=== PATIENT | female | born 1935 | race Caucasian/White ===

== ENCOUNTER 2020-04-08 13:34 | Inpatient (IN) | payer MEDICARE ==
[2020-04-08] MEDS ORDERED: Sodium Chloride 0.9% 1,000 ML IV SCH (15:30)
--- NOTE | 2020-04-08 16:54 | EDM.PDOC ---
ED HPI GENERAL MEDICAL PROBLEM - General Chief Complaint: General Stated Complaint: MEDICAL VIA TRI Time Seen by Provider: 04/08/20 16:48 Source of Information: Reports: Patient History Limitations: Reports: No Limitations - History of Present Illness INITIAL COMMENTS - FREE TEXT/NARRATIVE: pt arrived after having a syncopal episode at home. She was very diaphoretic at the time. 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 Sh did not have chest pain. Onset: Today, Sudden Duration: Hour(s): Location: Reports: Generalized Severity: Mild Improves with: Reports: None Associated Symptoms: Reports: Diaphoresis, Weakness denies Pain Score (Numeric/FACES): 0 - Related Data Allergies Allergy/AdvReac Type Severity Reaction Status Date / Time lisinopril AdvReac Cough Verified 04/08/20 13:45 Home Meds: Home Meds Acetaminophen [Tylenol Extra Strength] 2 tab PO TID PRN 12/02/14 [History] Calcium Carbonate/Vitamin D3 [Calcium 1,000 + D3 Caplet] 1 tab PO BID 12/02/14 [History] Glucosamine [Glucosamine Sulfate] 2 tab PO BID 12/02/14 [History] Losartan Potassium [Cozaar] 100 mg PO DAILY 12/02/14 [History] [place]-3 Fatty Acids [Fish Oil] 1 cap PO DAILY 12/02/14 [History] Rosuvastatin [Crestor] 20 mg PO DAILY 12/02/14 [History] amLODIPine [Norvasc] 2.5 mg PO DAILY 12/02/14 [History] Melatonin 1 tab PO BEDTIME PRN 11/11/18 [History] Metoprolol Tartrate 2 tab PO BID 11/11/18 [History] Warfarin [Coumadin] 2.5 mg PO ASDIRECTED 11/11/18 [History] Albuterol Sulfate [Proair Hfa] 1 - 2 puff IH Q4H 04/08/20 [History] Budesonide/Formoterol [Symbicort 80-4.5 MCG] 1 puff INH BID 04/08/20 [History] Past Medical History HEENT History: Reports: Impaired Vision Cardiovascular History: Reports: Afib, Bypass, CAD, High Cholesterol, Hypertension Respiratory History: Reports: Asthma 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: Neurological History: Reports: CVA Endocrine/Metabolic History: Reports: Diabetes, Type II Hematologic History: Reports: Anemia Oncologic (Cancer) History: Reports: Breast Dermatologic History: Reports: Other (See Below) Other Dermatologic History: skin CA basil cell - Infectious Disease History Infectious Disease History: Reports: Chicken Pox, Measles, Mumps - Past Surgical History HEENT Surgical History: Reports: Cataract Surgery Female Surgical History: Reports: Mastectomy Other Musculoskeletal Surgeries/Procedures:: right hip/ leg fracture Social & Family History - Tobacco Use Tobacco Use Status *Q: Never Tobacco User Second Hand Smoke Exposure: No - Caffeine Use Caffeine Use: Reports: Coffee - Alcohol Use Days Per Week of Alcohol Use: 0 - Recreational Drug Use Recreational Drug Use: No ED ROS GENERAL - Review of Systems Review Of Systems: See Below Constitutional: Reports: Weakness, Fatigue HEENT: Reports: No Symptoms Respiratory: Reports: Shortness of Breath, Other ( this has not been severe) Cardiovascular: Reports: No Symptoms Endocrine: Reports: No Symptoms GI/Abdominal: Reports: No Symptoms : Reports: No Symptoms Musculoskeletal: Reports: No Symptoms Skin: Reports: No Symptoms ED EXAM, GENERAL - Physical Exam Exam: See Below Free Text/Narrative:: pt was pale and diaphoretic on arrival. She had a syncopal episode this am in the br. She did not have chest pain Exam Limited By: No Limitations General Appearance: Alert, Mild Distress Ears: Normal TMs Nose: Normal Inspection Throat/Mouth: Normal Inspection Head: Atraumatic Neck: Normal Inspection Respiratory/Chest: No Respiratory Distress Cardiovascular: Regular Rate, Rhythm GI/Abdominal: Soft, Non-Tender (Female) Exam: Deferred Rectal (Female) Exam: Deferred Back Exam: Normal Inspection Extremities: Normal Inspection Neurological: Alert, Oriented, Normal Cognition Course - Vital Signs Last Recorded V/S: Last Vital Signs Temp 37.9 C 04/08/20 13:43 Pulse 61 04/08/20 13:43 Resp 25 H 04/08/20 13:43 BP 125/48 L 04/08/20 13:43 Pulse Ox 94 L 04/08/20 13:43 Orthostatic Blood Pressure [ 95/43 Sitting] Orthostatic Blood Pressure [ 129/54 Supine] - Orders/Labs/Meds Orders: Active Orders 24 hr Category Date Time Status EKG Documentation Completion [RC] ASDIRECTED Care 04/08/20 14:35 Active Orthostatic Vital Signs [RC] ASDIRECTED Care 04/08/20 14:49 Active Chest 1V Frontal [CR] Stat Exams 04/08/20 15:16 Taken Sodium Chloride 0.9% [Normal Saline] 1,000 ml Med 04/08/20 15:30 Active IV ASDIRECTED EKG 12 Lead [EK] Routine Ther 04/08/20 14:34 Ordered Medication Orders Sodium Chloride (Normal Saline) 1,000 mls @ 999 mls/hr IV ASDIRECTED JOHN Last Admin: 04/08/20 15:46 Dose: 999 mls/hr Documented by: ARLETTE Labs: Laboratory Tests 04/08/20 04/08/20 04/08/20 Range/Units 11:34 13:45 13:45 WBC 3.5 L (4.5-11.0) K/uL RBC 4.15 (3.30-5.50) M/uL Hgb 13.0 (12.0-15.0) g/dL Hct 39.0 (36.0-48.0) % MCV 94 (80-98) fL MCH 31 (27-31) pg MCHC 33 (32-36) % Plt Count 159 (150-400) K/uL Neut % (Auto) 69 H (36-66) % Lymph % (Auto) 24 (24-44) % [place] % (Auto) 6 (2-6) % Eos % (Auto) 0 L (2-4) % Baso % (Auto) 1 (0-1) % PT (9.5-12.0) sec INR (0.80-1.20) D-Dimer, Quantitative (0.0-500.0) ng/mL Sodium (140-148) mmol/L Potassium (3.6-5.2) mmol/L Chloride (100-108) mmol/L Carbon Dioxide (21-32) mmol/L Anion Gap (5.0-14.0) mmol/L BUN (7-18) mg/dL Creatinine (0.6-1.0) mg/dL Est Cr Clr Drug Dosing mL/min Estimated GFR (MDRD) (>60) Glucose (74-106) mg/dL Calcium (8.5-10.1) mg/dL Total Bilirubin (0.2-1.0) mg/dL AST (15-37) U/L ALT (12-78) U/L Alkaline Phosphatase (46-116) U/L Troponin I < 0.017 (0.000-0.056) ng/mL C-Reactive Protein 2.17 H (0.0-0.3) mg/dL Total Protein (6.4-8.2) g/dL Albumin (3.4-5.0) g/dL Globulin (2.3-3.5) g/dL Albumin/Globulin Ratio (1.2-2.2) Urine Color (YELLOW) Urine Appearance (CLEAR) Urine pH (5.0-8.0) Ur Specific [place] (1.008-1.030) Urine Protein (NEGATIVE) mg/dL Urine Glucose (UA) (NEGATIVE) mg/dL Urine Ketones (NEGATIVE) mg/dL Urine Occult Blood (NEGATIVE) Urine Nitrite (NEGATIVE) Urine Bilirubin (NEGATIVE) Urine Urobilinogen (0.2-1.0) EU/dL Ur Leukocyte Esterase (NEGATIVE) Urine RBC (0-5) Urine WBC (0-5) Ur Epithelial Cells Urine Bacteria 04/08/20 04/08/20 04/08/20 Range/Units 13:45 13:45 13:45 WBC (4.5-11.0) K/uL RBC (3.30-5.50) M/uL Hgb (12.0-15.0) g/dL Hct (36.0-48.0) % MCV (80-98) fL MCH (27-31) pg MCHC (32-36) % Plt Count (150-400) K/uL Neut % (Auto) (36-66) % Lymph % (Auto) (24-44) % [place] % (Auto) (2-6) % Eos % (Auto) (2-4) % Baso % (Auto) (0-1) % PT 24.6 H (9.5-12.0) sec INR 2.29 H (0.80-1.20) D-Dimer, Quantitative 1138.02 H (0.0-500.0) ng/mL Sodium 132 L (140-148) mmol/L Potassium 4.1 (3.6-5.2) mmol/L Chloride 96 L (100-108) mmol/L Carbon Dioxide 24 (21-32) mmol/L Anion Gap 16.1 H (5.0-14.0) mmol/L BUN 26 H (7-18) mg/dL Creatinine 1.3 H (0.6-1.0) mg/dL Est Cr Clr Drug Dosing 29.62 mL/min Estimated GFR (MDRD) 39 L (>60) Glucose 126 H (74-106) mg/dL Calcium 8.5 (8.5-10.1) mg/dL Total Bilirubin 0.5 (0.2-1.0) mg/dL AST 45 H (15-37) U/L ALT 26 (12-78) U/L Alkaline Phosphatase 107 (46-116) U/L Troponin I (0.000-0.056) ng/mL C-Reactive Protein (0.0-0.3) mg/dL Total Protein 8.0 (6.4-8.2) g/dL Albumin 3.6 (3.4-5.0) g/dL Globulin 4.4 H (2.3-3.5) g/dL Albumin/Globulin Ratio 0.8 L (1.2-2.2) Urine Color (YELLOW) Urine Appearance (CLEAR) Urine pH (5.0-8.0) Ur Specific [place] (1.008-1.030) Urine Protein (NEGATIVE) mg/dL Urine Glucose (UA) (NEGATIVE) mg/dL Urine Ketones (NEGATIVE) mg/dL Urine Occult Blood (NEGATIVE) Urine Nitrite (NEGATIVE) Urine Bilirubin (NEGATIVE) Urine Urobilinogen (0.2-1.0) EU/dL Ur Leukocyte Esterase (NEGATIVE) Urine RBC (0-5) Urine WBC (0-5) Ur Epithelial Cells Urine Bacteria 04/08/20 Range/Units 15:29 WBC (4.5-11.0) K/uL RBC (3.30-5.50) M/uL Hgb (12.0-15.0) g/dL Hct (36.0-48.0) % MCV (80-98) fL MCH (27-31) pg MCHC (32-36) % Plt Count (150-400) K/uL Neut % (Auto) (36-66) % Lymph % (Auto) (24-44) % [place] % (Auto) (2-6) % Eos % (Auto) (2-4) % Baso % (Auto) (0-1) % PT (9.5-12.0) sec INR (0.80-1.20) D-Dimer, Quantitative (0.0-500.0) ng/mL Sodium (140-148) mmol/L Potassium (3.6-5.2) mmol/L Chloride (100-108) mmol/L Carbon Dioxide (21-32) mmol/L Anion Gap (5.0-14.0) mmol/L BUN (7-18) mg/dL Creatinine (0.6-1.0) mg/dL Est Cr Clr Drug Dosing mL/min Estimated GFR (MDRD) (>60) Glucose (74-106) mg/dL Calcium (8.5-10.1) mg/dL Total Bilirubin (0.2-1.0) mg/dL AST (15-37) U/L ALT (12-78) U/L Alkaline Phosphatase (46-116) U/L Troponin I (0.000-0.056) ng/mL C-Reactive Protein (0.0-0.3) mg/dL Total Protein (6.4-8.2) g/dL Albumin (3.4-5.0) g/dL Globulin (2.3-3.5) g/dL Albumin/Globulin Ratio (1.2-2.2) Urine Color Yellow (YELLOW) Urine Appearance Clear (CLEAR) Urine pH 5.5 (5.0-8.0) Ur Specific [place] 1.015 (1.008-1.030) Urine Protein Negative (NEGATIVE) mg/dL Urine Glucose (UA) Negative (NEGATIVE) mg/dL Urine Ketones Negative (NEGATIVE) mg/dL Urine Occult Blood Trace-intact H (NEGATIVE) Urine Nitrite Negative (NEGATIVE) Urine Bilirubin Negative (NEGATIVE) Urine Urobilinogen 0.2 (0.2-1.0) EU/dL Ur Leukocyte Esterase Small H (NEGATIVE) Urine RBC 0-5 (0-5) Urine WBC 0-5 (0-5) Ur Epithelial Cells Rare Urine Bacteria Not seen Meds: Medications Generic Name Dose Route Start Last Admin Trade Name Freq PRN Reason Stop Dose Admin Sodium Chloride 1,000 mls @ 999 mls/hr 04/08/20 15:30 04/08/20 15:46 Normal Saline IV 999 mls/hr ASDIRECTED JOHN Administration - Re-Assessments/Exams Free Text/Narrative Re-Assessment/Exam: 04/08/20 16:55 chest xray showed infiltrate rt lung field. Pt had sats in 93-94 %. She has a neg urine.. Her bp is very low with standing and she was not able to stand. She was given 500cc of fluid and then fluid at 100cc per hour. Departure - Departure Time of Disposition: 16:59 Disposition: Admitted As Inpatient 65 Condition: Fair Clinical Impression: Hypotension, COVID-19 - Discharge Information Referrals: PCP,None [Primary Care Provider] - Care Plan Goals: admit to Dr Powell. Sepsis Event Note (ED) - Evaluation Sepsis Screening Result: No Definite Risk - Focused Exam Vital Signs: Vital Signs Temp Pulse Resp BP Pulse Ox 04/08/20 13:43 37.9 C 61 25 H 125/48 L 94 L - My Orders Last 24 Hours: My Active Orders 04/08/20 14:34 EKG 12 Lead [EK] Routine 04/08/20 14:35 EKG Documentation Completion [RC] ASDIRECTED 04/08/20 14:49 Orthostatic Vital Signs [RC] ASDIRECTED 04/08/20 15:16 Chest 1V Frontal [CR] Stat 04/08/20 15:30 Sodium Chloride 0.9% [Normal Saline] 1,000 ml IV ASDIRECTED - Assessment/Plan Last 24 Hours: My Active Orders 04/08/20 14:34 EKG 12 Lead [EK] Routine 04/08/20 14:35 EKG Documentation Completion [RC] ASDIRECTED 04/08/20 14:49 Orthostatic Vital Signs [RC] ASDIRECTED 04/08/20 15:16 Chest 1V Frontal [CR] Stat 04/08/20 15:30 Sodium Chloride 0.9% [Normal Saline] 1,000 ml IV ASDIRECTED
--- NOTE | 2020-04-08 17:33 | PCM.HP.2 ---
H&P History of Present Illness - General Date of Service: 04/08/20 Admit Problem/Dx: Admission Diagnosis/Problem Admission Diagnosis/Problem Syncope Source of Information: Patient, Provider History Limitations: Reports: No Limitations - History of Present Illness Initial Comments - Free Text/Narative: CC: I woke up on the floor HPI: Dang presents to the emergency room today after an episode of syncope. She reports that after getting out of the shower this afternoon she suddenly started to feel very weak and slumped to the floor. Her thinks that she was out for about 30 seconds before coming to. She was not confused afterwards but does not recall the event. She feels pretty much back to her previous self at this point. She was diagnosed with COVID-19 on , 2 days ago. Her symptoms first started on April 01. She has had sinus congestion and a cough. She does not produce any sputum. No complaints of shortness of breath or pleuritic chest pain. Appetite has been okay and her fluid intake has been okay. She feels weak and has not had much energy. No change in bowel or bladder habits. No nausea. She has had fevers to a higher than 102 at home. Work-up in the emergency room revealed mild leukopenia and a mildly elevated D-dimer and CRP. Chest x-ray showed some subtle infiltrates on the right. Vital signs have been stable though orthostatic vital signs were positive. She is not hypoxic. She was febrile. She was given 1 L of fluid in the emergency room. She is going to be admitted for observation with weakness and syncope in the setting of COVID-19 infection. denies Pain Score (Numeric/FACES): 0 - Related Data Allergies/Adverse Reactions: Allergies Allergy/AdvReac Type Severity Reaction Status Date / Time lisinopril AdvReac Cough Verified 04/08/20 13:45 Home Medications: Home Meds Acetaminophen [Tylenol Extra Strength] 2 tab PO TID PRN 12/02/14 [History] Calcium Carbonate/Vitamin D3 [Calcium 1,000 + D3 Caplet] 1 tab PO BID 12/02/14 [History] Glucosamine [Glucosamine Sulfate] 2 tab PO BID 12/02/14 [History] Losartan Potassium [Cozaar] 100 mg PO DAILY 12/02/14 [History] [place]-3 Fatty Acids [Fish Oil] 1 cap PO DAILY 12/02/14 [History] Rosuvastatin [Crestor] 20 mg PO DAILY 12/02/14 [History] amLODIPine [Norvasc] 2.5 mg PO DAILY 12/02/14 [History] Melatonin 1 tab PO BEDTIME PRN 11/11/18 [History] Metoprolol Tartrate 2 tab PO BID 11/11/18 [History] Warfarin [Coumadin] 2.5 mg PO ASDIRECTED 11/11/18 [History] Albuterol Sulfate [Proair Hfa] 1 - 2 puff IH Q4H 04/08/20 [History] Budesonide/Formoterol [Symbicort 80-4.5 MCG] 1 puff INH BID 04/08/20 [History] Past Medical History HEENT History: Reports: Impaired Vision Cardiovascular History: Reports: Afib, Bypass, CAD, High Cholesterol, Hypertension Respiratory History: Reports: Asthma 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: Neurological History: Reports: CVA Endocrine/Metabolic History: Reports: Diabetes, Type II Hematologic History: Reports: Anemia Oncologic (Cancer) History: Reports: Breast Dermatologic History: Reports: Other (See Below) Other Dermatologic History: skin CA basil cell - Infectious Disease History Infectious Disease History: Reports: Chicken Pox, Measles, Mumps - Past Surgical History HEENT Surgical History: Reports: Cataract Surgery Female Surgical History: Reports: Mastectomy Other Musculoskeletal Surgeries/Procedures:: right hip/ leg fracture Social & Family History - Tobacco Use Tobacco Use Status *Q: Never Tobacco User Second Hand Smoke Exposure: No - Caffeine Use Caffeine Use: Reports: Coffee - Alcohol Use Days Per Week of Alcohol Use: 0 - Recreational Drug Use Recreational Drug Use: No H&P Review of Systems - Review of Systems: Review Of Systems: See Below Free Text/Narrative: A complete 12 point review of systems was obtained. Pertinent positives and negatives are noted in the history of present illness. All other systems were reviewed and were negative except as noted. Exam - Exam Exam: See Below - Vital Signs Vital Signs: Last Vital Signs Temp 37.9 C 04/08/20 13:43 Pulse 61 04/08/20 13:43 Resp 25 H 04/08/20 13:43 BP 125/48 L 04/08/20 13:43 Pulse Ox 94 L 04/08/20 13:43 Orthostatic Blood Pressure [ 95/43 Sitting] Orthostatic Blood Pressure [ 129/54 Supine] Weight: 77.111 kg - Exam Quality Assessment: No: Supplemental Oxygen General: Alert, Oriented, Cooperative. No: Mild Distress HEENT: Conjunctiva Clear, Mucosa Moist & [place]. No: Scleral Icterus Neck: Supple, Trachea Midline Lungs: Normal Respiratory Effort, Crackles (Mild dry crackles both bases) Cardiovascular: Regular Rate, Irregular Rhythm. No: Systolic Murmur GI/Abdominal Exam: Normal Bowel Sounds, Soft, Non-Tender, No Distention Extremities: No Pedal Edema. No: Increased Warmth Peripheral Pulses: 2+: Dorsalis Pedis (L), Dorsalis Pedis (R) Skin: Warm, Dry Neuro Extensive - Mental Status: Alert, Oriented x3, Nl Response to Commands Neuro Extensive - Motor, Sensory, Reflexes: No: Dysarthria, Abnormal Motor, Tremor Psychiatric: Alert, Normal Affect - Patient Data Lab Results Last 24 hrs: Laboratory Results - last 24 hr 04/08/20 04/08/20 04/08/20 Range/Units 11:34 13:45 13:45 WBC 3.5 L (4.5-11.0) K/uL RBC 4.15 (3.30-5.50) M/uL Hgb 13.0 (12.0-15.0) g/dL Hct 39.0 (36.0-48.0) % MCV 94 (80-98) fL MCH 31 (27-31) pg MCHC 33 (32-36) % Plt Count 159 (150-400) K/uL Neut % (Auto) 69 H (36-66) % Lymph % (Auto) 24 (24-44) % [place] % (Auto) 6 (2-6) % Eos % (Auto) 0 L (2-4) % Baso % (Auto) 1 (0-1) % PT (9.5-12.0) sec INR (0.80-1.20) D-Dimer, Quantitative (0.0-500.0) ng/mL Sodium (140-148) mmol/L Potassium (3.6-5.2) mmol/L Chloride (100-108) mmol/L Carbon Dioxide (21-32) mmol/L Anion Gap (5.0-14.0) mmol/L BUN (7-18) mg/dL Creatinine (0.6-1.0) mg/dL Est Cr Clr Drug Dosing mL/min Estimated GFR (MDRD) (>60) Glucose (74-106) mg/dL Calcium (8.5-10.1) mg/dL Total Bilirubin (0.2-1.0) mg/dL AST (15-37) U/L ALT (12-78) U/L Alkaline Phosphatase (46-116) U/L Troponin I < 0.017 (0.000-0.056) ng/mL C-Reactive Protein 2.17 H (0.0-0.3) mg/dL Total Protein (6.4-8.2) g/dL Albumin (3.4-5.0) g/dL Globulin (2.3-3.5) g/dL Albumin/Globulin Ratio (1.2-2.2) Urine Color (YELLOW) Urine Appearance (CLEAR) Urine pH (5.0-8.0) Ur Specific [place] (1.008-1.030) Urine Protein (NEGATIVE) mg/dL Urine Glucose (UA) (NEGATIVE) mg/dL Urine Ketones (NEGATIVE) mg/dL Urine Occult Blood (NEGATIVE) Urine Nitrite (NEGATIVE) Urine Bilirubin (NEGATIVE) Urine Urobilinogen (0.2-1.0) EU/dL Ur Leukocyte Esterase (NEGATIVE) Urine RBC (0-5) Urine WBC (0-5) Ur Epithelial Cells Urine Bacteria 04/08/20 04/08/20 04/08/20 Range/Units 13:45 13:45 13:45 WBC (4.5-11.0) K/uL RBC (3.30-5.50) M/uL Hgb (12.0-15.0) g/dL Hct (36.0-48.0) % MCV (80-98) fL MCH (27-31) pg MCHC (32-36) % Plt Count (150-400) K/uL Neut % (Auto) (36-66) % Lymph % (Auto) (24-44) % [place] % (Auto) (2-6) % Eos % (Auto) (2-4) % Baso % (Auto) (0-1) % PT 24.6 H (9.5-12.0) sec INR 2.29 H (0.80-1.20) D-Dimer, Quantitative 1138.02 H (0.0-500.0) ng/mL Sodium 132 L (140-148) mmol/L Potassium 4.1 (3.6-5.2) mmol/L Chloride 96 L (100-108) mmol/L Carbon Dioxide 24 (21-32) mmol/L Anion Gap 16.1 H (5.0-14.0) mmol/L BUN 26 H (7-18) mg/dL Creatinine 1.3 H (0.6-1.0) mg/dL Est Cr Clr Drug Dosing 29.62 mL/min Estimated GFR (MDRD) 39 L (>60) Glucose 126 H (74-106) mg/dL Calcium 8.5 (8.5-10.1) mg/dL Total Bilirubin 0.5 (0.2-1.0) mg/dL AST 45 H (15-37) U/L ALT 26 (12-78) U/L Alkaline Phosphatase 107 (46-116) U/L Troponin I (0.000-0.056) ng/mL C-Reactive Protein (0.0-0.3) mg/dL Total Protein 8.0 (6.4-8.2) g/dL Albumin 3.6 (3.4-5.0) g/dL Globulin 4.4 H (2.3-3.5) g/dL Albumin/Globulin Ratio 0.8 L (1.2-2.2) Urine Color (YELLOW) Urine Appearance (CLEAR) Urine pH (5.0-8.0) Ur Specific [place] (1.008-1.030) Urine Protein (NEGATIVE) mg/dL Urine Glucose (UA) (NEGATIVE) mg/dL Urine Ketones (NEGATIVE) mg/dL Urine Occult Blood (NEGATIVE) Urine Nitrite (NEGATIVE) Urine Bilirubin (NEGATIVE) Urine Urobilinogen (0.2-1.0) EU/dL Ur Leukocyte Esterase (NEGATIVE) Urine RBC (0-5) Urine WBC (0-5) Ur Epithelial Cells Urine Bacteria 04/08/20 Range/Units 15:29 WBC (4.5-11.0) K/uL RBC (3.30-5.50) M/uL Hgb (12.0-15.0) g/dL Hct (36.0-48.0) % MCV (80-98) fL MCH (27-31) pg MCHC (32-36) % Plt Count (150-400) K/uL Neut % (Auto) (36-66) % Lymph % (Auto) (24-44) % [place] % (Auto) (2-6) % Eos % (Auto) (2-4) % Baso % (Auto) (0-1) % PT (9.5-12.0) sec INR (0.80-1.20) D-Dimer, Quantitative (0.0-500.0) ng/mL Sodium (140-148) mmol/L Potassium (3.6-5.2) mmol/L Chloride (100-108) mmol/L Carbon Dioxide (21-32) mmol/L Anion Gap (5.0-14.0) mmol/L BUN (7-18) mg/dL Creatinine (0.6-1.0) mg/dL Est Cr Clr Drug Dosing mL/min Estimated GFR (MDRD) (>60) Glucose (74-106) mg/dL Calcium (8.5-10.1) mg/dL Total Bilirubin (0.2-1.0) mg/dL AST (15-37) U/L ALT (12-78) U/L Alkaline Phosphatase (46-116) U/L Troponin I (0.000-0.056) ng/mL C-Reactive Protein (0.0-0.3) mg/dL Total Protein (6.4-8.2) g/dL Albumin (3.4-5.0) g/dL Globulin (2.3-3.5) g/dL Albumin/Globulin Ratio (1.2-2.2) Urine Color Yellow (YELLOW) Urine Appearance Clear (CLEAR) Urine pH 5.5 (5.0-8.0) Ur Specific [place] 1.015 (1.008-1.030) Urine Protein Negative (NEGATIVE) mg/dL Urine Glucose (UA) Negative (NEGATIVE) mg/dL Urine Ketones Negative (NEGATIVE) mg/dL Urine Occult Blood Trace-intact H (NEGATIVE) Urine Nitrite Negative (NEGATIVE) Urine Bilirubin Negative (NEGATIVE) Urine Urobilinogen 0.2 (0.2-1.0) EU/dL Ur Leukocyte Esterase Small H (NEGATIVE) Urine RBC 0-5 (0-5) Urine WBC 0-5 (0-5) Ur Epithelial Cells Rare Urine Bacteria Not seen Result Diagrams: 04/08/20 13:45 04/08/20 13:45 Imaging Impressions Last 24 hrs: Chest x-ray-image personally reviewed-left lung appears clear but there are some subtle patchy infiltrates on the right. Heart size is normal. No effusions. No mass. #1 Interpretation EKG Date: 04/08/20 Rhythm: A-Fib Rate (Beats/Min): 59 [place]: Normal P-Wave: Present QRS: Normal ST-T: Normal QT: Normal (The EKG image was personally reviewed) Sepsis Event Note - Evaluation Sepsis Screening Result: No Definite Risk - Focused Exam Vital Signs: Vital Signs Temp Pulse Resp BP Pulse Ox 04/08/20 13:43 37.9 C 61 25 H 125/48 L 94 L *Q Meaningful Use (ADM) - VTE Risk Assess *Q Each Risk Factor Represents 1 Point: Obesity ( BMI > 25 kg/m2), Serious lung disease including pneumonia Total Score 1 Point Risk Factors: 2 Each Risk Factor Represents 2 Points: None Total Score 2 Point Risk Factors: 0 Each Risk Factor Represents 3 Points: Age 75 Years or Greater Total Score 3 Point Risk Factors: 3 Each Risk Factor Represents 5 Points: None Total Score 5 Point Risk Factors: 0 Venous Thromboembolism Risk Factor Score *Q: 5 - Problem List (1) Syncope SNOMED Code(s): 248422487 ICD Code: R55 - SYNCOPE AND COLLAPSE Status: Acute Current Visit: Yes Qualifiers: Syncope type: unspecified Qualified Code(s): R55 - Syncope and collapse (2) COVID-19 SNOMED Code(s): 677295168 ICD Code: U07.1 - COVID-19 Status: Acute Current Visit: Yes (3) Chronic atrial fibrillation SNOMED Code(s): 655453890 ICD Code: I48.20 - CHRONIC ATRIAL FIBRILLATION, UNSPECIFIED Status: Chronic Current Visit: Yes (4) Essential hypertension SNOMED Code(s): 87933310 ICD Code: I10 - ESSENTIAL (PRIMARY) HYPERTENSION Status: Chronic Current Visit: Yes Problem List Initiated/Reviewed/Updated: Yes Orders Last 24hrs: Active Orders 24 hr Category Date Time Status Patient Status Manage Transfer [TRANSFER] Routine ADT 04/08/20 17:27 Ordered EKG Documentation Completion [RC] ASDIRECTED Care 04/08/20 14:35 Active Orthostatic Vital Signs [RC] ASDIRECTED Care 04/08/20 14:49 Active Chest 1V Frontal [CR] Stat Exams 04/08/20 15:16 Taken Sodium Chloride 0.9% [Normal Saline] 1,000 ml Med 04/08/20 15:30 Active IV ASDIRECTED Resuscitation Status Routine Resus Stat 04/08/20 17:29 Ordered EKG 12 Lead [EK] Routine Ther 04/08/20 14:34 Ordered Medication Orders Sodium Chloride (Normal Saline) 1,000 mls @ 999 mls/hr IV ASDIRECTED JOHN Last Admin: 04/08/20 15:46 Dose: 999 mls/hr Documented by: ARLETTE Assessment/Plan Comment:: ASSESSMENT AND PLAN - Syncope-occurred after getting out of the shower and is likely a combination of vasodilation and decreased intravascular volume with Covid and recent fevers. Orthostatics are positive. She did get 1 L of fluid in the emergency room. Additional fluids are contraindicated because of her Covid infection. -Hold antihypertensives other than beta-denilson -Encourage oral fluid intake -Cardiac monitoring COVID-19 infection-manifestations of congestion and cough as well as fatigue. She is not hypoxic. Does not meet criteria to initiate treatment at this point. -Symptomatic management -Steroids +/-remdesivir if she becomes hypoxic Chronic atrial fibrillation-rate controlled. INR therapeutic. -Continue beta-denilson and warfarin Essential hypertension-blood pressure on the low side and orthostatics are positive. -Hold calcium channel denilson and ARB Maintenance issues - - DVT prophylaxis -warfarin - GI prophylaxis -not indicated - Nutrition -regular - Calle catheter -not indicated CODE STATUS -DNR/DNI Admission justification -patient will be referred to observation status for cardiac monitoring and assistance until her strength improves Disposition -anticipate discharge home after the hospital stay Primary care physician -Dr Igor Powell M.D. - Mortality Measure Prognosis:: Good
[2020-04-08] MEDS ORDERED: Ondansetron 4 MG/2 ML SDV IV PRN (18:04)
[2020-04-08] MEDS ORDERED: guaiFENesin/Dextromethorphan 100-10 MG/5 ML Soln 10 ML Cup PO PRN (18:04)
[2020-04-08] MEDS ORDERED: Ondansetron 4 MG Tab.DIS PO PRN (18:04)
[2020-04-08] MEDS ORDERED: Benzonatate 100 MG Cap PO PRN (18:04)
[2020-04-08] MEDS: Albuterol 8 GM Inhaler INH SCH ×2 (20:19→21:52)
[2020-04-08] MEDS: METOPROLOL 25 MG PO SCH (20:20)
[2020-04-08] MEDS: Melatonin 3 MG Tab PO SCH (20:27)
[2020-04-08] MEDS: Acetaminophen 325 MG Tab PO PRN (20:27)
[2020-04-08] MEDS ORDERED: Dexamethasone 2 MG Tab PO ONE (20:44)
[2020-04-08] MEDS ORDERED: Metoprolol Tartrate 50 MG Tab PO SCH (21:00)
[2020-04-08] MEDS ORDERED: Formoterol/Mometasone 100-5 MCG 8.8 GM Inhaler IH SCH (21:00)
[2020-04-09] MEDS: Albuterol 8 GM Inhaler INH SCH ×8 (02:14→20:44)
[2020-04-09] MEDS: Rosuvastatin 10 MG Tab PO SCH (08:31)
[2020-04-09] MEDS: Formoterol/Mometasone 100-5 MCG 8.8 GM Inhaler IH SCH ×2 (08:32→20:09)
--- NOTE | 2020-04-09 12:11 | PCM.PN ---
- General Info Date of Service: 04/09/20 Subjective Update: Overnight the patient had difficulty with hypoxia. She was started on supplemental oxygen. She has maintained adequate saturations with 2 L of supplemental oxygen. She says that she feels about the same as yesterday. She feels tired and weak and congested. Cough is intermittent. No fevers overnight. She was started on steroids last night and tolerated these well. We did discuss adding remdesivir and she was interested in starting this after a discussion about risks and benefits of this medication provided under the emergency use authorization. Functional Status: Reports: Pain Controlled, Tolerating Diet - Review of Systems General: Reports: Weakness Pulmonary: Reports: Shortness of Breath - Patient Data Vitals - Most Recent: Last Vital Signs Temp 35.4 C L 04/09/20 10:27 Pulse 55 L 04/09/20 10:27 Resp 18 04/09/20 10:27 BP 97/44 L 04/09/20 10:27 Pulse Ox 95 04/09/20 11:59 Orthostatic Blood Pressure [ 95/43 Sitting] Orthostatic Blood Pressure [ 129/54 Supine] Weight - Most Recent: 72.575 kg I&O - Last 24 Hours: Intake & Output 04/08/20 04/09/20 04/09/20 22:59 06:59 14:59 Intake Total 500 240 800 Output Total 100 150 Balance 400 240 650 Lab Results Last 24 Hours: Laboratory Results - last 24 hr 04/08/20 04/08/20 04/08/20 Range/Units 11:34 13:45 13:45 WBC 3.5 L (4.5-11.0) K/uL RBC 4.15 (3.30-5.50) M/uL Hgb 13.0 (12.0-15.0) g/dL Hct 39.0 (36.0-48.0) % MCV 94 (80-98) fL MCH 31 (27-31) pg MCHC 33 (32-36) % Plt Count 159 (150-400) K/uL Neut % (Auto) 69 H (36-66) % Lymph % (Auto) 24 (24-44) % [place] % (Auto) 6 (2-6) % Eos % (Auto) 0 L (2-4) % Baso % (Auto) 1 (0-1) % PT (9.5-12.0) sec INR (0.80-1.20) D-Dimer, Quantitative (0.0-500.0) ng/mL Sodium (140-148) mmol/L Potassium (3.6-5.2) mmol/L Chloride (100-108) mmol/L Carbon Dioxide (21-32) mmol/L Anion Gap (5.0-14.0) mmol/L BUN (7-18) mg/dL Creatinine (0.6-1.0) mg/dL Est Cr Clr Drug Dosing mL/min Estimated GFR (MDRD) (>60) Glucose (74-106) mg/dL Calcium (8.5-10.1) mg/dL Total Bilirubin (0.2-1.0) mg/dL AST (15-37) U/L ALT (12-78) U/L Alkaline Phosphatase (46-116) U/L Troponin I < 0.017 (0.000-0.056) ng/mL C-Reactive Protein 2.17 H (0.0-0.3) mg/dL Total Protein (6.4-8.2) g/dL Albumin (3.4-5.0) g/dL Globulin (2.3-3.5) g/dL Albumin/Globulin Ratio (1.2-2.2) Urine Color (YELLOW) Urine Appearance (CLEAR) Urine pH (5.0-8.0) Ur Specific [place] (1.008-1.030) Urine Protein (NEGATIVE) mg/dL Urine Glucose (UA) (NEGATIVE) mg/dL Urine Ketones (NEGATIVE) mg/dL Urine Occult Blood (NEGATIVE) Urine Nitrite (NEGATIVE) Urine Bilirubin (NEGATIVE) Urine Urobilinogen (0.2-1.0) EU/dL Ur Leukocyte Esterase (NEGATIVE) Urine RBC (0-5) Urine WBC (0-5) Ur Epithelial Cells Urine Bacteria 04/08/20 04/08/20 04/08/20 Range/Units 13:45 13:45 13:45 WBC (4.5-11.0) K/uL RBC (3.30-5.50) M/uL Hgb (12.0-15.0) g/dL Hct (36.0-48.0) % MCV (80-98) fL MCH (27-31) pg MCHC (32-36) % Plt Count (150-400) K/uL Neut % (Auto) (36-66) % Lymph % (Auto) (24-44) % [place] % (Auto) (2-6) % Eos % (Auto) (2-4) % Baso % (Auto) (0-1) % PT 24.6 H (9.5-12.0) sec INR 2.29 H (0.80-1.20) D-Dimer, Quantitative 1138.02 H (0.0-500.0) ng/mL Sodium 132 L (140-148) mmol/L Potassium 4.1 (3.6-5.2) mmol/L Chloride 96 L (100-108) mmol/L Carbon Dioxide 24 (21-32) mmol/L Anion Gap 16.1 H (5.0-14.0) mmol/L BUN 26 H (7-18) mg/dL Creatinine 1.3 H (0.6-1.0) mg/dL Est Cr Clr Drug Dosing 29.62 mL/min Estimated GFR (MDRD) 39 L (>60) Glucose 126 H (74-106) mg/dL Calcium 8.5 (8.5-10.1) mg/dL Total Bilirubin 0.5 (0.2-1.0) mg/dL AST 45 H (15-37) U/L ALT 26 (12-78) U/L Alkaline Phosphatase 107 (46-116) U/L Troponin I (0.000-0.056) ng/mL C-Reactive Protein (0.0-0.3) mg/dL Total Protein 8.0 (6.4-8.2) g/dL Albumin 3.6 (3.4-5.0) g/dL Globulin 4.4 H (2.3-3.5) g/dL Albumin/Globulin Ratio 0.8 L (1.2-2.2) Urine Color (YELLOW) Urine Appearance (CLEAR) Urine pH (5.0-8.0) Ur Specific [place] (1.008-1.030) Urine Protein (NEGATIVE) mg/dL Urine Glucose (UA) (NEGATIVE) mg/dL Urine Ketones (NEGATIVE) mg/dL Urine Occult Blood (NEGATIVE) Urine Nitrite (NEGATIVE) Urine Bilirubin (NEGATIVE) Urine Urobilinogen (0.2-1.0) EU/dL Ur Leukocyte Esterase (NEGATIVE) Urine RBC (0-5) Urine WBC (0-5) Ur Epithelial Cells Urine Bacteria 04/08/20 04/09/20 04/09/20 Range/Units 15:29 05:10 05:10 WBC 3.8 L (4.5-11.0) K/uL RBC 3.61 (3.30-5.50) M/uL Hgb 11.1 L (12.0-15.0) g/dL Hct 34.3 L (36.0-48.0) % MCV 95 (80-98) fL MCH 31 (27-31) pg MCHC 32 (32-36) % Plt Count 145 L (150-400) K/uL Neut % (Auto) (36-66) % Lymph % (Auto) (24-44) % [place] % (Auto) (2-6) % Eos % (Auto) (2-4) % Baso % (Auto) (0-1) % PT 20.0 H (9.5-12.0) sec INR 1.86 H (0.80-1.20) D-Dimer, Quantitative (0.0-500.0) ng/mL Sodium (140-148) mmol/L Potassium (3.6-5.2) mmol/L Chloride (100-108) mmol/L Carbon Dioxide (21-32) mmol/L Anion Gap (5.0-14.0) mmol/L BUN (7-18) mg/dL Creatinine (0.6-1.0) mg/dL Est Cr Clr Drug Dosing mL/min Estimated GFR (MDRD) (>60) Glucose (74-106) mg/dL Calcium (8.5-10.1) mg/dL Total Bilirubin (0.2-1.0) mg/dL AST (15-37) U/L ALT (12-78) U/L Alkaline Phosphatase (46-116) U/L Troponin I (0.000-0.056) ng/mL C-Reactive Protein (0.0-0.3) mg/dL Total Protein (6.4-8.2) g/dL Albumin (3.4-5.0) g/dL Globulin (2.3-3.5) g/dL Albumin/Globulin Ratio (1.2-2.2) Urine Color Yellow (YELLOW) Urine Appearance Clear (CLEAR) Urine pH 5.5 (5.0-8.0) Ur Specific [place] 1.015 (1.008-1.030) Urine Protein Negative (NEGATIVE) mg/dL Urine Glucose (UA) Negative (NEGATIVE) mg/dL Urine Ketones Negative (NEGATIVE) mg/dL Urine Occult Blood Trace-intact H (NEGATIVE) Urine Nitrite Negative (NEGATIVE) Urine Bilirubin Negative (NEGATIVE) Urine Urobilinogen 0.2 (0.2-1.0) EU/dL Ur Leukocyte Esterase Small H (NEGATIVE) Urine RBC 0-5 (0-5) Urine WBC 0-5 (0-5) Ur Epithelial Cells Rare Urine Bacteria Not seen 04/09/20 Range/Units 05:10 WBC (4.5-11.0) K/uL RBC (3.30-5.50) M/uL Hgb (12.0-15.0) g/dL Hct (36.0-48.0) % MCV (80-98) fL MCH (27-31) pg MCHC (32-36) % Plt Count (150-400) K/uL Neut % (Auto) (36-66) % Lymph % (Auto) (24-44) % [place] % (Auto) (2-6) % Eos % (Auto) (2-4) % Baso % (Auto) (0-1) % PT (9.5-12.0) sec INR (0.80-1.20) D-Dimer, Quantitative (0.0-500.0) ng/mL Sodium 133 L (140-148) mmol/L Potassium 4.0 (3.6-5.2) mmol/L Chloride 99 L (100-108) mmol/L Carbon Dioxide 23 (21-32) mmol/L Anion Gap 15.0 H (5.0-14.0) mmol/L BUN 31 H (7-18) mg/dL Creatinine 1.3 H (0.6-1.0) mg/dL Est Cr Clr Drug Dosing 29.62 mL/min Estimated GFR (MDRD) 39 L (>60) Glucose 225 H (74-106) mg/dL Calcium 8.2 L (8.5-10.1) mg/dL Total Bilirubin (0.2-1.0) mg/dL AST (15-37) U/L ALT (12-78) U/L Alkaline Phosphatase (46-116) U/L Troponin I (0.000-0.056) ng/mL C-Reactive Protein (0.0-0.3) mg/dL Total Protein (6.4-8.2) g/dL Albumin (3.4-5.0) g/dL Globulin (2.3-3.5) g/dL Albumin/Globulin Ratio (1.2-2.2) Urine Color (YELLOW) Urine Appearance (CLEAR) Urine pH (5.0-8.0) Ur Specific [place] (1.008-1.030) Urine Protein (NEGATIVE) mg/dL Urine Glucose (UA) (NEGATIVE) mg/dL Urine Ketones (NEGATIVE) mg/dL Urine Occult Blood (NEGATIVE) Urine Nitrite (NEGATIVE) Urine Bilirubin (NEGATIVE) Urine Urobilinogen (0.2-1.0) EU/dL Ur Leukocyte Esterase (NEGATIVE) Urine RBC (0-5) Urine WBC (0-5) Ur Epithelial Cells Urine Bacteria Med Orders - Current: Current Medications Acetaminophen (Tylenol) 650 mg PO Q4H PRN PRN Reason: Pain (Mild 1-3)/fever Last Admin: 04/08/20 20:27 Dose: 650 mg Documented by: Albuterol (Ventolin Hfa) 1 - 2 gm INH Q4H [facility] Last Admin: 04/09/20 11:12 Dose: 2 puff Documented by: Benzonatate (Tessalon Perles) 100 mg PO TID PRN PRN Reason: Cough Dexamethasone (Dexamethasone) 6 mg PO Q24H [facility] Stop: 04/17/20 21:01 Guaifenesin/Dextromethorphan (Robitussin Dm) 10 ml PO Q4H PRN PRN Reason: Cough Remdesivir 100 mg/ Sodium (Chloride) 100 mls @ 100 mls/hr IV Q24H [facility] Stop: 04/13/20 13:59 Remdesivir 200 mg/ Sodium (Chloride) 250 mls @ 250 mls/hr IV ONETIME ONE Stop: 04/09/20 12:09 Magnesium Hydroxide (Milk Of Magnesia) 30 ml PO Q12H PRN PRN Reason: Constipation Melatonin (Melatonin) 6 mg PO BEDTIME [facility] Last Admin: 04/08/20 20:27 Dose: 6 mg Documented by: Mometasone Furoate/Formoterol Fumar (Dulera 100-5 Mcg) 0 puff IH BIDRT [facility] Last Admin: 04/09/20 08:32 Dose: 1 puff Documented by: Metoprolol 25mg Tab (Pt Own) 2 each PO BID [facility] Last Admin: 04/08/20 20:20 Dose: 2 each Documented by: Ondansetron HCl (Zofran) 4 mg IV Q6H PRN PRN Reason: Nausea/Vomiting Ondansetron HCl (Zofran Odt) 4 mg PO Q6H PRN PRN Reason: Nausea able to take PO Rosuvastatin Calcium (Crestor) 20 mg PO DAILY [facility] Last Admin: 04/09/20 08:31 Dose: 20 mg Documented by: Senna/Docusate Sodium (Senna Plus) 1 tab PO BID PRN PRN Reason: Constipation Warfarin Sodium (Coumadin) 1.25 mg PO DAILY@1300 [facility] Discontinued Medications Albuterol (Ventolin Hfa) 1 - 2 gm INH Q4H [facility] Last Admin: 04/09/20 05:39 Dose: 1 puff Documented by: Dexamethasone (Dexamethasone) 6 mg PO ONETIME ONE Stop: 04/08/20 20:45 Last Admin: 04/08/20 21:52 Dose: 6 mg Documented by: Sodium Chloride (Normal Saline) 1,000 mls @ 999 mls/hr IV ASDIRECTED [facility] Last Admin: 04/08/20 15:46 Dose: 999 mls/hr Documented by: Metoprolol Tartrate (Lopressor) 50 mg PO BID [facility] Mometasone Furoate/Formoterol Fumar (Dulera 100-5 Mcg) 1 puff IH BID [facility] Last Admin: 04/08/20 20:18 Dose: 1 puff Documented by: - Exam Quality Assessment: Supplemental Oxygen General: Alert, Oriented, Cooperative, No Acute Distress Lungs: Normal Respiratory Effort. No: Wheezing Cardiovascular: Regular Rate, Irregular Rhythm GI/Abdominal Exam: Soft, No Distention Extremities: No Pedal Edema. No: Increased Warmth Skin: Warm, Dry Psy/Mental Status: Alert, Normal Affect Sepsis Event Note - Evaluation Sepsis Screening Result: Severe Sepsis Risk - Focused Exam Vital Signs: Vital Signs Temp Pulse Resp BP Pulse Ox 04/09/20 11:59 95 04/09/20 10:27 35.4 C L 55 L 18 97/44 L 93 L 04/09/20 07:11 93 L 04/09/20 07:00 35.4 C L 50 L 18 102/53 L 93 L 04/09/20 02:15 44 L 16 101/51 L 92 L 04/09/20 01:00 97 - Problem List & Annotations (1) Syncope SNOMED Code(s): 969487542 Code(s): R55 - SYNCOPE AND COLLAPSE Status: Acute Current Visit: Yes Qualifiers: Syncope type: unspecified Qualified Code(s): R55 - Syncope and collapse (2) COVID-19 SNOMED Code(s): 486424546 Code(s): U07.1 - COVID-19 Status: Acute Current Visit: Yes (3) Chronic atrial fibrillation SNOMED Code(s): 601479183 Code(s): I48.20 - CHRONIC ATRIAL FIBRILLATION, UNSPECIFIED Status: Chronic Current Visit: Yes (4) Essential hypertension SNOMED Code(s): 75080655 Code(s): I10 - ESSENTIAL (PRIMARY) HYPERTENSION Status: Chronic Current Visit: Yes - Problem List Review Problem List Initiated/Reviewed/Updated: Yes - My Orders Last 24 Hours: My Active Orders 04/08/20 Dinner Regular Diet [DIET] 04/08/20 17:29 Resuscitation Status Routine 04/08/20 18:04 Acetaminophen [TylenoL] 650 mg PO Q4H PRN Benzonatate [Tessalon Perles] 100 mg PO TID PRN Dextromethorphan/guaiFENesin [Robitussin DM] 10 ml PO Q4H PRN Docusate Sodium/Sennosides [Senna Plus] 1 tab PO BID PRN Magnesium Hydroxide [Milk of Magnesia] 30 ml PO Q12H PRN Ondansetron [Zofran ODT] 4 mg PO Q6H PRN Ondansetron [Zofran] 4 mg IV Q6H PRN 04/08/20 18:04 Patient Status [ADT] Routine Cardiac Monitoring [RC] CONTINUOUS Intake and Output [RC] Q12H Notify Provider Vital Signs [RC] ASDIRECTED Oxygen Therapy [RC] PRN Pulse Oximetry [RC] CONTINUOUS Up With Assistance [RC] ASDIRECTED VTE/DVT Education [RC] Per Unit Routine Vital Signs [RC] Q4H 04/08/20 21:00 Melatonin 6 mg PO BEDTIME Non-Formulary Medication [NF Drug] 2 each PO BID 04/09/20 09:00 Mometasone/Formoterol [Dulera 100-5 MCG] 0 puff IH BIDRT Rosuvastatin [Crestor] 20 mg PO DAILY 04/09/20 09:26 Albuterol [Ventolin HFA] 1 - 2 gm INH Q4H 04/09/20 12:08 Remdesivir 200 mg Sodium Chloride 0.9% [Normal Saline] 250 ml IV ONETIME 04/09/20 12:09 Admission Status [Patient Status] [ADT] Routine 04/09/20 13:00 Warfarin [Coumadin] 1.25 mg PO DAILY@1300 04/09/20 21:00 Metoprolol Tartrate [Lopressor] 25 mg PO BID dexAMETHasone 6 mg PO Q24H 04/10/20 05:00 C-REACTIVE PROTEIN [CHEM] Timed CBC W/O DIFF,HEMOGRAM [HEME] Timed (1) COMPREHENSIVE METABOLIC PN,CMP [CHEM] Timed D-DIMER QUANTITATIVE [COAG] Timed INR,PT,PROTHROMBIN TIME [COAG] Timed 04/10/20 13:00 Remdesivir 100 mg Sodium Chloride 0.9% [Normal Saline] 100 ml IV Q24H - Plan Plan:: ASSESSMENT AND PLAN - COVID-19 pneumonia-now complicated by acute respiratory failure with hypoxia. She is currently requiring 2 L of oxygen. Steroids started last night. She is interested in remdesivir. -Continue steroids every 24 hours (day 2) -Start remdesivir (day 1) -Symptomatic management -Isolation precautions (sx onset 04/01) Syncope-occurred after getting out of the shower and is likely a combination of vasodilation and decreased intravascular volume with Covid and recent fevers. No recurrence during the hospital stay. -Hold antihypertensives other than beta-denilson -Encourage oral fluid intake -Cardiac monitoring Chronic atrial fibrillation-rate controlled. INR slightly subtherapeutic. -Continue beta-denilson but decrease dose by one half -Continue warfarin Essential hypertension-blood pressure on the low side and orthostatics are positive. -Hold calcium channel denilson and ARB Maintenance issues - - DVT prophylaxis -warfarin - GI prophylaxis -not indicated - Nutrition -regular - Calle catheter -not indicated CODE STATUS -DNR/DNI Admission justification -initially the patient was admitted to observation but she will now be admitted for inpatient services and is medically appropriate meeting medical necessity for inpatient admission as outlined in my documentation. I reasonably expect the patient will require inpatient services that span a period time over 2 midnights. I reasonably expect this patient to be discharged or transferred within 96 hours after admission to the [facility]. She has COVID-19 pneumonia complicated by acute respiratory failure with hypoxia. Disposition -anticipate discharge home versus subacute rehab after the hospital stay Primary care physician -Dr Igor Powell M.D.
[2020-04-09] MEDS: METOPROLOL 25 MG PO SCH (12:20)
[2020-04-09] MEDS: Warfarin 2.5 MG Tab PO SCH (13:31)
[2020-04-09] MEDS ORDERED: REMDESIVIR 200 MG in Sodium Chloride 0.9% 250 ML IV ONE (14:00)
[2020-04-09] MEDS: Metoprolol Tartrate 25 MG Tab PO SCH (20:09)
[2020-04-09] MEDS: Dexamethasone 2 MG Tab PO SCH (20:09)
[2020-04-09] MEDS: Melatonin 3 MG Tab PO SCH (20:10)
[2020-04-10] MEDS: Albuterol 8 GM Inhaler INH SCH ×6 (01:53→21:54)
[2020-04-10] MEDS: Metoprolol Tartrate 25 MG Tab PO SCH ×2 (08:20→21:51)
[2020-04-10] MEDS: Rosuvastatin 10 MG Tab PO SCH (08:20)
--- NOTE | 2020-04-10 10:03 | CR ---
CHEST: Portable 04/08/2020 at 4:37 PM CLINICAL HISTORY:Covid positive, SOB COMPARISON:None FINDINGS: Heart size is mildly enlarged. Patient has had previous sternotomy. Pulmonary vascularity is normal. There are atherosclerotic changes in the aorta. There are patchy bilateral pneumonic infiltrates right greater than left. No effusion is seen. Impression: Bilateral pneumonic infiltrates in a covid positive patient. Follow-up recommended until clear
--- NOTE | 2020-04-10 10:55 | PCM.PN ---
- General Info Date of Service: 04/10/20 Subjective Update: Ms. Carlson is required increased level of supplemental oxygen over the last 24 hours as now up to 6 L/min via nasal cannula. She otherwise feels relatively comfortable and reports that her appetite has been good. She remains weak and does become short of breath with fairly minimal exertion. Functional Status: Reports: Tolerating Diet, Urinating - Review of Systems General: Reports: Weakness, Fatigue. Denies: Fever, Chills Pulmonary: Reports: Shortness of Breath, Cough. Denies: Pleuritic Chest Pain, Sputum, Hemoptysis, Wheezing Cardiovascular: Reports: Dyspnea on Exertion. Denies: Chest Pain, Palpitations, Orthopnea, PND, Edema, Lightheadedness Gastrointestinal: Reports: No Symptoms - Patient Data Vitals - Most Recent: Last Vital Signs Temp 96.1 F L 04/10/20 10:27 Pulse 58 L 04/10/20 10:27 Resp 18 04/10/20 10:27 BP 117/56 L 04/10/20 10:27 Pulse Ox 96 04/10/20 10:27 Orthostatic Blood Pressure [ 95/43 Sitting] Orthostatic Blood Pressure [ 129/54 Supine] Weight - Most Recent: 160 lb 0.008 oz I&O - Last 24 Hours: Intake & Output 04/09/20 04/10/20 04/10/20 22:59 06:59 14:59 Intake Total 1200 Output Total 100 Balance -100 1200 Lab Results Last 24 Hours: Laboratory Results - last 24 hr 04/10/20 04/10/20 04/10/20 Range/Units 04:05 04:05 04:05 WBC 7.8 (4.5-11.0) K/uL RBC 3.37 (3.30-5.50) M/uL Hgb 10.6 L (12.0-15.0) g/dL Hct 31.8 L (36.0-48.0) % MCV 94 (80-98) fL MCH 32 H (27-31) pg MCHC 33 (32-36) % Plt Count 155 (150-400) K/uL PT 24.0 H (9.5-12.0) sec INR 2.24 H (0.80-1.20) D-Dimer, Quantitative 945.94 H (0.0-500.0) ng/mL Sodium (140-148) mmol/L Potassium (3.6-5.2) mmol/L Chloride (100-108) mmol/L Carbon Dioxide (21-32) mmol/L Anion Gap (5.0-14.0) mmol/L BUN (7-18) mg/dL Creatinine (0.6-1.0) mg/dL Est Cr Clr Drug Dosing mL/min Estimated GFR (MDRD) (>60) Glucose (74-106) mg/dL Calcium (8.5-10.1) mg/dL Total Bilirubin (0.2-1.0) mg/dL AST (15-37) U/L ALT (12-78) U/L Alkaline Phosphatase (46-116) U/L C-Reactive Protein (0.0-0.3) mg/dL Total Protein (6.4-8.2) g/dL Albumin (3.4-5.0) g/dL Globulin (2.3-3.5) g/dL Albumin/Globulin Ratio (1.2-2.2) 04/10/20 Range/Units 04:05 WBC (4.5-11.0) K/uL RBC (3.30-5.50) M/uL Hgb (12.0-15.0) g/dL Hct (36.0-48.0) % MCV (80-98) fL MCH (27-31) pg MCHC (32-36) % Plt Count (150-400) K/uL PT (9.5-12.0) sec INR (0.80-1.20) D-Dimer, Quantitative (0.0-500.0) ng/mL Sodium 134 L (140-148) mmol/L Potassium 4.2 (3.6-5.2) mmol/L Chloride 101 (100-108) mmol/L Carbon Dioxide 21 (21-32) mmol/L Anion Gap 16.2 H (5.0-14.0) mmol/L BUN 35 H (7-18) mg/dL Creatinine 1.2 H (0.6-1.0) mg/dL Est Cr Clr Drug Dosing 32.09 mL/min Estimated GFR (MDRD) 43 L (>60) Glucose 335 H (74-106) mg/dL Calcium 7.9 L (8.5-10.1) mg/dL Total Bilirubin 0.3 (0.2-1.0) mg/dL AST 40 H (15-37) U/L ALT 24 (12-78) U/L Alkaline Phosphatase 83 (46-116) U/L C-Reactive Protein 2.08 H (0.0-0.3) mg/dL Total Protein 6.2 L (6.4-8.2) g/dL Albumin 2.5 L (3.4-5.0) g/dL Globulin 3.7 H (2.3-3.5) g/dL Albumin/Globulin Ratio 0.7 L (1.2-2.2) Med Orders - Current: Current Medications Acetaminophen (Tylenol) 650 mg PO Q4H PRN PRN Reason: Pain (Mild 1-3)/fever Last Admin: 04/08/20 20:27 Dose: 650 mg Documented by: Albuterol (Ventolin Hfa) 1 - 2 gm INH Q4H [facility] Last Admin: 04/10/20 05:31 Dose: Not Given Documented by: Benzonatate (Tessalon Perles) 100 mg PO TID PRN PRN Reason: Cough Dexamethasone (Dexamethasone) 6 mg PO Q24H [facility] Stop: 04/17/20 21:01 Last Admin: 04/09/20 20:09 Dose: 6 mg Documented by: Guaifenesin/Dextromethorphan (Robitussin Dm) 10 ml PO Q4H PRN PRN Reason: Cough Remdesivir 100 mg/ Sodium (Chloride) 100 mls @ 100 mls/hr IV Q24H [facility] Stop: 04/13/20 14:59 Magnesium Hydroxide (Milk Of Magnesia) 30 ml PO Q12H PRN PRN Reason: Constipation Melatonin (Melatonin) 6 mg PO BEDTIME [facility] Last Admin: 04/09/20 20:10 Dose: 6 mg Documented by: Metoprolol Tartrate (Lopressor) 25 mg PO BID [facility] Last Admin: 04/10/20 08:20 Dose: 25 mg Documented by: Mometasone Furoate/Formoterol Fumar (Dulera 100-5 Mcg) 0 puff IH BIDRT [facility] Last Admin: 04/09/20 20:09 Dose: 1 puff Documented by: Ondansetron HCl (Zofran) 4 mg IV Q6H PRN PRN Reason: Nausea/Vomiting Ondansetron HCl (Zofran Odt) 4 mg PO Q6H PRN PRN Reason: Nausea able to take PO Rosuvastatin Calcium (Crestor) 20 mg PO DAILY [facility] Last Admin: 04/10/20 08:20 Dose: 20 mg Documented by: Senna/Docusate Sodium (Senna Plus) 1 tab PO BID PRN PRN Reason: Constipation Warfarin Sodium (Coumadin) 1.25 mg PO DAILY@1300 [facility] Last Admin: 04/09/20 13:31 Dose: 1.25 mg Documented by: Discontinued Medications Albuterol (Ventolin Hfa) 1 - 2 gm INH Q4H [facility] Last Admin: 04/09/20 05:39 Dose: 1 puff Documented by: Dexamethasone (Dexamethasone) 6 mg PO ONETIME ONE Stop: 04/08/20 20:45 Last Admin: 04/08/20 21:52 Dose: 6 mg Documented by: Sodium Chloride (Normal Saline) 1,000 mls @ 999 mls/hr IV ASDIRECTED [facility] Last Admin: 04/08/20 15:46 Dose: 999 mls/hr Documented by: Remdesivir 200 mg/ Sodium (Chloride) 250 mls @ 250 mls/hr IV ONETIME ONE Stop: 04/09/20 14:59 Last Admin: 04/09/20 13:45 Dose: 250 mls/hr Documented by: Metoprolol Tartrate (Lopressor) 50 mg PO BID [facility] Mometasone Furoate/Formoterol Fumar (Dulera 100-5 Mcg) 1 puff IH BID [facility] Last Admin: 04/08/20 20:18 Dose: 1 puff Documented by: Metoprolol 25mg Tab (Pt Own) 2 each PO BID [facility] Last Admin: 04/09/20 12:20 Dose: Not Given Documented by: - Exam Quality Assessment: Supplemental Oxygen, DVT Prophylaxis General: Alert, Oriented, Cooperative, Moderate Distress Lungs: Normal Respiratory Effort, Rales. No: Crackles, Rhonchi, Wheezing Cardiovascular: Regular Rate, Regular Rhythm, No Murmurs GI/Abdominal Exam: Soft, Non-Tender, No Organomegaly, No Distention Extremities: Non-Tender, No Pedal Edema Skin: Warm, Dry Sepsis Event Note - Evaluation Sepsis Screening Result: No Definite Risk - Focused Exam Vital Signs: Vital Signs Temp Pulse Pulse Resp BP BP Pulse Ox 04/10/20 10:27 96.1 F L 58 L 18 117/56 L 96 04/10/20 08:20 57 L 132/57 L 04/10/20 08:04 97.5 F 57 L 20 132/57 L 94 L 04/10/20 07:00 95 04/10/20 02:01 98.1 F 85 18 124/43 L 91 L 04/10/20 00:53 93 L - Problem List Review Problem List Initiated/Reviewed/Updated: Yes - My Orders Last 24 Hours: My Active Orders 04/11/20 05:00 CBC WITH AUTO DIFF [HEME] Timed COMPREHENSIVE METABOLIC PN,CMP [CHEM] Timed 04/11/20 05:11 CRP [C-REACTIVE PROTEIN] [CHEM] AM D Dimer [D-DIMER QUANTITATIVE] [COAG] AM - Plan Plan:: ASSESSMENT AND PLAN - COVID-19 pneumonia-now complicated by acute respiratory failure with hypoxia. She is currently requiring 6 L of oxygen. -Continue steroids every 24 hours (day 3) -remdesivir (day 2) -Symptomatic management -Isolation precautions (sx onset 04/01) Syncope-occurred after getting out of the shower and is likely a combination of vasodilation and decreased intravascular volume with Covid and recent fevers. No recurrence during the hospital stay. -Hold antihypertensives other than beta-denlison -Encourage oral fluid intake -Cardiac monitoring Chronic atrial fibrillation-rate controlled. -Continue beta-denilson -Continue warfarin Essential hypertension-blood pressure on the low side and orthostatics are positive. -Hold calcium channel denilson and ARB Maintenance issues - - DVT prophylaxis -warfarin - GI prophylaxis -not indicated - Nutrition -regular - Calle catheter -not indicated CODE STATUS -DNR/DNI Admission justification -initially the patient was admitted to observation but she will now be admitted for inpatient services and is medically appropriate meeting medical necessity for inpatient admission as outlined in my documentation. I reasonably expect the patient will require inpatient services that span a period time over 2 midnights. I reasonably expect this patient to be discharged or transferred within 96 hours [facility]. She has COVID-19 pneumonia complicated by acute respiratory failure with hypoxia. Disposition -anticipate discharge home versus subacute rehab after the hospital stay Primary care physician -Dr Igor Barcenas
[2020-04-10] MEDS: Formoterol/Mometasone 100-5 MCG 8.8 GM Inhaler IH SCH ×2 (12:23→21:53)
[2020-04-10] MEDS: REMDESIVIR 100 MG in Sodium Chloride 0.9% 100 ML IV SCH (14:07)
[2020-04-10] MEDS: Warfarin 2.5 MG Tab PO SCH (14:07)
[2020-04-10] MEDS: Melatonin 3 MG Tab PO SCH (21:50)
[2020-04-10] MEDS: Dexamethasone 2 MG Tab PO SCH (21:51)
[2020-04-10] MEDS: Acetaminophen 325 MG Tab PO PRN (21:52)
[2020-04-10] MEDS ORDERED: Glucagon,Human Recombinant 1 MG Vial IM PRN (22:15)
[2020-04-10] MEDS ORDERED: 50% Dextrose in Water 50 ML Syringe IVPUSH PRN (22:15)
[2020-04-10] MEDS ORDERED: Insulin Lispro 100 Unit/ML 3 ML KwikPen SUBCUT ONE (22:40)
[2020-04-10] MEDS: Insulin Lispro 100 Unit/ML 3 ML KwikPen SUBCUT SCH (22:51)
[2020-04-11] MEDS: Albuterol 8 GM Inhaler INH SCH ×6 (03:09→21:34)
[2020-04-11] MEDS ORDERED: Insulin Lispro 100 Unit/ML 3 ML KwikPen SUBCUT SCH (07:00)
[2020-04-11] MEDS: Insulin Lispro 100 Unit/ML 3 ML KwikPen SUBCUT SCH ×4 (08:39→21:45)
[2020-04-11] MEDS: Formoterol/Mometasone 100-5 MCG 8.8 GM Inhaler IH SCH ×2 (08:41→21:34)
[2020-04-11] MEDS: Metoprolol Tartrate 25 MG Tab PO SCH ×2 (08:41→21:32)
[2020-04-11] MEDS: Rosuvastatin 10 MG Tab PO SCH (08:41)
[2020-04-11] MEDS: Warfarin 2.5 MG Tab PO SCH (12:03)
[2020-04-11] MEDS ORDERED: Furosemide 20 MG/2 ML VIAL IVPUSH ONE (14:00)
--- NOTE | 2020-04-11 14:43 | CR ---
CHEST: 2 view CLINICAL HISTORY:Hypoxia,: Cov Positive COMPARISON:04/08/2020 FINDINGS: Patient has diffuse increasing pulmonary infiltrates right greater than left. Heart is mildly enlarged. Pulmonary vascular is normal. Patient has had previous sternotomy. IMPRESSION: Increasing bilateral pneumonic infiltrates.
[2020-04-11] MEDS: REMDESIVIR 100 MG in Sodium Chloride 0.9% 100 ML IV SCH (14:54)
--- NOTE | 2020-04-11 19:23 | PCM.PN ---
- General Info Date of Service: 04/11/20 Subjective Update: Ms. Carlson is experienced further decline in respiratory status over the last 24 hours. Requiring much higher levels of supplemental oxygen to maintain adequate oxygenation. Started on noninvasive positive pressure ventilation earlier today because of respiratory decline. She is otherwise been hemodynamically stable and is fairly comfortable at rest. Functional Status: Reports: Tolerating Diet, Urinating - Review of Systems General: Reports: Weakness, Fatigue. Denies: Fever, Chills Pulmonary: Reports: Shortness of Breath, Cough. Denies: Sputum, Hemoptysis, W heezing Cardiovascular: Reports: Dyspnea on Exertion. Denies: Chest Pain, Palpitations, Orthopnea, PND, Edema, Lightheadedness Gastrointestinal: Reports: No Symptoms - Patient Data Vitals - Most Recent: Last Vital Signs Temp 96.6 F L 04/11/20 18:00 Pulse 59 L 04/11/20 18:00 Resp 20 04/11/20 18:00 BP 152/86 H 04/11/20 18:00 Pulse Ox 94 L 04/11/20 18:00 Orthostatic Blood Pressure [ 95/43 Sitting] Orthostatic Blood Pressure [ 129/54 Supine] Weight - Most Recent: 160 lb 0.008 oz I&O - Last 24 Hours: Intake & Output 04/11/20 04/11/20 04/11/20 06:59 14:59 22:59 Intake Total 1430 Output Total 200 Balance -200 1430 Lab Results Last 24 Hours: Laboratory Results - last 24 hr 04/10/20 04/11/20 04/11/20 Range/Units 22:15 04:25 04:25 WBC 8.9 (4.5-11.0) K/uL RBC 3.22 L (3.30-5.50) M/uL Hgb 10.0 L (12.0-15.0) g/dL Hct 30.5 L (36.0-48.0) % MCV 95 (80-98) fL MCH 31 (27-31) pg MCHC 33 (32-36) % Plt Count 173 (150-400) K/uL Neut % (Auto) 86 H (36-66) % Lymph % (Auto) 9 L (24-44) % Mcclain % (Auto) 5 (2-6) % Eos % (Auto) 0 L (2-4) % Baso % (Auto) 0 (0-1) % D-Dimer, Quantitative (0.0-500.0) ng/mL Sodium 136 L (140-148) mmol/L Potassium 4.5 (3.6-5.2) mmol/L Chloride 103 (100-108) mmol/L Carbon Dioxide 24 (21-32) mmol/L Anion Gap 13.5 (5.0-14.0) mmol/L BUN 32 H (7-18) mg/dL Creatinine 1.0 (0.6-1.0) mg/dL Est Cr Clr Drug Dosing 38.71 mL/min Estimated GFR (MDRD) 53 L (>60) Glucose 205 H (74-106) mg/dL POC Glucose 304 H (74-106) MG/DL Calcium 8.0 L (8.5-10.1) mg/dL Total Bilirubin 0.3 (0.2-1.0) mg/dL AST 40 H (15-37) U/L ALT 21 (12-78) U/L Alkaline Phosphatase 85 (46-116) U/L C-Reactive Protein (0.0-0.3) mg/dL Total Protein 6.0 L (6.4-8.2) g/dL Albumin 2.5 L (3.4-5.0) g/dL Globulin 3.5 (2.3-3.5) g/dL Albumin/Globulin Ratio 0.7 L (1.2-2.2) Blood Type 04/11/20 04/11/20 04/11/20 Range/Units 04:25 04:25 07:30 WBC (4.5-11.0) K/uL RBC (3.30-5.50) M/uL Hgb (12.0-15.0) g/dL Hct (36.0-48.0) % MCV (80-98) fL MCH (27-31) pg MCHC (32-36) % Plt Count (150-400) K/uL Neut % (Auto) (36-66) % Lymph % (Auto) (24-44) % Mcclain % (Auto) (2-6) % Eos % (Auto) (2-4) % Baso % (Auto) (0-1) % D-Dimer, Quantitative 961.73 H (0.0-500.0) ng/mL Sodium (140-148) mmol/L Potassium (3.6-5.2) mmol/L Chloride (100-108) mmol/L Carbon Dioxide (21-32) mmol/L Anion Gap (5.0-14.0) mmol/L BUN (7-18) mg/dL Creatinine (0.6-1.0) mg/dL Est Cr Clr Drug Dosing mL/min Estimated GFR (MDRD) (>60) Glucose (74-106) mg/dL POC Glucose 219 H (74-106) MG/DL Calcium (8.5-10.1) mg/dL Total Bilirubin (0.2-1.0) mg/dL AST (15-37) U/L ALT (12-78) U/L Alkaline Phosphatase (46-116) U/L C-Reactive Protein 1.52 H (0.0-0.3) mg/dL Total Protein (6.4-8.2) g/dL Albumin (3.4-5.0) g/dL Globulin (2.3-3.5) g/dL Albumin/Globulin Ratio (1.2-2.2) Blood Type 04/11/20 04/11/20 04/11/20 Range/Units 11:38 13:31 16:30 WBC (4.5-11.0) K/uL RBC (3.30-5.50) M/uL Hgb (12.0-15.0) g/dL Hct (36.0-48.0) % MCV (80-98) fL MCH (27-31) pg MCHC (32-36) % Plt Count (150-400) K/uL Neut % (Auto) (36-66) % Lymph % (Auto) (24-44) % Mcclain % (Auto) (2-6) % Eos % (Auto) (2-4) % Baso % (Auto) (0-1) % D-Dimer, Quantitative (0.0-500.0) ng/mL Sodium (140-148) mmol/L Potassium (3.6-5.2) mmol/L Chloride (100-108) mmol/L Carbon Dioxide (21-32) mmol/L Anion Gap (5.0-14.0) mmol/L BUN (7-18) mg/dL Creatinine (0.6-1.0) mg/dL Est Cr Clr Drug Dosing mL/min Estimated GFR (MDRD) (>60) Glucose (74-106) mg/dL POC Glucose 349 H 268 H (74-106) MG/DL Calcium (8.5-10.1) mg/dL Total Bilirubin (0.2-1.0) mg/dL AST (15-37) U/L ALT (12-78) U/L Alkaline Phosphatase (46-116) U/L C-Reactive Protein (0.0-0.3) mg/dL Total Protein (6.4-8.2) g/dL Albumin (3.4-5.0) g/dL Globulin (2.3-3.5) g/dL Albumin/Globulin Ratio (1.2-2.2) Blood Type B POSITIVE Med Orders - Current: Current Medications Acetaminophen (Tylenol) 650 mg PO Q4H PRN PRN Reason: Pain (Mild 1-3)/fever Last Admin: 04/10/20 21:52 Dose: 650 mg Documented by: Albuterol (Ventolin Hfa) 1 - 2 gm INH Q4H [facility] Last Admin: 04/11/20 16:52 Dose: 1 puff Documented by: Benzonatate (Tessalon Perles) 100 mg PO TID PRN PRN Reason: Cough Dexamethasone (Dexamethasone) 6 mg PO Q24H [facility] Stop: 04/17/20 21:01 Last Admin: 04/10/20 21:51 Dose: 6 mg Documented by: Dextrose/Water (Dextrose 50% In Water) 50 ml IVPUSH ASDIRECTED PRN PRN Reason: Hypoglycemia Glucagon (Glucagen) 1 mg IM ASDIRECTED PRN PRN Reason: Hypoglycemia Guaifenesin/Dextromethorphan (Robitussin Dm) 10 ml PO Q4H PRN PRN Reason: Cough Remdesivir 100 mg/ Sodium (Chloride) 100 mls @ 100 mls/hr IV Q24H [facility] Stop: 04/13/20 14:59 Last Admin: 04/11/20 14:54 Dose: 100 mls/hr Documented by: Insulin Human Lispro (Humalog) 0 unit SUBCUT QIDACANDBED [facility]; Protocol Last Admin: 04/11/20 16:53 Dose: 3 units Documented by: Magnesium Hydroxide (Milk Of Magnesia) 30 ml PO Q12H PRN PRN Reason: Constipation Melatonin (Melatonin) 6 mg PO BEDTIME [facility] Last Admin: 04/10/20 21:50 Dose: 6 mg Documented by: Metoprolol Tartrate (Lopressor) 25 mg PO BID [facility] Last Admin: 04/11/20 08:41 Dose: 25 mg Documented by: Mometasone Furoate/Formoterol Fumar (Dulera 100-5 Mcg) 0 puff IH BIDRT [facility] Last Admin: 04/11/20 08:41 Dose: 1 puff Documented by: Ondansetron HCl (Zofran) 4 mg IV Q6H PRN PRN Reason: Nausea/Vomiting Ondansetron HCl (Zofran Odt) 4 mg PO Q6H PRN PRN Reason: Nausea able to take PO Rosuvastatin Calcium (Crestor) 20 mg PO DAILY [facility] Last Admin: 04/11/20 08:41 Dose: 20 mg Documented by: Senna/Docusate Sodium (Senna Plus) 1 tab PO BID PRN PRN Reason: Constipation Warfarin Sodium (Coumadin) 1.25 mg PO DAILY@1300 [facility] Last Admin: 04/11/20 12:03 Dose: 1.25 mg Documented by: Discontinued Medications Albuterol (Ventolin Hfa) 1 - 2 gm INH Q4H [facility] Last Admin: 04/09/20 05:39 Dose: 1 puff Documented by: Dexamethasone (Dexamethasone) 6 mg PO ONETIME ONE Stop: 04/08/20 20:45 Last Admin: 04/08/20 21:52 Dose: 6 mg Documented by: Furosemide (Lasix) 20 mg IVPUSH NOW ONE Stop: 04/11/20 14:01 Last Admin: 04/11/20 14:54 Dose: 20 mg Documented by: Sodium Chloride (Normal Saline) 1,000 mls @ 999 mls/hr IV ASDIRECTED [facility] Last Admin: 04/08/20 15:46 Dose: 999 mls/hr Documented by: Remdesivir 200 mg/ Sodium (Chloride) 250 mls @ 250 mls/hr IV ONETIME ONE Stop: 04/09/20 14:59 Last Admin: 04/09/20 13:45 Dose: 250 mls/hr Documented by: Insulin Human Lispro (Humalog) 0 unit SUBCUT QIDACANDBED [facility]; Protocol Insulin Human Lispro (Humalog) Confirm Administered Dose 300 unit SUBCUT .STK- MED ONE Stop: 04/10/20 22:41 Last Admin: 04/10/20 22:54 Dose: Not Given Documented by: Metoprolol Tartrate (Lopressor) 50 mg PO BID [facility] Mometasone Furoate/Formoterol Fumar (Dulera 100-5 Mcg) 1 puff IH BID [facility] Last Admin: 04/08/20 20:18 Dose: 1 puff Documented by: Metoprolol 25mg Tab (Pt Own) 2 each PO BID [facility] Last Admin: 04/09/20 12:20 Dose: Not Given Documented by: - Exam Quality Assessment: Supplemental Oxygen, DVT Prophylaxis General: Alert, Oriented, Cooperative, Moderate Distress Lungs: Clear to Auscultation, Normal Respiratory Effort, Decreased Breath Sounds. No: Rales, Rhonchi, Rub, Wheezing Cardiovascular: Regular Rate, Regular Rhythm, No Murmurs GI/Abdominal Exam: Soft, Non-Tender, No Organomegaly, No Distention Extremities: Non-Tender, No Pedal Edema Sepsis Event Note - Evaluation Sepsis Screening Result: No Definite Risk - Focused Exam Vital Signs: Vital Signs Temp Temp Pulse Pulse Resp BP BP 04/11/20 18:00 96.6 F L 59 L 20 152/86 H 04/11/20 17:45 97.2 F 52 L 21 H 137/51 L 04/11/20 17:30 97 F 50 L 22 H 129/51 L 04/11/20 17:15 96.6 F L 54 L 20 130/58 L 04/11/20 17:00 97.7 F 57 L 21 H 120/50 L 04/11/20 16:57 96.2 F L 59 L 20 130/47 L 04/11/20 12:40 04/11/20 12:04 97.6 F 50 L 18 143/61 H 04/11/20 08:41 61 110/67 04/11/20 08:06 04/11/20 07:25 Pulse Ox 04/11/20 18:00 94 L 04/11/20 17:45 93 L 04/11/20 17:30 92 L 04/11/20 17:15 95 04/11/20 17:00 04/11/20 16:57 04/11/20 12:40 92 L 04/11/20 12:04 94 L 04/11/20 08:41 04/11/20 08:06 76 L 04/11/20 07:25 95 - Problem List Review Problem List Initiated/Reviewed/Updated: Yes - My Orders Last 24 Hours: My Active Orders 04/10/20 22:15 Blood Glucose Check, Bedside [RC] QIDACANDBED Dextrose 50% in Water 50 ml IVPUSH ASDIRECTED PRN Glucagon,Human Recombinant [GlucaGen] 1 mg IM ASDIRECTED PRN 04/10/20 22:45 Insulin Lispro [HumaLOG] 0 unit SUBCUT QIDACANDBED 04/11/20 13:01 BIPAP Adult [RT BiPAP/CPAP] [RC] ASDIRECTED 04/11/20 13:04 Verify Patient Consent Obtain [RC] ASDIRECTED Transfuse Fresh Frozen Plasma [COMM] Q24H 04/11/20 13:31 ABO/RH TYPE [BBK] Routine FRESH FROZEN PLASMA [BBK] DAILY PATIENT RETYPE [BBK] Routine 04/11/20 Dinner Consistent Carbohydrate Diet [DIET] 04/11/20 21:00 GLUCOSE POC LAB TO COLLECT JPM [POC] QIDACANDBED 04/12/20 05:00 CBC WITH AUTO DIFF [HEME] Timed COMPREHENSIVE METABOLIC PN,CMP [CHEM] Timed INR,PT,PROTHROMBIN TIME [COAG] Timed 04/12/20 05:11 CRP [C-REACTIVE PROTEIN] [CHEM] AM D Dimer [D-DIMER QUANTITATIVE] [COAG] AM 04/12/20 07:30 GLUCOSE POC LAB TO COLLECT JPM [POC] QIDACANDBED 04/12/20 11:30 GLUCOSE POC LAB TO COLLECT JPM [POC] QIDACANDBED 04/12/20 13:04 FRESH FROZEN PLASMA [BBK] DAILY Transfuse Fresh Frozen Plasma [COMM] Q24H 04/12/20 16:30 GLUCOSE POC LAB TO COLLECT JPM [POC] QIDACANDBED 04/12/20 21:00 GLUCOSE POC LAB TO COLLECT JPM [POC] QIDACANDBED 04/13/20 07:30 GLUCOSE POC LAB TO COLLECT JPM [POC] QIDACANDBED 04/13/20 13:04 FRESH FROZEN PLASMA [BBK] DAILY Transfuse Fresh Frozen Plasma [COMM] Q24H - Plan Plan:: ASSESSMENT AND PLAN - COVID-19 pneumonia-now complicated by acute respiratory failure with hypoxia. Sitting shortness of breath and hypoxia over the past 24 hours. Currently requiring use of noninvasive positive pressure ventilation. -Continue steroids every 24 hours (day 4) -remdesivir (day 3) -Convalescent plasma, day 1 of 3 -Noninvasive positive pressure ventilation -Symptomatic management -Isolation precautions (sx onset 04/01) Syncope-occurred after getting out of the shower and is likely a combination of vasodilation and decreased intravascular volume with Covid and recent fevers. No recurrence during the hospital stay. -Hold antihypertensives other than beta-denilson -Encourage oral fluid intake -Cardiac monitoring Chronic atrial fibrillation-rate controlled. -Continue beta-denilson -Continue warfarin Essential hypertension-blood pressure on the low side and orthostatics are positive. -Hold calcium channel denilson and ARB Maintenance issues - - DVT prophylaxis -warfarin - GI prophylaxis -not indicated - Nutrition -regular - Calle catheter -not indicated CODE STATUS -DNR/DNI Admission justification -initially the patient was admitted to observation but she will now be admitted for inpatient services and is medically appropriate meeting medical necessity for inpatient admission as outlined in my documentation. I reasonably expect the patient will require inpatient services that span a period time over 2 midnights. I reasonably expect this patient to be discharged or transferred within 96 hours [facility]. She has COVID-19 pneumonia complicated by acute respiratory failure with hypoxia. Disposition -anticipate discharge home versus subacute rehab after the hospital stay Primary care physician -Dr Igor Barcenas
[2020-04-11] MEDS: Dexamethasone 2 MG Tab PO SCH (21:32)
[2020-04-11] MEDS: Melatonin 3 MG Tab PO SCH (21:33)
[2020-04-12] MEDS: Albuterol 8 GM Inhaler INH SCH ×6 (03:08→21:35)
[2020-04-12] MEDS: Formoterol/Mometasone 100-5 MCG 8.8 GM Inhaler IH SCH ×2 (07:34→21:34)
[2020-04-12] MEDS: Insulin Lispro 100 Unit/ML 3 ML KwikPen SUBCUT SCH ×4 (07:35→21:30)
[2020-04-12] MEDS: Metoprolol Tartrate 25 MG Tab PO SCH ×3 (08:56→21:36)
[2020-04-12] MEDS: Rosuvastatin 10 MG Tab PO SCH (08:56)
[2020-04-12] MEDS: Acetaminophen 325 MG Tab PO PRN (11:12)
[2020-04-12] MEDS: REMDESIVIR 100 MG in Sodium Chloride 0.9% 100 ML IV SCH (14:58)
--- NOTE | 2020-04-12 16:40 | PCM.PN ---
- General Info Date of Service: 04/12/20 Subjective Update: Ms. Carlson continues to require high level flow of oxygen to maintain adequate saturations. She has used the noninvasive positive pressure ventilation intermittently over the last 24 hours and this also seems to have helped. Overall from a respiratory standpoint she has been stable since yesterday with no further worsening. Functional Status: Reports: Tolerating Diet, Urinating - Review of Systems General: Reports: Weakness, Fatigue. Denies: Fever, Chills Pulmonary: Reports: Shortness of Breath, Cough. Denies: Pleuritic Chest Pain, Sputum, Hemoptysis, Wheezing Cardiovascular: Reports: Dyspnea on Exertion. Denies: Chest Pain, Palpitations, Orthopnea, PND, Edema, Lightheadedness Gastrointestinal: Reports: No Symptoms - Patient Data Vitals - Most Recent: Last Vital Signs Temp 96.6 F L 04/12/20 15:07 Pulse 50 L 04/12/20 15:07 Resp 16 04/12/20 15:07 BP 121/57 L 04/12/20 15:07 Pulse Ox 97 04/12/20 15:07 Orthostatic Blood Pressure [ 95/43 Sitting] Orthostatic Blood Pressure [ 129/54 Supine] Weight - Most Recent: 160 lb 0.008 oz I&O - Last 24 Hours: Intake & Output 04/12/20 04/12/20 04/12/20 06:59 14:59 22:59 Intake Total 300 5 Output Total 200 Balance 100 5 Lab Results Last 24 Hours: Laboratory Results - last 24 hr 04/11/20 04/11/20 04/11/20 Range/Units 13:31 16:30 21:00 WBC (4.5-11.0) K/uL RBC (3.30-5.50) M/uL Hgb (12.0-15.0) g/dL Hct (36.0-48.0) % MCV (80-98) fL MCH (27-31) pg MCHC (32-36) % Plt Count (150-400) K/uL Neut % (Auto) (36-66) % Lymph % (Auto) (24-44) % Dickson % (Auto) (2-6) % Eos % (Auto) (2-4) % Baso % (Auto) (0-1) % PT (9.5-12.0) sec INR (0.80-1.20) D-Dimer, Quantitative (0.0-500.0) ng/mL Sodium (140-148) mmol/L Potassium (3.6-5.2) mmol/L Chloride (100-108) mmol/L Carbon Dioxide (21-32) mmol/L Anion Gap (5.0-14.0) mmol/L BUN (7-18) mg/dL Creatinine (0.6-1.0) mg/dL Est Cr Clr Drug Dosing mL/min Estimated GFR (MDRD) (>60) Glucose (74-106) mg/dL POC Glucose 268 H 313 H (74-106) MG/DL Calcium (8.5-10.1) mg/dL Total Bilirubin (0.2-1.0) mg/dL AST (15-37) U/L ALT (12-78) U/L Alkaline Phosphatase (46-116) U/L C-Reactive Protein (0.0-0.3) mg/dL Total Protein (6.4-8.2) g/dL Albumin (3.4-5.0) g/dL Globulin (2.3-3.5) g/dL Albumin/Globulin Ratio (1.2-2.2) Blood Type B POSITIVE 04/12/20 04/12/20 04/12/20 Range/Units 04:05 04:05 04:05 WBC 10.0 (4.5-11.0) K/uL RBC 3.17 L (3.30-5.50) M/uL Hgb 9.9 L (12.0-15.0) g/dL Hct 30.1 L (36.0-48.0) % MCV 95 (80-98) fL MCH 31 (27-31) pg MCHC 33 (32-36) % Plt Count 188 (150-400) K/uL Neut % (Auto) 86 H (36-66) % Lymph % (Auto) 9 L (24-44) % Dickson % (Auto) 5 (2-6) % Eos % (Auto) 0 L (2-4) % Baso % (Auto) 1 (0-1) % PT 38.1 H (9.5-12.0) sec INR 3.58 H (0.80-1.20) D-Dimer, Quantitative (0.0-500.0) ng/mL Sodium 135 L (140-148) mmol/L Potassium 4.2 (3.6-5.2) mmol/L Chloride 101 (100-108) mmol/L Carbon Dioxide 26 (21-32) mmol/L Anion Gap 12.2 (5.0-14.0) mmol/L BUN 29 H (7-18) mg/dL Creatinine 0.9 (0.6-1.0) mg/dL Est Cr Clr Drug Dosing 43.02 mL/min Estimated GFR (MDRD) 60 (>60) Glucose 226 H (74-106) mg/dL POC Glucose (74-106) MG/DL Calcium 8.3 L (8.5-10.1) mg/dL Total Bilirubin 0.4 (0.2-1.0) mg/dL AST 38 H (15-37) U/L ALT 23 (12-78) U/L Alkaline Phosphatase 86 (46-116) U/L C-Reactive Protein (0.0-0.3) mg/dL Total Protein 6.1 L (6.4-8.2) g/dL Albumin 2.6 L (3.4-5.0) g/dL Globulin 3.5 (2.3-3.5) g/dL Albumin/Globulin Ratio 0.7 L (1.2-2.2) Blood Type 04/12/20 04/12/20 04/12/20 Range/Units 04:05 04:05 07:30 WBC (4.5-11.0) K/uL RBC (3.30-5.50) M/uL Hgb (12.0-15.0) g/dL Hct (36.0-48.0) % MCV (80-98) fL MCH (27-31) pg MCHC (32-36) % Plt Count (150-400) K/uL Neut % (Auto) (36-66) % Lymph % (Auto) (24-44) % Dickson % (Auto) (2-6) % Eos % (Auto) (2-4) % Baso % (Auto) (0-1) % PT (9.5-12.0) sec INR (0.80-1.20) D-Dimer, Quantitative 1406.69 H (0.0-500.0) ng/mL Sodium (140-148) mmol/L Potassium (3.6-5.2) mmol/L Chloride (100-108) mmol/L Carbon Dioxide (21-32) mmol/L Anion Gap (5.0-14.0) mmol/L BUN (7-18) mg/dL Creatinine (0.6-1.0) mg/dL Est Cr Clr Drug Dosing mL/min Estimated GFR (MDRD) (>60) Glucose (74-106) mg/dL POC Glucose 225 H (74-106) MG/DL Calcium (8.5-10.1) mg/dL Total Bilirubin (0.2-1.0) mg/dL AST (15-37) U/L ALT (12-78) U/L Alkaline Phosphatase (46-116) U/L C-Reactive Protein 1.31 H (0.0-0.3) mg/dL Total Protein (6.4-8.2) g/dL Albumin (3.4-5.0) g/dL Globulin (2.3-3.5) g/dL Albumin/Globulin Ratio (1.2-2.2) Blood Type 04/12/20 Range/Units 11:30 WBC (4.5-11.0) K/uL RBC (3.30-5.50) M/uL Hgb (12.0-15.0) g/dL Hct (36.0-48.0) % MCV (80-98) fL MCH (27-31) pg MCHC (32-36) % Plt Count (150-400) K/uL Neut % (Auto) (36-66) % Lymph % (Auto) (24-44) % Dickson % (Auto) (2-6) % Eos % (Auto) (2-4) % Baso % (Auto) (0-1) % PT (9.5-12.0) sec INR (0.80-1.20) D-Dimer, Quantitative (0.0-500.0) ng/mL Sodium (140-148) mmol/L Potassium (3.6-5.2) mmol/L Chloride (100-108) mmol/L Carbon Dioxide (21-32) mmol/L Anion Gap (5.0-14.0) mmol/L BUN (7-18) mg/dL Creatinine (0.6-1.0) mg/dL Est Cr Clr Drug Dosing mL/min Estimated GFR (MDRD) (>60) Glucose (74-106) mg/dL POC Glucose 288 H (74-106) MG/DL Calcium (8.5-10.1) mg/dL Total Bilirubin (0.2-1.0) mg/dL AST (15-37) U/L ALT (12-78) U/L Alkaline Phosphatase (46-116) U/L C-Reactive Protein (0.0-0.3) mg/dL Total Protein (6.4-8.2) g/dL Albumin (3.4-5.0) g/dL Globulin (2.3-3.5) g/dL Albumin/Globulin Ratio (1.2-2.2) Blood Type Med Orders - Current: Current Medications Acetaminophen (Tylenol) 650 mg PO Q4H PRN PRN Reason: Pain (Mild 1-3)/fever Last Admin: 04/12/20 11:12 Dose: 650 mg Documented by: Albuterol (Ventolin Hfa) 1 - 2 gm INH Q4H [facility] Last Admin: 04/12/20 14:46 Dose: 1 puff Documented by: Benzonatate (Tessalon Perles) 100 mg PO TID PRN PRN Reason: Cough Dexamethasone (Dexamethasone) 6 mg PO Q24H [facility] Stop: 04/17/20 21:01 Last Admin: 04/11/20 21:32 Dose: 6 mg Documented by: Dextrose/Water (Dextrose 50% In Water) 50 ml IVPUSH ASDIRECTED PRN PRN Reason: Hypoglycemia Furosemide (Lasix) 20 mg IVPUSH NOW ONE Stop: 04/12/20 16:36 Glucagon (Glucagen) 1 mg IM ASDIRECTED PRN PRN Reason: Hypoglycemia Guaifenesin/Dextromethorphan (Robitussin Dm) 10 ml PO Q4H PRN PRN Reason: Cough Remdesivir 100 mg/ Sodium (Chloride) 100 mls @ 100 mls/hr IV Q24H JOHN Stop: 04/13/20 14:59 Last Admin: 04/12/20 14:58 Dose: 100 mls/hr Documented by: Insulin Human Lispro (Humalog) 0 unit SUBCUT QIDACANDBED [facility]; Protocol Last Admin: 04/12/20 12:21 Dose: 3 units Documented by: Magnesium Hydroxide (Milk Of Magnesia) 30 ml PO Q12H PRN PRN Reason: Constipation Melatonin (Melatonin) 6 mg PO BEDTIME [facility] Last Admin: 04/11/20 21:33 Dose: 6 mg Documented by: Metoprolol Tartrate (Lopressor) 25 mg PO BID [facility] Last Admin: 04/12/20 08:58 Dose: 25 mg Documented by: Mometasone Furoate/Formoterol Fumar (Dulera 100-5 Mcg) 0 puff IH BIDRT [facility] Last Admin: 04/12/20 07:34 Dose: 1 puff Documented by: Ondansetron HCl (Zofran) 4 mg IV Q6H PRN PRN Reason: Nausea/Vomiting Ondansetron HCl (Zofran Odt) 4 mg PO Q6H PRN PRN Reason: Nausea able to take PO Rosuvastatin Calcium (Crestor) 20 mg PO DAILY [facility] Last Admin: 04/12/20 08:56 Dose: 20 mg Documented by: Senna/Docusate Sodium (Senna Plus) 1 tab PO BID PRN PRN Reason: Constipation Discontinued Medications Albuterol (Ventolin Hfa) 1 - 2 gm INH Q4H [facility] Last Admin: 04/09/20 05:39 Dose: 1 puff Documented by: Dexamethasone (Dexamethasone) 6 mg PO ONETIME ONE Stop: 04/08/20 20:45 Last Admin: 04/08/20 21:52 Dose: 6 mg Documented by: Furosemide (Lasix) 20 mg IVPUSH NOW ONE Stop: 04/11/20 14:01 Last Admin: 04/11/20 14:54 Dose: 20 mg Documented by: Sodium Chloride (Normal Saline) 1,000 mls @ 999 mls/hr IV ASDIRECTED [facility] Last Admin: 04/08/20 15:46 Dose: 999 mls/hr Documented by: Remdesivir 200 mg/ Sodium (Chloride) 250 mls @ 250 mls/hr IV ONETIME ONE Stop: 04/09/20 14:59 Last Admin: 04/09/20 13:45 Dose: 250 mls/hr Documented by: Insulin Human Lispro (Humalog) 0 unit SUBCUT QIDACANDBED [facility]; Protocol Insulin Human Lispro (Humalog) Confirm Administered Dose 300 unit SUBCUT .STK- MED ONE Stop: 04/10/20 22:41 Last Admin: 04/10/20 22:54 Dose: Not Given Documented by: Metoprolol Tartrate (Lopressor) 50 mg PO BID [facility] Mometasone Furoate/Formoterol Fumar (Dulera 100-5 Mcg) 1 puff IH BID [facility] Last Admin: 04/08/20 20:18 Dose: 1 puff Documented by: Metoprolol 25mg Tab (Pt Own) 2 each PO BID [facility] Last Admin: 04/09/20 12:20 Dose: Not Given Documented by: Warfarin Sodium (Coumadin) 1.25 mg PO DAILY@1300 [facility] Last Admin: 04/11/20 12:03 Dose: 1.25 mg Documented by: - Exam Quality Assessment: Supplemental Oxygen, DVT Prophylaxis General: Alert, Oriented, Cooperative, Moderate Distress Lungs: Clear to Auscultation, Normal Respiratory Effort, Rales. No: Crackles, Rhonchi, Rub, Wheezing Cardiovascular: Regular Rate, Regular Rhythm, No Murmurs GI/Abdominal Exam: Soft, Non-Tender, No Organomegaly, No Distention Extremities: Non-Tender, No Pedal Edema Sepsis Event Note - Evaluation Sepsis Screening Result: No Definite Risk - Focused Exam Vital Signs: Vital Signs Temp Temp Pulse Pulse Resp BP BP 04/12/20 15:07 96.6 F L 50 L 16 121/57 L 04/12/20 14:50 97.2 F 46 L 16 121/52 L 04/12/20 14:35 97 F 46 L 16 123/41 L 04/12/20 14:18 97.3 F 44 L 16 109/45 L 04/12/20 14:03 97.3 F 46 L 16 110/48 L 04/12/20 13:48 97.1 F 47 L 16 99/85 04/12/20 13:00 04/12/20 10:29 97.1 F 52 L 18 112/44 L 04/12/20 08:58 61 138/64 04/12/20 07:29 04/12/20 07:00 96 F L 54 L 18 138/67 Pulse Ox 04/12/20 15:07 97 04/12/20 14:50 98 04/12/20 14:35 97 04/12/20 14:18 98 04/12/20 14:03 95 04/12/20 13:48 95 04/12/20 13:00 93 L 04/12/20 10:29 93 L 04/12/20 08:58 04/12/20 07:29 94 L 04/12/20 07:00 95 - Problem List Review Problem List Initiated/Reviewed/Updated: Yes - My Orders Last 24 Hours: My Active Orders 04/11/20 Dinner Consistent Carbohydrate Diet [DIET] 04/12/20 13:04 Transfuse Fresh Frozen Plasma [COMM] Q24H 04/12/20 16:30 GLUCOSE POC LAB TO COLLECT JPM [POC] QIDACANDBED 04/12/20 16:35 Furosemide [Lasix] 20 mg IVPUSH NOW ONE 04/12/20 21:00 GLUCOSE POC LAB TO COLLECT JPM [POC] QIDACANDBED 04/13/20 05:00 CBC WITH AUTO DIFF [HEME] Timed COMPREHENSIVE METABOLIC PN,CMP [CHEM] Timed INR,PT,PROTHROMBIN TIME [COAG] Timed 04/13/20 05:11 CRP [C-REACTIVE PROTEIN] [CHEM] AM D Dimer [D-DIMER QUANTITATIVE] [COAG] AM 04/13/20 07:30 GLUCOSE POC LAB TO COLLECT JPM [POC] QIDACANDBED 04/13/20 13:04 FRESH FROZEN PLASMA [BBK] DAILY Transfuse Fresh Frozen Plasma [COMM] Q24H - Plan Plan:: ASSESSMENT AND PLAN - COVID-19 pneumonia-now complicated by acute respiratory failure with hypoxia. Sitting shortness of breath and hypoxia over the past 24 hours. Currently requiring use of noninvasive positive pressure ventilation. -Continue steroids every 24 hours (day 5) -remdesivir (day 4) -Convalescent plasma, day 1 of 3 -Furosemide 20 mg IV today, reassess in a.m. -Noninvasive positive pressure ventilation -Symptomatic management -Isolation precautions (sx onset 04/01) Syncope-occurred after getting out of the shower and is likely a combination of vasodilation and decreased intravascular volume with Covid and recent fevers. No recurrence during the hospital stay. -Hold antihypertensives other than beta-denilson -Encourage oral fluid intake -Cardiac monitoring Chronic atrial fibrillation-rate controlled. INR is supratherapeutic today -Continue beta-denilson -Hold warfarin -Reassess INR in a.m. Essential hypertension-blood pressure on the low side and orthostatics are positive. -Hold calcium channel denilson and ARB Maintenance issues - - DVT prophylaxis -warfarin - GI prophylaxis -not indicated - Nutrition -regular - Calle catheter -not indicated CODE STATUS -DNR/DNI Admission justification -initially the patient was admitted to observation but she will now be admitted for inpatient services and is medically appropriate meeting medical necessity for inpatient admission as outlined in my documentation. I reasonably expect the patient will require inpatient services that span a period time over 2 midnights. I reasonably expect this patient to be discharged or transferred within 96 hours after admission to the [facility]. She has COVID-19 pneumonia complicated by acute respiratory failure with hypoxia. Disposition -anticipate discharge home versus subacute rehab after the hospital stay Primary care physician -Dr Igor Barcenas
[2020-04-12] MEDS ORDERED: Furosemide 20 MG/2 ML VIAL IVPUSH ONE (16:45)
[2020-04-12] MEDS: Melatonin 3 MG Tab PO SCH (21:36)
[2020-04-12] MEDS: Dexamethasone 2 MG Tab PO SCH (21:36)
[2020-04-13] MEDS: Albuterol 8 GM Inhaler INH SCH ×6 (02:49→20:48)
[2020-04-13] MEDS: Insulin Lispro 100 Unit/ML 3 ML KwikPen SUBCUT SCH ×4 (07:42→21:36)
[2020-04-13] MEDS: Formoterol/Mometasone 100-5 MCG 8.8 GM Inhaler IH SCH ×2 (07:44→20:44)
[2020-04-13] MEDS: Metoprolol Tartrate 25 MG Tab PO SCH ×2 (09:17→20:44)
[2020-04-13] MEDS: Rosuvastatin 10 MG Tab PO SCH (09:18)
--- NOTE | 2020-04-13 11:36 | PCM.PN ---
- General Info Date of Service: 04/13/20 Subjective Update: No acute events overnight. She does continue to use noninvasive ventilation and alternates between high flow nasal cannula and NIPPV. No fevers overnight. Still desaturates with any activity but seems to bounce back a little faster. No fevers overnight. Symptomatically she feels less short of breath and a little bit more energetic. Appetite has been okay. Still quite weak. Tolerating treatment for Covid so far. CRP is slightly better. D-dimer is h igher today. Functional Status: Reports: Pain Controlled, Tolerating Diet - Review of Systems General: Reports: Weakness. Denies: Fever Pulmonary: Reports: Shortness of Breath - Patient Data Vitals - Most Recent: Last Vital Signs Temp 35.7 C L 04/13/20 11:00 Pulse 54 L 04/13/20 11:00 Resp 20 04/13/20 11:00 BP 116/42 L 04/13/20 11:00 Pulse Ox 89 L 04/13/20 11:00 Orthostatic Blood Pressure [ 95/43 Sitting] Orthostatic Blood Pressure [ 129/54 Supine] Weight - Most Recent: 72.575 kg I&O - Last 24 Hours: Intake & Output 04/12/20 04/13/20 04/13/20 22:59 06:59 14:59 Intake Total 125 600 Output Total 500 Balance 125 -500 600 Lab Results Last 24 Hours: Laboratory Results - last 24 hr 04/11/20 04/12/20 04/12/20 Range/Units 13:31 11:30 16:50 WBC (4.5-11.0) K/uL RBC (3.30-5.50) M/uL Hgb (12.0-15.0) g/dL Hct (36.0-48.0) % MCV (80-98) fL MCH (27-31) pg MCHC (32-36) % Plt Count (150-400) K/uL Neut % (Auto) (36-66) % Lymph % (Auto) (24-44) % Hyde % (Auto) (2-6) % Eos % (Auto) (2-4) % Baso % (Auto) (0-1) % PT (9.5-12.0) sec INR (0.80-1.20) D-Dimer, Quantitative (0.0-500.0) ng/mL Sodium (140-148) mmol/L Potassium (3.6-5.2) mmol/L Chloride (100-108) mmol/L Carbon Dioxide (21-32) mmol/L Anion Gap (5.0-14.0) mmol/L BUN (7-18) mg/dL Creatinine (0.6-1.0) mg/dL Est Cr Clr Drug Dosing mL/min Estimated GFR (MDRD) (>60) Glucose (74-106) mg/dL POC Glucose 288 H 186 H (74-106) MG/DL Calcium (8.5-10.1) mg/dL Total Bilirubin (0.2-1.0) mg/dL AST (15-37) U/L ALT (12-78) U/L Alkaline Phosphatase (46-116) U/L C-Reactive Protein (0.0-0.3) mg/dL Total Protein (6.4-8.2) g/dL Albumin (3.4-5.0) g/dL Globulin (2.3-3.5) g/dL Albumin/Globulin Ratio (1.2-2.2) Blood Type B POSITIVE 04/12/20 04/13/20 04/13/20 Range/Units 21:00 05:57 05:57 WBC 9.3 (4.5-11.0) K/uL RBC 3.32 (3.30-5.50) M/uL Hgb 10.3 L (12.0-15.0) g/dL Hct 31.8 L (36.0-48.0) % MCV 96 (80-98) fL MCH 31 (27-31) pg MCHC 32 (32-36) % Plt Count 197 (150-400) K/uL Neut % (Auto) 89 H (36-66) % Lymph % (Auto) 7 L (24-44) % Hyde % (Auto) 4 (2-6) % Eos % (Auto) 0 L (2-4) % Baso % (Auto) 1 (0-1) % PT 40.8 H (9.5-12.0) sec INR 3.84 H (0.80-1.20) D-Dimer, Quantitative (0.0-500.0) ng/mL Sodium (140-148) mmol/L Potassium (3.6-5.2) mmol/L Chloride (100-108) mmol/L Carbon Dioxide (21-32) mmol/L Anion Gap (5.0-14.0) mmol/L BUN (7-18) mg/dL Creatinine (0.6-1.0) mg/dL Est Cr Clr Drug Dosing mL/min Estimated GFR (MDRD) (>60) Glucose (74-106) mg/dL POC Glucose 221 H (74-106) MG/DL Calcium (8.5-10.1) mg/dL Total Bilirubin (0.2-1.0) mg/dL AST (15-37) U/L ALT (12-78) U/L Alkaline Phosphatase (46-116) U/L C-Reactive Protein (0.0-0.3) mg/dL Total Protein (6.4-8.2) g/dL Albumin (3.4-5.0) g/dL Globulin (2.3-3.5) g/dL Albumin/Globulin Ratio (1.2-2.2) Blood Type 04/13/20 04/13/20 04/13/20 Range/Units 05:57 05:57 05:57 WBC (4.5-11.0) K/uL RBC (3.30-5.50) M/uL Hgb (12.0-15.0) g/dL Hct (36.0-48.0) % MCV (80-98) fL MCH (27-31) pg MCHC (32-36) % Plt Count (150-400) K/uL Neut % (Auto) (36-66) % Lymph % (Auto) (24-44) % Hyde % (Auto) (2-6) % Eos % (Auto) (2-4) % Baso % (Auto) (0-1) % PT (9.5-12.0) sec INR (0.80-1.20) D-Dimer, Quantitative 9448.75 H (0.0-500.0) ng/mL Sodium 136 L (140-148) mmol/L Potassium 4.2 (3.6-5.2) mmol/L Chloride 101 (100-108) mmol/L Carbon Dioxide 26 (21-32) mmol/L Anion Gap 13.2 (5.0-14.0) mmol/L BUN 31 H (7-18) mg/dL Creatinine 1.0 (0.6-1.0) mg/dL Est Cr Clr Drug Dosing 38.71 mL/min Estimated GFR (MDRD) 53 L (>60) Glucose 267 H (74-106) mg/dL POC Glucose (74-106) MG/DL Calcium 8.1 L (8.5-10.1) mg/dL Total Bilirubin 0.5 (0.2-1.0) mg/dL AST 38 H (15-37) U/L ALT 23 (12-78) U/L Alkaline Phosphatase 93 (46-116) U/L C-Reactive Protein 1.04 H (0.0-0.3) mg/dL Total Protein 6.1 L (6.4-8.2) g/dL Albumin 2.6 L (3.4-5.0) g/dL Globulin 3.5 (2.3-3.5) g/dL Albumin/Globulin Ratio 0.7 L (1.2-2.2) Blood Type 04/13/20 Range/Units 07:30 WBC (4.5-11.0) K/uL RBC (3.30-5.50) M/uL Hgb (12.0-15.0) g/dL Hct (36.0-48.0) % MCV (80-98) fL MCH (27-31) pg MCHC (32-36) % Plt Count (150-400) K/uL Neut % (Auto) (36-66) % Lymph % (Auto) (24-44) % Hyde % (Auto) (2-6) % Eos % (Auto) (2-4) % Baso % (Auto) (0-1) % PT (9.5-12.0) sec INR (0.80-1.20) D-Dimer, Quantitative (0.0-500.0) ng/mL Sodium (140-148) mmol/L Potassium (3.6-5.2) mmol/L Chloride (100-108) mmol/L Carbon Dioxide (21-32) mmol/L Anion Gap (5.0-14.0) mmol/L BUN (7-18) mg/dL Creatinine (0.6-1.0) mg/dL Est Cr Clr Drug Dosing mL/min Estimated GFR (MDRD) (>60) Glucose (74-106) mg/dL POC Glucose 252 H (74-106) MG/DL Calcium (8.5-10.1) mg/dL Total Bilirubin (0.2-1.0) mg/dL AST (15-37) U/L ALT (12-78) U/L Alkaline Phosphatase (46-116) U/L C-Reactive Protein (0.0-0.3) mg/dL Total Protein (6.4-8.2) g/dL Albumin (3.4-5.0) g/dL Globulin (2.3-3.5) g/dL Albumin/Globulin Ratio (1.2-2.2) Blood Type Med Orders - Current: Current Medications Acetaminophen (Tylenol) 650 mg PO Q4H PRN PRN Reason: Pain (Mild 1-3)/fever Last Admin: 04/12/20 11:12 Dose: 650 mg Documented by: Albuterol (Ventolin Hfa) 1 - 2 gm INH Q4H [facility] Last Admin: 04/13/20 09:18 Dose: 2 puff Documented by: Benzonatate (Tessalon Perles) 100 mg PO TID PRN PRN Reason: Cough Dexamethasone (Dexamethasone) 6 mg PO Q24H [facility] Stop: 04/17/20 21:01 Last Admin: 04/12/20 21:36 Dose: 6 mg Documented by: Dextrose/Water (Dextrose 50% In Water) 50 ml IVPUSH ASDIRECTED PRN PRN Reason: Hypoglycemia Glucagon (Glucagen) 1 mg IM ASDIRECTED PRN PRN Reason: Hypoglycemia Guaifenesin/Dextromethorphan (Robitussin Dm) 10 ml PO Q4H PRN PRN Reason: Cough Remdesivir 100 mg/ Sodium (Chloride) 100 mls @ 100 mls/hr IV Q24H [facility] Stop: 04/13/20 14:59 Last Admin: 04/12/20 14:58 Dose: 100 mls/hr Documented by: Insulin Human Lispro (Humalog) 0 unit SUBCUT QIDACANDBED [facility]; Protocol Last Admin: 04/13/20 07:42 Dose: 3 units Documented by: Magnesium Hydroxide (Milk Of Magnesia) 30 ml PO Q12H PRN PRN Reason: Constipation Melatonin (Melatonin) 6 mg PO BEDTIME [facility] Last Admin: 04/12/20 21:36 Dose: 6 mg Documented by: Metoprolol Tartrate (Lopressor) 25 mg PO BID [facility] Last Admin: 04/13/20 09:17 Dose: 25 mg Documented by: Mometasone Furoate/Formoterol Fumar (Dulera 100-5 Mcg) 0 puff IH BIDRT [facility] Last Admin: 04/13/20 07:44 Dose: 1 puff Documented by: Ondansetron HCl (Zofran) 4 mg IV Q6H PRN PRN Reason: Nausea/Vomiting Ondansetron HCl (Zofran Odt) 4 mg PO Q6H PRN PRN Reason: Nausea able to take PO Rosuvastatin Calcium (Crestor) 20 mg PO DAILY [facility] Last Admin: 04/13/20 09:18 Dose: 20 mg Documented by: Senna/Docusate Sodium (Senna Plus) 1 tab PO BID PRN PRN Reason: Constipation Discontinued Medications Albuterol (Ventolin Hfa) 1 - 2 gm INH Q4H [facility] Last Admin: 04/09/20 05:39 Dose: 1 puff Documented by: Dexamethasone (Dexamethasone) 6 mg PO ONETIME ONE Stop: 04/08/20 20:45 Last Admin: 04/08/20 21:52 Dose: 6 mg Documented by: Furosemide (Lasix) 20 mg IVPUSH NOW ONE Stop: 04/11/20 14:01 Last Admin: 04/11/20 14:54 Dose: 20 mg Documented by: Furosemide (Lasix) 20 mg IVPUSH NOW ONE Stop: 04/12/20 16:46 Last Admin: 04/12/20 17:46 Dose: 20 mg Documented by: Sodium Chloride (Normal Saline) 1,000 mls @ 999 mls/hr IV ASDIRECTED [facility] Last Admin: 04/08/20 15:46 Dose: 999 mls/hr Documented by: Remdesivir 200 mg/ Sodium (Chloride) 250 mls @ 250 mls/hr IV ONETIME ONE Stop: 04/09/20 14:59 Last Admin: 04/09/20 13:45 Dose: 250 mls/hr Documented by: Insulin Human Lispro (Humalog) 0 unit SUBCUT QIDACANDBED [facility]; Protocol Insulin Human Lispro (Humalog) Confirm Administered Dose 300 unit SUBCUT .STK- MED ONE Stop: 04/10/20 22:41 Last Admin: 04/10/20 22:54 Dose: Not Given Documented by: Metoprolol Tartrate (Lopressor) 50 mg PO BID [facility] Mometasone Furoate/Formoterol Fumar (Dulera 100-5 Mcg) 1 puff IH BID [facility] Last Admin: 04/08/20 20:18 Dose: 1 puff Documented by: Metoprolol 25mg Tab (Pt Own) 2 each PO BID [facility] Last Admin: 04/09/20 12:20 Dose: Not Given Documented by: Warfarin Sodium (Coumadin) 1.25 mg PO DAILY@1300 [facility] Last Admin: 04/11/20 12:03 Dose: 1.25 mg Documented by: - Exam Quality Assessment: Supplemental Oxygen General: Alert, Oriented, Cooperative, No Acute Distress Lungs: Clear to Auscultation, Normal Respiratory Effort. No: Crackles Cardiovascular: Regular Rate, Regular Rhythm GI/Abdominal Exam: Soft, No Distention Extremities: No Pedal Edema. No: Increased Warmth Skin: Warm, Dry Psy/Mental Status: Alert, Normal Affect Sepsis Event Note - Evaluation Sepsis Screening Result: No Definite Risk - Focused Exam Vital Signs: Vital Signs Temp Pulse Pulse Resp BP BP Pulse Ox 04/13/20 11:00 35.7 C L 54 L 20 116/42 L 89 L 04/13/20 09:17 60 132/83 04/13/20 07:38 36.0 C L 52 L 18 132/83 96 04/13/20 07:23 95 04/13/20 02:45 36.1 C 20 138/56 L 04/13/20 01:38 94 L - Problem List & Annotations (1) Syncope SNOMED Code(s): 039255872 Code(s): R55 - SYNCOPE AND COLLAPSE Status: Acute Current Visit: Yes Qualifiers: Syncope type: unspecified Qualified Code(s): R55 - Syncope and collapse (2) COVID-19 SNOMED Code(s): 860454134 Code(s): U07.1 - COVID-19 Status: Acute Current Visit: Yes (3) Chronic atrial fibrillation SNOMED Code(s): 197091902 Code(s): I48.20 - CHRONIC ATRIAL FIBRILLATION, UNSPECIFIED Status: Chronic Current Visit: Yes (4) Essential hypertension SNOMED Code(s): 10122709 Code(s): I10 - ESSENTIAL (PRIMARY) HYPERTENSION Status: Chronic Current Visit: Yes - Problem List Review Problem List Initiated/Reviewed/Updated: Yes - My Orders Last 24 Hours: My Active Orders 04/13/20 11:30 GLUCOSE POC LAB TO COLLECT JPM [POC] QIDACANDBED 04/13/20 16:30 GLUCOSE POC LAB TO COLLECT JPM [POC] QIDACANDBED 04/13/20 21:00 GLUCOSE POC LAB TO COLLECT JPM [POC] QIDACANDBED 04/14/20 05:00 COMPREHENSIVE METABOLIC PN,CMP [CHEM] Timed INR,PT,PROTHROMBIN TIME [COAG] Timed 04/14/20 07:30 GLUCOSE POC LAB TO COLLECT JPM [POC] QIDACANDBED 04/14/20 11:30 GLUCOSE POC LAB TO COLLECT JPM [POC] QIDACANDBED 04/14/20 16:30 GLUCOSE POC LAB TO COLLECT JPM [POC] QIDACANDBED 04/14/20 21:00 GLUCOSE POC LAB TO COLLECT JPM [POC] QIDACANDBED 04/15/20 07:30 GLUCOSE POC LAB TO COLLECT JPM [POC] QIDACANDBED 04/15/20 11:30 GLUCOSE POC LAB TO COLLECT JPM [POC] QIDACANDBED 04/15/20 16:30 GLUCOSE POC LAB TO COLLECT JPM [POC] QIDACANDBED 04/15/20 21:00 GLUCOSE POC LAB TO COLLECT JPM [POC] QIDACANDBED 04/16/20 07:30 GLUCOSE POC LAB TO COLLECT JPM [POC] QIDACANDBED 04/16/20 11:30 GLUCOSE POC LAB TO COLLECT JPM [POC] QIDACANDBED 04/16/20 16:30 GLUCOSE POC LAB TO COLLECT JPM [POC] QIDACANDBED 04/16/20 21:00 GLUCOSE POC LAB TO COLLECT JPM [POC] QIDACANDBED 04/17/20 07:30 GLUCOSE POC LAB TO COLLECT JPM [POC] QIDACANDBED 04/17/20 11:30 GLUCOSE POC LAB TO COLLECT JPM [POC] QIDACANDBED 04/17/20 16:30 GLUCOSE POC LAB TO COLLECT JPM [POC] QIDACANDBED 04/17/20 21:00 GLUCOSE POC LAB TO COLLECT JPM [POC] QIDACANDBED 04/18/20 07:30 GLUCOSE POC LAB TO COLLECT JPM [POC] QIDACANDBED - Plan Plan:: ASSESSMENT AND PLAN - COVID-19 pneumonia-now complicated by acute respiratory failure with hypoxia. Respiratory status stable but quite compromised. Requiring 15 L via high flow nasal cannula or noninvasive ventilation. Symptomatically little bit better today. -Continue steroids every 24 hours (day 6) -remdesivir (day 5) -Convalescent plasma, day 2 -Hold off on diuresis today -Noninvasive positive pressure ventilation -Symptomatic management -Isolation precautions (sx onset 04/01) Syncope-occurred after getting out of the shower and is likely a combination of vasodilation and decreased intravascular volume with Covid and recent fevers. No recurrence during the hospital stay. -Hold antihypertensives other than beta-denilson -Encourage oral fluid intake -Cardiac monitoring Chronic atrial fibrillation-rate controlled. INR remains supratherapeutic. -Continue beta-denilson -Hold warfarin -Reassess INR in a.m. Essential hypertension-blood pressure on the low side. -Hold calcium channel denilson and ARB Maintenance issues - - DVT prophylaxis -warfarin - GI prophylaxis -not indicated - Nutrition -regular Disposition -anticipate discharge home versus subacute rehab after the hospital stay Primary care physician -Dr Igor Barcenas
[2020-04-13] MEDS ORDERED: Benzocaine/Cetylpyridinium/Menthol Lozenge MUCMEM PRN (12:18)
[2020-04-13] MEDS: REMDESIVIR 100 MG in Sodium Chloride 0.9% 100 ML IV SCH (13:41)
[2020-04-13] MEDS: Acetaminophen 325 MG Tab PO PRN (15:22)
[2020-04-13] MEDS: Dexamethasone 2 MG Tab PO SCH (20:43)
[2020-04-13] MEDS: Melatonin 3 MG Tab PO SCH (20:46)
[2020-04-14] MEDS: Albuterol 8 GM Inhaler INH SCH ×6 (03:03→20:37)
[2020-04-14] MEDS: Formoterol/Mometasone 100-5 MCG 8.8 GM Inhaler IH SCH ×2 (07:45→20:36)
[2020-04-14] MEDS: Insulin Lispro 100 Unit/ML 3 ML KwikPen SUBCUT SCH ×4 (07:52→21:43)
[2020-04-14] MEDS: Metoprolol Tartrate 25 MG Tab PO SCH ×2 (08:53→20:37)
[2020-04-14] MEDS: Rosuvastatin 10 MG Tab PO SCH (08:53)
--- NOTE | 2020-04-14 11:12 | PCM.PN ---
- General Info Date of Service: 04/14/20 Subjective Update: Ms. Carlson has been stable over the last 24 hours. Continues to use noninvasive positive pressure ventilation intermittently. When not on BiPAP she is on high flow oxygen at 15 L/min. Subjectively she feels modestly improved with less shortness of breath, appetite and energy level remain fairly good. Functional Status: Reports: Tolerating Diet, Urinating - Review of Systems General: Reports: Weakness, Fatigue. Denies: Fever, Chills Pulmonary: Reports: Shortness of Breath. Denies: Pleuritic Chest Pain, Cough, Sputum, Hemoptysis, Wheezing Cardiovascular: Reports: Dyspnea on Exertion. Denies: Chest Pain, Palpitations, Orthopnea, PND, Edema, Lightheadedness Gastrointestinal: Reports: No Symptoms Genitourinary: Reports: No Symptoms - Patient Data Vitals - Most Recent: Last Vital Signs Temp 96.4 F L 04/14/20 07:41 Pulse 55 L 04/14/20 08:53 Resp 20 04/14/20 07:41 BP 138/56 L 04/14/20 08:53 Pulse Ox 90 L 04/14/20 07:41 Orthostatic Blood Pressure [ 95/43 Sitting] Orthostatic Blood Pressure [ 129/54 Supine] Weight - Most Recent: 160 lb 0.008 oz I&O - Last 24 Hours: Intake & Output 04/13/20 04/14/20 04/14/20 22:59 06:59 14:59 Intake Total 1003 900 Output Total 100 Balance 903 900 Lab Results Last 24 Hours: Laboratory Results - last 24 hr 04/13/20 04/13/20 04/13/20 Range/Units 11:30 16:43 21:22 PT (9.5-12.0) sec INR (0.80-1.20) Sodium (140-148) mmol/L Potassium (3.6-5.2) mmol/L Chloride (100-108) mmol/L Carbon Dioxide (21-32) mmol/L Anion Gap (5.0-14.0) mmol/L BUN (7-18) mg/dL Creatinine (0.6-1.0) mg/dL Est Cr Clr Drug Dosing mL/min Estimated GFR (MDRD) (>60) Glucose (74-106) mg/dL POC Glucose 321 H 216 H 229 H (74-106) MG/DL Calcium (8.5-10.1) mg/dL Total Bilirubin (0.2-1.0) mg/dL AST (15-37) U/L ALT (12-78) U/L Alkaline Phosphatase (46-116) U/L Total Protein (6.4-8.2) g/dL Albumin (3.4-5.0) g/dL Globulin (2.3-3.5) g/dL Albumin/Globulin Ratio (1.2-2.2) 04/14/20 04/14/20 04/14/20 Range/Units 06:25 06:25 07:30 PT 51.2 H (9.5-12.0) sec INR 4.84 H* (0.80-1.20) Sodium 134 L (140-148) mmol/L Potassium 4.4 (3.6-5.2) mmol/L Chloride 101 (100-108) mmol/L Carbon Dioxide 24 (21-32) mmol/L Anion Gap 13.4 (5.0-14.0) mmol/L BUN 28 H (7-18) mg/dL Creatinine 1.0 (0.6-1.0) mg/dL Est Cr Clr Drug Dosing 38.71 mL/min Estimated GFR (MDRD) 53 L (>60) Glucose 266 H (74-106) mg/dL POC Glucose 250 H (74-106) MG/DL Calcium 8.4 L (8.5-10.1) mg/dL Total Bilirubin 0.7 (0.2-1.0) mg/dL AST 30 (15-37) U/L ALT 25 (12-78) U/L Alkaline Phosphatase 99 (46-116) U/L Total Protein 6.2 L (6.4-8.2) g/dL Albumin 2.6 L (3.4-5.0) g/dL Globulin 3.6 H (2.3-3.5) g/dL Albumin/Globulin Ratio 0.7 L (1.2-2.2) Med Orders - Current: Current Medications Acetaminophen (Tylenol) 650 mg PO Q4H PRN PRN Reason: Pain (Mild 1-3)/fever Last Admin: 04/13/20 15:22 Dose: 650 mg Documented by: Albuterol (Ventolin Hfa) 1 - 2 gm INH Q4H [facility] Last Admin: 04/14/20 08:54 Dose: 2 puff Documented by: Benzocaine/Menthol (Cepacol Sore Throat) 1 lozenge MUCMEM Q2H PRN PRN Reason: Sore Throat Benzonatate (Tessalon Perles) 100 mg PO TID PRN PRN Reason: Cough Dexamethasone (Dexamethasone) 6 mg PO Q24H [facility] Stop: 04/17/20 21:01 Last Admin: 04/13/20 20:43 Dose: 6 mg Documented by: Dextrose/Water (Dextrose 50% In Water) 50 ml IVPUSH ASDIRECTED PRN PRN Reason: Hypoglycemia Glucagon (Glucagen) 1 mg IM ASDIRECTED PRN PRN Reason: Hypoglycemia Guaifenesin/Dextromethorphan (Robitussin Dm) 10 ml PO Q4H PRN PRN Reason: Cough Insulin Human Lispro (Humalog) 0 unit SUBCUT QIDACANDBED [facility]; Protocol Last Admin: 04/14/20 07:52 Dose: 3 units Documented by: Magnesium Hydroxide (Milk Of Magnesia) 30 ml PO Q12H PRN PRN Reason: Constipation Melatonin (Melatonin) 6 mg PO BEDTIME [facility] Last Admin: 04/13/20 20:46 Dose: 6 mg Documented by: Metoprolol Tartrate (Lopressor) 25 mg PO BID [facility] Last Admin: 04/14/20 08:53 Dose: 25 mg Documented by: Mometasone Furoate/Formoterol Fumar (Dulera 100-5 Mcg) 0 puff IH BIDRT [facility] Last Admin: 04/14/20 07:45 Dose: 1 puff Documented by: Ondansetron HCl (Zofran) 4 mg IV Q6H PRN PRN Reason: Nausea/Vomiting Ondansetron HCl (Zofran Odt) 4 mg PO Q6H PRN PRN Reason: Nausea able to take PO Rosuvastatin Calcium (Crestor) 20 mg PO DAILY [facility] Last Admin: 04/14/20 08:53 Dose: 20 mg Documented by: Senna/Docusate Sodium (Senna Plus) 1 tab PO BID PRN PRN Reason: Constipation Discontinued Medications Albuterol (Ventolin Hfa) 1 - 2 gm INH Q4H [facility] Last Admin: 04/09/20 05:39 Dose: 1 puff Documented by: Dexamethasone (Dexamethasone) 6 mg PO ONETIME ONE Stop: 04/08/20 20:45 Last Admin: 04/08/20 21:52 Dose: 6 mg Documented by: Furosemide (Lasix) 20 mg IVPUSH NOW ONE Stop: 04/11/20 14:01 Last Admin: 04/11/20 14:54 Dose: 20 mg Documented by: Furosemide (Lasix) 20 mg IVPUSH NOW ONE Stop: 04/12/20 16:46 Last Admin: 04/12/20 17:46 Dose: 20 mg Documented by: Sodium Chloride (Normal Saline) 1,000 mls @ 999 mls/hr IV ASDIRECTED [facility] Last Admin: 04/08/20 15:46 Dose: 999 mls/hr Documented by: Remdesivir 100 mg/ Sodium (Chloride) 100 mls @ 100 mls/hr IV Q24H [facility] Stop: 04/13/20 14:59 Last Admin: 04/13/20 13:41 Dose: 100 mls/hr Documented by: Remdesivir 200 mg/ Sodium (Chloride) 250 mls @ 250 mls/hr IV ONETIME ONE Stop: 04/09/20 14:59 Last Admin: 04/09/20 13:45 Dose: 250 mls/hr Documented by: Insulin Human Lispro (Humalog) 0 unit SUBCUT QIDACANDBED [facility]; Protocol Insulin Human Lispro (Humalog) Confirm Administered Dose 300 unit SUBCUT .STK- MED ONE Stop: 04/10/20 22:41 Last Admin: 04/10/20 22:54 Dose: Not Given Documented by: Metoprolol Tartrate (Lopressor) 50 mg PO BID [facility] Mometasone Furoate/Formoterol Fumar (Dulera 100-5 Mcg) 1 puff IH BID [facility] Last Admin: 04/08/20 20:18 Dose: 1 puff Documented by: Metoprolol 25mg Tab (Pt Own) 2 each PO BID [facility] Last Admin: 04/09/20 12:20 Dose: Not Given Documented by: Warfarin Sodium (Coumadin) 1.25 mg PO DAILY@1300 [facility] Last Admin: 04/11/20 12:03 Dose: 1.25 mg Documented by: - Exam Quality Assessment: Supplemental Oxygen, DVT Prophylaxis General: Alert, Oriented, Cooperative, Mild Distress Lungs: Rales. No: Rhonchi, Wheezing Cardiovascular: Regular Rate, Regular Rhythm, No Murmurs GI/Abdominal Exam: Soft, Non-Tender, No Organomegaly, No Distention Extremities: Non-Tender, No Pedal Edema Sepsis Event Note - Evaluation Sepsis Screening Result: No Definite Risk - Focused Exam Vital Signs: Vital Signs Temp Pulse Pulse Resp BP BP Pulse Ox 04/14/20 08:53 55 L 138/56 L 04/14/20 07:41 96.4 F L 55 L 20 138/56 L 90 L 04/14/20 07:03 94 L 04/14/20 07:00 97.8 F 88 20 138/94 H 93 L 04/14/20 03:00 96.2 F L 60 22 H 125/45 L 95 04/14/20 01:10 94 L - Problem List Review Problem List Initiated/Reviewed/Updated: Yes - My Orders Last 24 Hours: My Active Orders 04/13/20 13:04 Transfuse Fresh Frozen Plasma [COMM] Q24H 04/15/20 05:00 CBC WITH AUTO DIFF [HEME] Timed COMPREHENSIVE METABOLIC PN,CMP [CHEM] Timed INR,PT,PROTHROMBIN TIME [[facility]] Timed 04/15/20 05:11 CRP [C-REACTIVE PROTEIN] [CHEM] AM D Dimer [D-DIMER QUANTITATIVE] [COAG] AM - Plan Plan:: ASSESSMENT AND PLAN - COVID-19 pneumonia-now complicated by acute respiratory failure with hypoxia. Respiratory status stable but quite compromised. Requiring 15 L via high flow nasal cannula or noninvasive ventilation. Symptomatically little bit better today. -Continue steroids every 24 hours (day 7) -remdesivir, she has completed a 5-day course as of yesterday -Convalescent plasma, day 3 -Hold off on diuresis today -Noninvasive positive pressure ventilation -Symptomatic management -Isolation precautions (sx onset 04/01) Syncope-occurred after getting out of the shower and is likely a combination of vasodilation and decreased intravascular volume with Covid and recent fevers. No recurrence during the hospital stay. -Hold antihypertensives other than beta-denilson -Encourage oral fluid intake -Cardiac monitoring Chronic atrial fibrillation-rate controlled. INR remains supratherapeutic. -Continue beta-denilson -Hold warfarin -Reassess INR in a.m. Essential hypertension-blood pressure on the low side. -Hold calcium channel denilson and ARB Maintenance issues - - DVT prophylaxis -warfarin - GI prophylaxis -not indicated - Nutrition -regular Disposition -anticipate discharge home versus subacute rehab after the hospital stay Primary care physician -Dr Igor Barcenas
[2020-04-14] MEDS ORDERED: Sodium Chloride 0.65% Nasal Spray 45 ML Bottle NAS PRN (16:04)
[2020-04-14] MEDS: LORazepam 2 MG/ML SDV IVPUSH PRN (20:24)
[2020-04-14] MEDS: Dexamethasone 2 MG Tab PO SCH (20:36)
[2020-04-14] MEDS: Melatonin 3 MG Tab PO SCH (20:36)
[2020-04-15] MEDS: LORazepam 2 MG/ML SDV IVPUSH PRN (02:19)
[2020-04-15] MEDS: Albuterol 8 GM Inhaler INH SCH ×6 (02:19→21:58)
[2020-04-15] MEDS ORDERED: Phytonadione 1 MG in Sodium Chloride 0.9% 50 ML IV ONE (06:30)
[2020-04-15] MEDS: Formoterol/Mometasone 100-5 MCG 8.8 GM Inhaler IH SCH ×2 (07:38→21:56)
[2020-04-15] MEDS ORDERED: Furosemide 20 MG/2 ML VIAL IVPUSH ONE (08:30)
[2020-04-15] MEDS: Insulin Lispro 100 Unit/ML 3 ML KwikPen SUBCUT SCH ×4 (08:32→21:55)
[2020-04-15] MEDS: Rosuvastatin 10 MG Tab PO SCH (08:46)
[2020-04-15] MEDS: Metoprolol Tartrate 25 MG Tab PO SCH ×2 (10:47→21:52)
--- NOTE | 2020-04-15 14:20 | PCM.PN ---
- General Info Date of Service: 04/15/20 Subjective Update: Ms. Carlson difficulty with increased anxiety and decreased oxygen saturations last night. Because of anxiety was intolerant of BiPAP and was hypoxic on high flow oxygen. She has been treated intermittently with lorazepam which does seem to have helped. This morning she has very good oxygenation with use of BiPAP. She denies significant shortness of breath and reports that her anxiety is under better control. - Review of Systems General: Reports: Weakness, Fatigue. Denies: Fever, Chills Pulmonary: Reports: Shortness of Breath. Denies: Pleuritic Chest Pain, Cough, Sputum, Hemoptysis, Wheezing Cardiovascular: Reports: Dyspnea on Exertion. Denies: Chest Pain, Palpitations, Orthopnea, PND, Edema, Lightheadedness Gastrointestinal: Reports: No Symptoms Genitourinary: Reports: No Symptoms - Patient Data Vitals - Most Recent: Last Vital Signs Temp 97.5 F 04/15/20 12:19 Pulse 49 L 04/15/20 12:19 Resp 24 H 04/15/20 12:19 BP 121/54 L 04/15/20 12:19 Pulse Ox 90 L 04/15/20 12:53 Orthostatic Blood Pressure [ 95/43 Sitting] Orthostatic Blood Pressure [ 129/54 Supine] Weight - Most Recent: 160 lb 0.008 oz I&O - Last 24 Hours: Intake & Output 04/14/20 04/15/20 04/15/20 22:59 06:59 14:59 Intake Total 710 Output Total 600 Balance 110 Lab Results Last 24 Hours: Laboratory Results - last 24 hr 04/14/20 04/14/20 04/15/20 Range/Units 16:30 21:00 05:03 WBC 10.1 (4.5-11.0) K/uL RBC 3.31 (3.30-5.50) M/uL Hgb 10.2 L (12.0-15.0) g/dL Hct 31.7 L (36.0-48.0) % MCV 96 (80-98) fL MCH 31 (27-31) pg MCHC 32 (32-36) % Plt Count 136 L (150-400) K/uL Neut % (Auto) 91 H (36-66) % Lymph % (Auto) 5 L (24-44) % [place] % (Auto) 4 (2-6) % Eos % (Auto) 0 L (2-4) % Baso % (Auto) 0 (0-1) % PT (9.5-12.0) sec INR (0.80-1.20) D-Dimer, Quantitative (0.0-500.0) ng/mL Sodium (140-148) mmol/L Potassium (3.6-5.2) mmol/L Chloride (100-108) mmol/L Carbon Dioxide (21-32) mmol/L Anion Gap (5.0-14.0) mmol/L BUN (7-18) mg/dL Creatinine (0.6-1.0) mg/dL Est Cr Clr Drug Dosing mL/min Estimated GFR (MDRD) (>60) Glucose (74-106) mg/dL POC Glucose 293 H 121 H (74-106) MG/DL Calcium (8.5-10.1) mg/dL Total Bilirubin (0.2-1.0) mg/dL AST (15-37) U/L ALT (12-78) U/L Alkaline Phosphatase (46-116) U/L C-Reactive Protein (0.0-0.3) mg/dL Total Protein (6.4-8.2) g/dL Albumin (3.4-5.0) g/dL Globulin (2.3-3.5) g/dL Albumin/Globulin Ratio (1.2-2.2) 04/15/20 04/15/20 04/15/20 Range/Units 05:03 05:03 05:03 WBC (4.5-11.0) K/uL RBC (3.30-5.50) M/uL Hgb (12.0-15.0) g/dL Hct (36.0-48.0) % MCV (80-98) fL MCH (27-31) pg MCHC (32-36) % Plt Count (150-400) K/uL Neut % (Auto) (36-66) % Lymph % (Auto) (24-44) % [place] % (Auto) (2-6) % Eos % (Auto) (2-4) % Baso % (Auto) (0-1) % PT 64.9 H (9.5-12.0) sec INR 6.17 H* (0.80-1.20) D-Dimer, Quantitative 1419.83 H (0.0-500.0) ng/mL Sodium 136 L (140-148) mmol/L Potassium 4.3 (3.6-5.2) mmol/L Chloride 101 (100-108) mmol/L Carbon Dioxide 25 (21-32) mmol/L Anion Gap 14.3 H (5.0-14.0) mmol/L BUN 30 H (7-18) mg/dL Creatinine 1.0 (0.6-1.0) mg/dL Est Cr Clr Drug Dosing 38.71 mL/min Estimated GFR (MDRD) 53 L (>60) Glucose 282 H (74-106) mg/dL POC Glucose (74-106) MG/DL Calcium 8.3 L (8.5-10.1) mg/dL Total Bilirubin 0.8 (0.2-1.0) mg/dL AST 29 (15-37) U/L ALT 20 (12-78) U/L Alkaline Phosphatase 99 (46-116) U/L C-Reactive Protein (0.0-0.3) mg/dL Total Protein 6.0 L (6.4-8.2) g/dL Albumin 2.5 L (3.4-5.0) g/dL Globulin 3.5 (2.3-3.5) g/dL Albumin/Globulin Ratio 0.7 L (1.2-2.2) 04/15/20 04/15/20 04/15/20 Range/Units 05:03 07:30 12:06 WBC (4.5-11.0) K/uL RBC (3.30-5.50) M/uL Hgb (12.0-15.0) g/dL Hct (36.0-48.0) % MCV (80-98) fL MCH (27-31) pg MCHC (32-36) % Plt Count (150-400) K/uL Neut % (Auto) (36-66) % Lymph % (Auto) (24-44) % [place] % (Auto) (2-6) % Eos % (Auto) (2-4) % Baso % (Auto) (0-1) % PT (9.5-12.0) sec INR (0.80-1.20) D-Dimer, Quantitative (0.0-500.0) ng/mL Sodium (140-148) mmol/L Potassium (3.6-5.2) mmol/L Chloride (100-108) mmol/L Carbon Dioxide (21-32) mmol/L Anion Gap (5.0-14.0) mmol/L BUN (7-18) mg/dL Creatinine (0.6-1.0) mg/dL Est Cr Clr Drug Dosing mL/min Estimated GFR (MDRD) (>60) Glucose (74-106) mg/dL POC Glucose 268 H 301 H (74-106) MG/DL Calcium (8.5-10.1) mg/dL Total Bilirubin (0.2-1.0) mg/dL AST (15-37) U/L ALT (12-78) U/L Alkaline Phosphatase (46-116) U/L C-Reactive Protein 2.75 H (0.0-0.3) mg/dL Total Protein (6.4-8.2) g/dL Albumin (3.4-5.0) g/dL Globulin (2.3-3.5) g/dL Albumin/Globulin Ratio (1.2-2.2) Med Orders - Current: Current Medications Acetaminophen (Tylenol) 650 mg PO Q4H PRN PRN Reason: Pain (Mild 1-3)/fever Last Admin: 04/13/20 15:22 Dose: 650 mg Documented by: Albuterol (Ventolin Hfa) 1 - 2 gm INH Q4H [facility] Last Admin: 04/15/20 13:05 Dose: 2 puff Documented by: Benzocaine/Menthol (Cepacol Sore Throat) 1 lozenge MUCMEM Q2H PRN PRN Reason: Sore Throat Benzonatate (Tessalon Perles) 100 mg PO TID PRN PRN Reason: Cough Dexamethasone (Dexamethasone) 6 mg PO Q24H [facility] Stop: 04/17/20 21:01 Last Admin: 04/14/20 20:36 Dose: 6 mg Documented by: Dextrose/Water (Dextrose 50% In Water) 50 ml IVPUSH ASDIRECTED PRN PRN Reason: Hypoglycemia Glucagon (Glucagen) 1 mg IM ASDIRECTED PRN PRN Reason: Hypoglycemia Guaifenesin/Dextromethorphan (Robitussin Dm) 10 ml PO Q4H PRN PRN Reason: Cough Insulin Human Lispro (Humalog) 0 unit SUBCUT QIDACANDBED [facility]; Protocol Last Admin: 04/15/20 12:09 Dose: 4 units Documented by: Lorazepam (Ativan) 0.5 mg IVPUSH Q2H PRN PRN Reason: Anxiety Last Admin: 04/15/20 02:19 Dose: 0.5 mg Documented by: Magnesium Hydroxide (Milk Of Magnesia) 30 ml PO Q12H PRN PRN Reason: Constipation Melatonin (Melatonin) 6 mg PO BEDTIME [facility] Last Admin: 04/14/20 20:36 Dose: 6 mg Documented by: Metoprolol Tartrate (Lopressor) 12.5 mg PO BID [facility] Mometasone Furoate/Formoterol Fumar (Dulera 100-5 Mcg) 0 puff IH BIDRT [facility] Last Admin: 04/15/20 07:38 Dose: 1 puff Documented by: Ondansetron HCl (Zofran) 4 mg IV Q6H PRN PRN Reason: Nausea/Vomiting Ondansetron HCl (Zofran Odt) 4 mg PO Q6H PRN PRN Reason: Nausea able to take PO Rosuvastatin Calcium (Crestor) 20 mg PO DAILY [facility] Last Admin: 04/15/20 08:46 Dose: 20 mg Documented by: Senna/Docusate Sodium (Senna Plus) 1 tab PO BID PRN PRN Reason: Constipation Sodium Chloride ([place] Nasal [place]) 0 ml KEYANA Q2H PRN PRN Reason: Congestion Last Admin: 04/14/20 16:34 Dose: 1 spray Documented by: Discontinued Medications Albuterol (Ventolin Hfa) 1 - 2 gm INH Q4H [facility] Last Admin: 04/09/20 05:39 Dose: 1 puff Documented by: Dexamethasone (Dexamethasone) 6 mg PO ONETIME ONE Stop: 04/08/20 20:45 Last Admin: 04/08/20 21:52 Dose: 6 mg Documented by: Furosemide (Lasix) 20 mg IVPUSH NOW ONE Stop: 04/11/20 14:01 Last Admin: 04/11/20 14:54 Dose: 20 mg Documented by: Furosemide (Lasix) 20 mg IVPUSH NOW ONE Stop: 04/12/20 16:46 Last Admin: 04/12/20 17:46 Dose: 20 mg Documented by: Furosemide (Lasix) 20 mg IVPUSH NOW ONE Stop: 04/15/20 08:31 Last Admin: 04/15/20 08:34 Dose: 20 mg Documented by: Sodium Chloride (Normal Saline) 1,000 mls @ 999 mls/hr IV ASDIRECTED [facility] Last Admin: 04/08/20 15:46 Dose: 999 mls/hr Documented by: Remdesivir 100 mg/ Sodium (Chloride) 100 mls @ 100 mls/hr IV Q24H [facility] Stop: 04/13/20 14:59 Last Admin: 04/13/20 13:41 Dose: 100 mls/hr Documented by: Remdesivir 200 mg/ Sodium (Chloride) 250 mls @ 250 mls/hr IV ONETIME ONE Stop: 04/09/20 14:59 Last Admin: 04/09/20 13:45 Dose: 250 mls/hr Documented by: Phytonadione 1 mg/ Sodium (Chloride) 50.5 mls @ 100 mls/hr IV ONETIME ONE Stop: 04/15/20 07:00 Last Admin: 04/15/20 06:31 Dose: 100 mls/hr Documented by: Insulin Human Lispro (Humalog) 0 unit SUBCUT QIDACANDBED [facility]; Protocol Insulin Human Lispro (Humalog) Confirm Administered Dose 300 unit SUBCUT .STK- MED ONE Stop: 04/10/20 22:41 Last Admin: 04/10/20 22:54 Dose: Not Given Documented by: Metoprolol Tartrate (Lopressor) 50 mg PO BID [facility] Metoprolol Tartrate (Lopressor) 25 mg PO BID [facility] Last Admin: 04/15/20 10:47 Dose: Not Given Documented by: Mometasone Furoate/Formoterol Fumar (Dulera 100-5 Mcg) 1 puff IH BID [facility] Last Admin: 04/08/20 20:18 Dose: 1 puff Documented by: Metoprolol 25mg Tab (Pt Own) 2 each PO BID [facility] Last Admin: 04/09/20 12:20 Dose: Not Given Documented by: Warfarin Sodium (Coumadin) 1.25 mg PO DAILY@1300 [facility] Last Admin: 04/11/20 12:03 Dose: 1.25 mg Documented by: - Exam Quality Assessment: Supplemental Oxygen, DVT Prophylaxis General: Alert, Oriented, Cooperative, Moderate Distress Lungs: Decreased Breath Sounds, Rhonchi. No: Crackles, Rales, Wheezing Cardiovascular: Regular Rate, Regular Rhythm, No Murmurs GI/Abdominal Exam: Soft, Non-Tender, No Organomegaly, No Distention Extremities: Non-Tender, No Pedal Edema Sepsis Event Note - Evaluation Sepsis Screening Result: No Definite Risk - Focused Exam Vital Signs: Vital Signs Temp Pulse Resp BP Pulse Ox 04/15/20 12:53 90 L 04/15/20 12:19 97.5 F 49 L 24 H 121/54 L 88 L 04/15/20 11:00 97.8 F 52 L 18 125/56 L 92 L 04/15/20 07:34 96.8 F L 52 L 28 H 109/88 88 L 04/15/20 07:17 89 L 04/15/20 04:18 97.2 F 52 L 20 130/77 90 L - Problem List Review Problem List Initiated/Reviewed/Updated: Yes - My Orders Last 24 Hours: My Active Orders 04/14/20 16:04 Sodium Chloride 0.65% [[place] Nasal [place]] 0 ml KEYANA Q2H PRN 04/14/20 20:26 LORazepam [Ativan] 0.5 mg IVPUSH Q2H PRN 04/15/20 21:00 Metoprolol Tartrate [Lopressor] 12.5 mg PO BID 04/16/20 05:00 COMPREHENSIVE METABOLIC PN,CMP [CHEM] Timed INR,PT,PROTHROMBIN TIME [COAG] Timed - Plan Plan:: ASSESSMENT AND PLAN - COVID-19 pneumonia-now complicated by acute respiratory failure with hypoxia. Respiratory status stable but quite compromised. Requiring 15 L via high flow nasal cannula or noninvasive ventilation. Difficulty with anxiety last night, improved with intermittent use of lorazepam. -Continue steroids every 24 hours (day 8) -remdesivir, she has completed a 5-day course as of yesterday -Convalescent plasma, completed a 3-day course yesterday -Furosemide 20 mg IV today -Noninvasive positive pressure ventilation -Symptomatic management -Isolation precautions (sx onset 04/01) Syncope-No recurrence during the hospital stay. -Hold antihypertensives other than beta-denilson -Encourage oral fluid intake -Cardiac monitoring Chronic atrial fibrillation-rate controlled. INR remains supratherapeutic. -Vitamin K 1 mg IV given earlier today -Continue beta-denilson -Hold warfarin -Reassess INR in a.m. Essential hypertension-blood pressure on the low side. -Hold calcium channel denilson and ARB Maintenance issues - - DVT prophylaxis -warfarin - GI prophylaxis -not indicated - Nutrition -regular Disposition -anticipate discharge home versus subacute rehab after the hospital stay Primary care physician -Dr Igor Barcenas
[2020-04-15] MEDS: Melatonin 3 MG Tab PO SCH (21:51)
[2020-04-15] MEDS: Dexamethasone 2 MG Tab PO SCH (21:51)
[2020-04-16] MEDS: Albuterol 8 GM Inhaler INH SCH ×6 (02:23→21:58)
[2020-04-16] MEDS: Formoterol/Mometasone 100-5 MCG 8.8 GM Inhaler IH SCH ×2 (07:43→21:52)
[2020-04-16] MEDS: Insulin Lispro 100 Unit/ML 3 ML KwikPen SUBCUT SCH ×4 (08:59→21:50)
[2020-04-16] MEDS: Metoprolol Tartrate 25 MG Tab PO SCH ×2 (09:03→21:54)
[2020-04-16] MEDS: Rosuvastatin 10 MG Tab PO SCH (09:03)
[2020-04-16] MEDS ORDERED: Warfarin 2.5 MG Tab PO ONE (11:00)
--- NOTE | 2020-04-16 12:03 | PCM.PN ---
- General Info Date of Service: 04/16/20 Subjective Update: Ms. Carlson remained stable since yesterday. There has been no appreciable improvement in respiratory status but also no worsening. Continues to use noninvasive positive pressure ventilation intermittently. Subjectively she reports that she feels improved today with less shortness of breath and more energy. Functional Status: Reports: Tolerating Diet, Ambulating, Urinating - Review of Systems General: Reports: Weakness, Fatigue. Denies: Fever, Chills Pulmonary: Reports: Shortness of Breath, Cough. Denies: Pleuritic Chest Pain, Sputum, Hemoptysis, Wheezing Cardiovascular: Reports: Dyspnea on Exertion. Denies: Chest Pain, Palpitations, Orthopnea, PND, Edema, Lightheadedness Gastrointestinal: Reports: No Symptoms - Patient Data Vitals - Most Recent: Last Vital Signs Temp 96.3 F L 04/16/20 10:55 Pulse 57 L 04/16/20 10:55 Resp 26 H 04/16/20 10:55 BP 126/47 L 04/16/20 10:55 Pulse Ox 88 L 04/16/20 10:55 Orthostatic Blood Pressure [ 95/43 Sitting] Orthostatic Blood Pressure [ 129/54 Supine] Weight - Most Recent: 160 lb 0.008 oz I&O - Last 24 Hours: Intake & Output 04/15/20 04/16/20 04/16/20 22:59 06:59 14:59 Intake Total 300 720 Output Total 300 100 Balance 0 -100 720 Lab Results Last 24 Hours: Laboratory Results - last 24 hr 04/15/20 04/15/20 04/15/20 Range/Units 12:06 16:58 21:00 PT (9.5-12.0) sec INR (0.80-1.20) Sodium (140-148) mmol/L Potassium (3.6-5.2) mmol/L Chloride (100-108) mmol/L Carbon Dioxide (21-32) mmol/L Anion Gap (5.0-14.0) mmol/L BUN (7-18) mg/dL Creatinine (0.6-1.0) mg/dL Est Cr Clr Drug Dosing mL/min Estimated GFR (MDRD) (>60) Glucose (74-106) mg/dL POC Glucose 301 H 228 H 202 H (74-106) MG/DL Calcium (8.5-10.1) mg/dL Total Bilirubin (0.2-1.0) mg/dL AST (15-37) U/L ALT (12-78) U/L Alkaline Phosphatase (46-116) U/L Total Protein (6.4-8.2) g/dL Albumin (3.4-5.0) g/dL Globulin (2.3-3.5) g/dL Albumin/Globulin Ratio (1.2-2.2) 04/16/20 04/16/20 04/16/20 Range/Units 04:00 04:00 07:39 PT 21.7 H (9.5-12.0) sec INR 2.02 H D (0.80-1.20) Sodium 133 L (140-148) mmol/L Potassium 4.3 (3.6-5.2) mmol/L Chloride 100 (100-108) mmol/L Carbon Dioxide 22 (21-32) mmol/L Anion Gap 15.3 H (5.0-14.0) mmol/L BUN 31 H (7-18) mg/dL Creatinine 0.9 (0.6-1.0) mg/dL Est Cr Clr Drug Dosing 43.02 mL/min Estimated GFR (MDRD) 60 (>60) Glucose 290 H (74-106) mg/dL POC Glucose 289 H (74-106) MG/DL Calcium 8.1 L (8.5-10.1) mg/dL Total Bilirubin 1.0 (0.2-1.0) mg/dL AST 28 (15-37) U/L ALT 17 (12-78) U/L Alkaline Phosphatase 95 (46-116) U/L Total Protein 5.9 L (6.4-8.2) g/dL Albumin 2.3 L (3.4-5.0) g/dL Globulin 3.6 H (2.3-3.5) g/dL Albumin/Globulin Ratio 0.6 L (1.2-2.2) 04/16/20 Range/Units 11:30 PT (9.5-12.0) sec INR (0.80-1.20) Sodium (140-148) mmol/L Potassium (3.6-5.2) mmol/L Chloride (100-108) mmol/L Carbon Dioxide (21-32) mmol/L Anion Gap (5.0-14.0) mmol/L BUN (7-18) mg/dL Creatinine (0.6-1.0) mg/dL Est Cr Clr Drug Dosing mL/min Estimated GFR (MDRD) (>60) Glucose (74-106) mg/dL POC Glucose 288 H (74-106) MG/DL Calcium (8.5-10.1) mg/dL Total Bilirubin (0.2-1.0) mg/dL AST (15-37) U/L ALT (12-78) U/L Alkaline Phosphatase (46-116) U/L Total Protein (6.4-8.2) g/dL Albumin (3.4-5.0) g/dL Globulin (2.3-3.5) g/dL Albumin/Globulin Ratio (1.2-2.2) Med Orders - Current: Current Medications Acetaminophen (Tylenol) 650 mg PO Q4H PRN PRN Reason: Pain (Mild 1-3)/fever Last Admin: 04/13/20 15:22 Dose: 650 mg Documented by: Albuterol (Ventolin Hfa) 1 - 2 gm INH Q4H [facility] Last Admin: 04/16/20 09:03 Dose: 2 puff Documented by: Benzocaine/Menthol (Cepacol Sore Throat) 1 lozenge MUCMEM Q2H PRN PRN Reason: Sore Throat Benzonatate (Tessalon Perles) 100 mg PO TID PRN PRN Reason: Cough Dexamethasone (Dexamethasone) 6 mg PO Q24H [facility] Stop: 04/17/20 21:01 Last Admin: 04/15/20 21:51 Dose: 6 mg Documented by: Dextrose/Water (Dextrose 50% In Water) 50 ml IVPUSH ASDIRECTED PRN PRN Reason: Hypoglycemia Glucagon (Glucagen) 1 mg IM ASDIRECTED PRN PRN Reason: Hypoglycemia Guaifenesin/Dextromethorphan (Robitussin Dm) 10 ml PO Q4H PRN PRN Reason: Cough Insulin Human Lispro (Humalog) 0 unit SUBCUT QIDACANDBED [facility]; Protocol Last Admin: 04/16/20 11:59 Dose: 3 units Documented by: Lorazepam (Ativan) 0.5 mg IVPUSH Q2H PRN PRN Reason: Anxiety Last Admin: 04/15/20 02:19 Dose: 0.5 mg Documented by: Magnesium Hydroxide (Milk Of Magnesia) 30 ml PO Q12H PRN PRN Reason: Constipation Melatonin (Melatonin) 6 mg PO BEDTIME [facility] Last Admin: 04/15/20 21:51 Dose: 6 mg Documented by: Metoprolol Tartrate (Lopressor) 12.5 mg PO BID [facility] Last Admin: 04/16/20 09:03 Dose: 12.5 mg Documented by: Mometasone Furoate/Formoterol Fumar (Dulera 100-5 Mcg) 0 puff IH BIDRT [facility] Last Admin: 04/16/20 07:43 Dose: 1 puff Documented by: Ondansetron HCl (Zofran) 4 mg IV Q6H PRN PRN Reason: Nausea/Vomiting Ondansetron HCl (Zofran Odt) 4 mg PO Q6H PRN PRN Reason: Nausea able to take PO Rosuvastatin Calcium (Crestor) 20 mg PO DAILY [facility] Last Admin: 04/16/20 09:03 Dose: 20 mg Documented by: Senna/Docusate Sodium (Senna Plus) 1 tab PO BID PRN PRN Reason: Constipation Sodium Chloride ([place] Nasal [place]) 0 ml KEYANA Q2H PRN PRN Reason: Congestion Last Admin: 04/14/20 16:34 Dose: 1 spray Documented by: Discontinued Medications Albuterol (Ventolin Hfa) 1 - 2 gm INH Q4H [facility] Last Admin: 04/09/20 05:39 Dose: 1 puff Documented by: Dexamethasone (Dexamethasone) 6 mg PO ONETIME ONE Stop: 04/08/20 20:45 Last Admin: 04/08/20 21:52 Dose: 6 mg Documented by: Furosemide (Lasix) 20 mg IVPUSH NOW ONE Stop: 04/11/20 14:01 Last Admin: 04/11/20 14:54 Dose: 20 mg Documented by: Furosemide (Lasix) 20 mg IVPUSH NOW ONE Stop: 04/12/20 16:46 Last Admin: 04/12/20 17:46 Dose: 20 mg Documented by: Furosemide (Lasix) 20 mg IVPUSH NOW ONE Stop: 04/15/20 08:31 Last Admin: 04/15/20 08:34 Dose: 20 mg Documented by: Sodium Chloride (Normal Saline) 1,000 mls @ 999 mls/hr IV ASDIRECTED [facility] Last Admin: 04/08/20 15:46 Dose: 999 mls/hr Documented by: Remdesivir 100 mg/ Sodium (Chloride) 100 mls @ 100 mls/hr IV Q24H [facility] Stop: 04/13/20 14:59 Last Admin: 04/13/20 13:41 Dose: 100 mls/hr Documented by: Remdesivir 200 mg/ Sodium (Chloride) 250 mls @ 250 mls/hr IV ONETIME ONE Stop: 04/09/20 14:59 Last Admin: 04/09/20 13:45 Dose: 250 mls/hr Documented by: Phytonadione 1 mg/ Sodium (Chloride) 50.5 mls @ 100 mls/hr IV ONETIME ONE Stop: 04/15/20 07:00 Last Admin: 04/15/20 06:31 Dose: 100 mls/hr Documented by: Insulin Human Lispro (Humalog) 0 unit SUBCUT QIDACANDBED [facility]; Protocol Insulin Human Lispro (Humalog) Confirm Administered Dose 300 unit SUBCUT .STK- MED ONE Stop: 04/10/20 22:41 Last Admin: 04/10/20 22:54 Dose: Not Given Documented by: Metoprolol Tartrate (Lopressor) 50 mg PO BID [facility] Metoprolol Tartrate (Lopressor) 25 mg PO BID [facility] Last Admin: 04/15/20 10:47 Dose: Not Given Documented by: Mometasone Furoate/Formoterol Fumar (Dulera 100-5 Mcg) 1 puff IH BID [facility] Last Admin: 04/08/20 20:18 Dose: 1 puff Documented by: Metoprolol 25mg Tab (Pt Own) 2 each PO BID [facility] Last Admin: 04/09/20 12:20 Dose: Not Given Documented by: Warfarin Sodium (Coumadin) 1.25 mg PO DAILY@1300 [facility] Last Admin: 04/11/20 12:03 Dose: 1.25 mg Documented by: Warfarin Sodium (Coumadin) 2.5 mg PO ONETIME ONE Stop: 04/16/20 11:01 Last Admin: 04/16/20 11:59 Dose: 2.5 mg Documented by: - Exam Quality Assessment: Supplemental Oxygen, DVT Prophylaxis General: Alert, Oriented, Cooperative, Moderate Distress Lungs: Normal Respiratory Effort, Decreased Breath Sounds, Rales. No: Crackles, Rhonchi, Wheezing Cardiovascular: Regular Rate, Regular Rhythm, No Murmurs GI/Abdominal Exam: Soft, Non-Tender, No Organomegaly, No Distention Extremities: Non-Tender, No Pedal Edema Sepsis Event Note - Evaluation Sepsis Screening Result: No Definite Risk - Focused Exam Vital Signs: Vital Signs Temp Pulse Pulse Resp BP BP Pulse Ox 04/16/20 10:55 96.3 F L 57 L 26 H 126/47 L 88 L 04/16/20 09:03 55 L 143/53 H 04/16/20 07:40 96.9 F 55 L 20 143/53 H 94 L 04/16/20 07:20 97 04/16/20 02:24 96.4 F L 50 L 18 146/54 H 95 04/16/20 01:33 90 L - Problem List Review Problem List Initiated/Reviewed/Updated: Yes - My Orders Last 24 Hours: My Active Orders 04/15/20 21:00 Metoprolol Tartrate [Lopressor] 12.5 mg PO BID 04/17/20 05:00 CBC WITH AUTO DIFF [HEME] Timed COMPREHENSIVE METABOLIC PN,CMP [CHEM] Timed 04/17/20 05:11 CRP [C-REACTIVE PROTEIN] [CHEM] AM D Dimer [D-DIMER QUANTITATIVE] [COAG] AM INR,PT,PROTHROMBIN TIME [COAG] AM - Plan Plan:: ASSESSMENT AND PLAN - COVID-19 pneumonia-now complicated by acute respiratory failure with hypoxia. Respiratory status stable but quite compromised. Requiring 15 L via high flow nasal cannula or noninvasive ventilation. -Continue steroids every 24 hours (day 9) -remdesivir, she has completed a 5-day course -Convalescent plasma, completed a 3-day course -Noninvasive positive pressure ventilation -Symptomatic management -Isolation precautions (sx onset 04/01) Syncope-No recurrence during the hospital stay. -Hold antihypertensives other than beta-denilson -Encourage oral fluid intake -Cardiac monitoring Chronic atrial fibrillation-rate controlled. INR remains supratherapeutic. -Vitamin K 1 mg IV given earlier today -Continue beta-denilson -Hold warfarin -Reassess INR in a.m. Essential hypertension-blood pressure on the low side. -Hold calcium channel denilson and ARB Maintenance issues - - DVT prophylaxis -warfarin - GI prophylaxis -not indicated - Nutrition -regular Disposition -anticipate discharge home versus subacute rehab after the hospital stay Primary care physician -Dr Igor Barcenas
[2020-04-16] MEDS: Dexamethasone 2 MG Tab PO SCH (21:50)
[2020-04-16] MEDS: Melatonin 3 MG Tab PO SCH (21:54)
[2020-04-17] MEDS: Albuterol 8 GM Inhaler INH SCH ×7 (02:05→20:47)
[2020-04-17] MEDS: Formoterol/Mometasone 100-5 MCG 8.8 GM Inhaler IH SCH ×2 (07:46→20:45)
[2020-04-17] MEDS: Insulin Lispro 100 Unit/ML 3 ML KwikPen SUBCUT SCH ×4 (07:46→21:49)
[2020-04-17] MEDS: Rosuvastatin 10 MG Tab PO SCH (07:59)
[2020-04-17] MEDS: Metoprolol Tartrate 25 MG Tab PO SCH ×2 (07:59→20:46)
--- NOTE | 2020-04-17 15:11 | PCM.PN ---
- General Info Date of Service: 04/17/20 Subjective Update: Ms. Carlson has remained stable since yesterday. She continues to require high level of supplemental oxygen and intermittent use of noninvasive positive pressure ventilation. No substantial improvement in respiratory status over the last 24 hours. Subjectively she does feel somewhat stronger and less short of breath. Functional Status: Reports: Tolerating Diet, Ambulating, Urinating - Review of Systems General: Reports: Weakness, Fatigue. Denies: Fever, Chills Pulmonary: Reports: Shortness of Breath, Cough. Denies: Pleuritic Chest Pain, Sputum, Hemoptysis, Wheezing Cardiovascular: Reports: Dyspnea on Exertion. Denies: Chest Pain, Palpitations, Orthopnea, PND, Edema, Lightheadedness Gastrointestinal: Reports: No Symptoms - Patient Data Vitals - Most Recent: Last Vital Signs Temp 96.1 F L 04/17/20 10:04 Pulse 59 L 04/17/20 10:04 Resp 20 04/17/20 10:04 BP 133/48 L 04/17/20 10:04 Pulse Ox 90 L 04/17/20 10:04 Orthostatic Blood Pressure [ 95/43 Sitting] Orthostatic Blood Pressure [ 129/54 Supine] Weight - Most Recent: 160 lb 0.008 oz I&O - Last 24 Hours: Intake & Output 04/17/20 04/17/20 04/17/20 06:59 14:59 22:59 Intake Total 800 Output Total 200 Balance 600 Lab Results Last 24 Hours: Laboratory Results - last 24 hr 04/16/20 04/16/20 04/17/20 Range/Units 16:50 21:16 05:58 WBC (4.5-11.0) K/uL RBC (3.30-5.50) M/uL Hgb (12.0-15.0) g/dL Hct (36.0-48.0) % MCV (80-98) fL MCH (27-31) pg MCHC (32-36) % Plt Count (150-400) K/uL Neut % (Auto) (36-66) % Lymph % (Auto) (24-44) % Cass % (Auto) (2-6) % Eos % (Auto) (2-4) % Baso % (Auto) (0-1) % PT 33.1 H (9.5-12.0) sec INR 3.10 H (0.80-1.20) D-Dimer, Quantitative (0.0-500.0) ng/mL Sodium (140-148) mmol/L Potassium (3.6-5.2) mmol/L Chloride (100-108) mmol/L Carbon Dioxide (21-32) mmol/L Anion Gap (5.0-14.0) mmol/L BUN (7-18) mg/dL Creatinine (0.6-1.0) mg/dL Est Cr Clr Drug Dosing mL/min Estimated GFR (MDRD) (>60) Glucose (74-106) mg/dL POC Glucose 243 H 277 H (74-106) MG/DL Calcium (8.5-10.1) mg/dL Total Bilirubin (0.2-1.0) mg/dL AST (15-37) U/L ALT (12-78) U/L Alkaline Phosphatase (46-116) U/L C-Reactive Protein (0.0-0.3) mg/dL Total Protein (6.4-8.2) g/dL Albumin (3.4-5.0) g/dL Globulin (2.3-3.5) g/dL Albumin/Globulin Ratio (1.2-2.2) 04/17/20 04/17/20 04/17/20 Range/Units 05:58 05:58 05:58 WBC 9.2 (4.5-11.0) K/uL RBC 3.50 (3.30-5.50) M/uL Hgb 11.0 L (12.0-15.0) g/dL Hct 33.4 L (36.0-48.0) % MCV 95 (80-98) fL MCH 31 (27-31) pg MCHC 33 (32-36) % Plt Count 123 L (150-400) K/uL Neut % (Auto) 93 H (36-66) % Lymph % (Auto) 4 L (24-44) % Cass % (Auto) 3 (2-6) % Eos % (Auto) 0 L (2-4) % Baso % (Auto) 0 (0-1) % PT (9.5-12.0) sec INR (0.80-1.20) D-Dimer, Quantitative > 89863 H (0.0-500.0) ng/mL Sodium 132 L (140-148) mmol/L Potassium 4.7 (3.6-5.2) mmol/L Chloride 101 (100-108) mmol/L Carbon Dioxide 24 (21-32) mmol/L Anion Gap 11.7 (5.0-14.0) mmol/L BUN 29 H (7-18) mg/dL Creatinine 0.9 (0.6-1.0) mg/dL Est Cr Clr Drug Dosing 43.02 mL/min Estimated GFR (MDRD) 60 (>60) Glucose 274 H (74-106) mg/dL POC Glucose (74-106) MG/DL Calcium 8.4 L (8.5-10.1) mg/dL Total Bilirubin 0.8 (0.2-1.0) mg/dL AST 28 (15-37) U/L ALT 18 (12-78) U/L Alkaline Phosphatase 103 (46-116) U/L C-Reactive Protein (0.0-0.3) mg/dL Total Protein 6.2 L (6.4-8.2) g/dL Albumin 2.4 L (3.4-5.0) g/dL Globulin 3.8 H (2.3-3.5) g/dL Albumin/Globulin Ratio 0.6 L (1.2-2.2) 04/17/20 04/17/20 04/17/20 Range/Units 05:58 07:30 12:27 WBC (4.5-11.0) K/uL RBC (3.30-5.50) M/uL Hgb (12.0-15.0) g/dL Hct (36.0-48.0) % MCV (80-98) fL MCH (27-31) pg MCHC (32-36) % Plt Count (150-400) K/uL Neut % (Auto) (36-66) % Lymph % (Auto) (24-44) % Cass % (Auto) (2-6) % Eos % (Auto) (2-4) % Baso % (Auto) (0-1) % PT (9.5-12.0) sec INR (0.80-1.20) D-Dimer, Quantitative (0.0-500.0) ng/mL Sodium (140-148) mmol/L Potassium (3.6-5.2) mmol/L Chloride (100-108) mmol/L Carbon Dioxide (21-32) mmol/L Anion Gap (5.0-14.0) mmol/L BUN (7-18) mg/dL Creatinine (0.6-1.0) mg/dL Est Cr Clr Drug Dosing mL/min Estimated GFR (MDRD) (>60) Glucose (74-106) mg/dL POC Glucose 254 H 304 H (74-106) MG/DL Calcium (8.5-10.1) mg/dL Total Bilirubin (0.2-1.0) mg/dL AST (15-37) U/L ALT (12-78) U/L Alkaline Phosphatase (46-116) U/L C-Reactive Protein 2.64 H (0.0-0.3) mg/dL Total Protein (6.4-8.2) g/dL Albumin (3.4-5.0) g/dL Globulin (2.3-3.5) g/dL Albumin/Globulin Ratio (1.2-2.2) Med Orders - Current: Current Medications Acetaminophen (Tylenol) 650 mg PO Q4H PRN PRN Reason: Pain (Mild 1-3)/fever Last Admin: 04/13/20 15:22 Dose: 650 mg Documented by: Albuterol (Ventolin Hfa) 1 - 2 gm INH Q4H REPLACED BY [facility] Last Admin: 04/17/20 13:10 Dose: 2 puff Documented by: Benzocaine/Menthol (Cepacol Sore Throat) 1 lozenge MUCMEM Q2H PRN PRN Reason: Sore Throat Benzonatate (Tessalon Perles) 100 mg PO TID PRN PRN Reason: Cough Dexamethasone (Dexamethasone) 6 mg PO Q24H REPLACED BY [facility] Stop: 04/17/20 21:01 Last Admin: 04/16/20 21:50 Dose: 6 mg Documented by: Dextrose/Water (Dextrose 50% In Water) 50 ml IVPUSH ASDIRECTED PRN PRN Reason: Hypoglycemia Glucagon (Glucagen) 1 mg IM ASDIRECTED PRN PRN Reason: Hypoglycemia Guaifenesin/Dextromethorphan (Robitussin Dm) 10 ml PO Q4H PRN PRN Reason: Cough Insulin Human Lispro (Humalog) 0 unit SUBCUT QIDACANDBED REPLACED BY [facility]; Protocol Last Admin: 04/17/20 13:04 Dose: 4 units Documented by: Lorazepam (Ativan) 0.5 mg IVPUSH Q2H PRN PRN Reason: Anxiety Last Admin: 04/15/20 02:19 Dose: 0.5 mg Documented by: Magnesium Hydroxide (Milk Of Magnesia) 30 ml PO Q12H PRN PRN Reason: Constipation Melatonin (Melatonin) 6 mg PO BEDTIME REPLACED BY [facility] Last Admin: 04/16/20 21:54 Dose: 6 mg Documented by: Metoprolol Tartrate (Lopressor) 12.5 mg PO BID REPLACED BY [facility] Last Admin: 04/17/20 07:59 Dose: 12.5 mg Documented by: Mometasone Furoate/Formoterol Fumar (Dulera 100-5 Mcg) 0 puff IH BIDRT REPLACED BY [facility] Last Admin: 04/17/20 07:46 Dose: 1 puff Documented by: Ondansetron HCl (Zofran) 4 mg IV Q6H PRN PRN Reason: Nausea/Vomiting Ondansetron HCl (Zofran Odt) 4 mg PO Q6H PRN PRN Reason: Nausea able to take PO Rosuvastatin Calcium (Crestor) 20 mg PO DAILY REPLACED BY [facility] Last Admin: 04/17/20 07:59 Dose: 20 mg Documented by: Senna/Docusate Sodium (Senna Plus) 1 tab PO BID PRN PRN Reason: Constipation Sodium Chloride ([place] Nasal [place]) 0 ml KEYANA Q2H PRN PRN Reason: Congestion Last Admin: 04/14/20 16:34 Dose: 1 spray Documented by: Discontinued Medications Albuterol (Ventolin Hfa) 1 - 2 gm INH Q4H REPLACED BY [facility] Last Admin: 04/09/20 05:39 Dose: 1 puff Documented by: Dexamethasone (Dexamethasone) 6 mg PO ONETIME ONE Stop: 04/08/20 20:45 Last Admin: 04/08/20 21:52 Dose: 6 mg Documented by: Furosemide (Lasix) 20 mg IVPUSH NOW ONE Stop: 04/11/20 14:01 Last Admin: 04/11/20 14:54 Dose: 20 mg Documented by: Furosemide (Lasix) 20 mg IVPUSH NOW ONE Stop: 04/12/20 16:46 Last Admin: 04/12/20 17:46 Dose: 20 mg Documented by: Furosemide (Lasix) 20 mg IVPUSH NOW ONE Stop: 04/15/20 08:31 Last Admin: 04/15/20 08:34 Dose: 20 mg Documented by: Sodium Chloride (Normal Saline) 1,000 mls @ 999 mls/hr IV ASDIRECTED REPLACED BY [facility] Last Admin: 04/08/20 15:46 Dose: 999 mls/hr Documented by: Remdesivir 100 mg/ Sodium (Chloride) 100 mls @ 100 mls/hr IV Q24H JOHN Stop: 04/13/20 14:59 Last Admin: 04/13/20 13:41 Dose: 100 mls/hr Documented by: Remdesivir 200 mg/ Sodium (Chloride) 250 mls @ 250 mls/hr IV ONETIME ONE Stop: 04/09/20 14:59 Last Admin: 04/09/20 13:45 Dose: 250 mls/hr Documented by: Phytonadione 1 mg/ Sodium (Chloride) 50.5 mls @ 100 mls/hr IV ONETIME ONE Stop: 04/15/20 07:00 Last Admin: 04/15/20 06:31 Dose: 100 mls/hr Documented by: Insulin Human Lispro (Humalog) 0 unit SUBCUT QIDACANDBED REPLACED BY [facility]; Protocol Insulin Human Lispro (Humalog) Confirm Administered Dose 300 unit SUBCUT .STK- MED ONE Stop: 04/10/20 22:41 Last Admin: 04/10/20 22:54 Dose: Not Given Documented by: Metoprolol Tartrate (Lopressor) 50 mg PO BID REPLACED BY [facility] Metoprolol Tartrate (Lopressor) 25 mg PO BID REPLACED BY [facility] Last Admin: 04/15/20 10:47 Dose: Not Given Documented by: Mometasone Furoate/Formoterol Fumar (Dulera 100-5 Mcg) 1 puff IH BID REPLACED BY [facility] Last Admin: 04/08/20 20:18 Dose: 1 puff Documented by: Metoprolol 25mg Tab (Pt Own) 2 each PO BID REPLACED BY [facility] Last Admin: 04/09/20 12:20 Dose: Not Given Documented by: Warfarin Sodium (Coumadin) 1.25 mg PO DAILY@1300 REPLACED BY [facility] Last Admin: 04/11/20 12:03 Dose: 1.25 mg Documented by: Warfarin Sodium (Coumadin) 2.5 mg PO ONETIME ONE Stop: 04/16/20 11:01 Last Admin: 04/16/20 11:59 Dose: 2.5 mg Documented by: - Exam Quality Assessment: Supplemental Oxygen, DVT Prophylaxis General: Alert, Oriented, Cooperative, Moderate Distress Lungs: Decreased Breath Sounds, Rales. No: Crackles, Rhonchi, Wheezing Cardiovascular: Regular Rate, No Murmurs, Irregular Rhythm GI/Abdominal Exam: Soft, Non-Tender, No Organomegaly, No Distention Extremities: Non-Tender, No Pedal Edema Sepsis Event Note - Evaluation Sepsis Screening Result: No Definite Risk - Focused Exam Vital Signs: Vital Signs Temp Pulse Pulse Resp BP BP Pulse Ox 04/17/20 10:04 96.1 F L 59 L 20 133/48 L 90 L 04/17/20 07:59 54 L 146/64 H 04/17/20 07:50 97.8 F 54 L 18 146/64 H 92 L 04/17/20 07:11 99 - Problem List Review Problem List Initiated/Reviewed/Updated: Yes - My Orders Last 24 Hours: My Active Orders 04/18/20 05:00 COMPREHENSIVE METABOLIC PN,CMP [CHEM] Timed - Plan Plan:: ASSESSMENT AND PLAN - COVID-19 pneumonia-now complicated by acute respiratory failure with hypoxia. Requiring 15 L via high flow nasal cannula or noninvasive ventilation. -Continue steroids every 24 hours (day 10) -remdesivir, she has completed a 5-day course -Convalescent plasma, completed a 3-day course -Noninvasive positive pressure ventilation -Symptomatic management -Isolation precautions (sx onset 04/01) Syncope-No recurrence during the hospital stay. -Hold antihypertensives other than beta-denilson -Encourage oral fluid intake -Cardiac monitoring Chronic atrial fibrillation-rate controlled. INR mildly supratherapeutic. -Continue beta-denilson -Warfarin 1 mg p.o. today -Reassess INR in a.m. Essential hypertension-blood pressure on the low side. -Hold calcium channel denilson and ARB Maintenance issues - - DVT prophylaxis -warfarin - GI prophylaxis -not indicated - Nutrition -regular Disposition -anticipate discharge home versus subacute rehab after the hospital stay Primary care physician -Dr Igor Barcenas
[2020-04-17] MEDS: Dexamethasone 2 MG Tab PO SCH (20:46)
[2020-04-17] MEDS: Melatonin 3 MG Tab PO SCH (20:46)
[2020-04-17] MEDS: Magnesium Hydroxide 400 MG/5 ML Susp 30 ML Cup PO PRN (20:48)
[2020-04-18] MEDS: Albuterol 8 GM Inhaler INH SCH ×6 (00:33→20:44)
[2020-04-18] MEDS: Formoterol/Mometasone 100-5 MCG 8.8 GM Inhaler IH SCH ×2 (07:50→20:44)
[2020-04-18] MEDS ORDERED: Phytonadione 1 MG in Sodium Chloride 0.9% 50 ML IV ONE (08:00)
[2020-04-18] MEDS: Rosuvastatin 10 MG Tab PO SCH (08:04)
[2020-04-18] MEDS: Insulin Lispro 100 Unit/ML 3 ML KwikPen SUBCUT SCH ×4 (08:07→21:51)
[2020-04-18] MEDS: Metoprolol Tartrate 25 MG Tab PO SCH ×2 (09:00→20:42)
--- NOTE | 2020-04-18 14:31 | PCM.PN ---
- General Info Date of Service: 04/18/20 Subjective Update: No acute events overnight. Still requiring 15 L of supplemental oxygen via high flow nasal cannula. She thinks that she feels a little bit less short of breath today. Not having any fevers. Appetite has been okay. Using the BiPAP intermittently but not for very long. No nausea, vomiting or diarrhea. Functional Status: Reports: Pain Controlled, Tolerating Diet - Review of Systems General: Reports: Weakness Pulmonary: Reports: Shortness of Breath - Patient Data Vitals - Most Recent: Last Vital Signs Temp 35.6 C L 04/18/20 14:24 Pulse 55 L 04/18/20 14:24 Resp 18 04/18/20 14:24 BP 124/47 L 04/18/20 14:24 Pulse Ox 96 04/18/20 14:24 Orthostatic Blood Pressure [ 95/43 Sitting] Orthostatic Blood Pressure [ 129/54 Supine] Weight - Most Recent: 72.575 kg I&O - Last 24 Hours: Intake & Output 04/17/20 04/18/20 04/18/20 22:59 06:59 14:59 Intake Total 360 Balance 360 Lab Results Last 24 Hours: Laboratory Results - last 24 hr 04/17/20 04/17/20 04/18/20 Range/Units 16:29 21:00 05:45 PT (9.5-12.0) sec Sodium 133 L (140-148) mmol/L Potassium 4.8 (3.6-5.2) mmol/L Chloride 102 (100-108) mmol/L Carbon Dioxide 23 (21-32) mmol/L Anion Gap 12.8 (5.0-14.0) mmol/L BUN 30 H (7-18) mg/dL Creatinine 0.9 (0.6-1.0) mg/dL Est Cr Clr Drug Dosing 43.02 mL/min Estimated GFR (MDRD) 60 (>60) Glucose 274 H (74-106) mg/dL POC Glucose 192 H 274 H (74-106) MG/DL Calcium 8.1 L (8.5-10.1) mg/dL Total Bilirubin 0.8 (0.2-1.0) mg/dL AST 25 (15-37) U/L ALT 22 (12-78) U/L Alkaline Phosphatase 105 (46-116) U/L Total Protein 5.7 L (6.4-8.2) g/dL Albumin 2.2 L (3.4-5.0) g/dL Globulin 3.5 (2.3-3.5) g/dL Albumin/Globulin Ratio 0.6 L (1.2-2.2) 04/18/20 04/18/20 04/18/20 Range/Units 05:45 07:30 12:58 PT > 100.0 H (9.5-12.0) sec Sodium (140-148) mmol/L Potassium (3.6-5.2) mmol/L Chloride (100-108) mmol/L Carbon Dioxide (21-32) mmol/L Anion Gap (5.0-14.0) mmol/L BUN (7-18) mg/dL Creatinine (0.6-1.0) mg/dL Est Cr Clr Drug Dosing mL/min Estimated GFR (MDRD) (>60) Glucose (74-106) mg/dL POC Glucose 281 H 255 H (74-106) MG/DL Calcium (8.5-10.1) mg/dL Total Bilirubin (0.2-1.0) mg/dL AST (15-37) U/L ALT (12-78) U/L Alkaline Phosphatase (46-116) U/L Total Protein (6.4-8.2) g/dL Albumin (3.4-5.0) g/dL Globulin (2.3-3.5) g/dL Albumin/Globulin Ratio (1.2-2.2) Med Orders - Current: Current Medications Acetaminophen (Tylenol) 650 mg PO Q4H PRN PRN Reason: Pain (Mild 1-3)/fever Last Admin: 04/13/20 15:22 Dose: 650 mg Documented by: Albuterol (Ventolin Hfa) 1 - 2 gm INH Q4H JOHN Last Admin: 04/18/20 13:04 Dose: 2 puff Documented by: Benzocaine/Menthol (Cepacol Sore Throat) 1 lozenge MUCMEM Q2H PRN PRN Reason: Sore Throat Benzonatate (Tessalon Perles) 100 mg PO TID PRN PRN Reason: Cough Dextrose/Water (Dextrose 50% In Water) 50 ml IVPUSH ASDIRECTED PRN PRN Reason: Hypoglycemia Glucagon (Glucagen) 1 mg IM ASDIRECTED PRN PRN Reason: Hypoglycemia Guaifenesin/Dextromethorphan (Robitussin Dm) 10 ml PO Q4H PRN PRN Reason: Cough Insulin Human Lispro (Humalog) 0 unit SUBCUT QIDACANDBED [facility]; Protocol Last Admin: 04/18/20 13:01 Dose: 3 units Documented by: Lorazepam (Ativan) 0.5 mg IVPUSH Q2H PRN PRN Reason: Anxiety Last Admin: 04/15/20 02:19 Dose: 0.5 mg Documented by: Magnesium Hydroxide (Milk Of Magnesia) 30 ml PO Q12H PRN PRN Reason: Constipation Last Admin: 04/17/20 20:48 Dose: 30 ml Documented by: Melatonin (Melatonin) 6 mg PO BEDTIME [facility] Last Admin: 04/17/20 20:46 Dose: 6 mg Documented by: Metoprolol Tartrate (Lopressor) 12.5 mg PO BID [facility] Last Admin: 04/18/20 09:00 Dose: Not Given Documented by: Mometasone Furoate/Formoterol Fumar (Dulera 100-5 Mcg) 0 puff IH BIDRT [facility] Last Admin: 04/18/20 07:50 Dose: 1 puff Documented by: Ondansetron HCl (Zofran) 4 mg IV Q6H PRN PRN Reason: Nausea/Vomiting Ondansetron HCl (Zofran Odt) 4 mg PO Q6H PRN PRN Reason: Nausea able to take PO Rosuvastatin Calcium (Crestor) 20 mg PO DAILY [facility] Last Admin: 04/18/20 08:04 Dose: 20 mg Documented by: Senna/Docusate Sodium (Senna Plus) 1 tab PO BID PRN PRN Reason: Constipation Sodium Chloride (Trigg Nasal [place]) 0 ml KEYANA Q2H PRN PRN Reason: Congestion Last Admin: 04/14/20 16:34 Dose: 1 spray Documented by: Discontinued Medications Albuterol (Ventolin Hfa) 1 - 2 gm INH Q4H [facility] Last Admin: 04/09/20 05:39 Dose: 1 puff Documented by: Dexamethasone (Dexamethasone) 6 mg PO ONETIME ONE Stop: 04/08/20 20:45 Last Admin: 04/08/20 21:52 Dose: 6 mg Documented by: Dexamethasone (Dexamethasone) 6 mg PO Q24H JOHN Stop: 04/17/20 21:01 Last Admin: 04/17/20 20:46 Dose: 6 mg Documented by: Furosemide (Lasix) 20 mg IVPUSH NOW ONE Stop: 04/11/20 14:01 Last Admin: 04/11/20 14:54 Dose: 20 mg Documented by: Furosemide (Lasix) 20 mg IVPUSH NOW ONE Stop: 04/12/20 16:46 Last Admin: 04/12/20 17:46 Dose: 20 mg Documented by: Furosemide (Lasix) 20 mg IVPUSH NOW ONE Stop: 04/15/20 08:31 Last Admin: 04/15/20 08:34 Dose: 20 mg Documented by: Sodium Chloride (Normal Saline) 1,000 mls @ 999 mls/hr IV ASDIRECTED [facility] Last Admin: 04/08/20 15:46 Dose: 999 mls/hr Documented by: Remdesivir 100 mg/ Sodium (Chloride) 100 mls @ 100 mls/hr IV Q24H [facility] Stop: 04/13/20 14:59 Last Admin: 04/13/20 13:41 Dose: 100 mls/hr Documented by: Remdesivir 200 mg/ Sodium (Chloride) 250 mls @ 250 mls/hr IV ONETIME ONE Stop: 04/09/20 14:59 Last Admin: 04/09/20 13:45 Dose: 250 mls/hr Documented by: Phytonadione 1 mg/ Sodium (Chloride) 50.5 mls @ 100 mls/hr IV ONETIME ONE Stop: 04/15/20 07:00 Last Admin: 04/15/20 06:31 Dose: 100 mls/hr Documented by: Phytonadione 1 mg/ Sodium (Chloride) 50.5 mls @ 100 mls/hr IV ONETIME ONE Stop: 04/18/20 08:30 Last Admin: 04/18/20 08:04 Dose: 100 mls/hr Documented by: Insulin Human Lispro (Humalog) 0 unit SUBCUT QIDACANDBED [facility]; Protocol Insulin Human Lispro (Humalog) Confirm Administered Dose 300 unit SUBCUT .STK- MED ONE Stop: 04/10/20 22:41 Last Admin: 04/10/20 22:54 Dose: Not Given Documented by: Metoprolol Tartrate (Lopressor) 50 mg PO BID [facility] Metoprolol Tartrate (Lopressor) 25 mg PO BID [facility] Last Admin: 04/15/20 10:47 Dose: Not Given Documented by: Mometasone Furoate/Formoterol Fumar (Dulera 100-5 Mcg) 1 puff IH BID [facility] Last Admin: 04/08/20 20:18 Dose: 1 puff Documented by: Metoprolol 25mg Tab (Pt Own) 2 each PO BID [facility] Last Admin: 04/09/20 12:20 Dose: Not Given Documented by: Warfarin Sodium (Coumadin) 1.25 mg PO DAILY@1300 [facility] Last Admin: 04/11/20 12:03 Dose: 1.25 mg Documented by: Warfarin Sodium (Coumadin) 2.5 mg PO ONETIME ONE Stop: 04/16/20 11:01 Last Admin: 04/16/20 11:59 Dose: 2.5 mg Documented by: Warfarin Sodium (Coumadin) 1 mg PO ONETIME ONE Stop: 04/17/20 15:31 Last Admin: 04/17/20 16:42 Dose: 1 mg Documented by: - Exam Quality Assessment: Supplemental Oxygen General: Alert, Oriented, Cooperative, No Acute Distress Lungs: Normal Respiratory Effort. No: Wheezing Cardiovascular: Regular Rate, Regular Rhythm GI/Abdominal Exam: Soft, No Distention Extremities: No Pedal Edema. No: Increased Warmth Skin: Warm, Dry Psy/Mental Status: Alert, Normal Affect Sepsis Event Note - Evaluation Sepsis Screening Result: No Definite Risk - Focused Exam Vital Signs: Vital Signs Temp Pulse Resp BP Pulse Ox 04/18/20 14:24 35.6 C L 55 L 18 124/47 L 96 04/18/20 12:28 88 L 04/18/20 11:08 115/37 L 04/18/20 11:00 35.7 C L 53 L 18 125/40 L 94 L 04/18/20 07:52 36.4 C 47 L 18 134/52 L 91 L 04/18/20 07:40 97 04/18/20 04:24 36.2 C 61 20 124/42 L 94 L - Problem List & Annotations (1) Syncope SNOMED Code(s): 678261288 Code(s): R55 - SYNCOPE AND COLLAPSE Status: Acute Current Visit: Yes Qualifiers: Syncope type: unspecified Qualified Code(s): R55 - Syncope and collapse (2) COVID-19 SNOMED Code(s): 891995953 Code(s): U07.1 - COVID-19 Status: Acute Current Visit: Yes (3) Chronic atrial fibrillation SNOMED Code(s): 707704859 Code(s): I48.20 - CHRONIC ATRIAL FIBRILLATION, UNSPECIFIED Status: Chronic Current Visit: Yes (4) Essential hypertension SNOMED Code(s): 28470251 Code(s): I10 - ESSENTIAL (PRIMARY) HYPERTENSION Status: Chronic Current Visit: Yes - Problem List Review Problem List Initiated/Reviewed/Updated: Yes - My Orders Last 24 Hours: My Active Orders 04/18/20 16:30 GLUCOSE POC LAB TO COLLECT JPM [POC] QIDACANDBED 04/18/20 21:00 GLUCOSE POC LAB TO COLLECT JPM [POC] QIDACANDBED 04/19/20 05:00 BASIC METABOLIC PANEL,BMP [CHEM] Timed INR,PT,PROTHROMBIN TIME [COAG] Timed 04/19/20 07:30 GLUCOSE POC LAB TO COLLECT JPM [POC] QIDACANDBED 04/19/20 11:30 GLUCOSE POC LAB TO COLLECT JPM [POC] QIDACANDBED 04/19/20 16:30 GLUCOSE POC LAB TO COLLECT JPM [POC] QIDACANDBED 04/19/20 21:00 GLUCOSE POC LAB TO COLLECT JPM [POC] QIDACANDBED 04/20/20 07:30 GLUCOSE POC LAB TO COLLECT JPM [POC] QIDACANDBED 04/20/20 11:30 GLUCOSE POC LAB TO COLLECT JPM [POC] QIDACANDBED 04/20/20 16:30 GLUCOSE POC LAB TO COLLECT JPM [POC] QIDACANDBED 04/20/20 21:00 GLUCOSE POC LAB TO COLLECT JPM [POC] QIDACANDBED 04/21/20 07:30 GLUCOSE POC LAB TO COLLECT JPM [POC] QIDACANDBED 04/21/20 11:30 GLUCOSE POC LAB TO COLLECT JPM [POC] QIDACANDBED 04/21/20 16:30 GLUCOSE POC LAB TO COLLECT JPM [POC] QIDACANDBED 04/21/20 21:00 GLUCOSE POC LAB TO COLLECT JPM [POC] QIDACANDBED 04/22/20 07:30 GLUCOSE POC LAB TO COLLECT JPM [POC] QIDACANDBED 04/22/20 11:30 GLUCOSE POC LAB TO COLLECT JPM [POC] QIDACANDBED 04/22/20 16:30 GLUCOSE POC LAB TO COLLECT JPM [POC] QIDACANDBED 04/22/20 21:00 GLUCOSE POC LAB TO COLLECT JPM [POC] QIDACANDBED 04/23/20 07:30 GLUCOSE POC LAB TO COLLECT JPM [POC] QIDACANDBED 04/23/20 11:30 GLUCOSE POC LAB TO COLLECT JPM [POC] QIDACANDBED 04/23/20 16:30 GLUCOSE POC LAB TO COLLECT JPM [POC] QIDACANDBED 04/23/20 21:00 GLUCOSE POC LAB TO COLLECT JPM [POC] QIDACANDBED 04/24/20 07:30 GLUCOSE POC LAB TO COLLECT JPM [POC] QIDACANDBED 04/24/20 11:30 GLUCOSE POC LAB TO COLLECT JPM [POC] QIDACANDBED 04/24/20 16:30 GLUCOSE POC LAB TO COLLECT JPM [POC] QIDACANDBED 04/24/20 21:00 GLUCOSE POC LAB TO COLLECT JPM [POC] QIDACANDBED 04/25/20 07:30 GLUCOSE POC LAB TO COLLECT JPM [POC] QIDACANDBED 04/25/20 11:30 GLUCOSE POC LAB TO COLLECT JPM [POC] QIDACANDBED 04/25/20 16:30 GLUCOSE POC LAB TO COLLECT JPM [POC] QIDACANDBED 04/25/20 21:00 GLUCOSE POC LAB TO COLLECT JPM [POC] QIDACANDBED 04/26/20 07:30 GLUCOSE POC LAB TO COLLECT JPM [POC] QIDACANDBED 04/26/20 11:30 GLUCOSE POC LAB TO COLLECT JPM [POC] QIDACANDBED 04/26/20 16:30 GLUCOSE POC LAB TO COLLECT JPM [POC] QIDACANDBED 04/26/20 21:00 GLUCOSE POC LAB TO COLLECT JPM [POC] QIDACANDBED 04/27/20 07:30 GLUCOSE POC LAB TO COLLECT JPM [POC] QIDACANDBED 04/27/20 11:30 GLUCOSE POC LAB TO COLLECT JPM [POC] QIDACANDBED 04/27/20 16:30 GLUCOSE POC LAB TO COLLECT JPM [POC] QIDACANDBED 04/27/20 21:00 GLUCOSE POC LAB TO COLLECT JPM [POC] QIDACANDBED 04/28/20 07:30 GLUCOSE POC LAB TO COLLECT JPM [POC] QIDACANDBED 04/28/20 11:30 GLUCOSE POC LAB TO COLLECT JPM [POC] QIDACANDBED 04/28/20 16:30 GLUCOSE POC LAB TO COLLECT JPM [POC] QIDACANDBED 04/28/20 21:00 GLUCOSE POC LAB TO COLLECT JPM [POC] QIDACANDBED 04/29/20 07:30 GLUCOSE POC LAB TO COLLECT JPM [POC] QIDACANDBED 04/29/20 11:30 GLUCOSE POC LAB TO COLLECT JPM [POC] QIDACANDBED 04/29/20 16:30 GLUCOSE POC LAB TO COLLECT JPM [POC] QIDACANDBED 04/29/20 21:00 GLUCOSE POC LAB TO COLLECT JPM [POC] QIDACANDBED 04/30/20 07:30 GLUCOSE POC LAB TO COLLECT JPM [POC] QIDACANDBED 04/30/20 11:30 GLUCOSE POC LAB TO COLLECT JPM [POC] QIDACANDBED 04/30/20 16:30 GLUCOSE POC LAB TO COLLECT JPM [POC] QIDACANDBED 04/30/20 21:00 GLUCOSE POC LAB TO COLLECT JPM [POC] QIDACANDBED 05/01/20 07:30 GLUCOSE POC LAB TO COLLECT JPM [POC] QIDACANDBED 05/01/20 11:30 GLUCOSE POC LAB TO COLLECT JPM [POC] QIDACANDBED 05/01/20 16:30 GLUCOSE POC LAB TO COLLECT JPM [POC] QIDACANDBED 05/01/20 21:00 GLUCOSE POC LAB TO COLLECT JPM [POC] QIDACANDBED 05/02/20 07:30 GLUCOSE POC LAB TO COLLECT JPM [POC] QIDACANDBED 05/02/20 11:30 GLUCOSE POC LAB TO COLLECT JPM [POC] QIDACANDBED 05/02/20 16:30 GLUCOSE POC LAB TO COLLECT JPM [POC] QIDACANDBED 05/02/20 21:00 GLUCOSE POC LAB TO COLLECT JPM [POC] QIDACANDBED 05/03/20 07:30 GLUCOSE POC LAB TO COLLECT JPM [POC] QIDACANDBED 05/03/20 11:30 GLUCOSE POC LAB TO COLLECT JPM [POC] QIDACANDBED 05/03/20 16:30 GLUCOSE POC LAB TO COLLECT JPM [POC] QIDACANDBED 05/03/20 21:00 GLUCOSE POC LAB TO COLLECT JPM [POC] QIDACANDBED 05/04/20 07:30 GLUCOSE POC LAB TO COLLECT JPM [POC] QIDACANDBED 05/04/20 11:30 GLUCOSE POC LAB TO COLLECT JPM [POC] QIDACANDBED 05/04/20 16:30 GLUCOSE POC LAB TO COLLECT JPM [POC] QIDACANDBED 05/04/20 21:00 GLUCOSE POC LAB TO COLLECT JPM [POC] QIDACANDBED 05/05/20 07:30 GLUCOSE POC LAB TO COLLECT JPM [POC] QIDACANDBED 05/05/20 11:30 GLUCOSE POC LAB TO COLLECT JPM [POC] QIDACANDBED 05/05/20 16:30 GLUCOSE POC LAB TO COLLECT JPM [POC] QIDACANDBED 05/05/20 21:00 GLUCOSE POC LAB TO COLLECT JPM [POC] QIDACANDBED 05/06/20 07:30 GLUCOSE POC LAB TO COLLECT JPM [POC] QIDACANDBED 05/06/20 11:30 GLUCOSE POC LAB TO COLLECT JPM [POC] QIDACANDBED 05/06/20 16:30 GLUCOSE POC LAB TO COLLECT JPM [POC] QIDACANDBED 05/06/20 21:00 GLUCOSE POC LAB TO COLLECT JPM [POC] QIDACANDBED 05/07/20 07:30 GLUCOSE POC LAB TO COLLECT JPM [POC] QIDACANDBED 05/07/20 11:30 GLUCOSE POC LAB TO COLLECT JPM [POC] QIDACANDBED 05/07/20 16:30 GLUCOSE POC LAB TO COLLECT JPM [POC] QIDACANDBED 05/07/20 21:00 GLUCOSE POC LAB TO COLLECT JPM [POC] QIDACANDBED 05/08/20 07:30 GLUCOSE POC LAB TO COLLECT JPM [POC] QIDACANDBED 05/08/20 11:30 GLUCOSE POC LAB TO COLLECT JPM [POC] QIDACANDBED 05/08/20 16:30 GLUCOSE POC LAB TO COLLECT JPM [POC] QIDACANDBED 05/08/20 21:00 GLUCOSE POC LAB TO COLLECT JPM [POC] QIDACANDBED 05/09/20 07:30 GLUCOSE POC LAB TO COLLECT JPM [POC] QIDACANDBED 05/09/20 11:30 GLUCOSE POC LAB TO COLLECT JPM [POC] QIDACANDBED 05/09/20 16:30 GLUCOSE POC LAB TO COLLECT JPM [POC] QIDACANDBED 05/09/20 21:00 GLUCOSE POC LAB TO COLLECT JPM [POC] QIDACANDBED 05/10/20 07:30 GLUCOSE POC LAB TO COLLECT JPM [POC] QIDACANDBED 05/10/20 11:30 GLUCOSE POC LAB TO COLLECT JPM [POC] QIDACANDBED 05/10/20 16:30 GLUCOSE POC LAB TO COLLECT JPM [POC] QIDACANDBED 05/10/20 21:00 GLUCOSE POC LAB TO COLLECT JPM [POC] QIDACANDBED - Plan Plan:: ASSESSMENT AND PLAN - COVID-19 pneumonia-now complicated by acute respiratory failure with hypoxia. Still requiring 15 L of supplemental oxygen. Symptomatically she is feeling a little bit better. Intermittent use of noninvasive ventilation. -She has completed 10 days of steroids -remdesivir, she has completed a 5-day course -Convalescent plasma, completed a 3-day course -Noninvasive positive pressure ventilation if needed -Symptomatic management -Isolation precautions until 04/22 (sx onset 04/01) Syncope-No recurrence during the hospital stay. -Hold antihypertensives other than beta-denilson -Encourage oral fluid intake -Cardiac monitoring Chronic atrial fibrillation-rate controlled. INR quite supratherapeutic. 1 mg of vitamin K was given this morning. -Continue beta-denilson -Hold warfarin -Reassess INR in a.m. Essential hypertension-blood pressure on the low side. -Hold calcium channel denilson and ARB Maintenance issues - - DVT prophylaxis -warfarin - GI prophylaxis -not indicated - Nutrition -regular Disposition -anticipate discharge home versus subacute rehab after the hospital stay Josh Powell MD
[2020-04-18] MEDS: Melatonin 3 MG Tab PO SCH (20:44)
[2020-04-19] MEDS: Albuterol 8 GM Inhaler INH SCH ×6 (01:44→21:53)
[2020-04-19] MEDS: Insulin Lispro 100 Unit/ML 3 ML KwikPen SUBCUT SCH ×4 (08:01→21:30)
[2020-04-19] MEDS: Formoterol/Mometasone 100-5 MCG 8.8 GM Inhaler IH SCH ×2 (08:54→20:12)
[2020-04-19] MEDS: Rosuvastatin 10 MG Tab PO SCH (08:55)
[2020-04-19] MEDS: Metoprolol Tartrate 25 MG Tab PO SCH ×2 (08:55→20:12)
--- NOTE | 2020-04-19 13:53 | PCM.PN ---
- General Info Date of Service: 04/19/20 Subjective Update: No acute events overnight. She had a pretty good day yesterday but today has been tougher. She seems to be desaturating further and more quickly with activity. She does respond well to the noninvasive ventilation but does not like wearing the mask. She has not had any fevers. Volume status seems to be appropriate. No nausea or abdominal pain. Functional Status: Reports: Pain Controlled, Tolerating Diet - Review of Systems General: Reports: Weakness Pulmonary: Reports: Shortness of Breath - Patient Data Vitals - Most Recent: Last Vital Signs Temp 36.9 C 04/19/20 11:31 Pulse 58 L 04/19/20 11:31 Resp 18 04/19/20 11:31 BP 118/40 L 04/19/20 11:31 Pulse Ox 89 L 04/19/20 12:25 Orthostatic Blood Pressure [ 95/43 Sitting] Orthostatic Blood Pressure [ 129/54 Supine] Weight - Most Recent: 72.575 kg I&O - Last 24 Hours: Intake & Output 04/18/20 04/19/20 04/19/20 22:59 06:59 14:59 Intake Total 890 200 Balance 890 200 Lab Results Last 24 Hours: Laboratory Results - last 24 hr 04/18/20 04/18/20 04/19/20 Range/Units 16:30 21:00 06:31 PT 39.2 H (9.5-12.0) sec INR 3.69 H (0.80-1.20) Sodium (140-148) mmol/L Potassium (3.6-5.2) mmol/L Chloride (100-108) mmol/L Carbon Dioxide (21-32) mmol/L Anion Gap (5.0-14.0) mmol/L BUN (7-18) mg/dL Creatinine (0.6-1.0) mg/dL Est Cr Clr Drug Dosing mL/min Estimated GFR (MDRD) (>60) Glucose (74-106) mg/dL POC Glucose 311 H 154 H (74-106) MG/DL Calcium (8.5-10.1) mg/dL 04/19/20 04/19/20 04/19/20 Range/Units 06:31 07:57 11:42 PT (9.5-12.0) sec INR (0.80-1.20) Sodium 135 L (140-148) mmol/L Potassium 4.2 (3.6-5.2) mmol/L Chloride 102 (100-108) mmol/L Carbon Dioxide 22 (21-32) mmol/L Anion Gap 15.2 H (5.0-14.0) mmol/L BUN 25 H (7-18) mg/dL Creatinine 0.8 (0.6-1.0) mg/dL Est Cr Clr Drug Dosing 48.39 mL/min Estimated GFR (MDRD) > 60 (>60) Glucose 147 H (74-106) mg/dL POC Glucose 149 H 265 H (74-106) MG/DL Calcium 8.1 L (8.5-10.1) mg/dL Med Orders - Current: Current Medications Acetaminophen (Tylenol) 650 mg PO Q4H PRN PRN Reason: Pain (Mild 1-3)/fever Last Admin: 04/13/20 15:22 Dose: 650 mg Documented by: Albuterol (Ventolin Hfa) 1 - 2 gm INH Q4H [facility], [facility] Last Admin: 04/19/20 13:48 Dose: Not Given Documented by: Benzocaine/Menthol (Cepacol Sore Throat) 1 lozenge MUCMEM Q2H PRN PRN Reason: Sore Throat Benzonatate (Tessalon Perles) 100 mg PO TID PRN PRN Reason: Cough Dextrose/Water (Dextrose 50% In Water) 50 ml IVPUSH ASDIRECTED PRN PRN Reason: Hypoglycemia Glucagon (Glucagen) 1 mg IM ASDIRECTED PRN PRN Reason: Hypoglycemia Guaifenesin/Dextromethorphan (Robitussin Dm) 10 ml PO Q4H PRN PRN Reason: Cough Insulin Human Lispro (Humalog) 0 unit SUBCUT QIDACANDBED [facility], 1928–1983; Protocol Last Admin: 04/19/20 12:18 Dose: 3 units Documented by: Lorazepam (Ativan) 0.5 mg IVPUSH Q2H PRN PRN Reason: Anxiety Last Admin: 04/15/20 02:19 Dose: 0.5 mg Documented by: Magnesium Hydroxide (Milk Of Magnesia) 30 ml PO Q12H PRN PRN Reason: Constipation Last Admin: 04/17/20 20:48 Dose: 30 ml Documented by: Melatonin (Melatonin) 6 mg PO BEDTIME [facility], [facility]1983 Last Admin: 04/18/20 20:44 Dose: 6 mg Documented by: Metoprolol Tartrate (Lopressor) 12.5 mg PO BID [facility]1983 Last Admin: 04/19/20 08:55 Dose: 12.5 mg Documented by: Mometasone Furoate/Formoterol Fumar (Dulera 100-5 Mcg) 0 puff IH BIDRT [facility], [facility]1983 Last Admin: 04/19/20 08:54 Dose: 1 puff Documented by: Ondansetron HCl (Zofran) 4 mg IV Q6H PRN PRN Reason: Nausea/Vomiting Ondansetron HCl (Zofran Odt) 4 mg PO Q6H PRN PRN Reason: Nausea able to take PO Rosuvastatin Calcium (Crestor) 20 mg PO DAILY [facility] Last Admin: 04/19/20 08:55 Dose: 20 mg Documented by: Senna/Docusate Sodium (Senna Plus) 1 tab PO BID PRN PRN Reason: Constipation Sodium Chloride ([place] Nasal [place]) 0 ml KEYANA Q2H PRN PRN Reason: Congestion Last Admin: 04/14/20 16:34 Dose: 1 spray Documented by: Discontinued Medications Albuterol (Ventolin Hfa) 1 - 2 gm INH Q4H [facility], [facility] Last Admin: 04/09/20 05:39 Dose: 1 puff Documented by: Dexamethasone (Dexamethasone) 6 mg PO ONETIME ONE Stop: 04/08/20 20:45 Last Admin: 04/08/20 21:52 Dose: 6 mg Documented by: Dexamethasone (Dexamethasone) 6 mg PO Q24H JOHN Stop: 04/17/20 21:01 Last Admin: 04/17/20 20:46 Dose: 6 mg Documented by: Furosemide (Lasix) 20 mg IVPUSH NOW ONE Stop: 04/11/20 14:01 Last Admin: 04/11/20 14:54 Dose: 20 mg Documented by: Furosemide (Lasix) 20 mg IVPUSH NOW ONE Stop: 04/12/20 16:46 Last Admin: 04/12/20 17:46 Dose: 20 mg Documented by: Furosemide (Lasix) 20 mg IVPUSH NOW ONE Stop: 04/15/20 08:31 Last Admin: 04/15/20 08:34 Dose: 20 mg Documented by: Sodium Chloride (Normal Saline) 1,000 mls @ 999 mls/hr IV ASDIRECTED [facility], [facility] Last Admin: 04/08/20 15:46 Dose: 999 mls/hr Documented by: Remdesivir 100 mg/ Sodium (Chloride) 100 mls @ 100 mls/hr IV Q24H JOHN Stop: 04/13/20 14:59 Last Admin: 04/13/20 13:41 Dose: 100 mls/hr Documented by: Remdesivir 200 mg/ Sodium (Chloride) 250 mls @ 250 mls/hr IV ONETIME ONE Stop: 04/09/20 14:59 Last Admin: 04/09/20 13:45 Dose: 250 mls/hr Documented by: Phytonadione 1 mg/ Sodium (Chloride) 50.5 mls @ 100 mls/hr IV ONETIME ONE Stop: 04/15/20 07:00 Last Admin: 04/15/20 06:31 Dose: 100 mls/hr Documented by: Phytonadione 1 mg/ Sodium (Chloride) 50.5 mls @ 100 mls/hr IV ONETIME ONE Stop: 04/18/20 08:30 Last Admin: 04/18/20 08:04 Dose: 100 mls/hr Documented by: Insulin Human Lispro (Humalog) 0 unit SUBCUT QIDACANDBED [facility], [facility]; Protocol Insulin Human Lispro (Humalog) Confirm Administered Dose 300 unit SUBCUT .STK- MED ONE Stop: 04/10/20 22:41 Last Admin: 04/10/20 22:54 Dose: Not Given Documented by: Metoprolol Tartrate (Lopressor) 50 mg PO BID [facility] Metoprolol Tartrate (Lopressor) 25 mg PO BID [facility] Last Admin: 04/15/20 10:47 Dose: Not Given Documented by: Mometasone Furoate/Formoterol Fumar (Dulera 100-5 Mcg) 1 puff IH BID [facility], [facility] Last Admin: 04/08/20 20:18 Dose: 1 puff Documented by: Metoprolol 25mg Tab (Pt Own) 2 each PO BID [facility] Last Admin: 04/09/20 12:20 Dose: Not Given Documented by: Warfarin Sodium (Coumadin) 1.25 mg PO DAILY@1300 [facility] Last Admin: 04/11/20 12:03 Dose: 1.25 mg Documented by: Warfarin Sodium (Coumadin) 2.5 mg PO ONETIME ONE Stop: 04/16/20 11:01 Last Admin: 04/16/20 11:59 Dose: 2.5 mg Documented by: Warfarin Sodium (Coumadin) 1 mg PO ONETIME ONE Stop: 04/17/20 15:31 Last Admin: 04/17/20 16:42 Dose: 1 mg Documented by: - Exam Quality Assessment: Supplemental Oxygen General: Alert, Cooperative, No Acute Distress Lungs: Normal Respiratory Effort, Decreased Breath Sounds (throughout both lung s) Cardiovascular: Regular Rate, Regular Rhythm GI/Abdominal Exam: Soft, No Distention Extremities: No Pedal Edema. No: Increased Warmth Skin: Warm, Dry Psy/Mental Status: Alert, Normal Affect Sepsis Event Note - Evaluation Sepsis Screening Result: No Definite Risk - Focused Exam Vital Signs: Vital Signs Temp Pulse Pulse Resp BP BP Pulse Ox 04/19/20 12:25 89 L 04/19/20 11:31 36.9 C 58 L 18 118/40 L 94 L 04/19/20 08:55 56 L 135/44 L 04/19/20 08:19 95 04/19/20 07:00 35.8 C L 56 L 18 135/44 L 96 04/19/20 02:52 35.7 C L 49 L 18 119/42 L 97 04/19/20 01:55 85 L - Problem List & Annotations (1) Syncope SNOMED Code(s): 929549706 Code(s): R55 - SYNCOPE AND COLLAPSE Status: Acute Current Visit: Yes Qualifiers: Syncope type: unspecified Qualified Code(s): R55 - Syncope and collapse (2) COVID-19 SNOMED Code(s): 545215712 Code(s): U07.1 - COVID-19 Status: Acute Current Visit: Yes (3) Chronic atrial fibrillation SNOMED Code(s): 958529734 Code(s): I48.20 - CHRONIC ATRIAL FIBRILLATION, UNSPECIFIED Status: Chronic Current Visit: Yes (4) Essential hypertension SNOMED Code(s): 91019970 Code(s): I10 - ESSENTIAL (PRIMARY) HYPERTENSION Status: Chronic Current Visit: Yes - Problem List Review Problem List Initiated/Reviewed/Updated: Yes - My Orders Last 24 Hours: My Active Orders 04/19/20 16:30 GLUCOSE POC LAB TO COLLECT JPM [POC] QIDACANDBED 04/19/20 21:00 GLUCOSE POC LAB TO COLLECT JPM [POC] QIDACANDBED 04/20/20 05:00 BASIC METABOLIC PANEL,BMP [CHEM] Timed CBC W/O DIFF,HEMOGRAM [HEME] Timed (1) INR,PT,PROTHROMBIN TIME [COAG] Timed 04/20/20 07:30 GLUCOSE POC LAB TO COLLECT JPM [POC] QIDACANDBED 04/20/20 11:30 GLUCOSE POC LAB TO COLLECT JPM [POC] QIDACANDBED 04/20/20 16:30 GLUCOSE POC LAB TO COLLECT JPM [POC] QIDACANDBED 04/20/20 21:00 GLUCOSE POC LAB TO COLLECT JPM [POC] QIDACANDBED 04/21/20 07:30 GLUCOSE POC LAB TO COLLECT JPM [POC] QIDACANDBED 04/21/20 11:30 GLUCOSE POC LAB TO COLLECT JPM [POC] QIDACANDBED 04/21/20 16:30 GLUCOSE POC LAB TO COLLECT JPM [POC] QIDACANDBED 04/21/20 21:00 GLUCOSE POC LAB TO COLLECT JPM [POC] QIDACANDBED 04/22/20 07:30 GLUCOSE POC LAB TO COLLECT JPM [POC] QIDACANDBED 04/22/20 11:30 GLUCOSE POC LAB TO COLLECT JPM [POC] QIDACANDBED 04/22/20 16:30 GLUCOSE POC LAB TO COLLECT JPM [POC] QIDACANDBED 04/22/20 21:00 GLUCOSE POC LAB TO COLLECT JPM [POC] QIDACANDBED 04/23/20 07:30 GLUCOSE POC LAB TO COLLECT JPM [POC] QIDACANDBED 04/23/20 11:30 GLUCOSE POC LAB TO COLLECT JPM [POC] QIDACANDBED 04/23/20 16:30 GLUCOSE POC LAB TO COLLECT JPM [POC] QIDACANDBED 04/23/20 21:00 GLUCOSE POC LAB TO COLLECT JPM [POC] QIDACANDBED 04/24/20 07:30 GLUCOSE POC LAB TO COLLECT JPM [POC] QIDACANDBED 04/24/20 11:30 GLUCOSE POC LAB TO COLLECT JPM [POC] QIDACANDBED 04/24/20 16:30 GLUCOSE POC LAB TO COLLECT JPM [POC] QIDACANDBED 04/24/20 21:00 GLUCOSE POC LAB TO COLLECT JPM [POC] QIDACANDBED 04/25/20 07:30 GLUCOSE POC LAB TO COLLECT JPM [POC] QIDACANDBED 04/25/20 11:30 GLUCOSE POC LAB TO COLLECT JPM [POC] QIDACANDBED 04/25/20 16:30 GLUCOSE POC LAB TO COLLECT JPM [POC] QIDACANDBED 04/25/20 21:00 GLUCOSE POC LAB TO COLLECT JPM [POC] QIDACANDBED 04/26/20 07:30 GLUCOSE POC LAB TO COLLECT JPM [POC] QIDACANDBED 04/26/20 11:30 GLUCOSE POC LAB TO COLLECT JPM [POC] QIDACANDBED 04/26/20 16:30 GLUCOSE POC LAB TO COLLECT JPM [POC] QIDACANDBED 04/26/20 21:00 GLUCOSE POC LAB TO COLLECT JPM [POC] QIDACANDBED 04/27/20 07:30 GLUCOSE POC LAB TO COLLECT JPM [POC] QIDACANDBED 04/27/20 11:30 GLUCOSE POC LAB TO COLLECT JPM [POC] QIDACANDBED 04/27/20 16:30 GLUCOSE POC LAB TO COLLECT JPM [POC] QIDACANDBED 04/27/20 21:00 GLUCOSE POC LAB TO COLLECT JPM [POC] QIDACANDBED 04/28/20 07:30 GLUCOSE POC LAB TO COLLECT JPM [POC] QIDACANDBED 04/28/20 11:30 GLUCOSE POC LAB TO COLLECT JPM [POC] QIDACANDBED 04/28/20 16:30 GLUCOSE POC LAB TO COLLECT JPM [POC] QIDACANDBED 04/28/20 21:00 GLUCOSE POC LAB TO COLLECT JPM [POC] QIDACANDBED 04/29/20 07:30 GLUCOSE POC LAB TO COLLECT JPM [POC] QIDACANDBED 04/29/20 11:30 GLUCOSE POC LAB TO COLLECT JPM [POC] QIDACANDBED 04/29/20 16:30 GLUCOSE POC LAB TO COLLECT JPM [POC] QIDACANDBED 04/29/20 21:00 GLUCOSE POC LAB TO COLLECT JPM [POC] QIDACANDBED 04/30/20 07:30 GLUCOSE POC LAB TO COLLECT JPM [POC] QIDACANDBED 04/30/20 11:30 GLUCOSE POC LAB TO COLLECT JPM [POC] QIDACANDBED 04/30/20 16:30 GLUCOSE POC LAB TO COLLECT JPM [POC] QIDACANDBED 04/30/20 21:00 GLUCOSE POC LAB TO COLLECT JPM [POC] QIDACANDBED 05/01/20 07:30 GLUCOSE POC LAB TO COLLECT JPM [POC] QIDACANDBED 05/01/20 11:30 GLUCOSE POC LAB TO COLLECT JPM [POC] QIDACANDBED 05/01/20 16:30 GLUCOSE POC LAB TO COLLECT JPM [POC] QIDACANDBED 05/01/20 21:00 GLUCOSE POC LAB TO COLLECT JPM [POC] QIDACANDBED 05/02/20 07:30 GLUCOSE POC LAB TO COLLECT JPM [POC] QIDACANDBED 05/02/20 11:30 GLUCOSE POC LAB TO COLLECT JPM [POC] QIDACANDBED 05/02/20 16:30 GLUCOSE POC LAB TO COLLECT JPM [POC] QIDACANDBED 05/02/20 21:00 GLUCOSE POC LAB TO COLLECT JPM [POC] QIDACANDBED 05/03/20 07:30 GLUCOSE POC LAB TO COLLECT JPM [POC] QIDACANDBED 05/03/20 11:30 GLUCOSE POC LAB TO COLLECT JPM [POC] QIDACANDBED 05/03/20 16:30 GLUCOSE POC LAB TO COLLECT JPM [POC] QIDACANDBED 05/03/20 21:00 GLUCOSE POC LAB TO COLLECT JPM [POC] QIDACANDBED 05/04/20 07:30 GLUCOSE POC LAB TO COLLECT JPM [POC] QIDACANDBED 05/04/20 11:30 GLUCOSE POC LAB TO COLLECT JPM [POC] QIDACANDBED 05/04/20 16:30 GLUCOSE POC LAB TO COLLECT JPM [POC] QIDACANDBED 05/04/20 21:00 GLUCOSE POC LAB TO COLLECT JPM [POC] QIDACANDBED 05/05/20 07:30 GLUCOSE POC LAB TO COLLECT JPM [POC] QIDACANDBED 05/05/20 11:30 GLUCOSE POC LAB TO COLLECT JPM [POC] QIDACANDBED 05/05/20 16:30 GLUCOSE POC LAB TO COLLECT JPM [POC] QIDACANDBED 05/05/20 21:00 GLUCOSE POC LAB TO COLLECT JPM [POC] QIDACANDBED 05/06/20 07:30 GLUCOSE POC LAB TO COLLECT JPM [POC] QIDACANDBED 05/06/20 11:30 GLUCOSE POC LAB TO COLLECT JPM [POC] QIDACANDBED 05/06/20 16:30 GLUCOSE POC LAB TO COLLECT JPM [POC] QIDACANDBED 05/06/20 21:00 GLUCOSE POC LAB TO COLLECT JPM [POC] QIDACANDBED 05/07/20 07:30 GLUCOSE POC LAB TO COLLECT JPM [POC] QIDACANDBED 05/07/20 11:30 GLUCOSE POC LAB TO COLLECT JPM [POC] QIDACANDBED 05/07/20 16:30 GLUCOSE POC LAB TO COLLECT JPM [POC] QIDACANDBED 05/07/20 21:00 GLUCOSE POC LAB TO COLLECT JPM [POC] QIDACANDBED 05/08/20 07:30 GLUCOSE POC LAB TO COLLECT JPM [POC] QIDACANDBED 05/08/20 11:30 GLUCOSE POC LAB TO COLLECT JPM [POC] QIDACANDBED 05/08/20 16:30 GLUCOSE POC LAB TO COLLECT JPM [POC] QIDACANDBED 05/08/20 21:00 GLUCOSE POC LAB TO COLLECT JPM [POC] QIDACANDBED 05/09/20 07:30 GLUCOSE POC LAB TO COLLECT JPM [POC] QIDACANDBED 05/09/20 11:30 GLUCOSE POC LAB TO COLLECT JPM [POC] QIDACANDBED 05/09/20 16:30 GLUCOSE POC LAB TO COLLECT JPM [POC] QIDACANDBED 05/09/20 21:00 GLUCOSE POC LAB TO COLLECT JPM [POC] QIDACANDBED 05/10/20 07:30 GLUCOSE POC LAB TO COLLECT JPM [POC] QIDACANDBED 05/10/20 11:30 GLUCOSE POC LAB TO COLLECT JPM [POC] QIDACANDBED 05/10/20 16:30 GLUCOSE POC LAB TO COLLECT JPM [POC] QIDACANDBED 05/10/20 21:00 GLUCOSE POC LAB TO COLLECT JPM [POC] QIDACANDBED - Plan Plan:: ASSESSMENT AND PLAN - COVID-19 pneumonia-now complicated by acute respiratory failure with hypoxia. Still requiring 15 L of supplemental oxygen. Seems to be having a little bit more difficult time with her respiratory status today but overall has been stable. -She has completed 10 days of steroids -remdesivir, she has completed a 5-day course -Convalescent plasma, completed a 3-day course -Noninvasive positive pressure ventilation if needed -Symptomatic management -Isolation precautions until 04/22 (sx onset 04/01) Syncope-No recurrence during the hospital stay. -Hold antihypertensives other than beta-denilson -Encourage oral fluid intake -Cardiac monitoring Chronic atrial fibrillation-rate controlled. INR still slightly supratherapeutic. 1 mg of vitamin K was given this yesterday. -Continue beta-denilson -Hold warfarin -Reassess INR in a.m. Essential hypertension-blood pressure on the low side. -Hold calcium channel denilson and ARB Maintenance issues - - DVT prophylaxis -warfarin - GI prophylaxis -not indicated - Nutrition -regular Disposition -anticipate discharge home versus subacute rehab after the hospital stay Josh Powell MD
[2020-04-19] MEDS: Melatonin 3 MG Tab PO SCH (20:11)
[2020-04-20] MEDS: Albuterol 8 GM Inhaler INH SCH ×6 (03:56→20:52)
[2020-04-20] MEDS: Metoprolol Tartrate 25 MG Tab PO SCH ×2 (08:51→20:50)
[2020-04-20] MEDS: Rosuvastatin 10 MG Tab PO SCH (08:52)
[2020-04-20] MEDS: Insulin Lispro 100 Unit/ML 3 ML KwikPen SUBCUT SCH ×4 (08:52→21:25)
[2020-04-20] MEDS: Formoterol/Mometasone 100-5 MCG 8.8 GM Inhaler IH SCH ×2 (08:58→20:51)
--- NOTE | 2020-04-20 13:54 | PCM.PN ---
- General Info Date of Service: 04/20/20 Subjective Update: No acute issues overnight. She has not used noninvasive ventilation since yesterday afternoon. She is currently stable on 15 L of supplemental oxygen. She says that she feels better today with less shortness of breath. She has not had any fevers. She has a dry cough. Appetite is acceptable. Laboratory studies are stable. Functional Status: Reports: Pain Controlled, Tolerating Diet - Review of Systems General: Reports: Weakness Pulmonary: Reports: Shortness of Breath - Patient Data Vitals - Most Recent: Last Vital Signs Temp 36.6 C 04/20/20 13:40 Pulse 59 L 04/20/20 13:40 Resp 18 04/20/20 13:40 BP 114/44 L 04/20/20 13:40 Pulse Ox 92 L 04/20/20 13:40 Orthostatic Blood Pressure [ 95/43 Sitting] Orthostatic Blood Pressure [ 129/54 Supine] Weight - Most Recent: 72.575 kg I&O - Last 24 Hours: Intake & Output 04/19/20 04/20/20 04/20/20 22:59 06:59 14:59 Intake Total 150 960 Balance 150 960 Lab Results Last 24 Hours: Laboratory Results - last 24 hr 04/19/20 04/19/20 04/20/20 Range/Units 16:30 21:00 04:54 WBC 8.7 (4.5-11.0) K/uL RBC 3.74 (3.30-5.50) M/uL Hgb 11.4 L (12.0-15.0) g/dL Hct 35.5 L (36.0-48.0) % MCV 95 (80-98) fL MCH 31 (27-31) pg MCHC 32 (32-36) % Plt Count 107 L (150-400) K/uL PT (9.5-12.0) sec INR (0.80-1.20) Sodium (140-148) mmol/L Potassium (3.6-5.2) mmol/L Chloride (100-108) mmol/L Carbon Dioxide (21-32) mmol/L Anion Gap (5.0-14.0) mmol/L BUN (7-18) mg/dL Creatinine (0.6-1.0) mg/dL Est Cr Clr Drug Dosing mL/min Estimated GFR (MDRD) (>60) Glucose (74-106) mg/dL POC Glucose 233 H 132 H (74-106) MG/DL Calcium (8.5-10.1) mg/dL 04/20/20 04/20/20 04/20/20 Range/Units 04:54 04:54 07:30 WBC (4.5-11.0) K/uL RBC (3.30-5.50) M/uL Hgb (12.0-15.0) g/dL Hct (36.0-48.0) % MCV (80-98) fL MCH (27-31) pg MCHC (32-36) % Plt Count (150-400) K/uL PT 28.1 H (9.5-12.0) sec INR 2.63 H (0.80-1.20) Sodium 136 L (140-148) mmol/L Potassium 3.9 (3.6-5.2) mmol/L Chloride 102 (100-108) mmol/L Carbon Dioxide 24 (21-32) mmol/L Anion Gap 13.9 (5.0-14.0) mmol/L BUN 22 H (7-18) mg/dL Creatinine 0.8 (0.6-1.0) mg/dL Est Cr Clr Drug Dosing 48.39 mL/min Estimated GFR (MDRD) > 60 (>60) Glucose 151 H (74-106) mg/dL POC Glucose 146 H (74-106) MG/DL Calcium 8.3 L (8.5-10.1) mg/dL 04/20/20 Range/Units 11:30 WBC (4.5-11.0) K/uL RBC (3.30-5.50) M/uL Hgb (12.0-15.0) g/dL Hct (36.0-48.0) % MCV (80-98) fL MCH (27-31) pg MCHC (32-36) % Plt Count (150-400) K/uL PT (9.5-12.0) sec INR (0.80-1.20) Sodium (140-148) mmol/L Potassium (3.6-5.2) mmol/L Chloride (100-108) mmol/L Carbon Dioxide (21-32) mmol/L Anion Gap (5.0-14.0) mmol/L BUN (7-18) mg/dL Creatinine (0.6-1.0) mg/dL Est Cr Clr Drug Dosing mL/min Estimated GFR (MDRD) (>60) Glucose (74-106) mg/dL POC Glucose 236 H (74-106) MG/DL Calcium (8.5-10.1) mg/dL Med Orders - Current: Current Medications Acetaminophen (Tylenol) 650 mg PO Q4H PRN PRN Reason: Pain (Mild 1-3)/fever Last Admin: 04/13/20 15:22 Dose: 650 mg Documented by: Albuterol (Ventolin Hfa) 1 - 2 gm INH Q4H [facility] Last Admin: 04/20/20 09:07 Dose: 2 puff Documented by: Benzocaine/Menthol (Cepacol Sore Throat) 1 lozenge MUCMEM Q2H PRN PRN Reason: Sore Throat Benzonatate (Tessalon Perles) 100 mg PO TID PRN PRN Reason: Cough Dextrose/Water (Dextrose 50% In Water) 50 ml IVPUSH ASDIRECTED PRN PRN Reason: Hypoglycemia Glucagon (Glucagen) 1 mg IM ASDIRECTED PRN PRN Reason: Hypoglycemia Guaifenesin/Dextromethorphan (Robitussin Dm) 10 ml PO Q4H PRN PRN Reason: Cough Insulin Human Lispro (Humalog) 0 unit SUBCUT QIDACANDBED [facility]; Protocol Last Admin: 04/20/20 12:07 Dose: 2 units Documented by: Lorazepam (Ativan) 0.5 mg IVPUSH Q2H PRN PRN Reason: Anxiety Last Admin: 04/15/20 02:19 Dose: 0.5 mg Documented by: Magnesium Hydroxide (Milk Of Magnesia) 30 ml PO Q12H PRN PRN Reason: Constipation Last Admin: 04/17/20 20:48 Dose: 30 ml Documented by: Melatonin (Melatonin) 6 mg PO BEDTIME [facility] Last Admin: 04/19/20 20:11 Dose: 6 mg Documented by: Metoprolol Tartrate (Lopressor) 12.5 mg PO BID [facility] Last Admin: 04/20/20 08:51 Dose: 12.5 mg Documented by: Mometasone Furoate/Formoterol Fumar (Dulera 100-5 Mcg) 0 puff IH BIDRT [facility] Last Admin: 04/20/20 08:58 Dose: 1 puff Documented by: Ondansetron HCl (Zofran) 4 mg IV Q6H PRN PRN Reason: Nausea/Vomiting Ondansetron HCl (Zofran Odt) 4 mg PO Q6H PRN PRN Reason: Nausea able to take PO Rosuvastatin Calcium (Crestor) 20 mg PO DAILY [facility] Last Admin: 04/20/20 08:52 Dose: 20 mg Documented by: Senna/Docusate Sodium (Senna Plus) 1 tab PO BID PRN PRN Reason: Constipation Sodium Chloride (Summers Nasal [place]) 0 ml KEYANA Q2H PRN PRN Reason: Congestion Last Admin: 04/14/20 16:34 Dose: 1 spray Documented by: Warfarin Sodium (Coumadin) 1 mg PO DAILY@1300 [facility] Last Admin: 04/20/20 12:09 Dose: 1 mg Documented by: Discontinued Medications Albuterol (Ventolin Hfa) 1 - 2 gm INH Q4H [facility] Last Admin: 04/09/20 05:39 Dose: 1 puff Documented by: Dexamethasone (Dexamethasone) 6 mg PO ONETIME ONE Stop: 04/08/20 20:45 Last Admin: 04/08/20 21:52 Dose: 6 mg Documented by: Dexamethasone (Dexamethasone) 6 mg PO Q24H [facility] Stop: 04/17/20 21:01 Last Admin: 04/17/20 20:46 Dose: 6 mg Documented by: Furosemide (Lasix) 20 mg IVPUSH NOW ONE Stop: 04/11/20 14:01 Last Admin: 04/11/20 14:54 Dose: 20 mg Documented by: Furosemide (Lasix) 20 mg IVPUSH NOW ONE Stop: 04/12/20 16:46 Last Admin: 04/12/20 17:46 Dose: 20 mg Documented by: Furosemide (Lasix) 20 mg IVPUSH NOW ONE Stop: 04/15/20 08:31 Last Admin: 04/15/20 08:34 Dose: 20 mg Documented by: Sodium Chloride (Normal Saline) 1,000 mls @ 999 mls/hr IV ASDIRECTED [facility] Last Admin: 04/08/20 15:46 Dose: 999 mls/hr Documented by: Remdesivir 100 mg/ Sodium (Chloride) 100 mls @ 100 mls/hr IV Q24H [facility] Stop: 04/13/20 14:59 Last Admin: 04/13/20 13:41 Dose: 100 mls/hr Documented by: Remdesivir 200 mg/ Sodium (Chloride) 250 mls @ 250 mls/hr IV ONETIME ONE Stop: 04/09/20 14:59 Last Admin: 04/09/20 13:45 Dose: 250 mls/hr Documented by: Phytonadione 1 mg/ Sodium (Chloride) 50.5 mls @ 100 mls/hr IV ONETIME ONE Stop: 04/15/20 07:00 Last Admin: 04/15/20 06:31 Dose: 100 mls/hr Documented by: Phytonadione 1 mg/ Sodium (Chloride) 50.5 mls @ 100 mls/hr IV ONETIME ONE Stop: 04/18/20 08:30 Last Admin: 04/18/20 08:04 Dose: 100 mls/hr Documented by: Insulin Human Lispro (Humalog) 0 unit SUBCUT QIDACANDBED [facility]; Protocol Insulin Human Lispro (Humalog) Confirm Administered Dose 300 unit SUBCUT .STK- MED ONE Stop: 04/10/20 22:41 Last Admin: 04/10/20 22:54 Dose: Not Given Documented by: Metoprolol Tartrate (Lopressor) 50 mg PO BID [facility] Metoprolol Tartrate (Lopressor) 25 mg PO BID [facility] Last Admin: 04/15/20 10:47 Dose: Not Given Documented by: Mometasone Furoate/Formoterol Fumar (Dulera 100-5 Mcg) 1 puff IH BID [facility] Last Admin: 04/08/20 20:18 Dose: 1 puff Documented by: Metoprolol 25mg Tab (Pt Own) 2 each PO BID [facility] Last Admin: 04/09/20 12:20 Dose: Not Given Documented by: Warfarin Sodium (Coumadin) 1.25 mg PO DAILY@1300 [facility] Last Admin: 04/11/20 12:03 Dose: 1.25 mg Documented by: Warfarin Sodium (Coumadin) 2.5 mg PO ONETIME ONE Stop: 04/16/20 11:01 Last Admin: 04/16/20 11:59 Dose: 2.5 mg Documented by: Warfarin Sodium (Coumadin) 1 mg PO ONETIME ONE Stop: 04/17/20 15:31 Last Admin: 04/17/20 16:42 Dose: 1 mg Documented by: - Exam Quality Assessment: Supplemental Oxygen General: Alert, Oriented, Cooperative, No Acute Distress Lungs: Normal Respiratory Effort, Crackles (left lung base). No: Wheezing Cardiovascular: Regular Rate, Regular Rhythm GI/Abdominal Exam: Soft, No Distention Extremities: No Pedal Edema. No: Increased Warmth Skin: Warm, Dry Psy/Mental Status: Alert, Normal Affect Sepsis Event Note - Evaluation Sepsis Screening Result: No Definite Risk - Focused Exam Vital Signs: Vital Signs Temp Pulse Pulse Resp BP BP Pulse Ox 04/20/20 13:40 36.6 C 59 L 18 114/44 L 92 L 04/20/20 12:23 93 L 04/20/20 10:23 35.3 C L 67 20 101/47 L 92 L 04/20/20 08:51 60 106/49 L 04/20/20 07:28 99 04/20/20 07:00 35.4 C L 55 L 18 106/49 L 95 04/20/20 04:00 36.9 C 56 L 18 107/43 L 96 - Problem List & Annotations (1) Syncope SNOMED Code(s): 369569918 Code(s): R55 - SYNCOPE AND COLLAPSE Status: Acute Current Visit: Yes Qualifiers: Syncope type: unspecified Qualified Code(s): R55 - Syncope and collapse (2) COVID-19 SNOMED Code(s): 726246928 Code(s): U07.1 - COVID-19 Status: Acute Current Visit: Yes (3) Chronic atrial fibrillation SNOMED Code(s): 883935945 Code(s): I48.20 - CHRONIC ATRIAL FIBRILLATION, UNSPECIFIED Status: Chronic Current Visit: Yes (4) Essential hypertension SNOMED Code(s): 20568855 Code(s): I10 - ESSENTIAL (PRIMARY) HYPERTENSION Status: Chronic Current Visit: Yes - Problem List Review Problem List Initiated/Reviewed/Updated: Yes - My Orders Last 24 Hours: My Active Orders 04/20/20 13:00 Warfarin [Coumadin] 1 mg PO DAILY@1300 04/20/20 16:30 GLUCOSE POC LAB TO COLLECT JPM [POC] QIDACANDBED 04/20/20 21:00 GLUCOSE POC LAB TO COLLECT JPM [POC] QIDACANDBED 04/21/20 07:30 GLUCOSE POC LAB TO COLLECT JPM [POC] QIDACANDBED 04/21/20 11:30 GLUCOSE POC LAB TO COLLECT JPM [POC] QIDACANDBED 04/21/20 16:30 GLUCOSE POC LAB TO COLLECT JPM [POC] QIDACANDBED 04/21/20 21:00 GLUCOSE POC LAB TO COLLECT JPM [POC] QIDACANDBED 04/22/20 07:30 GLUCOSE POC LAB TO COLLECT JPM [POC] QIDACANDBED 04/22/20 11:30 GLUCOSE POC LAB TO COLLECT JPM [POC] QIDACANDBED 04/22/20 16:30 GLUCOSE POC LAB TO COLLECT JPM [POC] QIDACANDBED 04/22/20 21:00 GLUCOSE POC LAB TO COLLECT JPM [POC] QIDACANDBED 04/23/20 07:30 GLUCOSE POC LAB TO COLLECT JPM [POC] QIDACANDBED 04/23/20 11:30 GLUCOSE POC LAB TO COLLECT JPM [POC] QIDACANDBED 04/23/20 16:30 GLUCOSE POC LAB TO COLLECT JPM [POC] QIDACANDBED 04/23/20 21:00 GLUCOSE POC LAB TO COLLECT JPM [POC] QIDACANDBED 04/24/20 07:30 GLUCOSE POC LAB TO COLLECT JPM [POC] QIDACANDBED 04/24/20 11:30 GLUCOSE POC LAB TO COLLECT JPM [POC] QIDACANDBED 04/24/20 16:30 GLUCOSE POC LAB TO COLLECT JPM [POC] QIDACANDBED 04/24/20 21:00 GLUCOSE POC LAB TO COLLECT JPM [POC] QIDACANDBED 04/25/20 07:30 GLUCOSE POC LAB TO COLLECT JPM [POC] QIDACANDBED 04/25/20 11:30 GLUCOSE POC LAB TO COLLECT JPM [POC] QIDACANDBED 04/25/20 16:30 GLUCOSE POC LAB TO COLLECT JPM [POC] QIDACANDBED 04/25/20 21:00 GLUCOSE POC LAB TO COLLECT JPM [POC] QIDACANDBED 04/26/20 07:30 GLUCOSE POC LAB TO COLLECT JPM [POC] QIDACANDBED 04/26/20 11:30 GLUCOSE POC LAB TO COLLECT JPM [POC] QIDACANDBED 04/26/20 16:30 GLUCOSE POC LAB TO COLLECT JPM [POC] QIDACANDBED 04/26/20 21:00 GLUCOSE POC LAB TO COLLECT JPM [POC] QIDACANDBED 04/27/20 07:30 GLUCOSE POC LAB TO COLLECT JPM [POC] QIDACANDBED 04/27/20 11:30 GLUCOSE POC LAB TO COLLECT JPM [POC] QIDACANDBED 04/27/20 16:30 GLUCOSE POC LAB TO COLLECT JPM [POC] QIDACANDBED 04/27/20 21:00 GLUCOSE POC LAB TO COLLECT JPM [POC] QIDACANDBED 04/28/20 07:30 GLUCOSE POC LAB TO COLLECT JPM [POC] QIDACANDBED 04/28/20 11:30 GLUCOSE POC LAB TO COLLECT JPM [POC] QIDACANDBED 04/28/20 16:30 GLUCOSE POC LAB TO COLLECT JPM [POC] QIDACANDBED 04/28/20 21:00 GLUCOSE POC LAB TO COLLECT JPM [POC] QIDACANDBED 04/29/20 07:30 GLUCOSE POC LAB TO COLLECT JPM [POC] QIDACANDBED 04/29/20 11:30 GLUCOSE POC LAB TO COLLECT JPM [POC] QIDACANDBED 04/29/20 16:30 GLUCOSE POC LAB TO COLLECT JPM [POC] QIDACANDBED 04/29/20 21:00 GLUCOSE POC LAB TO COLLECT JPM [POC] QIDACANDBED 04/30/20 07:30 GLUCOSE POC LAB TO COLLECT JPM [POC] QIDACANDBED 04/30/20 11:30 GLUCOSE POC LAB TO COLLECT JPM [POC] QIDACANDBED 04/30/20 16:30 GLUCOSE POC LAB TO COLLECT JPM [POC] QIDACANDBED 04/30/20 21:00 GLUCOSE POC LAB TO COLLECT JPM [POC] QIDACANDBED 05/01/20 07:30 GLUCOSE POC LAB TO COLLECT JPM [POC] QIDACANDBED 05/01/20 11:30 GLUCOSE POC LAB TO COLLECT JPM [POC] QIDACANDBED 05/01/20 16:30 GLUCOSE POC LAB TO COLLECT JPM [POC] QIDACANDBED 05/01/20 21:00 GLUCOSE POC LAB TO COLLECT JPM [POC] QIDACANDBED 05/02/20 07:30 GLUCOSE POC LAB TO COLLECT JPM [POC] QIDACANDBED 05/02/20 11:30 GLUCOSE POC LAB TO COLLECT JPM [POC] QIDACANDBED 05/02/20 16:30 GLUCOSE POC LAB TO COLLECT JPM [POC] QIDACANDBED 05/02/20 21:00 GLUCOSE POC LAB TO COLLECT JPM [POC] QIDACANDBED 05/03/20 07:30 GLUCOSE POC LAB TO COLLECT JPM [POC] QIDACANDBED 05/03/20 11:30 GLUCOSE POC LAB TO COLLECT JPM [POC] QIDACANDBED 05/03/20 16:30 GLUCOSE POC LAB TO COLLECT JPM [POC] QIDACANDBED 05/03/20 21:00 GLUCOSE POC LAB TO COLLECT JPM [POC] QIDACANDBED 05/04/20 07:30 GLUCOSE POC LAB TO COLLECT JPM [POC] QIDACANDBED 05/04/20 11:30 GLUCOSE POC LAB TO COLLECT JPM [POC] QIDACANDBED 05/04/20 16:30 GLUCOSE POC LAB TO COLLECT JPM [POC] QIDACANDBED 05/04/20 21:00 GLUCOSE POC LAB TO COLLECT JPM [POC] QIDACANDBED 05/05/20 07:30 GLUCOSE POC LAB TO COLLECT JPM [POC] QIDACANDBED 05/05/20 11:30 GLUCOSE POC LAB TO COLLECT JPM [POC] QIDACANDBED 05/05/20 16:30 GLUCOSE POC LAB TO COLLECT JPM [POC] QIDACANDBED 05/05/20 21:00 GLUCOSE POC LAB TO COLLECT JPM [POC] QIDACANDBED 05/06/20 07:30 GLUCOSE POC LAB TO COLLECT JPM [POC] QIDACANDBED 05/06/20 11:30 GLUCOSE POC LAB TO COLLECT JPM [POC] QIDACANDBED 05/06/20 16:30 GLUCOSE POC LAB TO COLLECT JPM [POC] QIDACANDBED 05/06/20 21:00 GLUCOSE POC LAB TO COLLECT JPM [POC] QIDACANDBED 05/07/20 07:30 GLUCOSE POC LAB TO COLLECT JPM [POC] QIDACANDBED 05/07/20 11:30 GLUCOSE POC LAB TO COLLECT JPM [POC] QIDACANDBED 05/07/20 16:30 GLUCOSE POC LAB TO COLLECT JPM [POC] QIDACANDBED 05/07/20 21:00 GLUCOSE POC LAB TO COLLECT JPM [POC] QIDACANDBED 05/08/20 07:30 GLUCOSE POC LAB TO COLLECT JPM [POC] QIDACANDBED 05/08/20 11:30 GLUCOSE POC LAB TO COLLECT JPM [POC] QIDACANDBED 05/08/20 16:30 GLUCOSE POC LAB TO COLLECT JPM [POC] QIDACANDBED 05/08/20 21:00 GLUCOSE POC LAB TO COLLECT JPM [POC] QIDACANDBED 05/09/20 07:30 GLUCOSE POC LAB TO COLLECT JPM [POC] QIDACANDBED 05/09/20 11:30 GLUCOSE POC LAB TO COLLECT JPM [POC] QIDACANDBED 05/09/20 16:30 GLUCOSE POC LAB TO COLLECT JPM [POC] QIDACANDBED 05/09/20 21:00 GLUCOSE POC LAB TO COLLECT JPM [POC] QIDACANDBED 05/10/20 07:30 GLUCOSE POC LAB TO COLLECT JPM [POC] QIDACANDBED 05/10/20 11:30 GLUCOSE POC LAB TO COLLECT JPM [POC] QIDACANDBED 05/10/20 16:30 GLUCOSE POC LAB TO COLLECT JPM [POC] QIDACANDBED 05/10/20 21:00 GLUCOSE POC LAB TO COLLECT JPM [POC] QIDACANDBED - Plan Plan:: ASSESSMENT AND PLAN - COVID-19 pneumonia-now complicated by acute respiratory failure with hypoxia. Still requiring 15 L of supplemental oxygen. Stable but not dramatically improved or any worse. Hopefully she will come around from this severe infection. -She has completed 10 days of steroids -remdesivir, she has completed a 5-day course -Convalescent plasma, completed a 3-day course -Noninvasive positive pressure ventilation if needed -Symptomatic management -Isolation precautions until 04/22 (sx onset 04/01) Syncope-No recurrence during the hospital stay. -Hold antihypertensives other than beta-denilson -Encourage oral fluid intake -Cardiac monitoring Chronic atrial fibrillation-rate controlled. INR therapeutic today. -Continue beta-denilson -Restart low-dose warfarin -Reassess INR in a.m. Essential hypertension-blood pressure on the low side of normal. -Continue metoprolol Maintenance issues - - DVT prophylaxis -warfarin - GI prophylaxis -not indicated - Nutrition -regular Disposition -anticipate discharge home versus subacute rehab after the hospital stay Josh Powell MD
[2020-04-20] MEDS: Melatonin 3 MG Tab PO SCH (20:52)
[2020-04-21] MEDS: Albuterol 8 GM Inhaler INH SCH ×6 (01:19→20:28)
[2020-04-21] MEDS: Formoterol/Mometasone 100-5 MCG 8.8 GM Inhaler IH SCH ×2 (08:16→20:28)
[2020-04-21] MEDS: Insulin Lispro 100 Unit/ML 3 ML KwikPen SUBCUT SCH ×4 (08:17→21:08)
[2020-04-21] MEDS: Metoprolol Tartrate 25 MG Tab PO SCH ×2 (08:17→20:29)
[2020-04-21] MEDS: Rosuvastatin 10 MG Tab PO SCH (08:18)
[2020-04-21] MEDS: Magnesium Hydroxide 400 MG/5 ML Susp 30 ML Cup PO PRN (08:23)
--- NOTE | 2020-04-21 11:00 | PCM.PN ---
- General Info Date of Service: 04/21/20 Subjective Update: No acute events overnight. No fevers. Oxygenation has been stable. She does continue to desaturate with activity but does not seem to drop quite as far and seems to recover a little quicker. She feels comfortable at rest. Blood sugars have been well controlled. She has a dry cough. Appetite has been okay. She is a little weak but overall stable to getting slightly better. Functional Status: Reports: Pain Controlled, Tolerating Diet - Review of Systems General: Reports: Weakness Pulmonary: Reports: Shortness of Breath - Patient Data Vitals - Most Recent: Last Vital Signs Temp 35.0 C L 04/21/20 08:10 Pulse 61 04/21/20 08:17 Resp 16 04/21/20 08:14 BP 123/51 L 04/21/20 08:17 Pulse Ox 91 L 04/21/20 08:14 Orthostatic Blood Pressure [ 95/43 Sitting] Orthostatic Blood Pressure [ 129/54 Supine] Weight - Most Recent: 72.575 kg I&O - Last 24 Hours: Intake & Output 04/20/20 04/21/20 04/21/20 22:59 06:59 14:59 Intake Total 240 900 Balance 240 900 Lab Results Last 24 Hours: Laboratory Results - last 24 hr 04/20/20 04/20/20 04/20/20 Range/Units 11:30 16:57 21:00 POC Glucose 236 H 166 H 166 H (74-106) MG/DL 04/21/20 Range/Units 07:30 POC Glucose 134 H (74-106) MG/DL Med Orders - Current: Current Medications Acetaminophen (Tylenol) 650 mg PO Q4H PRN PRN Reason: Pain (Mild 1-3)/fever Last Admin: 04/13/20 15:22 Dose: 650 mg Documented by: Albuterol (Ventolin Hfa) 1 - 2 gm INH Q4H JOHN Last Admin: 04/21/20 06:31 Dose: Not Given Documented by: Benzocaine/Menthol (Cepacol Sore Throat) 1 lozenge MUCMEM Q2H PRN PRN Reason: Sore Throat Benzonatate (Tessalon Perles) 100 mg PO TID PRN PRN Reason: Cough Dextrose/Water (Dextrose 50% In Water) 50 ml IVPUSH ASDIRECTED PRN PRN Reason: Hypoglycemia Glucagon (Glucagen) 1 mg IM ASDIRECTED PRN PRN Reason: Hypoglycemia Guaifenesin/Dextromethorphan (Robitussin Dm) 10 ml PO Q4H PRN PRN Reason: Cough Insulin Human Lispro (Humalog) 0 unit SUBCUT QIDACANDBED [facility]; Protocol Last Admin: 04/21/20 08:17 Dose: Not Given Documented by: Lorazepam (Ativan) 0.5 mg IVPUSH Q2H PRN PRN Reason: Anxiety Last Admin: 04/15/20 02:19 Dose: 0.5 mg Documented by: Magnesium Hydroxide (Milk Of Magnesia) 30 ml PO Q12H PRN PRN Reason: Constipation Last Admin: 04/21/20 08:23 Dose: 30 ml Documented by: Melatonin (Melatonin) 6 mg PO BEDTIME [facility] Last Admin: 04/20/20 20:52 Dose: 6 mg Documented by: Metoprolol Tartrate (Lopressor) 12.5 mg PO BID [facility] Last Admin: 04/21/20 08:17 Dose: 12.5 mg Documented by: Mometasone Furoate/Formoterol Fumar (Dulera 100-5 Mcg) 0 puff IH BIDRT [facility] Last Admin: 04/21/20 08:16 Dose: 1 puff Documented by: Ondansetron HCl (Zofran) 4 mg IV Q6H PRN PRN Reason: Nausea/Vomiting Ondansetron HCl (Zofran Odt) 4 mg PO Q6H PRN PRN Reason: Nausea able to take PO Rosuvastatin Calcium (Crestor) 20 mg PO DAILY [facility] Last Admin: 04/21/20 08:18 Dose: 20 mg Documented by: Senna/Docusate Sodium (Senna Plus) 1 tab PO BID PRN PRN Reason: Constipation Sodium Chloride ([place] Nasal [place]) 0 ml KEYANA Q2H PRN PRN Reason: Congestion Last Admin: 04/14/20 16:34 Dose: 1 spray Documented by: Warfarin Sodium (Coumadin) 1 mg PO DAILY@1300 [facility] Last Admin: 04/20/20 12:09 Dose: 1 mg Documented by: Discontinued Medications Albuterol (Ventolin Hfa) 1 - 2 gm INH Q4H [facility] Last Admin: 04/09/20 05:39 Dose: 1 puff Documented by: Dexamethasone (Dexamethasone) 6 mg PO ONETIME ONE Stop: 04/08/20 20:45 Last Admin: 04/08/20 21:52 Dose: 6 mg Documented by: Dexamethasone (Dexamethasone) 6 mg PO Q24H [facility] Stop: 04/17/20 21:01 Last Admin: 04/17/20 20:46 Dose: 6 mg Documented by: Furosemide (Lasix) 20 mg IVPUSH NOW ONE Stop: 04/11/20 14:01 Last Admin: 04/11/20 14:54 Dose: 20 mg Documented by: Furosemide (Lasix) 20 mg IVPUSH NOW ONE Stop: 04/12/20 16:46 Last Admin: 04/12/20 17:46 Dose: 20 mg Documented by: Furosemide (Lasix) 20 mg IVPUSH NOW ONE Stop: 04/15/20 08:31 Last Admin: 04/15/20 08:34 Dose: 20 mg Documented by: Sodium Chloride (Normal Saline) 1,000 mls @ 999 mls/hr IV ASDIRECTED [facility] Last Admin: 04/08/20 15:46 Dose: 999 mls/hr Documented by: Remdesivir 100 mg/ Sodium (Chloride) 100 mls @ 100 mls/hr IV Q24H [facility] Stop: 04/13/20 14:59 Last Admin: 04/13/20 13:41 Dose: 100 mls/hr Documented by: Remdesivir 200 mg/ Sodium (Chloride) 250 mls @ 250 mls/hr IV ONETIME ONE Stop: 04/09/20 14:59 Last Admin: 04/09/20 13:45 Dose: 250 mls/hr Documented by: Phytonadione 1 mg/ Sodium (Chloride) 50.5 mls @ 100 mls/hr IV ONETIME ONE Stop: 04/15/20 07:00 Last Admin: 04/15/20 06:31 Dose: 100 mls/hr Documented by: Phytonadione 1 mg/ Sodium (Chloride) 50.5 mls @ 100 mls/hr IV ONETIME ONE Stop: 04/18/20 08:30 Last Admin: 04/18/20 08:04 Dose: 100 mls/hr Documented by: Insulin Human Lispro (Humalog) 0 unit SUBCUT QIDACANDBED [facility]; Protocol Insulin Human Lispro (Humalog) Confirm Administered Dose 300 unit SUBCUT .STK- MED ONE Stop: 04/10/20 22:41 Last Admin: 04/10/20 22:54 Dose: Not Given Documented by: Metoprolol Tartrate (Lopressor) 50 mg PO BID [facility] Metoprolol Tartrate (Lopressor) 25 mg PO BID [facility] Last Admin: 04/15/20 10:47 Dose: Not Given Documented by: Mometasone Furoate/Formoterol Fumar (Dulera 100-5 Mcg) 1 puff IH BID [facility] Last Admin: 04/08/20 20:18 Dose: 1 puff Documented by: Metoprolol 25mg Tab (Pt Own) 2 each PO BID [facility] Last Admin: 04/09/20 12:20 Dose: Not Given Documented by: Warfarin Sodium (Coumadin) 1.25 mg PO DAILY@1300 [facility] Last Admin: 04/11/20 12:03 Dose: 1.25 mg Documented by: Warfarin Sodium (Coumadin) 2.5 mg PO ONETIME ONE Stop: 04/16/20 11:01 Last Admin: 04/16/20 11:59 Dose: 2.5 mg Documented by: Warfarin Sodium (Coumadin) 1 mg PO ONETIME ONE Stop: 04/17/20 15:31 Last Admin: 04/17/20 16:42 Dose: 1 mg Documented by: - Exam Quality Assessment: Supplemental Oxygen General: Alert, Oriented, Cooperative, No Acute Distress Lungs: Normal Respiratory Effort Cardiovascular: Regular Rate, Regular Rhythm GI/Abdominal Exam: Soft, No Distention Extremities: No Pedal Edema Psy/Mental Status: Alert, Normal Affect Sepsis Event Note - Evaluation Sepsis Screening Result: No Definite Risk - Focused Exam Vital Signs: Vital Signs Temp Pulse Pulse Resp BP BP Pulse Ox 04/21/20 08:17 61 123/51 L 04/21/20 08:14 16 123/51 L 91 L 04/21/20 08:10 35.0 C L 65 20 77 L 04/21/20 07:24 96 04/21/20 02:42 59 L 16 126/42 L 96 04/21/20 01:00 94 L - Problem List & Annotations (1) Syncope SNOMED Code(s): 146467460 Code(s): R55 - SYNCOPE AND COLLAPSE Status: Acute Current Visit: Yes Qualifiers: Syncope type: unspecified Qualified Code(s): R55 - Syncope and collapse (2) COVID-19 SNOMED Code(s): 311839668 Code(s): U07.1 - COVID-19 Status: Acute Current Visit: Yes (3) Chronic atrial fibrillation SNOMED Code(s): 020626876 Code(s): I48.20 - CHRONIC ATRIAL FIBRILLATION, UNSPECIFIED Status: Chronic Current Visit: Yes (4) Essential hypertension SNOMED Code(s): 81552741 Code(s): I10 - ESSENTIAL (PRIMARY) HYPERTENSION Status: Chronic Current Visit: Yes - Problem List Review Problem List Initiated/Reviewed/Updated: Yes - My Orders Last 24 Hours: My Active Orders 04/20/20 13:00 Warfarin [Coumadin] 1 mg PO DAILY@1300 04/21/20 11:30 GLUCOSE POC LAB TO COLLECT JPM [POC] QIDACANDBED 04/21/20 16:30 GLUCOSE POC LAB TO COLLECT JPM [POC] QIDACANDBED 04/21/20 21:00 GLUCOSE POC LAB TO COLLECT JPM [POC] QIDACANDBED 04/22/20 07:30 GLUCOSE POC LAB TO COLLECT JPM [POC] QIDACANDBED 04/22/20 11:30 GLUCOSE POC LAB TO COLLECT JPM [POC] QIDACANDBED 04/22/20 16:30 GLUCOSE POC LAB TO COLLECT JPM [POC] QIDACANDBED 04/22/20 21:00 GLUCOSE POC LAB TO COLLECT JPM [POC] QIDACANDBED 04/23/20 07:30 GLUCOSE POC LAB TO COLLECT JPM [POC] QIDACANDBED 04/23/20 11:30 GLUCOSE POC LAB TO COLLECT JPM [POC] QIDACANDBED 04/23/20 16:30 GLUCOSE POC LAB TO COLLECT JPM [POC] QIDACANDBED 04/23/20 21:00 GLUCOSE POC LAB TO COLLECT JPM [POC] QIDACANDBED 04/24/20 07:30 GLUCOSE POC LAB TO COLLECT JPM [POC] QIDACANDBED 04/24/20 11:30 GLUCOSE POC LAB TO COLLECT JPM [POC] QIDACANDBED 04/24/20 16:30 GLUCOSE POC LAB TO COLLECT JPM [POC] QIDACANDBED 04/24/20 21:00 GLUCOSE POC LAB TO COLLECT JPM [POC] QIDACANDBED 04/25/20 07:30 GLUCOSE POC LAB TO COLLECT JPM [POC] QIDACANDBED 04/25/20 11:30 GLUCOSE POC LAB TO COLLECT JPM [POC] QIDACANDBED 04/25/20 16:30 GLUCOSE POC LAB TO COLLECT JPM [POC] QIDACANDBED 04/25/20 21:00 GLUCOSE POC LAB TO COLLECT JPM [POC] QIDACANDBED 04/26/20 07:30 GLUCOSE POC LAB TO COLLECT JPM [POC] QIDACANDBED 04/26/20 11:30 GLUCOSE POC LAB TO COLLECT JPM [POC] QIDACANDBED 04/26/20 16:30 GLUCOSE POC LAB TO COLLECT JPM [POC] QIDACANDBED 04/26/20 21:00 GLUCOSE POC LAB TO COLLECT JPM [POC] QIDACANDBED 04/27/20 07:30 GLUCOSE POC LAB TO COLLECT JPM [POC] QIDACANDBED 04/27/20 11:30 GLUCOSE POC LAB TO COLLECT JPM [POC] QIDACANDBED 04/27/20 16:30 GLUCOSE POC LAB TO COLLECT JPM [POC] QIDACANDBED 04/27/20 21:00 GLUCOSE POC LAB TO COLLECT JPM [POC] QIDACANDBED 04/28/20 07:30 GLUCOSE POC LAB TO COLLECT JPM [POC] QIDACANDBED 04/28/20 11:30 GLUCOSE POC LAB TO COLLECT JPM [POC] QIDACANDBED 04/28/20 16:30 GLUCOSE POC LAB TO COLLECT JPM [POC] QIDACANDBED 04/28/20 21:00 GLUCOSE POC LAB TO COLLECT JPM [POC] QIDACANDBED 04/29/20 07:30 GLUCOSE POC LAB TO COLLECT JPM [POC] QIDACANDBED 04/29/20 11:30 GLUCOSE POC LAB TO COLLECT JPM [POC] QIDACANDBED 04/29/20 16:30 GLUCOSE POC LAB TO COLLECT JPM [POC] QIDACANDBED 04/29/20 21:00 GLUCOSE POC LAB TO COLLECT JPM [POC] QIDACANDBED 04/30/20 07:30 GLUCOSE POC LAB TO COLLECT JPM [POC] QIDACANDBED 04/30/20 11:30 GLUCOSE POC LAB TO COLLECT JPM [POC] QIDACANDBED 04/30/20 16:30 GLUCOSE POC LAB TO COLLECT JPM [POC] QIDACANDBED 04/30/20 21:00 GLUCOSE POC LAB TO COLLECT JPM [POC] QIDACANDBED 05/01/20 07:30 GLUCOSE POC LAB TO COLLECT JPM [POC] QIDACANDBED 05/01/20 11:30 GLUCOSE POC LAB TO COLLECT JPM [POC] QIDACANDBED 05/01/20 16:30 GLUCOSE POC LAB TO COLLECT JPM [POC] QIDACANDBED 05/01/20 21:00 GLUCOSE POC LAB TO COLLECT JPM [POC] QIDACANDBED 05/02/20 07:30 GLUCOSE POC LAB TO COLLECT JPM [POC] QIDACANDBED 05/02/20 11:30 GLUCOSE POC LAB TO COLLECT JPM [POC] QIDACANDBED 05/02/20 16:30 GLUCOSE POC LAB TO COLLECT JPM [POC] QIDACANDBED 05/02/20 21:00 GLUCOSE POC LAB TO COLLECT JPM [POC] QIDACANDBED 05/03/20 07:30 GLUCOSE POC LAB TO COLLECT JPM [POC] QIDACANDBED 05/03/20 11:30 GLUCOSE POC LAB TO COLLECT JPM [POC] QIDACANDBED 05/03/20 16:30 GLUCOSE POC LAB TO COLLECT JPM [POC] QIDACANDBED 05/03/20 21:00 GLUCOSE POC LAB TO COLLECT JPM [POC] QIDACANDBED 05/04/20 07:30 GLUCOSE POC LAB TO COLLECT JPM [POC] QIDACANDBED 05/04/20 11:30 GLUCOSE POC LAB TO COLLECT JPM [POC] QIDACANDBED 05/04/20 16:30 GLUCOSE POC LAB TO COLLECT JPM [POC] QIDACANDBED 05/04/20 21:00 GLUCOSE POC LAB TO COLLECT JPM [POC] QIDACANDBED 05/05/20 07:30 GLUCOSE POC LAB TO COLLECT JPM [POC] QIDACANDBED 05/05/20 11:30 GLUCOSE POC LAB TO COLLECT JPM [POC] QIDACANDBED 05/05/20 16:30 GLUCOSE POC LAB TO COLLECT JPM [POC] QIDACANDBED 05/05/20 21:00 GLUCOSE POC LAB TO COLLECT JPM [POC] QIDACANDBED 05/06/20 07:30 GLUCOSE POC LAB TO COLLECT JPM [POC] QIDACANDBED 05/06/20 11:30 GLUCOSE POC LAB TO COLLECT JPM [POC] QIDACANDBED 05/06/20 16:30 GLUCOSE POC LAB TO COLLECT JPM [POC] QIDACANDBED 05/06/20 21:00 GLUCOSE POC LAB TO COLLECT JPM [POC] QIDACANDBED 05/07/20 07:30 GLUCOSE POC LAB TO COLLECT JPM [POC] QIDACANDBED 05/07/20 11:30 GLUCOSE POC LAB TO COLLECT JPM [POC] QIDACANDBED 05/07/20 16:30 GLUCOSE POC LAB TO COLLECT JPM [POC] QIDACANDBED 05/07/20 21:00 GLUCOSE POC LAB TO COLLECT JPM [POC] QIDACANDBED 05/08/20 07:30 GLUCOSE POC LAB TO COLLECT JPM [POC] QIDACANDBED 05/08/20 11:30 GLUCOSE POC LAB TO COLLECT JPM [POC] QIDACANDBED 05/08/20 16:30 GLUCOSE POC LAB TO COLLECT JPM [POC] QIDACANDBED 05/08/20 21:00 GLUCOSE POC LAB TO COLLECT JPM [POC] QIDACANDBED 05/09/20 07:30 GLUCOSE POC LAB TO COLLECT JPM [POC] QIDACANDBED 05/09/20 11:30 GLUCOSE POC LAB TO COLLECT JPM [POC] QIDACANDBED 05/09/20 16:30 GLUCOSE POC LAB TO COLLECT JPM [POC] QIDACANDBED 05/09/20 21:00 GLUCOSE POC LAB TO COLLECT JPM [POC] QIDACANDBED 05/10/20 07:30 GLUCOSE POC LAB TO COLLECT JPM [POC] QIDACANDBED 05/10/20 11:30 GLUCOSE POC LAB TO COLLECT JPM [POC] QIDACANDBED 05/10/20 16:30 GLUCOSE POC LAB TO COLLECT JPM [POC] QIDACANDBED 05/10/20 21:00 GLUCOSE POC LAB TO COLLECT JPM [POC] QIDACANDBED - Plan Plan:: ASSESSMENT AND PLAN - COVID-19 pneumonia-now complicated by acute respiratory failure with hypoxia. Still requiring 15 L of supplemental oxygen. Stable but but still fairly compromised. She does seem to be slowly getting better. -She has completed courses of steroids, remdesivir and plasma -Recheck inflammatory markers tomorrow -Symptomatic management -Isolation precautions through today and she may come out of isolation on 04/22 Syncope-No recurrence during the hospital stay. -Hold antihypertensives other than beta-denilson -Encourage oral fluid intake -Cardiac monitoring Chronic atrial fibrillation-rate controlled. INR therapeutic. -Continue beta-denilson -Continue low-dose warfarin -Reassess INR in a.m. Essential hypertension-blood pressure on the low side of normal. -Continue metoprolol Maintenance issues - - DVT prophylaxis -warfarin - GI prophylaxis -not indicated - Nutrition -regular Disposition -anticipate discharge home versus subacute rehab after the hospital stay Josh Powell MD
[2020-04-21] MEDS: Polyethylene Glycol 3350 Powder 17 GM Packet PO PRN (14:52)
[2020-04-21] MEDS: Melatonin 3 MG Tab PO SCH (20:30)
[2020-04-22] MEDS: Albuterol 8 GM Inhaler INH SCH ×6 (02:27→20:46)
[2020-04-22] MEDS: Insulin Lispro 100 Unit/ML 3 ML KwikPen SUBCUT SCH ×4 (07:31→21:09)
[2020-04-22] MEDS: Formoterol/Mometasone 100-5 MCG 8.8 GM Inhaler IH SCH ×2 (07:32→20:45)
[2020-04-22] MEDS: Metoprolol Tartrate 25 MG Tab PO SCH ×2 (08:56→20:45)
[2020-04-22] MEDS: Rosuvastatin 10 MG Tab PO SCH (08:56)
--- NOTE | 2020-04-22 12:07 | PCM.PN ---
- General Info Date of Service: 04/22/20 Subjective Update: There were no acute events overnight. Respiratory status has improved overnight and she is now down to 9 L of supplemental oxygen. She feels less short of breath today. She feels more energetic today. She has not had any fevers. She still has a dry cough but this is a little bit better. INR is at the top of the therapeutic range. D-dimer is still quite elevated but trending down. CRP has improved. Today she is able to come out of isolation. Functional Status: Reports: Pain Controlled, Tolerating Diet - Review of Systems General: Reports: Weakness. Denies: Fever - Patient Data Vitals - Most Recent: Last Vital Signs Temp 36.3 C 04/22/20 11:37 Pulse 64 04/22/20 11:37 Resp 20 04/22/20 11:37 BP 118/55 L 04/22/20 11:37 Pulse Ox 99 04/22/20 11:37 Orthostatic Blood Pressure [ 95/43 Sitting] Orthostatic Blood Pressure [ 129/54 Supine] Weight - Most Recent: 72.575 kg I&O - Last 24 Hours: Intake & Output 04/21/20 04/22/20 04/22/20 22:59 06:59 14:59 Intake Total 900 700 400 Balance 900 700 400 Lab Results Last 24 Hours: Laboratory Results - last 24 hr 04/21/20 04/21/20 04/22/20 Range/Units 16:30 21:00 06:04 PT 33.2 H (9.5-12.0) sec INR 3.11 H (0.80-1.20) D-Dimer, Quantitative (0.0-500.0) ng/mL Sodium (140-148) mmol/L Potassium (3.6-5.2) mmol/L Chloride (100-108) mmol/L Carbon Dioxide (21-32) mmol/L Anion Gap (5.0-14.0) mmol/L BUN (7-18) mg/dL Creatinine (0.6-1.0) mg/dL Est Cr Clr Drug Dosing mL/min Estimated GFR (MDRD) (>60) Glucose (74-106) mg/dL POC Glucose 135 H 158 H (74-106) MG/DL Calcium (8.5-10.1) mg/dL C-Reactive Protein (0.0-0.3) mg/dL 04/22/20 04/22/20 04/22/20 Range/Units 06:04 06:04 07:30 PT (9.5-12.0) sec INR (0.80-1.20) D-Dimer, Quantitative 14796.82 H (0.0-500.0) ng/mL Sodium 134 L (140-148) mmol/L Potassium 4.4 (3.6-5.2) mmol/L Chloride 102 (100-108) mmol/L Carbon Dioxide 26 (21-32) mmol/L Anion Gap 10.4 (5.0-14.0) mmol/L BUN 19 H (7-18) mg/dL Creatinine 0.8 (0.6-1.0) mg/dL Est Cr Clr Drug Dosing 48.39 mL/min Estimated GFR (MDRD) > 60 (>60) Glucose 142 H (74-106) mg/dL POC Glucose 134 H (74-106) MG/DL Calcium 8.2 L (8.5-10.1) mg/dL C-Reactive Protein 1.88 H (0.0-0.3) mg/dL 04/22/20 Range/Units 11:30 PT (9.5-12.0) sec INR (0.80-1.20) D-Dimer, Quantitative (0.0-500.0) ng/mL Sodium (140-148) mmol/L Potassium (3.6-5.2) mmol/L Chloride (100-108) mmol/L Carbon Dioxide (21-32) mmol/L Anion Gap (5.0-14.0) mmol/L BUN (7-18) mg/dL Creatinine (0.6-1.0) mg/dL Est Cr Clr Drug Dosing mL/min Estimated GFR (MDRD) (>60) Glucose (74-106) mg/dL POC Glucose 266 H (74-106) MG/DL Calcium (8.5-10.1) mg/dL C-Reactive Protein (0.0-0.3) mg/dL Med Orders - Current: Current Medications Acetaminophen (Tylenol) 650 mg PO Q4H PRN PRN Reason: Pain (Mild 1-3)/fever Last Admin: 04/13/20 15:22 Dose: 650 mg Documented by: Albuterol (Ventolin Hfa) 1 - 2 gm INH Q4H [facility] Last Admin: 04/22/20 08:57 Dose: 2 puff Documented by: Dextrose/Water (Dextrose 50% In Water) 50 ml IVPUSH ASDIRECTED PRN PRN Reason: Hypoglycemia Glucagon (Glucagen) 1 mg IM ASDIRECTED PRN PRN Reason: Hypoglycemia Insulin Human Lispro (Humalog) 0 unit SUBCUT QIDACANDBED [facility]; Protocol Last Admin: 04/22/20 11:25 Dose: 3 units Documented by: Magnesium Hydroxide (Milk Of Magnesia) 30 ml PO Q12H PRN PRN Reason: Constipation Last Admin: 04/21/20 08:23 Dose: 30 ml Documented by: Melatonin (Melatonin) 6 mg PO BEDTIME [facility] Last Admin: 04/21/20 20:30 Dose: 6 mg Documented by: Metoprolol Tartrate (Lopressor) 12.5 mg PO BID [facility] Last Admin: 04/22/20 08:56 Dose: 12.5 mg Documented by: Mometasone Furoate/Formoterol Fumar (Dulera 100-5 Mcg) 0 puff IH BIDRT [facility] Last Admin: 04/22/20 07:32 Dose: 1 puff Documented by: Ondansetron HCl (Zofran) 4 mg IV Q6H PRN PRN Reason: Nausea/Vomiting Ondansetron HCl (Zofran Odt) 4 mg PO Q6H PRN PRN Reason: Nausea able to take PO Polyethylene Glycol (Miralax) 17 gm PO DAILY PRN PRN Reason: Constipation Last Admin: 04/21/20 14:52 Dose: 17 gm Documented by: Rosuvastatin Calcium (Crestor) 20 mg PO DAILY [facility] Last Admin: 04/22/20 08:56 Dose: 20 mg Documented by: Senna/Docusate Sodium (Senna Plus) 1 tab PO BID PRN PRN Reason: Constipation Sodium Chloride ([place] Nas[place]) 0 ml KEYANA Q2H PRN PRN Reason: Congestion Last Admin: 04/14/20 16:34 Dose: 1 spray Documented by: Warfarin Sodium (Coumadin) 0.5 mg PO DAILY@1300 [facility] Discontinued Medications Albuterol (Ventolin Hfa) 1 - 2 gm INH Q4H [facility] Last Admin: 04/09/20 05:39 Dose: 1 puff Documented by: Benzocaine/Menthol (Cepacol Sore Throat) 1 lozenge MUCMEM Q2H PRN PRN Reason: Sore Throat Benzonatate (Tessalon Perles) 100 mg PO TID PRN PRN Reason: Cough Dexamethasone (Dexamethasone) 6 mg PO ONETIME ONE Stop: 04/08/20 20:45 Last Admin: 04/08/20 21:52 Dose: 6 mg Documented by: Dexamethasone (Dexamethasone) 6 mg PO Q24H [facility] Stop: 04/17/20 21:01 Last Admin: 04/17/20 20:46 Dose: 6 mg Documented by: Furosemide (Lasix) 20 mg IVPUSH NOW ONE Stop: 04/11/20 14:01 Last Admin: 04/11/20 14:54 Dose: 20 mg Documented by: Furosemide (Lasix) 20 mg IVPUSH NOW ONE Stop: 04/12/20 16:46 Last Admin: 04/12/20 17:46 Dose: 20 mg Documented by: Furosemide (Lasix) 20 mg IVPUSH NOW ONE Stop: 04/15/20 08:31 Last Admin: 04/15/20 08:34 Dose: 20 mg Documented by: Guaifenesin/Dextromethorphan (Robitussin Dm) 10 ml PO Q4H PRN PRN Reason: Cough Sodium Chloride (Normal Saline) 1,000 mls @ 999 mls/hr IV ASDIRECTED [facility] Last Admin: 04/08/20 15:46 Dose: 999 mls/hr Documented by: Remdesivir 100 mg/ Sodium (Chloride) 100 mls @ 100 mls/hr IV Q24H [facility] Stop: 04/13/20 14:59 Last Admin: 04/13/20 13:41 Dose: 100 mls/hr Documented by: Remdesivir 200 mg/ Sodium (Chloride) 250 mls @ 250 mls/hr IV ONETIME ONE Stop: 04/09/20 14:59 Last Admin: 04/09/20 13:45 Dose: 250 mls/hr Documented by: Phytonadione 1 mg/ Sodium (Chloride) 50.5 mls @ 100 mls/hr IV ONETIME ONE Stop: 04/15/20 07:00 Last Admin: 04/15/20 06:31 Dose: 100 mls/hr Documented by: Phytonadione 1 mg/ Sodium (Chloride) 50.5 mls @ 100 mls/hr IV ONETIME ONE Stop: 04/18/20 08:30 Last Admin: 04/18/20 08:04 Dose: 100 mls/hr Documented by: Insulin Human Lispro (Humalog) 0 unit SUBCUT QIDACANDBED [facility]; Protocol Insulin Human Lispro (Humalog) Confirm Administered Dose 300 unit SUBCUT .STK- MED ONE Stop: 04/10/20 22:41 Last Admin: 04/10/20 22:54 Dose: Not Given Documented by: Lorazepam (Ativan) 0.5 mg IVPUSH Q2H PRN PRN Reason: Anxiety Last Admin: 04/15/20 02:19 Dose: 0.5 mg Documented by: Metoprolol Tartrate (Lopressor) 50 mg PO BID [facility] Metoprolol Tartrate (Lopressor) 25 mg PO BID [facility] Last Admin: 04/15/20 10:47 Dose: Not Given Documented by: Mometasone Furoate/Formoterol Fumar (Dulera 100-5 Mcg) 1 puff IH BID [facility] Last Admin: 04/08/20 20:18 Dose: 1 puff Documented by: Metoprolol 25mg Tab (Pt Own) 2 each PO BID [facility] Last Admin: 04/09/20 12:20 Dose: Not Given Documented by: Warfarin Sodium (Coumadin) 1.25 mg PO DAILY@1300 [facility] Last Admin: 04/11/20 12:03 Dose: 1.25 mg Documented by: Warfarin Sodium (Coumadin) 2.5 mg PO ONETIME ONE Stop: 04/16/20 11:01 Last Admin: 04/16/20 11:59 Dose: 2.5 mg Documented by: Warfarin Sodium (Coumadin) 1 mg PO ONETIME ONE Stop: 04/17/20 15:31 Last Admin: 04/17/20 16:42 Dose: 1 mg Documented by: Warfarin Sodium (Coumadin) 1 mg PO DAILY@1300 [facility] Last Admin: 04/21/20 12:17 Dose: 1 mg Documented by: - Exam Quality Assessment: Supplemental Oxygen General: Alert, Oriented, Cooperative, No Acute Distress Lungs: Normal Respiratory Effort. No: Wheezing Cardiovascular: Regular Rate, Regular Rhythm GI/Abdominal Exam: Soft, No Distention Extremities: No Pedal Edema Psy/Mental Status: Alert, Normal Affect Sepsis Event Note - Evaluation Sepsis Screening Result: No Definite Risk - Focused Exam Vital Signs: Vital Signs Temp Pulse Pulse Resp BP BP BP 04/22/20 11:37 36.3 C 64 20 118/55 L 04/22/20 11:10 04/22/20 09:44 04/22/20 08:56 57 L 126/51 L 04/22/20 07:25 36.1 C 57 L 20 126/51 L 04/22/20 07:00 04/22/20 02:25 36.2 C 57 L 16 113/53 L 04/22/20 01:00 Pulse Ox 04/22/20 11:37 99 04/22/20 11:10 99 04/22/20 09:44 99 04/22/20 08:56 04/22/20 07:25 100 04/22/20 07:00 100 04/22/20 02:25 96 04/22/20 01:00 93 L - Problem List & Annotations (1) Syncope SNOMED Code(s): 645377126 Code(s): R55 - SYNCOPE AND COLLAPSE Status: Acute Current Visit: Yes Qualifiers: Syncope type: unspecified Qualified Code(s): R55 - Syncope and collapse (2) COVID-19 SNOMED Code(s): 366599386 Code(s): U07.1 - COVID-19 Status: Acute Current Visit: Yes (3) Chronic atrial fibrillation SNOMED Code(s): 805563978 Code(s): I48.20 - CHRONIC ATRIAL FIBRILLATION, UNSPECIFIED Status: Chronic Current Visit: Yes (4) Essential hypertension SNOMED Code(s): 15600222 Code(s): I10 - ESSENTIAL (PRIMARY) HYPERTENSION Status: Chronic Current Visit: Yes - Problem List Review Problem List Initiated/Reviewed/Updated: Yes - My Orders Last 24 Hours: My Active Orders 04/21/20 14:32 polyethylene glycoL 3350 [MiraLAX] 17 gm PO DAILY PRN 04/22/20 07:00 PT Evaluation and Treatment [CONS] Routine 04/22/20 12:05 Communication Order [RC] ROUTINE 04/22/20 16:30 GLUCOSE POC LAB TO COLLECT JPM [POC] QIDACANDBED 04/22/20 21:00 GLUCOSE POC LAB TO COLLECT JPM [POC] QIDACANDBED 04/23/20 07:30 GLUCOSE POC LAB TO COLLECT JPM [POC] QIDACANDBED 04/23/20 11:30 GLUCOSE POC LAB TO COLLECT JPM [POC] QIDACANDBED 04/23/20 13:00 Warfarin [Coumadin] 0.5 mg PO DAILY@1300 04/23/20 16:30 GLUCOSE POC LAB TO COLLECT JPM [POC] QIDACANDBED 04/23/20 21:00 GLUCOSE POC LAB TO COLLECT JPM [POC] QIDACANDBED 04/24/20 07:30 GLUCOSE POC LAB TO COLLECT JPM [POC] QIDACANDBED 04/24/20 11:30 GLUCOSE POC LAB TO COLLECT JPM [POC] QIDACANDBED 04/24/20 16:30 GLUCOSE POC LAB TO COLLECT JPM [POC] QIDACANDBED 04/24/20 21:00 GLUCOSE POC LAB TO COLLECT JPM [POC] QIDACANDBED 04/25/20 07:30 GLUCOSE POC LAB TO COLLECT JPM [POC] QIDACANDBED 04/25/20 11:30 GLUCOSE POC LAB TO COLLECT JPM [POC] QIDACANDBED 04/25/20 16:30 GLUCOSE POC LAB TO COLLECT JPM [POC] QIDACANDBED 04/25/20 21:00 GLUCOSE POC LAB TO COLLECT JPM [POC] QIDACANDBED 04/26/20 07:30 GLUCOSE POC LAB TO COLLECT JPM [POC] QIDACANDBED 04/26/20 11:30 GLUCOSE POC LAB TO COLLECT JPM [POC] QIDACANDBED 04/26/20 16:30 GLUCOSE POC LAB TO COLLECT JPM [POC] QIDACANDBED 04/26/20 21:00 GLUCOSE POC LAB TO COLLECT JPM [POC] QIDACANDBED 04/27/20 07:30 GLUCOSE POC LAB TO COLLECT JPM [POC] QIDACANDBED 04/27/20 11:30 GLUCOSE POC LAB TO COLLECT JPM [POC] QIDACANDBED 04/27/20 16:30 GLUCOSE POC LAB TO COLLECT JPM [POC] QIDACANDBED 04/27/20 21:00 GLUCOSE POC LAB TO COLLECT JPM [POC] QIDACANDBED 04/28/20 07:30 GLUCOSE POC LAB TO COLLECT JPM [POC] QIDACANDBED 04/28/20 11:30 GLUCOSE POC LAB TO COLLECT JPM [POC] QIDACANDBED 04/28/20 16:30 GLUCOSE POC LAB TO COLLECT JPM [POC] QIDACANDBED 04/28/20 21:00 GLUCOSE POC LAB TO COLLECT JPM [POC] QIDACANDBED 04/29/20 07:30 GLUCOSE POC LAB TO COLLECT JPM [POC] QIDACANDBED 04/29/20 11:30 GLUCOSE POC LAB TO COLLECT JPM [POC] QIDACANDBED 04/29/20 16:30 GLUCOSE POC LAB TO COLLECT JPM [POC] QIDACANDBED 04/29/20 21:00 GLUCOSE POC LAB TO COLLECT JPM [POC] QIDACANDBED 04/30/20 07:30 GLUCOSE POC LAB TO COLLECT JPM [POC] QIDACANDBED 04/30/20 11:30 GLUCOSE POC LAB TO COLLECT JPM [POC] QIDACANDBED 04/30/20 16:30 GLUCOSE POC LAB TO COLLECT JPM [POC] QIDACANDBED 04/30/20 21:00 GLUCOSE POC LAB TO COLLECT JPM [POC] QIDACANDBED 05/01/20 07:30 GLUCOSE POC LAB TO COLLECT JPM [POC] QIDACANDBED 05/01/20 11:30 GLUCOSE POC LAB TO COLLECT JPM [POC] QIDACANDBED 05/01/20 16:30 GLUCOSE POC LAB TO COLLECT JPM [POC] QIDACANDBED 05/01/20 21:00 GLUCOSE POC LAB TO COLLECT JPM [POC] QIDACANDBED 05/02/20 07:30 GLUCOSE POC LAB TO COLLECT JPM [POC] QIDACANDBED 05/02/20 11:30 GLUCOSE POC LAB TO COLLECT JPM [POC] QIDACANDBED 05/02/20 16:30 GLUCOSE POC LAB TO COLLECT JPM [POC] QIDACANDBED 05/02/20 21:00 GLUCOSE POC LAB TO COLLECT JPM [POC] QIDACANDBED 05/03/20 07:30 GLUCOSE POC LAB TO COLLECT JPM [POC] QIDACANDBED 05/03/20 11:30 GLUCOSE POC LAB TO COLLECT JPM [POC] QIDACANDBED 05/03/20 16:30 GLUCOSE POC LAB TO COLLECT JPM [POC] QIDACANDBED 05/03/20 21:00 GLUCOSE POC LAB TO COLLECT JPM [POC] QIDACANDBED 05/04/20 07:30 GLUCOSE POC LAB TO COLLECT JPM [POC] QIDACANDBED 05/04/20 11:30 GLUCOSE POC LAB TO COLLECT JPM [POC] QIDACANDBED 05/04/20 16:30 GLUCOSE POC LAB TO COLLECT JPM [POC] QIDACANDBED 05/04/20 21:00 GLUCOSE POC LAB TO COLLECT JPM [POC] QIDACANDBED 05/05/20 07:30 GLUCOSE POC LAB TO COLLECT JPM [POC] QIDACANDBED 05/05/20 11:30 GLUCOSE POC LAB TO COLLECT JPM [POC] QIDACANDBED 05/05/20 16:30 GLUCOSE POC LAB TO COLLECT JPM [POC] QIDACANDBED 05/05/20 21:00 GLUCOSE POC LAB TO COLLECT JPM [POC] QIDACANDBED 05/06/20 07:30 GLUCOSE POC LAB TO COLLECT JPM [POC] QIDACANDBED 05/06/20 11:30 GLUCOSE POC LAB TO COLLECT JPM [POC] QIDACANDBED 05/06/20 16:30 GLUCOSE POC LAB TO COLLECT JPM [POC] QIDACANDBED 05/06/20 21:00 GLUCOSE POC LAB TO COLLECT JPM [POC] QIDACANDBED 05/07/20 07:30 GLUCOSE POC LAB TO COLLECT JPM [POC] QIDACANDBED 05/07/20 11:30 GLUCOSE POC LAB TO COLLECT JPM [POC] QIDACANDBED 05/07/20 16:30 GLUCOSE POC LAB TO COLLECT JPM [POC] QIDACANDBED 05/07/20 21:00 GLUCOSE POC LAB TO COLLECT JPM [POC] QIDACANDBED 05/08/20 07:30 GLUCOSE POC LAB TO COLLECT JPM [POC] QIDACANDBED 05/08/20 11:30 GLUCOSE POC LAB TO COLLECT JPM [POC] QIDACANDBED 05/08/20 16:30 GLUCOSE POC LAB TO COLLECT JPM [POC] QIDACANDBED 05/08/20 21:00 GLUCOSE POC LAB TO COLLECT JPM [POC] QIDACANDBED 05/09/20 07:30 GLUCOSE POC LAB TO COLLECT JPM [POC] QIDACANDBED 05/09/20 11:30 GLUCOSE POC LAB TO COLLECT JPM [POC] QIDACANDBED 05/09/20 16:30 GLUCOSE POC LAB TO COLLECT JPM [POC] QIDACANDBED 05/09/20 21:00 GLUCOSE POC LAB TO COLLECT JPM [POC] QIDACANDBED 05/10/20 07:30 GLUCOSE POC LAB TO COLLECT JPM [POC] QIDACANDBED 05/10/20 11:30 GLUCOSE POC LAB TO COLLECT JPM [POC] QIDACANDBED 05/10/20 16:30 GLUCOSE POC LAB TO COLLECT JPM [POC] QIDACANDBED 05/10/20 21:00 GLUCOSE POC LAB TO COLLECT JPM [POC] QIDACANDBED - Plan Plan:: ASSESSMENT AND PLAN - COVID-19 pneumonia-now complicated by acute respiratory failure with hypoxia. She is now down to 9 L of supplemental oxygen which is a significant improvement. Symptomatically feeling better. -She has completed courses of steroids, remdesivir and plasma -Recheck inflammatory markers every 2 to 3 days -Symptomatic management -Discontinue isolation precautions Syncope-No recurrence during the hospital stay. -Hold antihypertensives other than beta-denilson -Encourage oral fluid intake -Cardiac monitoring Chronic atrial fibrillation-rate controlled. INR therapeutic. -Continue beta-denilson -Hold warfarin today -Continue low-dose warfarin starting tomorrow -Reassess INR in a.m. Essential hypertension-blood pressure on the low side of normal. -Continue metoprolol Maintenance issues - - DVT prophylaxis -warfarin - GI prophylaxis -not indicated - Nutrition -regular Disposition -anticipate discharge home versus subacute rehab after the hospital stay Josh Powell MD
[2020-04-22] MEDS: Melatonin 3 MG Tab PO SCH (20:44)
[2020-04-23] MEDS: Albuterol 8 GM Inhaler INH SCH ×6 (01:00→20:36)
[2020-04-23] MEDS: Formoterol/Mometasone 100-5 MCG 8.8 GM Inhaler IH SCH ×2 (07:40→20:37)
[2020-04-23] MEDS: Insulin Lispro 100 Unit/ML 3 ML KwikPen SUBCUT SCH ×4 (08:21→22:15)
[2020-04-23] MEDS: Rosuvastatin 10 MG Tab PO SCH (08:55)
[2020-04-23] MEDS: Metoprolol Tartrate 25 MG Tab PO SCH ×2 (08:55→20:37)
--- NOTE | 2020-04-23 10:43 | PCM.PN ---
- General Info Date of Service: 04/23/20 Subjective Update: No acute events overnight. She has made an impressive improvement over the past couple of days and she is now down to 2 L of supplemental oxygen. Still has a dry cough that increases with activity. No chest pain. No nausea. Still weak but slowly improving her strength. No fevers. Blood sugars have been well controlled. Functional Status: Reports: Pain Controlled, Tolerating Diet - Review of Systems General: Reports: Weakness Pulmonary: Reports: Shortness of Breath (mild), Cough (dry) - Patient Data Vitals - Most Recent: Last Vital Signs Temp 35.2 C L 04/23/20 10:28 Pulse 71 04/23/20 10:28 Resp 18 04/23/20 10:28 BP 98/47 L 04/23/20 10:28 Pulse Ox 95 04/23/20 10:28 Orthostatic Blood Pressure [ 95/43 Sitting] Orthostatic Blood Pressure [ 129/54 Supine] Weight - Most Recent: 72.575 kg I&O - Last 24 Hours: Intake & Output 04/22/20 04/23/20 04/23/20 22:59 06:59 14:59 Intake Total 640 300 Balance 640 300 Lab Results Last 24 Hours: Laboratory Results - last 24 hr 04/22/20 04/22/20 04/22/20 Range/Units 11:30 16:30 21:04 POC Glucose 266 H 204 H 149 H (74-106) MG/DL 04/23/20 Range/Units 07:30 POC Glucose 137 H (74-106) MG/DL Med Orders - Current: Current Medications Acetaminophen (Tylenol) 650 mg PO Q4H PRN PRN Reason: Pain (Mild 1-3)/fever Last Admin: 04/13/20 15:22 Dose: 650 mg Documented by: Albuterol (Ventolin Hfa) 1 - 2 gm INH Q4H JOHN Last Admin: 04/23/20 09:12 Dose: 2 puff Documented by: Dextrose/Water (Dextrose 50% In Water) 50 ml IVPUSH ASDIRECTED PRN PRN Reason: Hypoglycemia Glucagon (Glucagen) 1 mg IM ASDIRECTED PRN PRN Reason: Hypoglycemia Insulin Human Lispro (Humalog) 0 unit SUBCUT QIDACANDBED [facility]; Protocol Last Admin: 04/23/20 08:21 Dose: Not Given Documented by: Magnesium Hydroxide (Milk Of Magnesia) 30 ml PO Q12H PRN PRN Reason: Constipation Last Admin: 04/21/20 08:23 Dose: 30 ml Documented by: Melatonin (Melatonin) 6 mg PO BEDTIME [facility] Last Admin: 04/22/20 20:44 Dose: 6 mg Documented by: Metoprolol Tartrate (Lopressor) 12.5 mg PO BID [facility] Last Admin: 04/23/20 08:55 Dose: 12.5 mg Documented by: Mometasone Furoate/Formoterol Fumar (Dulera 100-5 Mcg) 0 puff IH BIDRT [facility] Last Admin: 04/23/20 07:40 Dose: 1 puff Documented by: Ondansetron HCl (Zofran) 4 mg IV Q6H PRN PRN Reason: Nausea/Vomiting Ondansetron HCl (Zofran Odt) 4 mg PO Q6H PRN PRN Reason: Nausea able to take PO Polyethylene Glycol (Miralax) 17 gm PO DAILY PRN PRN Reason: Constipation Last Admin: 04/21/20 14:52 Dose: 17 gm Documented by: Rosuvastatin Calcium (Crestor) 20 mg PO DAILY [facility] Last Admin: 04/23/20 08:55 Dose: 20 mg Documented by: Senna/Docusate Sodium (Senna Plus) 1 tab PO BID PRN PRN Reason: Constipation Sodium Chloride ([place] Nasal [place]) 0 ml KEYANA Q2H PRN PRN Reason: Congestion Last Admin: 04/14/20 16:34 Dose: 1 spray Documented by: Warfarin Sodium (Coumadin) 0.5 mg PO DAILY@1300 [facility] Discontinued Medications Albuterol (Ventolin Hfa) 1 - 2 gm INH Q4H [facility] Last Admin: 04/09/20 05:39 Dose: 1 puff Documented by: Benzocaine/Menthol (Cepacol Sore Throat) 1 lozenge MUCMEM Q2H PRN PRN Reason: Sore Throat Benzonatate (Tessalon Perles) 100 mg PO TID PRN PRN Reason: Cough Dexamethasone (Dexamethasone) 6 mg PO ONETIME ONE Stop: 04/08/20 20:45 Last Admin: 04/08/20 21:52 Dose: 6 mg Documented by: Dexamethasone (Dexamethasone) 6 mg PO Q24H [facility] Stop: 04/17/20 21:01 Last Admin: 04/17/20 20:46 Dose: 6 mg Documented by: Furosemide (Lasix) 20 mg IVPUSH NOW ONE Stop: 04/11/20 14:01 Last Admin: 04/11/20 14:54 Dose: 20 mg Documented by: Furosemide (Lasix) 20 mg IVPUSH NOW ONE Stop: 04/12/20 16:46 Last Admin: 04/12/20 17:46 Dose: 20 mg Documented by: Furosemide (Lasix) 20 mg IVPUSH NOW ONE Stop: 04/15/20 08:31 Last Admin: 04/15/20 08:34 Dose: 20 mg Documented by: Guaifenesin/Dextromethorphan (Robitussin Dm) 10 ml PO Q4H PRN PRN Reason: Cough Sodium Chloride (Normal Saline) 1,000 mls @ 999 mls/hr IV ASDIRECTED [facility] Last Admin: 04/08/20 15:46 Dose: 999 mls/hr Documented by: Remdesivir 100 mg/ Sodium (Chloride) 100 mls @ 100 mls/hr IV Q24H [facility] Stop: 04/13/20 14:59 Last Admin: 04/13/20 13:41 Dose: 100 mls/hr Documented by: Remdesivir 200 mg/ Sodium (Chloride) 250 mls @ 250 mls/hr IV ONETIME ONE Stop: 04/09/20 14:59 Last Admin: 04/09/20 13:45 Dose: 250 mls/hr Documented by: Phytonadione 1 mg/ Sodium (Chloride) 50.5 mls @ 100 mls/hr IV ONETIME ONE Stop: 04/15/20 07:00 Last Admin: 04/15/20 06:31 Dose: 100 mls/hr Documented by: Phytonadione 1 mg/ Sodium (Chloride) 50.5 mls @ 100 mls/hr IV ONETIME ONE Stop: 04/18/20 08:30 Last Admin: 04/18/20 08:04 Dose: 100 mls/hr Documented by: Insulin Human Lispro (Humalog) 0 unit SUBCUT QIDACANDBED [facility]; Protocol Insulin Human Lispro (Humalog) Confirm Administered Dose 300 unit SUBCUT .STK- MED ONE Stop: 04/10/20 22:41 Last Admin: 04/10/20 22:54 Dose: Not Given Documented by: Lorazepam (Ativan) 0.5 mg IVPUSH Q2H PRN PRN Reason: Anxiety Last Admin: 04/15/20 02:19 Dose: 0.5 mg Documented by: Metoprolol Tartrate (Lopressor) 50 mg PO BID [facility] Metoprolol Tartrate (Lopressor) 25 mg PO BID [facility] Last Admin: 04/15/20 10:47 Dose: Not Given Documented by: Mometasone Furoate/Formoterol Fumar (Dulera 100-5 Mcg) 1 puff IH BID [facility] Last Admin: 04/08/20 20:18 Dose: 1 puff Documented by: Metoprolol 25mg Tab (Pt Own) 2 each PO BID [facility] Last Admin: 04/09/20 12:20 Dose: Not Given Documented by: Warfarin Sodium (Coumadin) 1.25 mg PO DAILY@1300 [facility] Last Admin: 04/11/20 12:03 Dose: 1.25 mg Documented by: Warfarin Sodium (Coumadin) 2.5 mg PO ONETIME ONE Stop: 04/16/20 11:01 Last Admin: 04/16/20 11:59 Dose: 2.5 mg Documented by: Warfarin Sodium (Coumadin) 1 mg PO ONETIME ONE Stop: 04/17/20 15:31 Last Admin: 04/17/20 16:42 Dose: 1 mg Documented by: Warfarin Sodium (Coumadin) 1 mg PO DAILY@1300 [facility] Last Admin: 04/21/20 12:17 Dose: 1 mg Documented by: - Exam Quality Assessment: Supplemental Oxygen General: Alert, Oriented, Cooperative, No Acute Distress Lungs: Normal Respiratory Effort GI/Abdominal Exam: Soft, No Distention Extremities: No Pedal Edema Psy/Mental Status: Alert, Normal Affect Sepsis Event Note - Evaluation Sepsis Screening Result: No Definite Risk - Focused Exam Vital Signs: Vital Signs Temp Pulse Pulse Resp BP BP Pulse Ox 04/23/20 10:28 35.2 C L 71 18 98/47 L 95 04/23/20 08:55 65 138/50 L 04/23/20 08:23 35.7 C L 65 20 138/50 L 91 L 04/23/20 07:00 94 L 04/23/20 03:00 35.9 C L 61 16 97/46 L 99 04/23/20 01:03 96 04/22/20 23:00 36.2 C 58 L 16 108/50 L 99 - Problem List & Annotations (1) Syncope SNOMED Code(s): 106833065 Code(s): R55 - SYNCOPE AND COLLAPSE Status: Acute Current Visit: Yes Qualifiers: Syncope type: unspecified Qualified Code(s): R55 - Syncope and collapse (2) COVID-19 SNOMED Code(s): 559615927 Code(s): U07.1 - COVID-19 Status: Acute Current Visit: Yes (3) Chronic atrial fibrillation SNOMED Code(s): 768014190 Code(s): I48.20 - CHRONIC ATRIAL FIBRILLATION, UNSPECIFIED Status: Chronic Current Visit: Yes (4) Essential hypertension SNOMED Code(s): 29804377 Code(s): I10 - ESSENTIAL (PRIMARY) HYPERTENSION Status: Chronic Current Visit: Yes - Problem List Review Problem List Initiated/Reviewed/Updated: Yes - My Orders Last 24 Hours: My Active Orders 04/22/20 12:05 Communication Order [RC] ROUTINE 04/23/20 11:30 GLUCOSE POC LAB TO COLLECT JPM [POC] QIDACANDBED 04/23/20 13:00 Warfarin [Coumadin] 0.5 mg PO DAILY@1300 04/23/20 16:30 GLUCOSE POC LAB TO COLLECT JPM [POC] QIDACANDBED 04/23/20 21:00 GLUCOSE POC LAB TO COLLECT JPM [POC] QIDACANDBED 04/24/20 07:30 GLUCOSE POC LAB TO COLLECT JPM [POC] QIDACANDBED 04/24/20 11:30 GLUCOSE POC LAB TO COLLECT JPM [POC] QIDACANDBED 04/24/20 16:30 GLUCOSE POC LAB TO COLLECT JPM [POC] QIDACANDBED 04/24/20 21:00 GLUCOSE POC LAB TO COLLECT JPM [POC] QIDACANDBED 04/25/20 07:30 GLUCOSE POC LAB TO COLLECT JPM [POC] QIDACANDBED 04/25/20 11:30 GLUCOSE POC LAB TO COLLECT JPM [POC] QIDACANDBED 04/25/20 16:30 GLUCOSE POC LAB TO COLLECT JPM [POC] QIDACANDBED 04/25/20 21:00 GLUCOSE POC LAB TO COLLECT JPM [POC] QIDACANDBED 04/26/20 07:30 GLUCOSE POC LAB TO COLLECT JPM [POC] QIDACANDBED 04/26/20 11:30 GLUCOSE POC LAB TO COLLECT JPM [POC] QIDACANDBED 04/26/20 16:30 GLUCOSE POC LAB TO COLLECT JPM [POC] QIDACANDBED 04/26/20 21:00 GLUCOSE POC LAB TO COLLECT JPM [POC] QIDACANDBED 04/27/20 07:30 GLUCOSE POC LAB TO COLLECT JPM [POC] QIDACANDBED 04/27/20 11:30 GLUCOSE POC LAB TO COLLECT JPM [POC] QIDACANDBED 04/27/20 16:30 GLUCOSE POC LAB TO COLLECT JPM [POC] QIDACANDBED 04/27/20 21:00 GLUCOSE POC LAB TO COLLECT JPM [POC] QIDACANDBED 04/28/20 07:30 GLUCOSE POC LAB TO COLLECT JPM [POC] QIDACANDBED 04/28/20 11:30 GLUCOSE POC LAB TO COLLECT JPM [POC] QIDACANDBED 04/28/20 16:30 GLUCOSE POC LAB TO COLLECT JPM [POC] QIDACANDBED 04/28/20 21:00 GLUCOSE POC LAB TO COLLECT JPM [POC] QIDACANDBED 04/29/20 07:30 GLUCOSE POC LAB TO COLLECT JPM [POC] QIDACANDBED 04/29/20 11:30 GLUCOSE POC LAB TO COLLECT JPM [POC] QIDACANDBED 04/29/20 16:30 GLUCOSE POC LAB TO COLLECT JPM [POC] QIDACANDBED 04/29/20 21:00 GLUCOSE POC LAB TO COLLECT JPM [POC] QIDACANDBED 04/30/20 07:30 GLUCOSE POC LAB TO COLLECT JPM [POC] QIDACANDBED 04/30/20 11:30 GLUCOSE POC LAB TO COLLECT JPM [POC] QIDACANDBED 04/30/20 16:30 GLUCOSE POC LAB TO COLLECT JPM [POC] QIDACANDBED 04/30/20 21:00 GLUCOSE POC LAB TO COLLECT JPM [POC] QIDACANDBED 05/01/20 07:30 GLUCOSE POC LAB TO COLLECT JPM [POC] QIDACANDBED 05/01/20 11:30 GLUCOSE POC LAB TO COLLECT JPM [POC] QIDACANDBED 05/01/20 16:30 GLUCOSE POC LAB TO COLLECT JPM [POC] QIDACANDBED 05/01/20 21:00 GLUCOSE POC LAB TO COLLECT JPM [POC] QIDACANDBED 05/02/20 07:30 GLUCOSE POC LAB TO COLLECT JPM [POC] QIDACANDBED 05/02/20 11:30 GLUCOSE POC LAB TO COLLECT JPM [POC] QIDACANDBED 05/02/20 16:30 GLUCOSE POC LAB TO COLLECT JPM [POC] QIDACANDBED 05/02/20 21:00 GLUCOSE POC LAB TO COLLECT JPM [POC] QIDACANDBED 05/03/20 07:30 GLUCOSE POC LAB TO COLLECT JPM [POC] QIDACANDBED 05/03/20 11:30 GLUCOSE POC LAB TO COLLECT JPM [POC] QIDACANDBED 05/03/20 16:30 GLUCOSE POC LAB TO COLLECT JPM [POC] QIDACANDBED 05/03/20 21:00 GLUCOSE POC LAB TO COLLECT JPM [POC] QIDACANDBED 05/04/20 07:30 GLUCOSE POC LAB TO COLLECT JPM [POC] QIDACANDBED 05/04/20 11:30 GLUCOSE POC LAB TO COLLECT JPM [POC] QIDACANDBED 05/04/20 16:30 GLUCOSE POC LAB TO COLLECT JPM [POC] QIDACANDBED 05/04/20 21:00 GLUCOSE POC LAB TO COLLECT JPM [POC] QIDACANDBED 05/05/20 07:30 GLUCOSE POC LAB TO COLLECT JPM [POC] QIDACANDBED 05/05/20 11:30 GLUCOSE POC LAB TO COLLECT JPM [POC] QIDACANDBED 05/05/20 16:30 GLUCOSE POC LAB TO COLLECT JPM [POC] QIDACANDBED 05/05/20 21:00 GLUCOSE POC LAB TO COLLECT JPM [POC] QIDACANDBED 05/06/20 07:30 GLUCOSE POC LAB TO COLLECT JPM [POC] QIDACANDBED 05/06/20 11:30 GLUCOSE POC LAB TO COLLECT JPM [POC] QIDACANDBED 05/06/20 16:30 GLUCOSE POC LAB TO COLLECT JPM [POC] QIDACANDBED 05/06/20 21:00 GLUCOSE POC LAB TO COLLECT JPM [POC] QIDACANDBED 05/07/20 07:30 GLUCOSE POC LAB TO COLLECT JPM [POC] QIDACANDBED 05/07/20 11:30 GLUCOSE POC LAB TO COLLECT JPM [POC] QIDACANDBED 05/07/20 16:30 GLUCOSE POC LAB TO COLLECT JPM [POC] QIDACANDBED 05/07/20 21:00 GLUCOSE POC LAB TO COLLECT JPM [POC] QIDACANDBED 05/08/20 07:30 GLUCOSE POC LAB TO COLLECT JPM [POC] QIDACANDBED 05/08/20 11:30 GLUCOSE POC LAB TO COLLECT JPM [POC] QIDACANDBED 05/08/20 16:30 GLUCOSE POC LAB TO COLLECT JPM [POC] QIDACANDBED 05/08/20 21:00 GLUCOSE POC LAB TO COLLECT JPM [POC] QIDACANDBED 05/09/20 07:30 GLUCOSE POC LAB TO COLLECT JPM [POC] QIDACANDBED 05/09/20 11:30 GLUCOSE POC LAB TO COLLECT JPM [POC] QIDACANDBED 05/09/20 16:30 GLUCOSE POC LAB TO COLLECT JPM [POC] QIDACANDBED 05/09/20 21:00 GLUCOSE POC LAB TO COLLECT JPM [POC] QIDACANDBED 05/10/20 07:30 GLUCOSE POC LAB TO COLLECT JPM [POC] QIDACANDBED 05/10/20 11:30 GLUCOSE POC LAB TO COLLECT JPM [POC] QIDACANDBED 05/10/20 16:30 GLUCOSE POC LAB TO COLLECT JPM [POC] QIDACANDBED 05/10/20 21:00 GLUCOSE POC LAB TO COLLECT JPM [POC] QIDACANDBED - Plan Plan:: ASSESSMENT AND PLAN - COVID-19 pneumonia-now complicated by acute respiratory failure with hypoxia. Respiratory status has improved dramatically and she is now down to 2 L of supplemental oxygen. She is happy to be out of isolation precautions. -She has completed courses of steroids, remdesivir and plasma -Recheck inflammatory markers every 2 to 3 days -Symptomatic management -She came out of isolation on 1/2 Diabetes mellitus type 2-mild intermittent elevations of sugars. -Sliding scale insulin Chronic atrial fibrillation-rate controlled. INR therapeutic. -Continue beta-denilson -Continue low-dose warfarin -Reassess INR in a.m. Essential hypertension-blood pressure on the low side of normal. -Continue metoprolol -Hold additional antihypertensives Maintenance issues - - DVT prophylaxis -warfarin - GI prophylaxis -not indicated - Nutrition -regular Disposition -anticipate discharge home versus subacute rehab after the hospital stay Josh Powell MD
[2020-04-23] MEDS ORDERED: Bismuth Subsalicylate 262 MG Tab.Chew PO PRN ×2 (20:17→20:35)
[2020-04-23] MEDS: Melatonin 3 MG Tab PO SCH (20:38)
[2020-04-24] MEDS: Albuterol 8 GM Inhaler INH SCH ×6 (01:16→20:48)
[2020-04-24] MEDS: Formoterol/Mometasone 100-5 MCG 8.8 GM Inhaler IH SCH ×2 (07:11→20:48)
[2020-04-24] MEDS: Insulin Lispro 100 Unit/ML 3 ML KwikPen SUBCUT SCH ×4 (09:08→20:49)
[2020-04-24] MEDS: Metoprolol Tartrate 25 MG Tab PO SCH ×2 (09:14→20:48)
[2020-04-24] MEDS: Rosuvastatin 10 MG Tab PO SCH (09:15)
--- NOTE | 2020-04-24 16:52 | PCM.PN ---
- General Info Date of Service: 04/24/20 Subjective Update: Ms. Carlson has remained stable over the last 24 hours. Marked improvement this past week in oxygenation. Currently requiring 2 L of oxygen at rest, but up to 5 L with activity. Functional Status: Reports: Tolerating Diet, Ambulating, Urinating - Review of Systems General: Reports: Weakness, Fatigue. Denies: Fever, Chills Pulmonary: Reports: Shortness of Breath. Denies: Pleuritic Chest Pain, Cough, Sputum, Hemoptysis, Wheezing Cardiovascular: Reports: Dyspnea on Exertion. Denies: Chest Pain, Palpitations, Orthopnea, PND, Edema, Lightheadedness Gastrointestinal: Reports: No Symptoms - Patient Data Vitals - Most Recent: Last Vital Signs Temp 97.5 F 04/24/20 15:38 Pulse 63 04/24/20 15:38 Resp 20 04/24/20 15:38 BP 127/49 L 04/24/20 15:38 Pulse Ox 94 L 04/24/20 15:38 Orthostatic Blood Pressure [ 95/43 Sitting] Orthostatic Blood Pressure [ 129/54 Supine] Weight - Most Recent: 160 lb 0.008 oz I&O - Last 24 Hours: Intake & Output 04/24/20 04/24/20 04/24/20 06:59 14:59 22:59 Intake Total 740 Balance 740 Lab Results Last 24 Hours: Laboratory Results - last 24 hr 04/23/20 04/23/20 04/24/20 Range/Units 16:54 21:00 05:50 PT 21.4 H (9.5-12.0) sec INR 1.99 H (0.80-1.20) POC Glucose 149 H 174 H (74-106) MG/DL 04/24/20 04/24/20 Range/Units 07:30 11:30 PT (9.5-12.0) sec INR (0.80-1.20) POC Glucose 141 H 274 H (74-106) MG/DL Med Orders - Current: Current Medications Acetaminophen (Tylenol) 650 mg PO Q4H PRN PRN Reason: Pain (Mild 1-3)/fever Last Admin: 04/13/20 15:22 Dose: 650 mg Documented by: Albuterol (Ventolin Hfa) 1 - 2 gm INH Q4H JOHN Last Admin: 04/24/20 13:25 Dose: 1 puff Documented by: Bismuth Subsalicylate (Pepto Bismol) 262 - 524 mg PO QID PRN PRN Reason: Heartburn Dextrose/Water (Dextrose 50% In Water) 50 ml IVPUSH ASDIRECTED PRN PRN Reason: Hypoglycemia Glucagon (Glucagen) 1 mg IM ASDIRECTED PRN PRN Reason: Hypoglycemia Insulin Human Lispro (Humalog) 0 unit SUBCUT QIDACANDBED [facility]; Protocol Last Admin: 04/24/20 12:12 Dose: 3 units Documented by: Magnesium Hydroxide (Milk Of Magnesia) 30 ml PO Q12H PRN PRN Reason: Constipation Last Admin: 04/21/20 08:23 Dose: 30 ml Documented by: Melatonin (Melatonin) 6 mg PO BEDTIME [facility] Last Admin: 04/23/20 20:38 Dose: 6 mg Documented by: Metoprolol Tartrate (Lopressor) 12.5 mg PO BID [facility] Last Admin: 04/24/20 09:14 Dose: 12.5 mg Documented by: Mometasone Furoate/Formoterol Fumar (Dulera 100-5 Mcg) 0 puff IH BIDRT [facility] Last Admin: 04/24/20 07:11 Dose: 1 puff Documented by: Ondansetron HCl (Zofran) 4 mg IV Q6H PRN PRN Reason: Nausea/Vomiting Ondansetron HCl (Zofran Odt) 4 mg PO Q6H PRN PRN Reason: Nausea able to take PO Polyethylene Glycol (Miralax) 17 gm PO DAILY PRN PRN Reason: Constipation Last Admin: 04/21/20 14:52 Dose: 17 gm Documented by: Rosuvastatin Calcium (Crestor) 20 mg PO DAILY [facility] Last Admin: 04/24/20 09:15 Dose: 20 mg Documented by: Senna/Docusate Sodium (Senna Plus) 1 tab PO BID PRN PRN Reason: Constipation Last Admin: 04/24/20 07:36 Dose: 1 tab Documented by: Sodium Chloride ([place] Nasal [place]) 0 ml KEYANA Q2H PRN PRN Reason: Congestion Last Admin: 04/14/20 16:34 Dose: 1 spray Documented by: Warfarin Sodium (Coumadin) 0.5 mg PO DAILY@1300 [facility] Last Admin: 04/24/20 12:18 Dose: 0.5 mg Documented by: Discontinued Medications Albuterol (Ventolin Hfa) 1 - 2 gm INH Q4H [facility] Last Admin: 04/09/20 05:39 Dose: 1 puff Documented by: Benzocaine/Menthol (Cepacol Sore Throat) 1 lozenge MUCMEM Q2H PRN PRN Reason: Sore Throat Benzonatate (Tessalon Perles) 100 mg PO TID PRN PRN Reason: Cough Bismuth Subsalicylate (Pepto Bismol) 1 - 2 mg PO QID PRN PRN Reason: Heartburn Dexamethasone (Dexamethasone) 6 mg PO ONETIME ONE Stop: 04/08/20 20:45 Last Admin: 04/08/20 21:52 Dose: 6 mg Documented by: Dexamethasone (Dexamethasone) 6 mg PO Q24H [facility] Stop: 04/17/20 21:01 Last Admin: 04/17/20 20:46 Dose: 6 mg Documented by: Furosemide (Lasix) 20 mg IVPUSH NOW ONE Stop: 04/11/20 14:01 Last Admin: 04/11/20 14:54 Dose: 20 mg Documented by: Furosemide (Lasix) 20 mg IVPUSH NOW ONE Stop: 04/12/20 16:46 Last Admin: 04/12/20 17:46 Dose: 20 mg Documented by: Furosemide (Lasix) 20 mg IVPUSH NOW ONE Stop: 04/15/20 08:31 Last Admin: 04/15/20 08:34 Dose: 20 mg Documented by: Guaifenesin/Dextromethorphan (Robitussin Dm) 10 ml PO Q4H PRN PRN Reason: Cough Sodium Chloride (Normal Saline) 1,000 mls @ 999 mls/hr IV ASDIRECTED [facility] Last Admin: 04/08/20 15:46 Dose: 999 mls/hr Documented by: Remdesivir 100 mg/ Sodium (Chloride) 100 mls @ 100 mls/hr IV Q24H [facility] Stop: 04/13/20 14:59 Last Admin: 04/13/20 13:41 Dose: 100 mls/hr Documented by: Remdesivir 200 mg/ Sodium (Chloride) 250 mls @ 250 mls/hr IV ONETIME ONE Stop: 04/09/20 14:59 Last Admin: 04/09/20 13:45 Dose: 250 mls/hr Documented by: Phytonadione 1 mg/ Sodium (Chloride) 50.5 mls @ 100 mls/hr IV ONETIME ONE Stop: 04/15/20 07:00 Last Admin: 04/15/20 06:31 Dose: 100 mls/hr Documented by: Phytonadione 1 mg/ Sodium (Chloride) 50.5 mls @ 100 mls/hr IV ONETIME ONE Stop: 04/18/20 08:30 Last Admin: 04/18/20 08:04 Dose: 100 mls/hr Documented by: Insulin Human Lispro (Humalog) 0 unit SUBCUT QIDACANDBED [facility]; Protocol Insulin Human Lispro (Humalog) Confirm Administered Dose 300 unit SUBCUT .STK- MED ONE Stop: 04/10/20 22:41 Last Admin: 04/10/20 22:54 Dose: Not Given Documented by: Lorazepam (Ativan) 0.5 mg IVPUSH Q2H PRN PRN Reason: Anxiety Last Admin: 04/15/20 02:19 Dose: 0.5 mg Documented by: Metoprolol Tartrate (Lopressor) 50 mg PO BID [facility] Metoprolol Tartrate (Lopressor) 25 mg PO BID [facility] Last Admin: 04/15/20 10:47 Dose: Not Given Documented by: Mometasone Furoate/Formoterol Fumar (Dulera 100-5 Mcg) 1 puff IH BID [facility] Last Admin: 04/08/20 20:18 Dose: 1 puff Documented by: Metoprolol 25mg Tab (Pt Own) 2 each PO BID [facility] Last Admin: 04/09/20 12:20 Dose: Not Given Documented by: Warfarin Sodium (Coumadin) 1.25 mg PO DAILY@1300 [facility] Last Admin: 04/11/20 12:03 Dose: 1.25 mg Documented by: Warfarin Sodium (Coumadin) 2.5 mg PO ONETIME ONE Stop: 04/16/20 11:01 Last Admin: 04/16/20 11:59 Dose: 2.5 mg Documented by: Warfarin Sodium (Coumadin) 1 mg PO ONETIME ONE Stop: 04/17/20 15:31 Last Admin: 04/17/20 16:42 Dose: 1 mg Documented by: Warfarin Sodium (Coumadin) 1 mg PO DAILY@1300 [facility] Last Admin: 04/21/20 12:17 Dose: 1 mg Documented by: - Exam Quality Assessment: Supplemental Oxygen, DVT Prophylaxis General: Alert, Oriented, Cooperative, Mild Distress Lungs: Clear to Auscultation, Normal Respiratory Effort, Decreased Breath Sounds Cardiovascular: Regular Rate, Regular Rhythm, No Murmurs GI/Abdominal Exam: Soft, Non-Tender, No Organomegaly, No Distention Extremities: Non-Tender, No Pedal Edema Sepsis Event Note - Evaluation Sepsis Screening Result: No Definite Risk - Focused Exam Vital Signs: Vital Signs Temp Pulse Pulse Resp BP BP BP 04/24/20 15:38 97.5 F 63 20 127/49 L 04/24/20 11:04 97.6 F 58 L 20 105/53 L 04/24/20 09:14 57 L 115/52 L 04/24/20 07:50 04/24/20 07:45 04/24/20 07:44 04/24/20 07:42 04/24/20 07:40 04/24/20 07:27 96.1 F L 57 L 20 115/52 L Pulse Ox 04/24/20 15:38 94 L 04/24/20 11:04 97 04/24/20 09:14 04/24/20 07:50 94 L 04/24/20 07:45 93 L 04/24/20 07:44 90 L 04/24/20 07:42 87 L 04/24/20 07:40 63 L 04/24/20 07:27 94 L - Problem List Review Problem List Initiated/Reviewed/Updated: Yes - My Orders Last 24 Hours: My Active Orders 04/25/20 05:00 BASIC METABOLIC PANEL,BMP [CHEM] Timed CBC WITH AUTO DIFF [HEME] Timed INR,PT,PROTHROMBIN TIME [COAG] Timed - Plan Plan:: ASSESSMENT AND PLAN - COVID-19 pneumonia-now complicated by acute respiratory failure with hypoxia. Respiratory status has improved dramatically and she is now down to 2 L of supplemental oxygen, still requires up to 5 to 6 L with activity -She has completed courses of steroids, remdesivir and plasma -Recheck inflammatory markers every 2 to 3 days -Symptomatic management Diabetes mellitus type 2-mild intermittent elevations of sugars. -Sliding scale insulin Chronic atrial fibrillation-rate controlled. INR therapeutic. -Continue beta-denilson -Continue low-dose warfarin -Reassess INR in a.m. Essential hypertension-blood pressure on the low side of normal. -Continue metoprolol -Hold additional antihypertensives Maintenance issues - - DVT prophylaxis -warfarin - GI prophylaxis -not indicated - Nutrition -regular Disposition -anticipate discharge home versus subacute rehab after the hospital stay
[2020-04-24] MEDS: Polyethylene Glycol 3350 Powder 17 GM Packet PO PRN (17:28)
[2020-04-24] MEDS: Melatonin 3 MG Tab PO SCH (20:49)
[2020-04-25] MEDS: Albuterol 8 GM Inhaler INH SCH ×6 (01:12→20:58)
[2020-04-25] MEDS: Insulin Lispro 100 Unit/ML 3 ML KwikPen SUBCUT SCH ×4 (07:55→21:21)
[2020-04-25] MEDS: Formoterol/Mometasone 100-5 MCG 8.8 GM Inhaler IH SCH ×2 (08:12→20:57)
[2020-04-25] MEDS: Metoprolol Tartrate 25 MG Tab PO SCH ×2 (08:47→20:57)
[2020-04-25] MEDS: Rosuvastatin 10 MG Tab PO SCH (08:50)
--- NOTE | 2020-04-25 17:53 | PCM.PN ---
- General Info Date of Service: 04/25/20 Subjective Update: Ms. Carlson has continued to show improvement in her respiratory status over the last 24 hours. She is now requiring less supplemental oxygen than yesterday with activity and was able to shower today. Functional Status: Reports: Tolerating Diet, Ambulating, Urinating - Review of Systems General: Reports: Weakness, Fatigue. Denies: Fever, Chills Pulmonary: Reports: Shortness of Breath. Denies: Pleuritic Chest Pain, Cough, Sputum, Hemoptysis, Wheezing Cardiovascular: Reports: Dyspnea on Exertion. Denies: Chest Pain, Palpitations, Orthopnea, PND, Edema, Lightheadedness Gastrointestinal: Reports: No Symptoms - Patient Data Vitals - Most Recent: Last Vital Signs Temp 97.0 F 04/25/20 15:14 Pulse 60 04/25/20 15:14 Resp 16 04/25/20 15:14 BP 96/39 L 04/25/20 15:14 Pulse Ox 91 L 04/25/20 15:14 Orthostatic Blood Pressure [ 95/43 Sitting] Orthostatic Blood Pressure [ 129/54 Supine] Weight - Most Recent: 160 lb 0.008 oz Lab Results Last 24 Hours: Laboratory Results - last 24 hr 04/24/20 04/25/20 04/25/20 Range/Units 21:03 05:50 05:50 WBC 5.3 (4.5-11.0) K/uL RBC 3.11 L (3.30-5.50) M/uL Hgb 9.7 L (12.0-15.0) g/dL Hct 30.1 L (36.0-48.0) % MCV 97 (80-98) fL MCH 31 (27-31) pg MCHC 32 (32-36) % Plt Count 175 (150-400) K/uL Neut % (Auto) 64 (36-66) % Lymph % (Auto) 20 L (24-44) % [place] % (Auto) 12 H (2-6) % Eos % (Auto) 3 (2-4) % Baso % (Auto) 1 (0-1) % PT 20.5 H (9.5-12.0) sec INR 1.90 H (0.80-1.20) Sodium (140-148) mmol/L Potassium (3.6-5.2) mmol/L Chloride (100-108) mmol/L Carbon Dioxide (21-32) mmol/L Anion Gap (5.0-14.0) mmol/L BUN (7-18) mg/dL Creatinine (0.6-1.0) mg/dL Est Cr Clr Drug Dosing mL/min Estimated GFR (MDRD) (>60) Glucose (74-106) mg/dL POC Glucose 155 H (74-106) MG/DL Calcium (8.5-10.1) mg/dL 04/25/20 04/25/20 04/25/20 Range/Units 05:50 07:30 11:30 WBC (4.5-11.0) K/uL RBC (3.30-5.50) M/uL Hgb (12.0-15.0) g/dL Hct (36.0-48.0) % MCV (80-98) fL MCH (27-31) pg MCHC (32-36) % Plt Count (150-400) K/uL Neut % (Auto) (36-66) % Lymph % (Auto) (24-44) % [place] % (Auto) (2-6) % Eos % (Auto) (2-4) % Baso % (Auto) (0-1) % PT (9.5-12.0) sec INR (0.80-1.20) Sodium 137 L (140-148) mmol/L Potassium 4.1 (3.6-5.2) mmol/L Chloride 104 (100-108) mmol/L Carbon Dioxide 26 (21-32) mmol/L Anion Gap 11.1 (5.0-14.0) mmol/L BUN 16 (7-18) mg/dL Creatinine 0.7 (0.6-1.0) mg/dL Est Cr Clr Drug Dosing 55.31 mL/min Estimated GFR (MDRD) > 60 (>60) Glucose 138 H (74-106) mg/dL POC Glucose 134 H 215 H (74-106) MG/DL Calcium 8.2 L (8.5-10.1) mg/dL 04/25/20 Range/Units 16:35 WBC (4.5-11.0) K/uL RBC (3.30-5.50) M/uL Hgb (12.0-15.0) g/dL Hct (36.0-48.0) % MCV (80-98) fL MCH (27-31) pg MCHC (32-36) % Plt Count (150-400) K/uL Neut % (Auto) (36-66) % Lymph % (Auto) (24-44) % [place] % (Auto) (2-6) % Eos % (Auto) (2-4) % Baso % (Auto) (0-1) % PT (9.5-12.0) sec INR (0.80-1.20) Sodium (140-148) mmol/L Potassium (3.6-5.2) mmol/L Chloride (100-108) mmol/L Carbon Dioxide (21-32) mmol/L Anion Gap (5.0-14.0) mmol/L BUN (7-18) mg/dL Creatinine (0.6-1.0) mg/dL Est Cr Clr Drug Dosing mL/min Estimated GFR (MDRD) (>60) Glucose (74-106) mg/dL POC Glucose 128 H (74-106) MG/DL Calcium (8.5-10.1) mg/dL Med Orders - Current: Current Medications Acetaminophen (Tylenol) 650 mg PO Q4H PRN PRN Reason: Pain (Mild 1-3)/fever Last Admin: 04/13/20 15:22 Dose: 650 mg Documented by: Albuterol (Ventolin Hfa) 1 - 2 gm INH Q4H [facility] Last Admin: 04/25/20 17:40 Dose: 2 puff Documented by: Bismuth Subsalicylate (Pepto Bismol) 262 - 524 mg PO QID PRN PRN Reason: Heartburn Dextrose/Water (Dextrose 50% In Water) 50 ml IVPUSH ASDIRECTED PRN PRN Reason: Hypoglycemia Glucagon (Glucagen) 1 mg IM ASDIRECTED PRN PRN Reason: Hypoglycemia Insulin Human Lispro (Humalog) 0 unit SUBCUT QIDACANDBED [facility]; Protocol Last Admin: 04/25/20 17:35 Dose: Not Given Documented by: Magnesium Hydroxide (Milk Of Magnesia) 30 ml PO Q12H PRN PRN Reason: Constipation Last Admin: 04/21/20 08:23 Dose: 30 ml Documented by: Melatonin (Melatonin) 6 mg PO BEDTIME [facility] Last Admin: 04/24/20 20:49 Dose: 6 mg Documented by: Metoprolol Tartrate (Lopressor) 12.5 mg PO BID [facility] Last Admin: 04/25/20 08:47 Dose: 12.5 mg Documented by: Mometasone Furoate/Formoterol Fumar (Dulera 100-5 Mcg) 0 puff IH BIDRT [facility] Last Admin: 04/25/20 08:12 Dose: 1 puff Documented by: Ondansetron HCl (Zofran) 4 mg IV Q6H PRN PRN Reason: Nausea/Vomiting Ondansetron HCl (Zofran Odt) 4 mg PO Q6H PRN PRN Reason: Nausea able to take PO Polyethylene Glycol (Miralax) 17 gm PO DAILY PRN PRN Reason: Constipation Last Admin: 04/24/20 17:28 Dose: 17 gm Documented by: Rosuvastatin Calcium (Crestor) 20 mg PO DAILY [facility] Last Admin: 04/25/20 08:50 Dose: 20 mg Documented by: Senna/Docusate Sodium (Senna Plus) 1 tab PO BID PRN PRN Reason: Constipation Last Admin: 04/24/20 07:36 Dose: 1 tab Documented by: Sodium Chloride ([place] Nasal [place]) 0 ml KEYANA Q2H PRN PRN Reason: Congestion Last Admin: 04/14/20 16:34 Dose: 1 spray Documented by: Warfarin Sodium (Coumadin) 0.5 mg PO DAILY@1300 [facility] Last Admin: 04/25/20 13:23 Dose: 0.5 mg Documented by: Discontinued Medications Albuterol (Ventolin Hfa) 1 - 2 gm INH Q4H [facility] Last Admin: 04/09/20 05:39 Dose: 1 puff Documented by: Benzocaine/Menthol (Cepacol Sore Throat) 1 lozenge MUCMEM Q2H PRN PRN Reason: Sore Throat Benzonatate (Tessalon Perles) 100 mg PO TID PRN PRN Reason: Cough Bismuth Subsalicylate (Pepto Bismol) 1 - 2 mg PO QID PRN PRN Reason: Heartburn Dexamethasone (Dexamethasone) 6 mg PO ONETIME ONE Stop: 04/08/20 20:45 Last Admin: 04/08/20 21:52 Dose: 6 mg Documented by: Dexamethasone (Dexamethasone) 6 mg PO Q24H [facility] Stop: 04/17/20 21:01 Last Admin: 04/17/20 20:46 Dose: 6 mg Documented by: Furosemide (Lasix) 20 mg IVPUSH NOW ONE Stop: 04/11/20 14:01 Last Admin: 04/11/20 14:54 Dose: 20 mg Documented by: Furosemide (Lasix) 20 mg IVPUSH NOW ONE Stop: 04/12/20 16:46 Last Admin: 04/12/20 17:46 Dose: 20 mg Documented by: Furosemide (Lasix) 20 mg IVPUSH NOW ONE Stop: 04/15/20 08:31 Last Admin: 04/15/20 08:34 Dose: 20 mg Documented by: Guaifenesin/Dextromethorphan (Robitussin Dm) 10 ml PO Q4H PRN PRN Reason: Cough Sodium Chloride (Normal Saline) 1,000 mls @ 999 mls/hr IV ASDIRECTED [facility] Last Admin: 04/08/20 15:46 Dose: 999 mls/hr Documented by: Remdesivir 100 mg/ Sodium (Chloride) 100 mls @ 100 mls/hr IV Q24H [facility] Stop: 04/13/20 14:59 Last Admin: 04/13/20 13:41 Dose: 100 mls/hr Documented by: Remdesivir 200 mg/ Sodium (Chloride) 250 mls @ 250 mls/hr IV ONETIME ONE Stop: 04/09/20 14:59 Last Admin: 04/09/20 13:45 Dose: 250 mls/hr Documented by: Phytonadione 1 mg/ Sodium (Chloride) 50.5 mls @ 100 mls/hr IV ONETIME ONE Stop: 04/15/20 07:00 Last Admin: 04/15/20 06:31 Dose: 100 mls/hr Documented by: Phytonadione 1 mg/ Sodium (Chloride) 50.5 mls @ 100 mls/hr IV ONETIME ONE Stop: 04/18/20 08:30 Last Admin: 04/18/20 08:04 Dose: 100 mls/hr Documented by: Insulin Human Lispro (Humalog) 0 unit SUBCUT QIDACANDBED [facility]; Protocol Insulin Human Lispro (Humalog) Confirm Administered Dose 300 unit SUBCUT .STK- MED ONE Stop: 04/10/20 22:41 Last Admin: 04/10/20 22:54 Dose: Not Given Documented by: Lorazepam (Ativan) 0.5 mg IVPUSH Q2H PRN PRN Reason: Anxiety Last Admin: 04/15/20 02:19 Dose: 0.5 mg Documented by: Metoprolol Tartrate (Lopressor) 50 mg PO BID [facility] Metoprolol Tartrate (Lopressor) 25 mg PO BID [facility] Last Admin: 04/15/20 10:47 Dose: Not Given Documented by: Mometasone Furoate/Formoterol Fumar (Dulera 100-5 Mcg) 1 puff IH BID [facility] Last Admin: 04/08/20 20:18 Dose: 1 puff Documented by: Metoprolol 25mg Tab (Pt Own) 2 each PO BID [facility] Last Admin: 04/09/20 12:20 Dose: Not Given Documented by: Warfarin Sodium (Coumadin) 1.25 mg PO DAILY@1300 [facility] Last Admin: 04/11/20 12:03 Dose: 1.25 mg Documented by: Warfarin Sodium (Coumadin) 2.5 mg PO ONETIME ONE Stop: 04/16/20 11:01 Last Admin: 04/16/20 11:59 Dose: 2.5 mg Documented by: Warfarin Sodium (Coumadin) 1 mg PO ONETIME ONE Stop: 04/17/20 15:31 Last Admin: 04/17/20 16:42 Dose: 1 mg Documented by: Warfarin Sodium (Coumadin) 1 mg PO DAILY@1300 [facility] Last Admin: 04/21/20 12:17 Dose: 1 mg Documented by: - Exam Quality Assessment: Supplemental Oxygen, DVT Prophylaxis General: Alert, Oriented, Cooperative, Mild Distress Lungs: Clear to Auscultation, Normal Respiratory Effort Cardiovascular: Regular Rate, Regular Rhythm, No Murmurs GI/Abdominal Exam: Soft, Non-Tender, No Organomegaly, No Distention Extremities: Non-Tender, No Pedal Edema Sepsis Event Note - Evaluation Sepsis Screening Result: No Definite Risk - Focused Exam Vital Signs: Vital Signs Temp Pulse Pulse Resp BP BP Pulse Ox 04/25/20 15:14 97.0 F 60 16 96/39 L 91 L 04/25/20 13:24 95 04/25/20 12:43 96 04/25/20 11:38 96.0 F L 65 16 107/47 L 95 04/25/20 08:47 64 112/43 L 04/25/20 06:59 95.9 F L 58 L 16 120/69 95 - Problem List Review Problem List Initiated/Reviewed/Updated: Yes - My Orders Last 24 Hours: My Active Orders 04/26/20 05:00 INR,PT,PROTHROMBIN TIME [[facility]AG] Timed - Plan Plan:: ASSESSMENT AND PLAN - COVID-19 pneumonia-now complicated by acute respiratory failure with hypoxia. Respiratory status has improved dramatically and she is now down to 2 L of supplemental oxygen, still requires up to 3 L with activity -She has completed courses of steroids, remdesivir and plasma -Symptomatic management Diabetes mellitus type 2-mild intermittent elevations of sugars. -Sliding scale insulin Chronic atrial fibrillation-rate controlled. -Continue beta-denilson -Continue low-dose warfarin -Reassess INR in a.m. Essential hypertension-blood pressure on the low side of normal. -Continue metoprolol -Hold additional antihypertensives Maintenance issues - - DVT prophylaxis -warfarin - GI prophylaxis -not indicated - Nutrition -regular Disposition -anticipate discharge home versus subacute rehab after the hospital stay
[2020-04-25] MEDS: Melatonin 3 MG Tab PO SCH (20:57)
[2020-04-26] MEDS: Albuterol 8 GM Inhaler INH SCH ×7 (02:49→21:32)
[2020-04-26] MEDS: Formoterol/Mometasone 100-5 MCG 8.8 GM Inhaler IH SCH ×2 (07:28→21:32)
[2020-04-26] MEDS: Insulin Lispro 100 Unit/ML 3 ML KwikPen SUBCUT SCH ×4 (08:13→21:31)
[2020-04-26] MEDS: Rosuvastatin 10 MG Tab PO SCH (09:54)
[2020-04-26] MEDS: Metoprolol Tartrate 25 MG Tab PO SCH ×2 (09:55→21:28)
--- NOTE | 2020-04-26 14:07 | PCM.PN ---
- General Info Date of Service: 04/26/20 Subjective Update: Ms. Carlson has remained stable over the last 24 hours with further improvement in respiratory status and oxygenation. She is currently requiring 2 to 3 L/min of supplemental oxygen even with activity to maintain adequate saturations. She is feeling stronger and appetite has improved. Functional Status: Reports: Tolerating Diet, Ambulating, Urinating - Review of Systems General: Reports: Weakness, Fatigue. Denies: Fever, Chills Pulmonary: Reports: Shortness of Breath. Denies: Pleuritic Chest Pain, Cough, Sputum, Hemoptysis, Wheezing Cardiovascular: Reports: Dyspnea on Exertion. Denies: Chest Pain, Palpitations, Orthopnea, PND, Edema, Lightheadedness Gastrointestinal: Reports: No Symptoms - Patient Data Vitals - Most Recent: Last Vital Signs Temp 95.5 F L 04/26/20 11:00 Pulse 60 04/26/20 11:00 Resp 16 04/26/20 11:00 BP 97/54 L 04/26/20 11:00 Pulse Ox 94 L 04/26/20 11:00 Orthostatic Blood Pressure [ 95/43 Sitting] Orthostatic Blood Pressure [ 129/54 Supine] Weight - Most Recent: 160 lb 0.008 oz I&O - Last 24 Hours: Intake & Output 04/25/20 04/26/20 04/26/20 22:59 06:59 14:59 Intake Total 720 296 840 Balance 720 296 840 Lab Results Last 24 Hours: Laboratory Results - last 24 hr 04/25/20 04/25/20 04/26/20 Range/Units 16:35 21:02 05:30 PT 18.9 H (9.5-12.0) sec INR 1.75 H (0.80-1.20) POC Glucose 128 H 165 H (74-106) MG/DL 04/26/20 04/26/20 Range/Units 07:30 11:30 PT (9.5-12.0) sec INR (0.80-1.20) POC Glucose 146 H 208 H (74-106) MG/DL Med Orders - Current: Current Medications Acetaminophen (Tylenol) 650 mg PO Q4H PRN PRN Reason: Pain (Mild 1-3)/fever Last Admin: 04/13/20 15:22 Dose: 650 mg Documented by: Albuterol (Ventolin Hfa) 1 - 2 gm INH Q4H [facility] Last Admin: 04/26/20 12:55 Dose: 2 puff Documented by: Bismuth Subsalicylate (Pepto Bismol) 262 - 524 mg PO QID PRN PRN Reason: Heartburn Dextrose/Water (Dextrose 50% In Water) 50 ml IVPUSH ASDIRECTED PRN PRN Reason: Hypoglycemia Glucagon (Glucagen) 1 mg IM ASDIRECTED PRN PRN Reason: Hypoglycemia Insulin Human Lispro (Humalog) 0 unit SUBCUT QIDACANDBED [facility]; Protocol Last Admin: 04/26/20 12:18 Dose: 2 units Documented by: Magnesium Hydroxide (Milk Of Magnesia) 30 ml PO Q12H PRN PRN Reason: Constipation Last Admin: 04/21/20 08:23 Dose: 30 ml Documented by: Melatonin (Melatonin) 6 mg PO BEDTIME [facility] Last Admin: 04/25/20 20:57 Dose: 6 mg Documented by: Metoprolol Tartrate (Lopressor) 12.5 mg PO BID [facility] Last Admin: 04/26/20 09:55 Dose: 12.5 mg Documented by: Mometasone Furoate/Formoterol Fumar (Dulera 100-5 Mcg) 0 puff IH BIDRT [facility] Last Admin: 04/26/20 07:28 Dose: 1 puff Documented by: Ondansetron HCl (Zofran) 4 mg IV Q6H PRN PRN Reason: Nausea/Vomiting Ondansetron HCl (Zofran Odt) 4 mg PO Q6H PRN PRN Reason: Nausea able to take PO Polyethylene Glycol (Miralax) 17 gm PO DAILY PRN PRN Reason: Constipation Last Admin: 04/24/20 17:28 Dose: 17 gm Documented by: Rosuvastatin Calcium (Crestor) 20 mg PO DAILY [facility] Last Admin: 04/26/20 09:54 Dose: 20 mg Documented by: Senna/Docusate Sodium (Senna Plus) 1 tab PO BID PRN PRN Reason: Constipation Last Admin: 04/24/20 07:36 Dose: 1 tab Documented by: Sodium Chloride ([place] Nasal [place]) 0 ml KEYANA Q2H PRN PRN Reason: Congestion Last Admin: 04/14/20 16:34 Dose: 1 spray Documented by: Warfarin Sodium (Coumadin) 1 mg PO DAILY@1300 [facility] Discontinued Medications Albuterol (Ventolin Hfa) 1 - 2 gm INH Q4H [facility] Last Admin: 04/09/20 05:39 Dose: 1 puff Documented by: Benzocaine/Menthol (Cepacol Sore Throat) 1 lozenge MUCMEM Q2H PRN PRN Reason: Sore Throat Benzonatate (Tessalon Perles) 100 mg PO TID PRN PRN Reason: Cough Bismuth Subsalicylate (Pepto Bismol) 1 - 2 mg PO QID PRN PRN Reason: Heartburn Dexamethasone (Dexamethasone) 6 mg PO ONETIME ONE Stop: 04/08/20 20:45 Last Admin: 04/08/20 21:52 Dose: 6 mg Documented by: Dexamethasone (Dexamethasone) 6 mg PO Q24H [facility] Stop: 04/17/20 21:01 Last Admin: 04/17/20 20:46 Dose: 6 mg Documented by: Furosemide (Lasix) 20 mg IVPUSH NOW ONE Stop: 04/11/20 14:01 Last Admin: 04/11/20 14:54 Dose: 20 mg Documented by: Furosemide (Lasix) 20 mg IVPUSH NOW ONE Stop: 04/12/20 16:46 Last Admin: 04/12/20 17:46 Dose: 20 mg Documented by: Furosemide (Lasix) 20 mg IVPUSH NOW ONE Stop: 04/15/20 08:31 Last Admin: 04/15/20 08:34 Dose: 20 mg Documented by: Guaifenesin/Dextromethorphan (Robitussin Dm) 10 ml PO Q4H PRN PRN Reason: Cough Sodium Chloride (Normal Saline) 1,000 mls @ 999 mls/hr IV ASDIRECTED [facility] Last Admin: 04/08/20 15:46 Dose: 999 mls/hr Documented by: Remdesivir 100 mg/ Sodium (Chloride) 100 mls @ 100 mls/hr IV Q24H [facility] Stop: 04/13/20 14:59 Last Admin: 04/13/20 13:41 Dose: 100 mls/hr Documented by: Remdesivir 200 mg/ Sodium (Chloride) 250 mls @ 250 mls/hr IV ONETIME ONE Stop: 04/09/20 14:59 Last Admin: 04/09/20 13:45 Dose: 250 mls/hr Documented by: Phytonadione 1 mg/ Sodium (Chloride) 50.5 mls @ 100 mls/hr IV ONETIME ONE Stop: 04/15/20 07:00 Last Admin: 04/15/20 06:31 Dose: 100 mls/hr Documented by: Phytonadione 1 mg/ Sodium (Chloride) 50.5 mls @ 100 mls/hr IV ONETIME ONE Stop: 04/18/20 08:30 Last Admin: 04/18/20 08:04 Dose: 100 mls/hr Documented by: Insulin Human Lispro (Humalog) 0 unit SUBCUT QIDACANDBED [facility]; Protocol Insulin Human Lispro (Humalog) Confirm Administered Dose 300 unit SUBCUT .STK- MED ONE Stop: 04/10/20 22:41 Last Admin: 04/10/20 22:54 Dose: Not Given Documented by: Lorazepam (Ativan) 0.5 mg IVPUSH Q2H PRN PRN Reason: Anxiety Last Admin: 04/15/20 02:19 Dose: 0.5 mg Documented by: Metoprolol Tartrate (Lopressor) 50 mg PO BID [facility] Metoprolol Tartrate (Lopressor) 25 mg PO BID [facility] Last Admin: 04/15/20 10:47 Dose: Not Given Documented by: Mometasone Furoate/Formoterol Fumar (Dulera 100-5 Mcg) 1 puff IH BID [facility] Last Admin: 04/08/20 20:18 Dose: 1 puff Documented by: Metoprolol 25mg Tab (Pt Own) 2 each PO BID [facility] Last Admin: 04/09/20 12:20 Dose: Not Given Documented by: Warfarin Sodium (Coumadin) 1.25 mg PO DAILY@1300 [facility] Last Admin: 04/11/20 12:03 Dose: 1.25 mg Documented by: Warfarin Sodium (Coumadin) 2.5 mg PO ONETIME ONE Stop: 04/16/20 11:01 Last Admin: 04/16/20 11:59 Dose: 2.5 mg Documented by: Warfarin Sodium (Coumadin) 1 mg PO ONETIME ONE Stop: 04/17/20 15:31 Last Admin: 04/17/20 16:42 Dose: 1 mg Documented by: Warfarin Sodium (Coumadin) 1 mg PO DAILY@1300 [facility] Last Admin: 04/21/20 12:17 Dose: 1 mg Documented by: Warfarin Sodium (Coumadin) 0.5 mg PO DAILY@1300 [facility] Last Admin: 04/26/20 12:24 Dose: 0.5 mg Documented by: - Exam Quality Assessment: Supplemental Oxygen, DVT Prophylaxis General: Alert, Oriented, Cooperative, Mild Distress Lungs: Clear to Auscultation, Normal Respiratory Effort Cardiovascular: Regular Rate, Regular Rhythm, No Murmurs GI/Abdominal Exam: Soft, Non-Tender, No Organomegaly, No Distention Extremities: Non-Tender, No Pedal Edema Sepsis Event Note - Evaluation Sepsis Screening Result: No Definite Risk - Focused Exam Vital Signs: Vital Signs Temp Pulse Pulse Resp BP BP Pulse Ox 04/26/20 11:00 95.5 F L 60 16 97/54 L 94 L 04/26/20 09:55 56 L 119/72 04/26/20 07:46 95.9 F L 56 L 16 119/72 96 04/26/20 02:46 96.2 F L 59 L 18 122/54 L 90 L - Problem List Review Problem List Initiated/Reviewed/Updated: Yes - My Orders Last 24 Hours: My Active Orders 04/26/20 11:33 Evaluate for Home Oxygen [RT Evaluate for Home Oxygen] [RC] Click to Edit 04/26/20 14:04 Warfarin [Coumadin] 0.5 mg PO ONETIME ONE 04/27/20 05:11 INR,PT,PROTHROMBIN TIME [[facility]] AM 04/27/20 13:00 Warfarin [Coumadin] 1 mg PO DAILY@1300 - Plan Plan:: ASSESSMENT AND PLAN - COVID-19 pneumonia-now complicated by acute respiratory failure with hypoxia. Respiratory status has improved dramatically and she is now down to 2 L of supplemental oxygen, still requires up to 3 L with activity -She has completed courses of steroids, remdesivir and plasma -Symptomatic management Diabetes mellitus type 2-mild intermittent elevations of sugars. -Sliding scale insulin Chronic atrial fibrillation-rate controlled. INR is subtherapeutic today -Continue beta-denilson -Continue low-dose warfarin, increase daily dose to 1 mg/day -Reassess INR in a.m. Essential hypertension-blood pressure on the low side of normal. -Continue metoprolol -Hold additional antihypertensives Maintenance issues - - DVT prophylaxis -warfarin - GI prophylaxis -not indicated - Nutrition -regular Disposition -anticipate discharge home tomorrow with supplemental oxygen
[2020-04-26] MEDS: Melatonin 3 MG Tab PO SCH (21:33)
[2020-04-27] MEDS: Albuterol 8 GM Inhaler INH SCH ×4 (03:00→13:33)
[2020-04-27] MEDS: Formoterol/Mometasone 100-5 MCG 8.8 GM Inhaler IH SCH (07:09)
[2020-04-27 07:19] VITALS: BP 128/56; PULSE 65
[2020-04-27] MEDS: Insulin Lispro 100 Unit/ML 3 ML KwikPen SUBCUT SCH ×2 (07:57→12:07)
[2020-04-27] MEDS: Rosuvastatin 10 MG Tab PO SCH (09:02)
[2020-04-27] MEDS: Metoprolol Tartrate 25 MG Tab PO SCH (09:02)
--- NOTE | 2020-04-27 12:44 | PCM.DCSUM1 ---
Discharge Summary - Hospital Course Brief History: Ms. Carlson is an 84-year-old woman who was admitted after syncopal episode and progressive weakness secondary to COVID-19 infection. - Discharge Data Discharge Date: 04/27/20 Discharge Disposition: Home, W Home Health Agency 06 Condition: Good - Referral to Home Health Date of Face to Face Encounter: 04/27/20 Reason for Homebound Status: Weakness and hypoxia secondary to COVID-19 Primary Care Physician: PCP None Skilled Need: Nursing care, home health aide, home physical therapy and Occupational Therapy - Discharge Diagnosis/Problem(s) (1) Bilateral pneumonia SNOMED Code(s): 170839224 ICD Code: J18.9 - PNEUMONIA, UNSPECIFIED ORGANISM Status: Acute Current Visit: Yes (2) Acute respiratory failure with hypoxia SNOMED Code(s): 12283667, 166653806 ICD Code: J96.01 - ACUTE RESPIRATORY FAILURE WITH HYPOXIA Status: Acute Current Visit: Yes (3) COVID-19 SNOMED Code(s): 471901037 ICD Code: U07.1 - COVID-19 Status: Acute Current Visit: Yes (4) Syncope SNOMED Code(s): 898405092 ICD Code: R55 - SYNCOPE AND COLLAPSE Status: Acute Current Visit: Yes Qualifiers: Syncope type: unspecified Qualified Code(s): R55 - Syncope and collapse (5) Chronic atrial fibrillation SNOMED Code(s): 986724648 ICD Code: I48.20 - CHRONIC ATRIAL FIBRILLATION, UNSPECIFIED Status: Chronic Current Visit: Yes (6) Essential hypertension SNOMED Code(s): 07154515 ICD Code: I10 - ESSENTIAL (PRIMARY) HYPERTENSION Status: Chronic Current Visit: Yes - Patient Summary/Data Consults: Consultations 04/22/20 07:00 PT Evaluation and Treatment [CONS] Routine Please Evaluate and Treat. PT Reason for Consult: Strengthening This query below is only for informational purposes and is not editable. Admission Diagnosis/Problem: Pneumonia Hospital Course: Ms. Carlson presented to the emergency room after an episode of syncope. She reports that after getting out of the shower when she suddenly started to feel very weak and slumped to the floor. Her thinks that she was out for about 30 seconds before coming to. She was not confused afterwards but does not recall the event. She feels pretty much back to her previous self at this point. She was diagnosed with COVID-19 on , 2 days ago. Her symptoms first started on April 01. She has had sinus congestion and a cough. Work-up in the emergency room revealed mild leukopenia and a mildly elevated D-dimer and CRP. Chest x-ray showed some subtle infiltrates on the right. Vital signs have been stable though orthostatic vital signs were positive. She is not hypoxic. She was febrile. She was given 1 L of fluid in the emergency room. She was initially admitted to observation status, during the first night of hospitalization developed hypoxia and was started on treatment for COVID-19 with remdesivir, convalescent plasma, and Decadron. Was converted to inpatient status because of the hypoxia. Unfortunately hypoxia progressed to the point where she was requiring 15 L of high flow oxygen and able to maintain s aturations above 90%. She was placed on noninvasive positive pressure ventilation and required that for some time before improvement in her hypoxia. Over the last week of hospitalization she gradually improved and was down to 3 L of oxygen via nasal cannula at the time of discharge. She had completed the course of remdesivir, convalescent plasma, and Decadron. Overall energy level and appetite improved prior to discharge. She will be discharged home with home care including home physical therapy and Occupational Therapy. She will be on oxygen 3 L/min via nasal cannula and continued to show significant desaturation below 88% on room air prior to discharge. Activity will be as tolerated and she will resume her usual diet. Follow-up appointment will be scheduled with her primary care provider within 1 week. Follow-up INR level will be obtained on May 01. - Patient Instructions Diet: Usual Diet as Tolerated Activity: As Tolerated Other/Special Instructions: Please arrange for home oxygen at 3 L/min via nasal cannula. Please schedule follow-up appointment with primary care provider within 1 week. Patient should have follow-up INR on May 01. - Discharge Plan *PRESCRIPTION DRUG MONITORING PROGRAM REVIEWED*: Not Applicable *COPY OF PRESCRIPTION DRUG MONITORING REPORT IN PATIENT MALATHI: Not Applicable Prescriptions/Med Rec: Warfarin [Coumadin] 1 mg PO DAILY@1300 #50 tablet Metoprolol Tartrate [Lopressor] 12.5 mg PO BID #30 tablet Home Medications: Home Meds Acetaminophen [Tylenol Extra Strength] 2 tab PO TID PRN 12/02/14 [History] Calcium Carbonate/Vitamin D3 [Calcium 1,000 + D3 Caplet] 1 tab PO BID 12/02/14 [History] Glucosamine [Glucosamine Sulfate] 2 tab PO BID 12/02/14 [History] Rarden-3 Fatty Acids [Fish Oil] 1 cap PO DAILY 12/02/14 [History] Rosuvastatin [Crestor] 20 mg PO DAILY 12/02/14 [History] Melatonin 1 tab PO BEDTIME PRN 11/11/18 [History] Albuterol Sulfate [Proair Hfa] 1 - 2 puff IH Q4H 04/08/20 [History] Budesonide/Formoterol [Symbicort 80-4.5 MCG] 1 puff INH BID 04/08/20 [History] Metoprolol Tartrate [Lopressor] 12.5 mg PO BID #30 tablet 04/27/20 [Rx] Warfarin [Coumadin] 1 mg PO DAILY@1300 #50 tablet 04/27/20 [Rx] Oxygen Flow Rate (L/min): 3 Referrals: Harley Barcenas MD [Physician] - 05/02/20 1:40 pm (Please arrive 15 minutres early to register for your appointment.) - Discharge Summary/Plan Comment DC Time >30 min.: No - Patient Data Vitals - Most Recent: Last Vital Signs Temp 96.1 F L 04/27/20 07:18 Pulse 65 04/27/20 09:02 Resp 20 04/27/20 07:18 BP 128/56 L 04/27/20 09:02 Pulse Ox 92 L 04/27/20 07:18 Orthostatic Blood Pressure [ 95/43 Sitting] Orthostatic Blood Pressure [ 129/54 Supine] Weight - Most Recent: 160 lb 0.008 oz I&O - Last 24 hours: Intake & Output 04/26/20 04/27/20 04/27/20 22:59 06:59 14:59 Intake Total 296 360 Balance 296 360 Lab Results - Last 24 hrs: Laboratory Results - last 24 hr 04/26/20 04/26/20 04/27/20 Range/Units 16:30 21:00 05:30 PT 10.3 (9.5-12.0) sec INR 0.94 (0.80-1.20) POC Glucose 200 H 155 H (74-106) MG/DL 04/27/20 04/27/20 Range/Units 07:49 11:30 PT (9.5-12.0) sec INR (0.80-1.20) POC Glucose 158 H 221 H (74-106) MG/DL Med Orders - Current: Current Medications Acetaminophen (Tylenol) 650 mg PO Q4H PRN PRN Reason: Pain (Mild 1-3)/fever Last Admin: 04/13/20 15:22 Dose: 650 mg Documented by: Albuterol (Ventolin Hfa) 1 - 2 gm INH Q4H [facility] Last Admin: 04/27/20 09:32 Dose: 1 puff Documented by: Bismuth Subsalicylate (Pepto Bismol) 262 - 524 mg PO QID PRN PRN Reason: Heartburn Dextrose/Water (Dextrose 50% In Water) 50 ml IVPUSH ASDIRECTED PRN PRN Reason: Hypoglycemia Glucagon (Glucagen) 1 mg IM ASDIRECTED PRN PRN Reason: Hypoglycemia Insulin Human Lispro (Humalog) 0 unit SUBCUT QIDACANDBED [facility]; Protocol Last Admin: 04/27/20 12:07 Dose: 2 units Documented by: Magnesium Hydroxide (Milk Of Magnesia) 30 ml PO Q12H PRN PRN Reason: Constipation Last Admin: 04/21/20 08:23 Dose: 30 ml Documented by: Melatonin (Melatonin) 6 mg PO BEDTIME [facility] Last Admin: 04/26/20 21:33 Dose: 6 mg Documented by: Metoprolol Tartrate (Lopressor) 12.5 mg PO BID [facility] Last Admin: 04/27/20 09:02 Dose: 12.5 mg Documented by: Mometasone Furoate/Formoterol Fumar (Dulera 100-5 Mcg) 0 puff IH BIDRT [facility] Last Admin: 04/27/20 07:09 Dose: 1 puff Documented by: Ondansetron HCl (Zofran) 4 mg IV Q6H PRN PRN Reason: Nausea/Vomiting Ondansetron HCl (Zofran Odt) 4 mg PO Q6H PRN PRN Reason: Nausea able to take PO Polyethylene Glycol (Miralax) 17 gm PO DAILY PRN PRN Reason: Constipation Last Admin: 04/24/20 17:28 Dose: 17 gm Documented by: Rosuvastatin Calcium (Crestor) 20 mg PO DAILY [facility] Last Admin: 04/27/20 09:02 Dose: 20 mg Documented by: Senna/Docusate Sodium (Senna Plus) 1 tab PO BID PRN PRN Reason: Constipation Last Admin: 04/24/20 07:36 Dose: 1 tab Documented by: Sodium Chloride ([place] Nasal [place]) 0 ml KEYANA Q2H PRN PRN Reason: Congestion Last Admin: 04/14/20 16:34 Dose: 1 spray Documented by: Warfarin Sodium (Coumadin) 1 mg PO DAILY@1300 [facility] Last Admin: 04/27/20 12:10 Dose: 1 mg Documented by: Discontinued Medications Albuterol (Ventolin Hfa) 1 - 2 gm INH Q4H [facility] Last Admin: 04/09/20 05:39 Dose: 1 puff Documented by: Benzocaine/Menthol (Cepacol Sore Throat) 1 lozenge MUCMEM Q2H PRN PRN Reason: Sore Throat Benzonatate (Tessalon Perles) 100 mg PO TID PRN PRN Reason: Cough Bismuth Subsalicylate (Pepto Bismol) 1 - 2 mg PO QID PRN PRN Reason: Heartburn Dexamethasone (Dexamethasone) 6 mg PO ONETIME ONE Stop: 04/08/20 20:45 Last Admin: 04/08/20 21:52 Dose: 6 mg Documented by: Dexamethasone (Dexamethasone) 6 mg PO Q24H [facility] Stop: 04/17/20 21:01 Last Admin: 04/17/20 20:46 Dose: 6 mg Documented by: Furosemide (Lasix) 20 mg IVPUSH NOW ONE Stop: 04/11/20 14:01 Last Admin: 04/11/20 14:54 Dose: 20 mg Documented by: Furosemide (Lasix) 20 mg IVPUSH NOW ONE Stop: 04/12/20 16:46 Last Admin: 04/12/20 17:46 Dose: 20 mg Documented by: Furosemide (Lasix) 20 mg IVPUSH NOW ONE Stop: 04/15/20 08:31 Last Admin: 04/15/20 08:34 Dose: 20 mg Documented by: Guaifenesin/Dextromethorphan (Robitussin Dm) 10 ml PO Q4H PRN PRN Reason: Cough Sodium Chloride (Normal Saline) 1,000 mls @ 999 mls/hr IV ASDIRECTED [facility] Last Admin: 04/08/20 15:46 Dose: 999 mls/hr Documented by: Remdesivir 100 mg/ Sodium (Chloride) 100 mls @ 100 mls/hr IV Q24H JOHN Stop: 04/13/20 14:59 Last Admin: 04/13/20 13:41 Dose: 100 mls/hr Documented by: Remdesivir 200 mg/ Sodium (Chloride) 250 mls @ 250 mls/hr IV ONETIME ONE Stop: 04/09/20 14:59 Last Admin: 04/09/20 13:45 Dose: 250 mls/hr Documented by: Phytonadione 1 mg/ Sodium (Chloride) 50.5 mls @ 100 mls/hr IV ONETIME ONE Stop: 04/15/20 07:00 Last Admin: 04/15/20 06:31 Dose: 100 mls/hr Documented by: Phytonadione 1 mg/ Sodium (Chloride) 50.5 mls @ 100 mls/hr IV ONETIME ONE Stop: 04/18/20 08:30 Last Admin: 04/18/20 08:04 Dose: 100 mls/hr Documented by: Insulin Human Lispro (Humalog) 0 unit SUBCUT QIDACANDBED [facility]; Protocol Insulin Human Lispro (Humalog) Confirm Administered Dose 300 unit SUBCUT .STK- MED ONE Stop: 04/10/20 22:41 Last Admin: 04/10/20 22:54 Dose: Not Given Documented by: Lorazepam (Ativan) 0.5 mg IVPUSH Q2H PRN PRN Reason: Anxiety Last Admin: 04/15/20 02:19 Dose: 0.5 mg Documented by: Metoprolol Tartrate (Lopressor) 50 mg PO BID [facility] Metoprolol Tartrate (Lopressor) 25 mg PO BID [facility] Last Admin: 04/15/20 10:47 Dose: Not Given Documented by: Mometasone Furoate/Formoterol Fumar (Dulera 100-5 Mcg) 1 puff IH BID [facility] Last Admin: 04/08/20 20:18 Dose: 1 puff Documented by: Metoprolol 25mg Tab (Pt Own) 2 each PO BID [facility] Last Admin: 04/09/20 12:20 Dose: Not Given Documented by: Warfarin Sodium (Coumadin) 1.25 mg PO DAILY@1300 [facility] Last Admin: 04/11/20 12:03 Dose: 1.25 mg Documented by: Warfarin Sodium (Coumadin) 2.5 mg PO ONETIME ONE Stop: 04/16/20 11:01 Last Admin: 04/16/20 11:59 Dose: 2.5 mg Documented by: Warfarin Sodium (Coumadin) 1 mg PO ONETIME ONE Stop: 04/17/20 15:31 Last Admin: 04/17/20 16:42 Dose: 1 mg Documented by: Warfarin Sodium (Coumadin) 1 mg PO DAILY@1300 [facility] Last Admin: 04/21/20 12:17 Dose: 1 mg Documented by: Warfarin Sodium (Coumadin) 0.5 mg PO DAILY@1300 [facility] Last Admin: 04/26/20 12:24 Dose: 0.5 mg Documented by: Warfarin Sodium (Coumadin) 0.5 mg PO ONETIME ONE Stop: 04/26/20 15:01 Last Admin: 04/26/20 16:57 Dose: 0.5 mg Documented by:
== END 2020-04-27 13:46 | disposition home health service (06) | DRG 177 ==
LOC: JP.ED 13:34 → JP.MS 17:27 → OBSVTOIN 04-09 12:09 → JP.MS 04-11 10:48 → JP.2SS 04-17 12:18
PROVIDERS: ADMIT Internal Medicine; ATTEND Hospitalist
PROC: XW033E5 Introduction of Remdesivir Anti-infective into Peripheral Vein, Percutaneous Approach, New Technology Group 5 (ICD-10-PCS; principal; 2020-04-09)
PROC: XW13325 Transfusion of Convalescent Plasma (Nonautologous) into Peripheral Vein, Percutaneous Approach, New Technology Group 5 (ICD-10-PCS; 2020-04-11)
PROC: 5A0955A Assistance with Respiratory Ventilation, Greater than 96 Consecutive Hours, High Flow/Velocity Cannula (ICD-10-PCS; 2020-04-12)
DX: R55 Syncope and collapse (principal); U07.1 COVID-19; I95.9 Hypotension, unspecified; J96.01 Acute respiratory failure with hypoxia; J12.82 Pneumonia due to coronavirus disease 2019; I48.20 Chronic atrial fibrillation, unspecified; H54.7 Unspecified visual loss; I25.10 Atherosclerotic heart disease of native coronary artery without angina pectoris; I25.2 Old myocardial infarction; Z95.1 Presence of aortocoronary bypass graft; J12.89 Other viral pneumonia; E78.00 Pure hypercholesterolemia, unspecified; I10 Essential (primary) hypertension; D64.9 Anemia, unspecified; Z66 Do not resuscitate; E11.9 Type 2 diabetes mellitus without complications; Z85.3 Personal history of malignant neoplasm of breast; I73.9 Peripheral vascular disease, unspecified; Z88.8 Allergy status to other drugs, medicaments and biological substances; J45.909 Unspecified asthma, uncomplicated; Z79.51 Long term (current) use of inhaled steroids; Z86.73 Personal history of transient ischemic attack (TIA), and cerebral infarction without residual deficits; Z85.828 Personal history of other malignant neoplasm of skin; Z98.49 Cataract extraction status, unspecified eye; Z79.01 Long term (current) use of anticoagulants; Z79.899 Other long term (current) drug therapy; Z99.81 Dependence on supplemental oxygen
CPT/HCPCS: 36415 ×2; 71045 ×2; 80048; 80053; 81001; 84484; 85025; 85027; 85379; 85610 ×2; 86140; 93005; 93010; 94640 ×5; 94762; 99285 ×2; A9270 ×7; G0378 ×3; J7030; J8540; 36430; 71046; 71046-26; 82962; 86900; 86901; 94660; 97110-GP; 97162-GP; 97530-GP; 97535-GP; 99221-AI; 99231; 99232; 99238; J1815; J1940; J2060; J3430; J7050; P9017

== ENCOUNTER 2020-09-20 23:18 | Emergency (ER) | payer MEDICARE ==
[2020-09-20] MEDS ORDERED: Sodium Chloride 0.9% 500 ML IV ONE (23:23)
[2020-09-20] MEDS ORDERED: Sodium Chloride 0.9% 10 ML Syringe FLUSH PRN (23:23)
--- NOTE | 2020-09-20 23:36 | EDM.PDOC ---
ED HPI GENERAL MEDICAL PROBLEM - General Chief Complaint: Neuro Symptoms/Deficits Stated Complaint: CONFUSED AND UNSTEADY WALKING Time Seen by Provider: 09/20/20 23:23 Source of Information: Reports: Patient, Family (Daughter) History Limitations: Reports: Altered Mental Status - History of Present Illness INITIAL COMMENTS - FREE TEXT/NARRATIVE: Dang is an 85-year-old female presenting to the ED with her daughter for evaluation of increased confusion and headache. The patient was in her usual state of health when she went to bed last night but awoke today with some recept yung aphasia with some difficulty following conversation with her daughter. Daughter also states that she has had a confused response. The patient denies any fever or chills, she does have a headache but no vision changes, nausea, vomiting, or diarrhea. She denies any urinary symptoms including urgency, frequency, or burning with urination. She denies any shortness of breath or cough. She denies any chest pain. She denies any trauma or fall. She does have low back pain with sciatica which is chronic and ongoing. She denies any new numbness or tingling, localizing weakness, or gait and balance. She does have a history of significant bilateral carotid stenosis but due to a recent Covid infection has not been well enough to undergo endarterectomy repair of the carotid arteries. She is on gabapentin, Tylenol, and aspirin for pain control. She denies any new medications. Patient typically does not get headaches. Forehead Pain Score (Numeric/FACES): 2 - Related Data Allergies Allergy/AdvReac Type Severity Reaction Status Date / Time lisinopril AdvReac Cough Verified 04/08/20 13:45 Home Meds: Home Meds Acetaminophen [Tylenol Extra Strength] 2 tab PO TID PRN 12/02/14 [History] Calcium Carbonate/Vitamin D3 [Calcium 1,000 + D3 Caplet] 1 tab PO BID 12/02/14 [History] Glucosamine [Glucosamine Sulfate] 2 tab PO BID 12/02/14 [History] [place]-3 Fatty Acids [Fish Oil] 1 cap PO DAILY 12/02/14 [History] Rosuvastatin [Crestor] 20 mg PO DAILY 12/02/14 [History] Melatonin 1 tab PO BEDTIME PRN 11/11/18 [History] Albuterol Sulfate [Proair Hfa] 1 - 2 puff IH Q4H 04/08/20 [History] Budesonide/Formoterol [Symbicort 80-4.5 MCG] 1 puff INH BID 04/08/20 [History] Metoprolol Tartrate [Lopressor] 12.5 mg PO BID #30 tablet 04/27/20 [Rx] Furosemide 1 tab PO DAILY 09/21/20 [History] Gabapentin [Neurontin] 2 cap PO BID 09/21/20 [History] Metoprolol Tartrate [Lopressor] 1 tab PO DAILY 09/21/20 [History] Warfarin [Coumadin] 1 tab PO ASDIRECTED 09/21/20 [History] cephALEXin [Cephalexin] 250 mg PO BID #13 capsule 09/21/20 [Rx] tiZANidine [Zanaflex] 1 tab PO Q8H PRN 09/21/20 [History] Past Medical History HEENT History: Reports: Impaired Vision Cardiovascular History: Reports: Afib, Bypass, CAD, High Cholesterol, Hy pertension Respiratory History: Reports: Asthma QUILL SKINNER History: Reports: Neurological History: Reports: CVA Endocrine/Metabolic History: Reports: Diabetes, Type II Hematologic History: Reports: Anemia Oncologic (Cancer) History: Reports: Breast Dermatologic History: Reports: Other (See Below) Other Dermatologic History: skin CA basil cell - Infectious Disease History Infectious Disease History: Reports: Chicken Pox, Measles, Mumps - Past Surgical History HEENT Surgical History: Reports: Cataract Surgery Female Surgical History: Reports: Mastectomy Other Musculoskeletal Surgeries/Procedures:: right hip/ leg fracture Social & Family History - Caffeine Use Caffeine Use: Reports: None ED ROS GENERAL - Review of Systems Review Of Systems: See Below Constitutional: Reports: No Symptoms HEENT: Reports: No Symptoms Respiratory: Reports: No Symptoms Cardiovascular: Reports: No Symptoms Endocrine: Reports: No Symptoms GI/Abdominal: Reports: No Symptoms : Reports: No Symptoms Musculoskeletal: Reports: Back Pain (Chronic low back pain with left-sided sciatica) Skin: Reports: No Symptoms Neurological: Reports: Confusion, Headache Psychiatric: Reports: No Symptoms Hematologic/Lymphatic: Reports: No Symptoms Immunologic: Reports: No Symptoms ED EXAM, NEURO - Physical Exam Exam: See Below Exam Limited By: No Limitations General Appearance: Alert, No Apparent Distress Eye Exam: Bilateral Eye: EOMI, PERRL Nose: Normal Inspection Throat/Mouth: Normal Inspection, Normal Lips, Normal Oropharynx, Normal Voice, No Airway Compromise Head Exam: Atraumatic, Normocephalic Neck: Normal Inspection, Supple, Carotid Bruit (Bilateral) Respiratory/Chest: No Respiratory Distress, Lungs Clear, Normal Breath Sounds Cardiovascular: Normal Peripheral Pulses, Regular Rate, Rhythm, No Murmur GI/Abdominal: Normal Bowel Sounds, Soft, Non-Tender Neurological: Alert, Normal Mood/Affect, Normal Dorsiflexion, CN II-XII Intact, Normal Plantar Flexion, Normal Gait, Normal Reflexes, No Motor/Sensory Deficits, Oriented x 3 Back Exam: Normal Inspection Extremities: Normal Inspection, Normal Range of Motion Psychiatric: Normal Affect, Normal Mood Skin Exam: Warm, Dry, Intact #1 Interpretation EKG Date: 09/20/20 Time: 23:35 Rhythm: NSR (With occasional premature atrial contractions.) Rate (Beats/Min): 57 [place]: Normal P-Wave: Present QRS: Normal ST-T: Normal QT: Normal Comparison: NA - No Prior EKG Course - Vital Signs Last Recorded V/S: Last Vital Signs Temp 36.4 C 09/20/20 23:22 Pulse 55 L 09/21/20 00:01 Resp 17 09/21/20 00:10 BP 163/66 H 09/21/20 00:10 Pulse Ox 95 09/21/20 00:10 - Orders/Labs/Meds Orders: Active Orders 24 hr Category Date Time Status Assess Neurological Status [RC] CONTINUOUS Care 09/20/20 23:25 Active Blood Glucose Check, Bedside [RC] STAT Care 09/20/20 23:25 Active Cardiac Monitoring [RC] CONTINUOUS Care 09/20/20 23:25 Active Communication Order [RC] STAT Care 09/20/20 23:25 Active EKG Documentation Completion [RC] ASDIRECTED Care 09/20/20 23:25 Active Height and Weight [RC] UPON Care 09/20/20 23:25 Active NIH Stroke Scale [RC] Q15M Care 09/20/20 23:25 Active NIH Stroke Scale [RC] STAT Care 09/20/20 23:25 Active Nursing Bedside Swallow Screen [RC] STAT Care 09/20/20 23:25 Active Oxygen Therapy, ED [RC] ASDIRECTED Care 09/20/20 23:25 Active Peripheral IV Care [RC] . DIRECTED Care 09/20/20 23:25 Active Vital Signs [RC] Q15M Care 09/20/20 23:25 Active Sodium Chloride 0.9% [Saline Flush] Med 09/20/20 23:23 Active 10 ml FLUSH ASDIRECTED PRN Peripheral IV Insertion Adult [OM.PC] Stat Oth 09/20/20 23:25 Ordered Peripheral IV Insertion Adult [OM.PC] Stat Oth 09/20/20 23:25 Ordered Resuscitation Status Stat Resus Stat 09/20/20 23:23 Ordered EKG 12 Lead [EK] Stat Ther 09/20/20 23:25 Ordered Medication Orders Sodium Chloride (Sodium Chloride 0.9% 10 Ml Syringe) 10 ml FLUSH ASDIRECTED PRN PRN Reason: Keep Vein Open Last Admin: 09/21/20 00:09 Dose: 10 ml Documented by: LILIAN Labs: Laboratory Tests 09/20/20 09/20/20 09/20/20 Range/Units 23:25 23:34 23:34 WBC 6.7 (4.5-11.0) K/uL RBC 4.39 (3.30-5.50) M/uL Hgb 12.8 D (12.0-15.0) g/dL Hct 39.6 (36.0-48.0) % MCV 90 (80-98) fL MCH 29 (27-31) pg MCHC 32 (32-36) % Plt Count 200 (150-400) K/uL Neut % (Auto) 44.8 (36-66) % Lymph % (Auto) 42.2 (24-44) % [place] % (Auto) 9.6 H (2-6) % Eos % (Auto) 2.2 (2-4) % Baso % (Auto) 1.2 H (0-1) % PT 24.0 H (9.5-12.0) sec INR 2.24 H (0.80-1.20) APTT 29.4 (27.0-36.0) sec Sodium (140-148) mmol/L Potassium (3.6-5.2) mmol/L Chloride (100-108) mmol/L Carbon Dioxide (21-32) mmol/L Anion Gap (5.0-14.0) mmol/L BUN (7-18) mg/dL Creatinine (0.6-1.0) mg/dL Est Cr Clr Drug Dosing mL/min Estimated GFR (MDRD) (>60) Glucose (74-106) mg/dL Calcium (8.5-10.1) mg/dL Total Bilirubin (0.2-1.0) mg/dL AST (15-37) U/L ALT (12-78) U/L Alkaline Phosphatase (46-116) U/L Troponin I (0.000-0.056) ng/mL Total Protein (6.4-8.2) g/dL Albumin (3.4-5.0) g/dL Globulin (2.3-3.5) g/dL Albumin/Globulin Ratio (1.2-2.2) Urine Color Yellow (YELLOW) Urine Appearance Clear (CLEAR) Urine pH 5.5 (5.0-8.0) Ur Specific [place] 1.020 (1.008-1.030) Urine Protein Negative (NEGATIVE) mg/dL Urine Glucose (UA) Negative (NEGATIVE) mg/dL Urine Ketones Negative (NEGATIVE) mg/dL Urine Occult Blood Moderate H (NEGATIVE) Urine Nitrite Negative (NEGATIVE) Urine Bilirubin Negative (NEGATIVE) Urine Urobilinogen 0.2 (0.2-1.0) EU/dL Ur Leukocyte Esterase Trace H (NEGATIVE) Urine RBC 0-5 (0-5) Urine WBC 5-10 H (0-5) Ur Epithelial Cells Occasional Amorphous Sediment Occasional Urine Bacteria Occasional Urine Mucus Occasional Urine Other See note 09/20/20 Range/Units 23:34 WBC (4.5-11.0) K/uL RBC (3.30-5.50) M/uL Hgb (12.0-15.0) g/dL Hct (36.0-48.0) % MCV (80-98) fL MCH (27-31) pg MCHC (32-36) % Plt Count (150-400) K/uL Neut % (Auto) (36-66) % Lymph % (Auto) (24-44) % [place] % (Auto) (2-6) % Eos % (Auto) (2-4) % Baso % (Auto) (0-1) % PT (9.5-12.0) sec INR (0.80-1.20) APTT (27.0-36.0) sec Sodium 141 (140-148) mmol/L Potassium 3.6 (3.6-5.2) mmol/L Chloride 100 (100-108) mmol/L Carbon Dioxide 27 (21-32) mmol/L Anion Gap 13.7 (5.0-14.0) mmol/L BUN 22 H (7-18) mg/dL Creatinine 1.1 H D (0.6-1.0) mg/dL Est Cr Clr Drug Dosing 35.70 mL/min Estimated GFR (MDRD) 47 L (>60) Glucose 142 H (74-106) mg/dL Calcium 9.3 (8.5-10.1) mg/dL Total Bilirubin 0.7 (0.2-1.0) mg/dL AST 23 (15-37) U/L ALT 18 (12-78) U/L Alkaline Phosphatase 84 (46-116) U/L Troponin I < 0.017 (0.000-0.056) ng/mL Total Protein 7.4 (6.4-8.2) g/dL Albumin 4.0 (3.4-5.0) g/dL Globulin 3.4 (2.3-3.5) g/dL Albumin/Globulin Ratio 1.2 (1.2-2.2) Urine Color (YELLOW) Urine Appearance (CLEAR) Urine pH (5.0-8.0) Ur Specific [place] (1.008-1.030) Urine Protein (NEGATIVE) mg/dL Urine Glucose (UA) (NEGATIVE) mg/dL Urine Ketones (NEGATIVE) mg/dL Urine Occult Blood (NEGATIVE) Urine Nitrite (NEGATIVE) Urine Bilirubin (NEGATIVE) Urine Urobilinogen (0.2-1.0) EU/dL Ur Leukocyte Esterase (NEGATIVE) Urine RBC (0-5) Urine WBC (0-5) Ur Epithelial Cells Amorphous Sediment Urine Bacteria Urine Mucus Urine Other Meds: Medications Generic Name Dose Route Start Last Admin Trade Name Freq PRN Reason Stop Dose Admin Sodium Chloride 10 ml 09/20/20 23:23 09/21/20 00:09 Sodium Chloride 0.9% 10 Ml Syringe FLUSH 10 ml ASDIRECTED PRN Administration Keep Vein Open Discontinued Medications Generic Name Dose Route Start Last Admin Trade Name Freq PRN Reason Stop Dose Admin Acetaminophen 1,000 mg 09/21/20 00:54 09/21/20 01:02 Acetaminophen 500 Mg Tab PO 09/21/20 00:55 1,000 mg ONETIME ONE Administration Cephalexin 250 mg 09/21/20 01:05 Cephalexin 250 Mg Cap PO 09/21/20 01:06 ONETIME ONE Sodium Chloride 500 mls @ 500 mls/hr 09/20/20 23:23 09/20/20 23:55 Normal Saline IV 09/21/20 00:22 500 mls/hr BOLUS ONE Administration - Radiology Interpretation Free Text/Narrative:: I reviewed the CT of the head without contrast as well as the report from [facility], there is no evidence for acute intracranial hemorrhage, mass, or midline shift. There is chronic ischemic changes without evidence for acute stroke. - Re-Assessments/Exams Free Text/Narrative Re-Assessment/Exam: 09/21/20 00:20 I reviewed the patient's labs showing a leukocyte count of 6.7 with a hemoglobin of 12.8 and a hematocrit of 39.6. Platelet count is 200,000. The patient's comprehensive metabolic panel significant for a sodium 141, potassium 3.6, chloride of 100, bicarbonate of 27, BUN of 22 with a creatinine 1.1 and a glucose of 142. Her transaminases are normal. Her troponin is less than 0.017. Her INR is 2.24 with a PTT of 29.4. Her EKG was reviewed showing normal sinus rhythm at a rate of 57 bpm. There are occasional premature atrial contractions. There is normal axis and P waves. She has normal QRS morphology. She has no evidence of ST elevation or depression. There was no previous EKG to compare. CT of the brain without contrast failed to demonstrate any acute intracranial abnormalities including hemorrhage, mass, or midline shift. She does have chronic ischemic changes in the periventricular white matter consistent with small vessel disease. Does not appear that this is an acute stroke. We are awaiting a urinalysis to assess for other causes of her confusion. 09/21/20 01:02 urinalysis is positive for trace leukocyte esterase and 5-10 WBCs with 0-5 RBCs. This is consistent with a urinary tract infection and may be the cause for her confusion. The headache is probably unrelated to her symptoms. She was given a gram of Tylenol p.o. for the headache. We will start her on cephalexin 250 mg 2 times a day for 7 days for the UTI. At this time, the patient is suitable for discharge home in satisfactory condition. Indic ations return to the ED were discussed. Departure - Departure Time of Disposition: 01:04 Disposition: Home, Self-Care 01 Clinical Impression: Episodic confusion Urinary tract infection Qualifiers: Urinary tract infection type: acute cystitis Hematuria presence: without hematuria Qualified Code(s): N30.00 - Acute cystitis without hematuria - Discharge Information Prescriptions: cephALEXin [Cephalexin] 250 mg PO BID #13 capsule Instructions: Confusion, Urinary Tract Infection, Adult, [id number] Referrals: PCP,None [Primary Care Provider] - Forms: ED Department Discharge Care Plan Goals: Your work-up today did not show any evidence for an acute stroke. Your headache is likely unrelated to the confusion but we were able to find that you had a urinary tract infection and we will start you on antibiotics to treat this. This is likely the cause for your confusion. I encourage you to drink plenty of fluids as you are mildly dehydrated today. You may continue to take Tylenol for your headache. Return if any other concerns. Sepsis Event Note (ED) - Evaluation Sepsis Screening Result: No Definite Risk - Focused Exam Vital Signs: Vital Signs Temp Pulse Pulse Resp BP Pulse Ox 09/21/20 00:10 17 163/66 H 95 09/21/20 00:01 55 L 18 161/66 H 96 09/20/20 23:25 57 L 18 163/73 H 97 09/20/20 23:22 36.4 C 65 56 L 20 163/73 H 96 - Problem List & Annotations (1) Episodic confusion SNOMED Code(s): 595260750 Code(s): R41.0 - DISORIENTATION, UNSPECIFIED Status: Acute Priority: High Current Visit: Yes (2) Urinary tract infection SNOMED Code(s): 01177786 Code(s): N39.0 - URINARY TRACT INFECTION, SITE NOT SPECIFIED Status: Acute Priority: High Current Visit: Yes Qualifiers: Urinary tract infection type: acute cystitis Hematuria presence: without hematuria Qualified Code(s): N30.00 - Acute cystitis without hematuria - Problem List Review Problem List Initiated/Reviewed/Updated: Yes - My Orders Last 24 Hours: My Active Orders 09/20/20 23:23 Sodium Chloride 0.9% [Saline Flush] 10 ml FLUSH ASDIRECTED PRN Resuscitation Status Stat 09/20/20 23:25 Assess Neurological Status [RC] CONTINUOUS Blood Glucose Check, Bedside [RC] STAT Cardiac Monitoring [RC] CONTINUOUS Communication Order [RC] STAT EKG Documentation Completion [RC] ASDIRECTED Height and Weight [RC] UPON NIH Stroke Scale [RC] Q15M NIH Stroke Scale [RC] STAT Nursing Bedside Swallow Screen [RC] STAT Oxygen Therapy, ED [RC] ASDIRECTED Peripheral IV Care [RC] . DIRECTED Vital Signs [RC] Q15M Peripheral IV Insertion Adult [OM.PC] Stat Peripheral IV Insertion Adult [OM.PC] Stat EKG 12 Lead [EK] Stat - Assessment/Plan Last 24 Hours: My Active Orders 09/20/20 23:23 Sodium Chloride 0.9% [Saline Flush] 10 ml FLUSH ASDIRECTED PRN Resuscitation Status Stat 09/20/20 23:25 Assess Neurological Status [RC] CONTINUOUS Blood Glucose Check, Bedside [RC] STAT Cardiac Monitoring [RC] CONTINUOUS Communication Order [RC] STAT EKG Documentation Completion [RC] ASDIRECTED Height and Weight [RC] UPON NIH Stroke Scale [RC] Q15M NIH Stroke Scale [RC] STAT Nursing Bedside Swallow Screen [RC] STAT Oxygen Therapy, ED [RC] ASDIRECTED Peripheral IV Care [RC] . DIRECTED Vital Signs [RC] Q15M Peripheral IV Insertion Adult [OM.PC] Stat Peripheral IV Insertion Adult [OM.PC] Stat EKG 12 Lead [EK] Stat
--- NOTE | 2020-09-21 00:03 | CRLCT ---
For Patients: As a result of the Century Cures Act, medical imaging exams and procedure reports are released immediately into your electronic medical record. You may view this report before your referring provider. If you have questions, please contact your health care provider. Indication: Headache, confusion, history of CVA Technique: Nonenhanced axial CT imaging through the head. Sagittal and coronal reconstructions are provided. Comparison: CT head without contrast 09/30/2012 Findings: There is no intracranial hemorrhage, edema, or mass effect. A small focus of encephalomalacia is noted in the left parietal lobe. There is otherwise normal huff-white matter differentiation. Minimal patchy cerebral white matter hypoattenuation most likely reflect mild chronic microvascular ischemic change. There is normal size of ventricles. The basal cisterns are patent. The calvarium is intact. The visualized paranasal sinuses and mastoid air cells are aerated. Impression: 1. No intracranial hemorrhage or evidence of cytotoxic edema. 2. Chronic ischemic changes, as above Please note that all CT scans at this facility use dose modulation, iterative reconstruction, and/or weight-based dosing when appropriate to reduce radiation dose to as low as reasonably achievable. Dictated by Jacki Marte MD @ 09/21/2020 12:01:[address] Jacki Marte @ Sep 21 2020 12:01AM
[2020-09-21 00:18] VITALS: PULSE 55
[2020-09-21 00:20] VITALS: BP 163/66
[2020-09-21] MEDS ORDERED: Acetaminophen 500 MG Tab PO ONE (00:54)
[2020-09-21] MEDS ORDERED: Cephalexin 250 MG Cap PO ONE (01:05)
== END 2020-09-21 01:31 | disposition home or self-care (01) ==
LOC: JP.ED 23:18
DX: R41.0 Disorientation, unspecified (principal); N30.00 Acute cystitis without hematuria; I48.91 Unspecified atrial fibrillation; I25.10 Atherosclerotic heart disease of native coronary artery without angina pectoris; E78.00 Pure hypercholesterolemia, unspecified; I10 Essential (primary) hypertension; J45.909 Unspecified asthma, uncomplicated; E11.9 Type 2 diabetes mellitus without complications; Z86.73 Personal history of transient ischemic attack (TIA), and cerebral infarction without residual deficits; Z88.8 Allergy status to other drugs, medicaments and biological substances; Z95.1 Presence of aortocoronary bypass graft
CPT/HCPCS: 36415; 70450; 80053; 81001; 84484; 85025; 85610; 85730; 93005; 99284; 99285; A9270; J7040

== ENCOUNTER 2020-10-02 13:53 | Emergency (ER) | payer MEDICARE ==
[2020-10-02 14:36] VITALS: BP 174/58; PULSE 67
--- NOTE | 2020-10-02 15:31 | EDM.PDOC ---
ED HPI GENERAL MEDICAL PROBLEM - General Chief Complaint: Neuro Symptoms/Deficits Stated Complaint: DROOPY FACE Time Seen by Provider: 10/02/20 14:47 Source of Information: Reports: Patient, Family, RN Notes Reviewed History Limitations: Reports: No Limitations - History of Present Illness INITIAL COMMENTS - FREE TEXT/NARRATIVE: 85-year-old female presents emergency department today with complaint of left- sided facial droop. She states this happened about 130 when she initially presented to the clinic for a follow-up visit of urinary tract infection. Upon observation by nursing staff recommended that she report to the emergency department for further evaluation. 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 is currently taking warfarin Frontal Headache Pain Score (Numeric/FACES): 5 - Related Data Allergies Allergy/AdvReac Type Severity Reaction Status Date / Time lisinopril AdvReac Cough Verified 10/02/20 14:43 Home Meds: Home Meds Acetaminophen [Tylenol Extra Strength] 2 tab PO TID PRN 12/02/14 [History] Calcium Carbonate/Vitamin D3 [Calcium 1,000 + D3 Caplet] 1 tab PO BID 12/02/14 [History] Glucosamine [Glucosamine Sulfate] 2 tab PO BID 12/02/14 [History] [place]-3 Fatty Acids [Fish Oil] 1 cap PO DAILY 12/02/14 [History] Rosuvastatin [Crestor] 20 mg PO DAILY 12/02/14 [History] Melatonin 1 tab PO BEDTIME PRN 11/11/18 [History] Albuterol Sulfate [Proair Hfa] 1 - 2 puff IH Q4H 04/08/20 [History] Budesonide/Formoterol [Symbicort 80-4.5 MCG] 2 puff INH BID 04/08/20 [History] Metoprolol Tartrate [Lopressor] 12.5 mg PO BID #30 tablet 04/27/20 [Rx] Gabapentin [Neurontin] 2 cap PO BID 09/21/20 [History] Metoprolol Tartrate [Lopressor] 1 tab PO DAILY 09/21/20 [History] Warfarin [Coumadin] 1 tab PO ASDIRECTED 09/21/20 [History] Past Medical History HEENT History: Reports: Hard of Hearing, Impaired Vision Other HEENT History: bilateral hearing aid Cardiovascular History: Reports: Afib, Bypass, CAD, High Cholesterol, Hypertension Respiratory History: Reports: Asthma 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: Musculoskeletal History: Reports: Fracture Neurological History: Reports: CVA Endocrine/Metabolic History: Reports: Diabetes, Type II Hematologic History: Reports: Anemia Oncologic (Cancer) History: Reports: Breast Dermatologic History: Reports: Other (See Below) Other Dermatologic History: skin CA basil cell - Infectious Disease History Infectious Disease History: Reports: Chicken Pox, Measles, Mumps - Past Surgical History HEENT Surgical History: Reports: Cataract Surgery Female Surgical History: Reports: Mastectomy Other Musculoskeletal Surgeries/Procedures:: right hip/ leg fracture Social & Family History - Tobacco Use Tobacco Use Status *Q: Never Tobacco User Second Hand Smoke Exposure: No - Caffeine Use Caffeine Use: Reports: Coffee - Alcohol Use Days Per Week of Alcohol Use: 0 - Recreational Drug Use Recreational Drug Use: No ED ROS GENERAL - Review of Systems Review Of Systems: See Below Constitutional: Reports: No Symptoms HEENT: Reports: No Symptoms Respiratory: Reports: No Symptoms Cardiovascular: Reports: No Symptoms GI/Abdominal: Reports: No Symptoms : Reports: No Symptoms Neurological: Reports: Trouble Speaking, Other (Facial droop) ED EXAM, NEURO - Physical Exam Exam: See Below Exam Limited By: No Limitations General Appearance: Alert, WD/WN, No Apparent Distress Respiratory/Chest: No Respiratory Distress, Lungs Clear, Normal Breath Sounds, No Accessory Muscle Use, Chest Non-Tender Cardiovascular: Regular Rate, Rhythm, No Murmur Neurological: Alert, Normal Mood/Affect, Normal Dorsiflexion, CN II-XII Intact, No Motor/Sensory Deficits, Oriented x 3 #1 Interpretation EKG Date: 10/02/20 Time: 16:55 Rhythm: NSR [place]: Normal P-Wave: Present QRS: Normal ST-T: Normal QT: Normal Comparison: No Change Course - Vital Signs Last Recorded V/S: Last Vital Signs Temp 97.3 F 10/02/20 14:57 Pulse 67 10/02/20 14:57 Resp 16 10/02/20 14:57 BP 174/58 H 10/02/20 14:57 Pulse Ox 95 10/02/20 14:57 - Orders/Labs/Meds Orders: Active Orders 24 hr Category Date Time Status EKG Documentation Completion [RC] ASDIRECTED Care 10/02/20 15:25 Active EKG 12 Lead [EK] Stat Ther 10/02/20 15:24 Ordered Labs: Laboratory Tests 10/02/20 10/02/20 10/02/20 Range/Units 15:45 15:45 15:45 WBC (4.5-11.0) K/uL RBC (3.30-5.50) M/uL Hgb (12.0-15.0) g/dL Hct (36.0-48.0) % MCV (80-98) fL MCH (27-31) pg MCHC (32-36) % Plt Count (150-400) K/uL Neut % (Auto) (36-66) % Lymph % (Auto) (24-44) % [place] % (Auto) (2-6) % Eos % (Auto) (2-4) % Baso % (Auto) (0-1) % PT (9.5-12.0) sec INR (0.80-1.20) Sodium 142 (140-148) mmol/L Potassium 3.0 L (3.6-5.2) mmol/L Chloride 100 (100-108) mmol/L Carbon Dioxide 32 (21-32) mmol/L Anion Gap 13.0 (5.0-14.0) mmol/L BUN 17 (7-18) mg/dL Creatinine 1.0 (0.6-1.0) mg/dL Est Cr Clr Drug Dosing 36.34 mL/min Estimated GFR (MDRD) 53 L (>60) Glucose 167 H (74-106) mg/dL Lactic Acid 1.1 (0.4-2.0) mmol/L Calcium 9.1 (8.5-10.1) mg/dL Total Bilirubin 0.5 (0.2-1.0) mg/dL AST 22 (15-37) U/L ALT 17 (12-78) U/L Alkaline Phosphatase 86 (46-116) U/L Troponin I < 0.017 (0.000-0.056) ng/mL Total Protein 7.3 (6.4-8.2) g/dL Albumin 3.8 (3.4-5.0) g/dL Globulin 3.5 (2.3-3.5) g/dL Albumin/Globulin Ratio 1.1 L (1.2-2.2) 10/02/ Range/Units 15:45 WBC (4.5-11.0) K/uL RBC (3.30-5.50) M/uL Hgb (12.0-15.0) g/dL Hct (36.0-48.0) % MCV (80-98) fL MCH (27-31) pg MCHC (32-36) % Plt Count (150-400) K/uL Neut % (Auto) (36-66) % Lymph % (Auto) (24-44) % [place] % (Auto) (2-6) % Eos % (Auto) (2-4) % Baso % (Auto) (0-1) % PT 21.3 H (9.5-12.0) sec INR 1.98 H (0.80-1.20) Sodium (140-148) mmol/L Potassium (3.6-5.2) mmol/L Chloride (100-108) mmol/L Carbon Dioxide (21-32) mmol/L Anion Gap (5.0-14.0) mmol/L BUN (7-18) mg/dL Creatinine (0.6-1.0) mg/dL Est Cr Clr Drug Dosing mL/min Estimated GFR (MDRD) (>60) Glucose (74-106) mg/dL Lactic Acid (0.4-2.0) mmol/L Calcium (8.5-10.1) mg/dL Total Bilirubin (0.2-1.0) mg/dL AST (15-37) U/L ALT (12-78) U/L Alkaline Phosphatase (46-116) U/L Troponin I (0.000-0.056) ng/mL Total Protein (6.4-8.2) g/dL Albumin (3.4-5.0) g/dL Globulin (2.3-3.5) g/dL Albumin/Globulin Ratio (1.2-2.2) Departure - Departure Time of Disposition: 17:45 Disposition: Home, Self-Care 01 Condition: Fair Clinical Impression: TIA (transient ischemic attack) - Discharge Information Instructions: Transient Ischemic Attack, [id number] Referrals: Harley Barcenas MD [Primary Care Provider] - Forms: ED Department Discharge Additional Instructions: Please follow-up with your primary care in the next 2 to 3 days for reevaluation and discuss options for further treatment call return to the emergency department worsening of symptoms Sepsis Event Note (ED) - Evaluation Sepsis Screening Result: No Definite Risk - Focused Exam Vital Signs: Vital Signs Temp Pulse Resp BP Pulse Ox 10/02/20 14:57 97.3 F 67 16 174/58 H 95 10/02/20 14:35 97.3 F 67 16 174/58 H 95 - My Orders Last 24 Hours: My Active Orders 10/02/20 15:24 EKG 12 Lead [EK] Stat 10/02/20 15:25 EKG Documentation Completion [RC] ASDIRECTED - Assessment/Plan Last 24 Hours: My Active Orders 10/02/20 15:24 EKG 12 Lead [EK] Stat 10/02/20 15:25 EKG Documentation Completion [RC] ASDIRECTED Plan: Assessment Acuity = acute Site and laterality = probable transient ischemic attack complicated patient with known history of CVA and anticoagulated slightly subtherapeutic Etiology = unknown Manifestations = none complete resolution of symptoms Location of injury = Home Lab values = CBC unremarkable CMP unremarkable INR subtherapeutic 1.98 CT scan shows no acute process Plan I did review lab work CT scan results with the family He was provided with CT she has known history of carotid artery disease with 85% blockage on the left however this was elected not to be repaired as the risk of CVA was too great recommend increasing the INR range from 2.5-3.5 as I suspect she has had difficulty staying between the 2 and 3 range. I have her discussed this with her primary care This note was dictated using [employer] voice recognition software please call with any questions on syntax or grammar.
--- NOTE | 2020-10-02 17:13 | CRLCT ---
For Patients: As a result of the Century Cures Act, medical imaging exams and procedure reports are released immediately into your electronic medical record. You may view this report before your referring provider. If you have questions, please contact your health care provider. INDICATION: Left facial droop. COMPARISON: CT head 09/20/2020. TECHNIQUE: CT of the head without IV contrast. Coronal and sagittal reconstructions are provided. FINDINGS: No intracranial hemorrhage, mass effect, or evidence of acute infarct. No midline shift. No abnormal extra-axial fluid collections. Mild generalized cerebral and cerebellar volume loss. Normal caliber ventricular system. Mild chronic small vessel ischemic disease. Stable focus of encephalomalacia in the left parietal lobe. Old tiny lacunar infarcts in the basal ganglia bilaterally. The visualized orbits and extraocular muscles are symmetric. The paranasal sinuses and mastoid air cells are clear. Hyperostosis frontalis internus. Stable prominent posterior occipital arachnoid granulation. No acute fracture. Soft tissues are unremarkable. IMPRESSION: : No acute intracranial findings. Please note that all CT scans at this facility use dose modulation, iterative reconstruction, and/or weight-based dosing when appropriate to reduce radiation dose to as low as reasonably achievable. Dictated by Olive Card MD @ 10/02/2020 5:11:[address] Olive Card @ Oct 02 2020 5:11PM
== END 2020-10-02 18:12 | disposition home or self-care (01) ==
LOC: JP.ED 13:53
DX: G45.9 Transient cerebral ischemic attack, unspecified (principal); I48.91 Unspecified atrial fibrillation; E78.00 Pure hypercholesterolemia, unspecified; I10 Essential (primary) hypertension; J45.909 Unspecified asthma, uncomplicated; I25.10 Atherosclerotic heart disease of native coronary artery without angina pectoris; E11.9 Type 2 diabetes mellitus without complications; Z79.01 Long term (current) use of anticoagulants; Z86.73 Personal history of transient ischemic attack (TIA), and cerebral infarction without residual deficits; Z88.8 Allergy status to other drugs, medicaments and biological substances; Z95.5 Presence of coronary angioplasty implant and graft; Z79.899 Other long term (current) drug therapy
CPT/HCPCS: 36415; 70450; 80053; 83605; 84484; 85025; 85610; 93005; 93010; 99284; 99284-25

== ENCOUNTER 2020-11-19 15:40 | Emergency (ER) | payer MEDICARE ==
--- NOTE | 2020-11-19 16:37 | EDM.PDOC ---
ED HPI GENERAL MEDICAL PROBLEM - General Chief Complaint: Flank Pain Stated Complaint: LT SIDE PAIN THAT GOES DOWN LEG Time Seen by Provider: 11/19/20 16:35 Source of Information: Reports: Patient, Family History Limitations: Reports: No Limitations - History of Present Illness INITIAL COMMENTS - FREE TEXT/NARRATIVE: PT ARRIVED WITH LEFT FLANK AND LEFT SIDED ABDOMANAL PAIN. Pt appears to have more back pain. She has had this for alot of weeks. Onset: Gradual Duration: Day(s):, Other (PT IS BEING TREATED FOR A uti. ) Location: Reports: Abdomen, Back - Related Data Allergies Allergy/AdvReac Type Severity Reaction Status Date / Time lisinopril AdvReac Mild Cough Verified 11/19/20 16:37 Home Meds: Home Meds Acetaminophen [Tylenol Extra Strength] 2 tab PO TID PRN 12/02/14 [History] Calcium Carbonate/Vitamin D3 [Calcium 1,000 + D3 Caplet] 1 tab PO BID 12/02/14 [History] Glucosamine [Glucosamine Sulfate] 2 tab PO BID 12/02/14 [History] [facility]-3 Fatty Acids [Fish Oil] 1 cap PO DAILY 12/02/14 [History] Rosuvastatin [Crestor] 20 mg PO DAILY 12/02/14 [History] Melatonin 1 tab PO BEDTIME PRN 11/11/18 [History] Albuterol Sulfate [Proair Hfa] 1 - 2 puff IH Q4H PRN 04/08/20 [History] Budesonide/Formoterol [Symbicort 80-4.5 MCG] 2 puff INH BID 04/08/20 [History] Gabapentin [Neurontin] 2 cap PO BID 09/21/20 [History] Metoprolol Tartrate [Lopressor] 1 tab PO DAILY 09/21/20 [History] Warfarin [Coumadin] 1 tab PO ASDIRECTED 09/21/20 [History] traMADol [Ultram] 50 mg PO Q6H PRN #24 tab 11/21/20 [Rx] Past Medical History HEENT History: Reports: Hard of Hearing, Impaired Vision Other HEENT History: bilateral hearing aid Cardiovascular History: Reports: Afib, Bypass, CAD, High Cholesterol, Hypertension Respiratory History: Reports: Asthma TOTER History: Reports: Musculoskeletal History: Reports: Fracture Neurological History: Reports: CVA Endocrine/Metabolic History: Reports: Diabetes, Type II Hematologic History: Reports: Anemia Oncologic (Cancer) History: Reports: Breast Dermatologic History: Reports: Other (See Below) Other Dermatologic History: skin CA basil cell - Infectious Disease History Infectious Disease History: Reports: Chicken Pox, Measles, Mumps - Past Surgical History HEENT Surgical History: Reports: Cataract Surgery Female Surgical History: Reports: Mastectomy Other Musculoskeletal Surgeries/Procedures:: right hip/ leg fracture Social & Family History - Caffeine Use Caffeine Use: Reports: Coffee ED ROS GENERAL - Review of Systems Review Of Systems: See Below Constitutional: Reports: No Symptoms HEENT: Reports: No Symptoms Respiratory: Reports: Other (hurts to take a deep brweath on the left. ) Cardiovascular: Reports: No Symptoms Endocrine: Reports: No Symptoms GI/Abdominal: Reports: Other (pain came around to her abdoman. ) : Reports: No Symptoms Musculoskeletal: Reports: Other (pt has alot of tenderness in the left cva area. ) Skin: Reports: No Symptoms Neurological: Reports: No Symptoms Psychiatric: Reports: No Symptoms ED EXAM, GI/ABD - Physical Exam Exam: See Below Text/Narrative:: pt arrived with pain in the left cva area. She has had 3 utis close together. Exam Limited By: No Limitations General Appearance: Alert, Anxious, Moderate Distress, Other ( tender over the left cva area. ) Ears: Normal TMs Nose: Normal Inspection Throat/Mouth: Normal Inspection Head: Atraumatic Neck: Normal Inspection Respiratory/Chest: No Respiratory Distress Cardiovascular: Regular Rate, Rhythm GI/Abdominal Exam: Soft, Non-Tender, Other ( abdoman has no tenderness. She has had normal bms. ) (Female) Exam: Deferred Rectal (Female) Exam: Deferred Back Exam: CVA Tenderness (L), Other ( tender over the left ileum) Extremities: Normal Inspection Neurological: Alert, Oriented, Normal Cognition Psychiatric: Anxious Course - Vital Signs Last Recorded V/S: Last Vital Signs Temp 36.3 C 11/19/20 16:38 Pulse 63 11/19/20 16:38 Resp 16 11/19/20 16:38 BP 146/70 H 11/19/20 16:38 Pulse Ox 98 11/19/20 16:38 - Orders/Labs/Meds Labs: Laboratory Tests 11/19/20 11/19/20 11/19/20 Range/Units 16:43 16:57 16:57 WBC 6.9 (4.5-11.0) K/uL RBC 4.61 (3.30-5.50) M/uL Hgb 13.9 (12.0-15.0) g/dL Hct 41.8 (36.0-48.0) % MCV 91 (80-98) fL MCH 30 (27-31) pg MCHC 33 (32-36) % Plt Count 203 (150-400) K/uL Neut % (Auto) 54.0 (36-66) % Lymph % (Auto) 32.5 (24-44) % [place] % (Auto) 10.5 H (2-6) % Eos % (Auto) 2.3 (2-4) % Baso % (Auto) 0.7 (0-1) % Sodium 140 (140-148) mmol/L Potassium 3.7 (3.6-5.2) mmol/L Chloride 99 L (100-108) mmol/L Carbon Dioxide 29 (21-32) mmol/L Anion Gap 15.7 H (5.0-14.0) mmol/L BUN 18 (7-18) mg/dL Creatinine 1.1 H (0.6-1.0) mg/dL Est Cr Clr Drug Dosing 33.03 mL/min Estimated GFR (MDRD) 47 L (>60) Glucose 156 H (74-106) mg/dL Calcium 9.1 (8.5-10.1) mg/dL Total Bilirubin 0.4 (0.2-1.0) mg/dL AST 16 (15-37) U/L ALT 18 (12-78) U/L Alkaline Phosphatase 111 (46-116) U/L C-Reactive Protein < 0.05 (0.0-0.3) mg/dL Total Protein 7.5 (6.4-8.2) g/dL Albumin 3.9 (3.4-5.0) g/dL Globulin 3.6 H (2.3-3.5) g/dL Albumin/Globulin Ratio 1.1 L (1.2-2.2) Urine Color Yellow (YELLOW) Urine Appearance Clear (CLEAR) Urine pH 6.5 (5.0-8.0) Ur Specific [place] 1.015 (1.008-1.030) Urine Protein Negative (NEGATIVE) mg/dL Urine Glucose (UA) Negative (NEGATIVE) mg/dL Urine Ketones Negative (NEGATIVE) mg/dL Urine Occult Blood Moderate H (NEGATIVE) Urine Nitrite Negative (NEGATIVE) Urine Bilirubin Negative (NEGATIVE) Urine Urobilinogen 0.2 (0.2-1.0) EU/dL Ur Leukocyte Esterase Moderate H (NEGATIVE) Urine RBC 0-5 (0-5) Urine WBC 0-5 (0-5) Ur Epithelial Cells Occasional Amorphous Sediment Occasional Urine Bacteria Occasional Urine Mucus Not seen Meds: Medications Discontinued Medications Generic Name Dose Route Start Last Admin Trade Name Freq PRN Reason Stop Dose Admin Hydrocodone Bitart/Acetaminophen 1 tab 11/19/20 18:13 11/19/20 18:17 Acetaminophen/Hydrocodone 325-5 Mg Tab PO 11/19/20 18:14 1 tab ONETIME ONE Administration Ketorolac Tromethamine 30 mg 11/19/20 18:12 11/19/20 18:19 Ketorolac 30 Mg/Ml Sdv IM 11/19/20 18:13 30 mg ONETIME ONE Administration - Re-Assessments/Exams Free Text/Narrative Re-Assessment/Exam: 11/19/20 18:14 pt had a cat scan of the lumbar spine on November 15. She has very severe disc disease. Her urine looks clear. She will finish her antibiotics. Departure - Departure Time of Disposition: 18:15 Disposition: Home, Self-Care 01 Condition: Fair Clinical Impression: Lumbar disc disease - Discharge Information Instructions: Flank Pain, Adult, [id number] Referrals: Harley Barcenas MD [Primary Care Provider] - Forms: ED Department Discharge Care Plan Goals: finish antibiotics, referal to olinda Humphrey 5/325 q6h prn for pain # 10. Dr Savage to look at her cat scan of the lumbar spine
[2020-11-19 16:43] VITALS: BP 146/70; PULSE 63
[2020-11-19] MEDS ORDERED: Ketorolac 30 MG/ML SDV IM ONE (18:12)
[2020-11-19] MEDS ORDERED: Acetaminophen/HYDROcodone 325-5 MG Tab PO ONE (18:13)
== END 2020-11-19 18:35 | disposition home or self-care (01) ==
LOC: JP.ED 15:40
DX: M51.86 Other intervertebral disc disorders, lumbar region (principal); I48.91 Unspecified atrial fibrillation; I25.10 Atherosclerotic heart disease of native coronary artery without angina pectoris; I10 Essential (primary) hypertension; E78.00 Pure hypercholesterolemia, unspecified; E11.9 Type 2 diabetes mellitus without complications; Z95.1 Presence of aortocoronary bypass graft; Z88.8 Allergy status to other drugs, medicaments and biological substances; Z79.01 Long term (current) use of anticoagulants; Z79.899 Other long term (current) drug therapy
CPT/HCPCS: 36415; 80053; 81001; 85025; 86140; 96372; 99284; A9270; J1885

== ENCOUNTER 2022-11-26 09:15 | Inpatient (IN) | payer MEDICARE ==
[2022-11-26] MEDS ORDERED: fentaNYL 100 MCG/2 ML SDV IM ONE (11:44)
[2022-11-26] MEDS ORDERED: HYDROmorphone 1 MG/ML Syringe IVPUSH ONE (12:51)
[2022-11-26 14:42] LABS: BASOPHILS ABSOLUTE AUTO 0.03 K/uL (0.00-0.10); BASOPHILS PERCENT AUTO 0.3 % (0.1-1.3); HEMATOCRIT 39.1 % (34.3-46.0); HEMOGLOBIN 12.9 g/dL (11.2-15.5); IMMATURE GRAN ABSOLUTE AUTO 0.05 K/uL (0.00-0.23); IMMATURE GRAN PERCENT AUTO 0.5 % (0.0-0.7); LYMPHOCYTES ABSOLUTE AUTO 1.45 K/uL (0.8-3.3); LYMPHOCYTES PERCENT AUTO 13.4 % (11.4-47.7); MEAN CORPUSCULAR HEMOGLOBIN 30.3 pg (31.6-35.5); MEAN CORPUSCULAR VOLUME 91.8 fL (81.4-99.0); MONOCYTES ABSOLUTE AUTO 0.82 K/uL (0.20-0.90); MONOCYTES PERCENT AUTO 7.6 % (3.3-12.6); NEUTROPHILS PERCENT AUTO 78.2 % (40.0-78.1); PLATELET COUNT,PLT 173 K/uL (130-375); RED BLOOD CELL COUNT 4.26 M/uL (3.77-5.24); WHITE BLOOD CELL COUNT,WBC 10.9 K/uL (3.2-11.0)
[2022-11-26 14:59] LABS: ANION GAP 10.8 mmol/L (5.0-14.0); CALCIUM 9.2 mg/dL (8.5-10.1); CREATININE 0.9 mg/dL (0.6-1.0); EST CRCL DRUG DOSING (CG) 40.45 mL/min; POTASSIUM,K 3.8 mmol/L (3.6-5.2)
[2022-11-26] MEDS ORDERED: HYDROmorphone 1 MG/ML Syringe IVPUSH PRN (16:19)
[2022-11-26] MEDS: Ondansetron 4 MG/2 ML SDV IV PRN (16:30)
[2022-11-26] MEDS: Insulin Lispro 100 Unit/ML 3 ML KwikPen SUBCUT SCH ×2 (17:38→22:12)
[2022-11-26] MEDS: Sennosides/Docusate Sodium 50-8.6 MG Tab PO PRN (17:43)
[2022-11-26] MEDS: oxyCODONE 5 MG Tab PO PRN ×2 (17:43→22:16)
[2022-11-26] MEDS ORDERED: Non-Formulary Medication 1 Each (Rosuvastatin [Crestor] 20 MG Tablet) PO SCH (21:00)
[2022-11-26] MEDS: Acetaminophen 500 MG Tab PO SCH (22:10)
[2022-11-26] MEDS: Melatonin 3 MG Tab PO SCH (22:11)
[2022-11-27] MEDS: Insulin Lispro 100 Unit/ML 3 ML KwikPen SUBCUT SCH ×4 (08:03→21:38)
[2022-11-27] MEDS: oxyCODONE 5 MG Tab PO PRN ×4 (08:03→21:39)
[2022-11-27] MEDS: Acetaminophen 500 MG Tab PO SCH ×3 (08:04→21:40)
[2022-11-27] MEDS: Sennosides/Docusate Sodium 50-8.6 MG Tab PO PRN ×2 (08:04→21:39)
[2022-11-27] MEDS: Metoprolol Tartrate 25 MG Tab PO SCH (08:04)
[2022-11-27] MEDS: HYDROmorphone 0.5 MG/0.5 ML Syringe IVPUSH PRN (09:40)
[2022-11-27] MEDS: Melatonin 3 MG Tab PO SCH (21:39)
[2022-11-27] MEDS: Rosuvastatin 10 MG Tab PO SCH (21:40)
[2022-11-28] MEDS: oxyCODONE 5 MG Tab PO PRN ×4 (01:49→19:39)
[2022-11-28 05:46] LABS: HEMATOCRIT 35.5 % (34.3-46.0); HEMOGLOBIN 11.8 g/dL (11.2-15.5); MEAN CORPUSCULAR HEMOGLOBIN 30.8 pg (31.6-35.5); MEAN CORPUSCULAR HGB CONC 33.2 g/dL (31.6-35.5); MEAN CORPUSCULAR VOLUME 92.7 fL (81.4-99.0); RED BLOOD CELL COUNT 3.83 M/uL (3.77-5.24); WHITE BLOOD CELL COUNT,WBC 7.9 K/uL (3.2-11.0)
[2022-11-28 06:08] LABS: CALCIUM 8.5 mg/dL (8.5-10.1); CREATININE 0.9 mg/dL (0.6-1.0); EST CRCL DRUG DOSING (CG) 40.67 mL/min; POTASSIUM,K 3.7 mmol/L (3.6-5.2)
[2022-11-28 06:27] LABS: ANION GAP 9.7 mmol/L (5.0-14.0)
[2022-11-28] MEDS: Acetaminophen 500 MG Tab PO SCH ×3 (08:17→21:04)
[2022-11-28] MEDS: Metoprolol Tartrate 25 MG Tab PO SCH (08:17)
[2022-11-28] MEDS: Insulin Lispro 100 Unit/ML 3 ML KwikPen SUBCUT SCH ×4 (08:20→21:05)
[2022-11-28] MEDS: Sennosides/Docusate Sodium 50-8.6 MG Tab PO SCH ×2 (10:37→21:05)
[2022-11-28] MEDS: Melatonin 3 MG Tab PO SCH (21:04)
[2022-11-28] MEDS: Rosuvastatin 10 MG Tab PO SCH (21:05)
[2022-11-29] MEDS: oxyCODONE 5 MG Tab PO PRN ×3 (00:04→21:13)
[2022-11-29 04:43] LABS: BASOPHILS ABSOLUTE AUTO 0.04 K/uL (0.00-0.10); BASOPHILS PERCENT AUTO 0.5 % (0.1-1.3); EOSINOPHILS ABSOLUTE AUTO 0.07 K/uL (0.00-0.40); EOSINOPHILS PERCENT AUTO 0.9 % (0.0-5.4); HEMATOCRIT 36.2 % (34.3-46.0); HEMOGLOBIN 12.1 g/dL (11.2-15.5); IMMATURE GRAN ABSOLUTE AUTO 0.03 K/uL (0.00-0.23); IMMATURE GRAN PERCENT AUTO 0.4 % (0.0-0.7); LYMPHOCYTES ABSOLUTE AUTO 2.13 K/uL (0.8-3.3); LYMPHOCYTES PERCENT AUTO 27.1 % (11.4-47.7); MEAN CORPUSCULAR HEMOGLOBIN 30.8 pg (31.6-35.5); MEAN CORPUSCULAR HGB CONC 33.4 g/dL (31.6-35.5); MEAN CORPUSCULAR VOLUME 92.1 fL (81.4-99.0); MONOCYTES PERCENT AUTO 10.2 % (3.3-12.6); NEUTROPHILS ABSOLUTE AUTO 4.79 K/uL (1.0-7.6); NEUTROPHILS PERCENT AUTO 60.9 % (40.0-78.1); PLATELET COUNT,PLT 152 K/uL (130-375); RED BLOOD CELL COUNT 3.93 M/uL (3.77-5.24); WHITE BLOOD CELL COUNT,WBC 7.9 K/uL (3.2-11.0)
[2022-11-29] MEDS ORDERED: ceFAZolin 2 GM in Premix Bag 1 BAG IV ONE ×2 (07:00→08:00)
[2022-11-29] MEDS ORDERED: Bupivacaine 0.5% 30 ML SDV ONE (07:03)
[2022-11-29] MEDS: Lactated Ringers 1,000 ML IV SCH ×2 (07:17→21:18)
[2022-11-29] MEDS ORDERED: Nozin Nasal Sanitizer NASBOTH ONE (08:00)
[2022-11-29] MEDS: Insulin Lispro 100 Unit/ML 3 ML KwikPen SUBCUT SCH ×4 (08:03→22:23)
[2022-11-29] MEDS ORDERED: Midazolam 1 MG/ML 2 ML SDV ONE (08:34)
[2022-11-29] MEDS ORDERED: Propofol 200 MG/20 ML SDV ONE ×2 (08:34→10:19)
[2022-11-29] MEDS ORDERED: fentaNYL 100 MCG/2 ML SDV ONE (08:34)
[2022-11-29] MEDS ORDERED: ceFAZolin 1 GM in Premix Bag 1 BAG IV ONE (09:00)
[2022-11-29] MEDS ORDERED: Sodium Chloride 0.9% 10 ML ONE (09:39)
[2022-11-29] MEDS ORDERED: Phenylephrine 1% 10 MG/ML SDV ONE (09:39)
[2022-11-29] MEDS ORDERED: Lactated Ringers 1,000 ML ONE (10:23)
[2022-11-29] MEDS ORDERED: ePHEDrine 50 MG/ML SDV ONE (10:28)
[2022-11-29] MEDS: Sennosides/Docusate Sodium 50-8.6 MG Tab PO SCH ×2 (11:56→20:50)
[2022-11-29] MEDS: Metoprolol Tartrate 25 MG Tab PO SCH (11:56)
[2022-11-29] MEDS: Acetaminophen 500 MG Tab PO SCH (12:11)
[2022-11-29] MEDS: Acetaminophen 325 MG Tab PO SCH ×2 (12:12→18:33)
[2022-11-29] MEDS: ceFAZolin 1 GM in Premix Bag 1 BAG IV SCH ×2 (16:20→22:23)
[2022-11-29] MEDS: HYDROmorphone 0.5 MG/0.5 ML Syringe IVPUSH PRN (16:23)
[2022-11-29] MEDS: Nozin Nasal Sanitizer NASBOTH SCH (20:49)
[2022-11-29] MEDS: Melatonin 3 MG Tab PO SCH (20:49)
[2022-11-29] MEDS: Rosuvastatin 10 MG Tab PO SCH (20:49)
[2022-11-30] MEDS: Acetaminophen 325 MG Tab PO SCH ×5 (01:00→17:08)
[2022-11-30 04:41] LABS: HEMATOCRIT 32.8 % (34.3-46.0); MEAN CORPUSCULAR HEMOGLOBIN 30.6 pg (31.6-35.5); MEAN CORPUSCULAR HGB CONC 33.5 g/dL (31.6-35.5); MEAN CORPUSCULAR VOLUME 91.4 fL (81.4-99.0); RED BLOOD CELL COUNT 3.59 M/uL (3.77-5.24); WHITE BLOOD CELL COUNT,WBC 9.5 K/uL (3.2-11.0)
[2022-11-30 05:00] LABS: CALCIUM 8.6 mg/dL (8.5-10.1); CREATININE 0.7 mg/dL (0.6-1.0); EST CRCL DRUG DOSING (CG) 52.29 mL/min; POTASSIUM,K 4.2 mmol/L (3.6-5.2)
[2022-11-30] MEDS: oxyCODONE 5 MG Tab PO PRN ×3 (05:09→20:14)
[2022-11-30 05:10] LABS: ANION GAP 9.2 mmol/L (5.0-14.0)
[2022-11-30] MEDS: Metoprolol Tartrate 25 MG Tab PO SCH ×3 (05:26→20:15)
[2022-11-30] MEDS: Insulin Lispro 100 Unit/ML 3 ML KwikPen SUBCUT SCH ×5 (09:00→21:29)
[2022-11-30] MEDS: Nozin Nasal Sanitizer NASBOTH SCH ×3 (09:30→20:16)
[2022-11-30] MEDS: Sennosides/Docusate Sodium 50-8.6 MG Tab PO SCH ×3 (09:30→20:16)
[2022-11-30] MEDS: Magnesium Hydroxide 400 MG/5 ML Susp 30 ML Cup PO PRN ×2 (09:30→20:14)
[2022-11-30] MEDS: Rosuvastatin 10 MG Tab PO SCH (20:14)
[2022-11-30] MEDS: Melatonin 3 MG Tab PO SCH (20:15)
[2022-11-30] MEDS: Apixaban 5 MG Tab PO SCH (20:15)
[2022-12-01] MEDS: Acetaminophen 325 MG Tab PO SCH ×5 (00:04→23:23)
[2022-12-01 04:27] LABS: HEMOGLOBIN 10.5 g/dL (11.2-15.5); MEAN CORPUSCULAR HEMOGLOBIN 31.1 pg (31.6-35.5); MEAN CORPUSCULAR HGB CONC 33.9 g/dL (31.6-35.5); MEAN CORPUSCULAR VOLUME 91.7 fL (81.4-99.0); RED BLOOD CELL COUNT 3.38 M/uL (3.77-5.24); WHITE BLOOD CELL COUNT,WBC 8.9 K/uL (3.2-11.0)
[2022-12-01] MEDS: Insulin Lispro 100 Unit/ML 3 ML KwikPen SUBCUT SCH ×4 (07:51→21:03)
[2022-12-01] MEDS: Magnesium Hydroxide 400 MG/5 ML Susp 30 ML Cup PO PRN (08:46)
[2022-12-01] MEDS: Metoprolol Tartrate 25 MG Tab PO SCH ×2 (08:46→21:01)
[2022-12-01] MEDS: Nozin Nasal Sanitizer NASBOTH SCH ×2 (08:46→21:03)
[2022-12-01] MEDS: oxyCODONE 5 MG Tab PO PRN ×3 (08:47→21:11)
[2022-12-01] MEDS: Sennosides/Docusate Sodium 50-8.6 MG Tab PO SCH ×2 (08:47→21:03)
[2022-12-01] MEDS: Apixaban 5 MG Tab PO SCH ×2 (08:47→21:01)
[2022-12-01] MEDS ORDERED: Bisacodyl 5 MG Tab PO ONE (11:15)
[2022-12-01] MEDS: Rosuvastatin 10 MG Tab PO SCH (21:01)
[2022-12-01] MEDS: Melatonin 3 MG Tab PO SCH (21:02)
[2022-12-02] MEDS: Ondansetron 4 MG/2 ML SDV IV PRN (05:26)
[2022-12-02] MEDS: Acetaminophen 325 MG Tab PO SCH ×4 (05:29→23:19)
[2022-12-02] MEDS: Insulin Lispro 100 Unit/ML 3 ML KwikPen SUBCUT SCH ×4 (07:39→21:04)
[2022-12-02 07:41] LABS: HEMOGLOBIN A1C 8.1 % (4.5-6.2)
[2022-12-02] MEDS: oxyCODONE 5 MG Tab PO PRN ×2 (07:42→20:40)
[2022-12-02] MEDS: Sennosides/Docusate Sodium 50-8.6 MG Tab PO SCH ×2 (08:08→20:16)
[2022-12-02] MEDS: Nozin Nasal Sanitizer NASBOTH SCH ×2 (08:08→20:15)
[2022-12-02] MEDS: Metoprolol Tartrate 25 MG Tab PO SCH ×2 (08:08→20:16)
[2022-12-02] MEDS: Apixaban 5 MG Tab PO SCH ×2 (08:08→20:15)
[2022-12-02] MEDS: Ondansetron 4 MG Tab.DIS PO PRN ×2 (13:41→20:15)
[2022-12-02] MEDS: metFORMIN 500 MG Tab PO SCH (16:49)
[2022-12-02] MEDS: Magnesium Hydroxide 400 MG/5 ML Susp 30 ML Cup PO PRN (17:40)
[2022-12-02] MEDS ORDERED: Bisacodyl 10 MG Supp RECTAL PRN (18:37)
[2022-12-02] MEDS: Melatonin 3 MG Tab PO SCH (20:15)
[2022-12-02] MEDS: Rosuvastatin 10 MG Tab PO SCH (20:15)
[2022-12-03 05:38] VITALS: BP 125/59
[2022-12-03] MEDS: Acetaminophen 325 MG Tab PO SCH ×2 (05:38→11:38)
[2022-12-03] MEDS: metFORMIN 500 MG Tab PO SCH (07:44)
[2022-12-03] MEDS: Insulin Lispro 100 Unit/ML 3 ML KwikPen SUBCUT SCH ×2 (07:44→11:39)
[2022-12-03] MEDS: Ondansetron 4 MG Tab.DIS PO PRN (07:44)
[2022-12-03] MEDS: Sennosides/Docusate Sodium 50-8.6 MG Tab PO SCH (08:30)
[2022-12-03] MEDS: Nozin Nasal Sanitizer NASBOTH SCH (08:30)
[2022-12-03] MEDS: Metoprolol Tartrate 25 MG Tab PO SCH (08:30)
[2022-12-03] MEDS: Apixaban 5 MG Tab PO SCH (08:30)
[2022-12-03 08:32] VITALS: PULSE 86
[2022-12-03] MEDS: oxyCODONE 5 MG Tab PO PRN (09:29)
== END 2022-12-03 11:55 | DRG 522 ==
LOC: JP.ED 09:15 → JP.MS 16:06
PROVIDERS: ADMIT Internal Medicine; ATTEND Hospitalist
PROC: 0SRS0JA Replacement of Left Hip Joint, Femoral Surface with Synthetic Substitute, Uncemented, Open Approach (ICD-10-PCS; principal; 2022-11-29)
DX: S72.002A Fracture of unspecified part of neck of left femur, initial encounter for closed fracture (principal); I48.20 Chronic atrial fibrillation, unspecified; I48.91 Unspecified atrial fibrillation; E11.9 Type 2 diabetes mellitus without complications; S50.312A Abrasion of left elbow, initial encounter; S80.219A Abrasion, unspecified knee, initial encounter; I10 Essential (primary) hypertension; E78.00 Pure hypercholesterolemia, unspecified; E11.65 Type 2 diabetes mellitus with hyperglycemia; I25.10 Atherosclerotic heart disease of native coronary artery without angina pectoris; I89.0 Lymphedema, not elsewhere classified; Z88.8 Allergy status to other drugs, medicaments and biological substances; Z79.84 Long term (current) use of oral hypoglycemic drugs; Z79.01 Long term (current) use of anticoagulants; Z95.1 Presence of aortocoronary bypass graft; Z86.73 Personal history of transient ischemic attack (TIA), and cerebral infarction without residual deficits; Z85.828 Personal history of other malignant neoplasm of skin; Z98.49 Cataract extraction status, unspecified eye; Z97.4 Presence of external hearing-aid; Z87.440 Personal history of urinary (tract) infections; Z79.899 Other long term (current) drug therapy; Z85.3 Personal history of malignant neoplasm of breast; Z90.12 Acquired absence of left breast and nipple; Z99.81 Dependence on supplemental oxygen; Z20.822 Contact with and (suspected) exposure to COVID-19; W10.9XXA Fall (on) (from) unspecified stairs and steps, initial encounter; Y92.009 Unspecified place in unspecified non-institutional (private) residence as the place of occurrence of the external cause
CPT/HCPCS: 36415; 73501; 80048; 85025; 96372; 96374; 99284; 99285; J1170; J3010; U0002; 72170; 72170-26; 76000; 82947; 83036; 85018; 85027; 86850; 86900; 86901; 97110-GP; 97116-GP; 97161-GP; 97165-GO; 97530-GP; 97535-GO; 99222; 99232; 99238; A9270-GY; C1776; J0690; J1815; J2250; J2370; J2405; J2704; J3490; J7120; Q0162

== ENCOUNTER 2023-01-27 11:55 | Emergency (ER) | payer MEDICARE ==
[2023-01-27 12:14] LABS: BASOPHILS ABSOLUTE AUTO 0.05 K/uL (0.00-0.10); BASOPHILS PERCENT AUTO 0.7 % (0.1-1.3); EOSINOPHILS PERCENT AUTO 1.4 % (0.0-5.4); HEMATOCRIT 41.7 % (34.3-46.0); HEMOGLOBIN 13.1 g/dL (11.2-15.5); IMMATURE GRAN PERCENT AUTO 0.3 % (0.0-0.7); LYMPHOCYTES ABSOLUTE AUTO 2.63 K/uL (0.8-3.3); LYMPHOCYTES PERCENT AUTO 37.6 % (11.4-47.7); MEAN CORPUSCULAR HEMOGLOBIN 28.8 pg (31.6-35.5); MEAN CORPUSCULAR HGB CONC 31.4 g/dL (31.6-35.5); MEAN CORPUSCULAR VOLUME 91.6 fL (81.4-99.0); MONOCYTES ABSOLUTE AUTO 0.58 K/uL (0.20-0.90); MONOCYTES PERCENT AUTO 8.3 % (3.3-12.6); NEUTROPHILS ABSOLUTE AUTO 3.62 K/uL (1.0-7.6); NEUTROPHILS PERCENT AUTO 51.7 % (40.0-78.1); PLATELET COUNT,PLT 203 K/uL (130-375); RED BLOOD CELL COUNT 4.55 M/uL (3.77-5.24)
[2023-01-27 12:17] VITALS: BP 180/67; PULSE 72
[2023-01-27 12:18] LABS: IMMATURE GRAN ABSOLUTE AUTO 0.02 K/uL (0.00-0.23)
[2023-01-27 12:35] LABS: ANION GAP 12.6 mmol/L (5.0-14.0); CALCIUM 9.3 mg/dL (8.5-10.1); CREATININE 0.9 mg/dL (0.6-1.0); EST CRCL DRUG DOSING (CG) 37.31 mL/min; POTASSIUM,K 4.6 mmol/L (3.6-5.2)
== END 2023-01-27 14:20 | disposition home or self-care (01) ==
LOC: JP.ED 11:55
DX: S09.90XA Unspecified injury of head, initial encounter (principal); I48.91 Unspecified atrial fibrillation; I10 Essential (primary) hypertension; J45.909 Unspecified asthma, uncomplicated; E11.9 Type 2 diabetes mellitus without complications; Z79.899 Other long term (current) drug therapy; W22.8XXA Striking against or struck by other objects, initial encounter
CPT/HCPCS: 36415; 70450; 70450-26; 72125; 72125-26; 76377; 80048; 85025; 99284

== ENCOUNTER 2023-09-24 10:02 | Emergency (ER) | payer MEDICARE ==
[2023-09-24 10:29] LABS: BASOPHILS ABSOLUTE AUTO 0.07 K/uL (0.00-0.10); BASOPHILS PERCENT AUTO 0.9 % (0.1-1.3); EOSINOPHILS ABSOLUTE AUTO 0.19 K/uL (0.00-0.40); EOSINOPHILS PERCENT AUTO 2.5 % (0.0-5.4); HEMATOCRIT 42.7 % (34.3-46.0); HEMOGLOBIN 14.4 g/dL (11.2-15.5); IMMATURE GRAN PERCENT AUTO 0.3 % (0.0-0.7); LYMPHOCYTES ABSOLUTE AUTO 2.55 K/uL (0.8-3.3); MEAN CORPUSCULAR HEMOGLOBIN 30.8 pg (31.6-35.5); MEAN CORPUSCULAR HGB CONC 33.7 g/dL (31.6-35.5); MEAN CORPUSCULAR VOLUME 91.4 fL (81.4-99.0); MONOCYTES ABSOLUTE AUTO 0.74 K/uL (0.20-0.90); MONOCYTES PERCENT AUTO 9.9 % (3.3-12.6); NEUTROPHILS ABSOLUTE AUTO 3.94 K/uL (1.0-7.6); NEUTROPHILS PERCENT AUTO 52.4 % (40.0-78.1); PLATELET COUNT,PLT 223 K/uL (130-375); RED BLOOD CELL COUNT 4.67 M/uL (3.77-5.24); WHITE BLOOD CELL COUNT,WBC 7.5 K/uL (3.2-11.0)
[2023-09-24 10:32] LABS: IMMATURE GRAN ABSOLUTE AUTO 0.02 K/uL (0.00-0.23)
[2023-09-24 10:45] LABS: APPEARANCE,URINE SLIGHTLY CLOUDY (CLEAR); BILIRUBIN,URINE NEGATIVE (NEGATIVE); COLOR,URINE YELLOW (YELLOW); GLUCOSE,URINE NEGATIVE (NEGATIVE); KETONES,URINE NEGATIVE (NEGATIVE); LEUKOCYTE ESTERASE,URINE TRACE (NEGATIVE); NITRITE,URINE NEGATIVE (NEGATIVE); OCCULT BLOOD,URINE TRACE-INTACT (NEGATIVE); PH,URINE 6.5 (5.0-8.0); PROTEIN,URINE NEGATIVE (NEGATIVE); UROBILINOGEN,URINE 0.2 EU/dL (0.2-1.0)
[2023-09-24 10:50] LABS: A/G RATIO 0.9 (1.2-2.2); ALANINE AMINOTRANSFERASE,ALT 17 U/L (12-78); ALBUMIN 4.2 g/dL (3.4-5.0); ALKALINE PHOSPHATASE 110 U/L (46-116); ASPARTATE AMNIOTRANSFERASE,AST 23 U/L (15-37); BILIRUBIN TOTAL 0.6 mg/dL (0.2-1.0); BLOOD UREA NITROGEN,BUN 11 mg/dL (7-18); CALCIUM 9.7 mg/dL (8.5-10.1); CARBON DIOXIDE,CO2 29 mmol/L (21-32); CHLORIDE,CL 100 mmol/L (100-108); CREATININE 0.8 mg/dL (0.6-1.0); ESTIMATED GFR 70 mL/min (>60); GLUCOSE RANDOM 129 mg/dL (74-106); POTASSIUM,K 3.7 mmol/L (3.6-5.2); PROTEIN TOTAL,TP 8.7 g/dL (6.4-8.2); SODIUM,NA 139 mmol/L (140-148)
[2023-09-24 10:52] LABS: AMORPHOUS SEDIMENT,URINE RARE; BACTERIA,URINE RARE; EPITHELIAL CELLS,URINE RARE; MUCUS,URINE NOT SEEN; RBC,URINE 0-5 (0-5); WBC,URINE 0-5 (0-5)
[2023-09-24 10:52] LABS: ANION GAP 13.7 mmol/L (5.0-14.0)
[2023-09-24] MEDS: Sodium Chloride 0.9% 100 ML IV ONE (11:39)
[2023-09-24] MEDS: Iopamidol 755 Mg/ML 100 ML Bottle IV SCH (11:40)
[2023-09-24] MEDS: Sodium Chloride 0.9% 10 ML Syringe FLUSH PRN (11:40)
[2023-09-24] MEDS ORDERED: Sodium Chloride 0.9% 1,000 ML IV SCH (12:00)
[2023-09-24 17:55] VITALS: BP 169/63; PULSE 61
== END 2023-09-24 17:45 ==
LOC: JP.ED 10:02
DX: R41.0 Disorientation, unspecified (principal); R42 Dizziness and giddiness; I25.10 Atherosclerotic heart disease of native coronary artery without angina pectoris; I48.91 Unspecified atrial fibrillation; E78.00 Pure hypercholesterolemia, unspecified; I10 Essential (primary) hypertension; E11.9 Type 2 diabetes mellitus without complications; Z86.73 Personal history of transient ischemic attack (TIA), and cerebral infarction without residual deficits; Z86.16 Personal history of COVID-19; Z79.01 Long term (current) use of anticoagulants; Z79.84 Long term (current) use of oral hypoglycemic drugs; Z79.899 Other long term (current) drug therapy; Z88.8 Allergy status to other drugs, medicaments and biological substances
CPT/HCPCS: 36415; 70450; 70496; 70498; 80053; 81001; 85025; 93005; 93010; 99285; J3490; Q9967

== ENCOUNTER 2024-02-05 10:26 | Emergency (ER) | payer MEDICARE ==
[2024-02-05] MEDS: Ondansetron 4 MG Tab.DIS PO ONE (11:25)
[2024-02-05] MEDS: traMADol 50 MG Tab PO ONE (11:25)
[2024-02-05] MEDS: Cyclobenzaprine 10 MG Tab PO ONE (12:55)
[2024-02-05 12:58] VITALS: BP 156/54; PULSE 67
== END 2024-02-05 14:15 | disposition home or self-care (01) ==
LOC: JP.ED 10:26
DX: S22.060A Wedge compression fracture of T7-T8 vertebra, initial encounter for closed fracture (principal); S40.029A Contusion of unspecified upper arm, initial encounter; I25.10 Atherosclerotic heart disease of native coronary artery without angina pectoris; I10 Essential (primary) hypertension; E78.00 Pure hypercholesterolemia, unspecified; J45.909 Unspecified asthma, uncomplicated; Z86.73 Personal history of transient ischemic attack (TIA), and cerebral infarction without residual deficits; E11.9 Type 2 diabetes mellitus without complications; Z86.16 Personal history of COVID-19; Z79.84 Long term (current) use of oral hypoglycemic drugs; Z79.899 Other long term (current) drug therapy; Z88.8 Allergy status to other drugs, medicaments and biological substances; W19.XXXA Unspecified fall, initial encounter
CPT/HCPCS: 71250; 73030-LT; 99283; 99284; A9270-GY; Q0162

== ENCOUNTER 2024-05-01 14:31 | Emergency (ER) | payer MEDICARE ==
[2024-05-01 15:13] VITALS: BP 160/64; PULSE 62
== END 2024-05-01 18:22 | disposition left against medical advice (07) ==
LOC: JP.ED 14:31
DX: Z53.21 Procedure and treatment not carried out due to patient leaving prior to being seen by health care provider (principal)